=== PATIENT | female | born 1990 | race Caucasian/White ===

== ENCOUNTER 2016-06-10 07:22 | Emergency (ER) | payer OTHER ==
[~2016-06-10] VITALS: Ht 177.8 cm; Wt 107.0 kg
[2016-06-10] VITALS (8 sets, daily range): BP systolic 100–134; BP diastolic 53–82; PULSE 62–88; RESP 14–26; TEMP 98.1; O2SAT 90–100
[~2016-06-10 07:22] MED LIST: DOXY100T PO
--- NOTE | 2016-06-10 07:58 | PD ---
HPI . Pelvic pain Chief Complaint: Abdominal Pain Time Seen by Provider: 07:54 Travel History International Travel<30 days: No Contact w/Intl Traveler<30days: No Traveled to known affect area: No History of Present Illness HPI Patient presents with the acute onset of pelvic pain which started last night. It is worse this morning. She states that she had a vaginal discharge prior to the onset of the pelvic pain. She reports associated nausea and no vomiting. She also reports scant vaginal bleeding. She has had no fever. Urination increases the pelvic pain. Last normal menstrual period was in February. [id number]: Pelvic QUALITY: Cramping SEVERITY: Severe DURATION: 12 hours TIMING: Gradually worsening ASSOCIATED SYMPTOMS: Vaginal discharge prior to the onset of symptoms. Amenorrhea 3 months. PFSH Past Medical History Asthma: No Autoimmune Disease: Yes (Lupus) Heart Rhythm Problems: No Cancer: No High Cholesterol: No Chest Pain: No Congestive Heart Failure: No COPD: No Cerebrovascular Accident: No Endocrine: No Genitourinary: No Headaches: No Immune Disorder: Yes (LUPUS (July 2013)) Musculoskeletal: No Psychiatric: No Reproductive: No Respiratory: No Immunizations Current: No Migraines: No Seizures: Yes (once as a young child, another one 4-5yrs ago) Sleep Apnea: Yes (doesn't use CPAP) : 1 Para: 1 Past Surgical History Section: Yes Cholecystectomy: Yes Pacemaker: No Other Surgery: Yes (RT ARM STENT) Social History Alcohol Use: Yes (occ) Tobacco Use: No Substance Use: No Allergies-Medications (Allergen,Severity, Reaction): Coded Allergies: No Known Allergies (Unverified , 06/10/16) Reported Meds & Prescriptions Reported Meds & Active Scripts Active Ultram (Tramadol HCl) 50 Mg Tab 50 Mg PO Q4H PRN Ibuprofen 800 Mg Tab 800 Mg PO Q8H PRN Reported Prednisone 20 Mg Tab 20 Mg PO DAILY Mycophenolate (Mycophenolate Mofetil) 250 Mg Cap 750 Mg PO BID Review of Systems Except as stated in HPI: all other systems reviewed are Neg General / Constitutional: No: Fever, Chills Gastrointestinal: Positive: Nausea, Abdominal Pain, No: Vomiting Genitourinary: Positive: Pelvic Pain, Discharge, No: Urgency, Frequency, Dysuria Physical Exam Narrative GENERAL: Tearful young lady SKIN: Warm and dry. HEAD: Atraumatic. Normocephalic. EYES: Pupils equal and round. ENT: No nasal bleeding or discharge. Mucous membranes pink and moist. NECK: Trachea midline. CARDIOVASCULAR: Regular rate and rhythm. Heart sounds are normal. RESPIRATORY: No accessory muscle use. Lungs are clear. GASTROINTESTINAL: Abdomen soft. Suprapubic tenderness. Nondistended. : She has what appears to be tissue in the vaginal vault. It is brown and slimy. MUSCULOSKELETAL: No obvious deformities. No edema. NEUROLOGICAL: Awake and alert. No obvious cranial nerve deficits. Motor grossly within normal limits. Normal speech. PSYCHIATRIC: Appropriate mood and affect; insight and judgment normal. Data Data Last Documented VS Vital Signs Date Time Temp Pulse Resp B/P Pulse Ox O2 Delivery O2 Flow Rate FiO2 06/10/16 13:18 71 16 100/53 100 Nasal Cannula 2 06/10/16 07:29 98.1 Orders Gc And Chlamydia Pcr (06/10/16 07:54) Wet Prep Profile (06/10/16 07:54) Ua Includes Microscopic (06/10/16 07:54) Ed Urine Pregnancytest Poc (06/10/16 07:54) Beta Hcg (Quant/Titer) (06/10/16 08:24) Complete Rh (06/10/16 08:24) Iv Access Insert/Monitor (06/10/16 08:24) Ondansetron Inj (Zofran Inj) (06/10/16 08:30) Hydromorphone Pf Inj (Dilaudid Pf Inj) (06/10/16 08:30) Ondansetron Inj (Zofran Inj) (06/10/16 09:00) Hydromorphone Pf Inj (Dilaudid Pf Inj) (06/10/16 09:00) Acetaminophen (Tylenol) (06/10/16 10:15) Us Pelvis (Ques Preg/Ectopic) (06/10/16 ) Pathology Req For Addl Service (06/10/16 11:18) Ketorolac Inj (Toradol Inj) (06/10/16 12:00) Morphine Inj (Morphine Inj) (06/10/16 12:00) Lorazepam Inj (Ativan Inj) (06/10/16 12:00) Sodium Chlor 0.9% 1000 Ml Inj (Ns 1000 M (06/10/16 12:45) Labs Laboratory Tests Test 06/10/16 06/10/16 06/10/16 08:10 08:25 08:40 Urine Color YELLOW Urine Turbidity CLEAR Urine pH 8.5 Urine Specific [place] 1.019 Urine Protein 300 OR GREATER mg/dL Urine Glucose (UA) NEG mg/dL Urine Ketones NEG mg/dL Urine Occult Blood MOD Urine Nitrite NEG Urine Bilirubin NEG Urine Leukocyte Esterase NEG Urine RBC 4-9 /hpf Urine WBC 0-2 /hpf Urine Squamous Epithelial 0-5 /hpf Cells Urine Bacteria OCC /hpf Urine Mucus OCC /lpf Clue Cells (Wet Prep) NONE SEEN Vaginal Trichomonas (Wet Prep) NONE SEEN Vaginal Yeast (Wet Prep) NONE SEEN Chlamydia trachomatis DNA NOT DETECTED (PCR) Neisseria gonorrhoeae DNA NOT DETECTED (PCR) Human Chorionic Gonadotropin, 2397 MIU/ML Quant Blood Type O POSITIVE Rho(D) Type POSITIVE MDM Medical Decision Making Medical Screen Exam Complete: Yes Emergency Medical Condition: Yes Differential Diagnosis Differential diagnosis of pelvic pain includes but is not limited to UTI, PID, ectopic , spontaneous AB, constipation, viral illness Narrative Course Patient presents for the evaluation of acute pelvic pain. Her POC hCG was strongly positive. Blood type is O+ UA is not infected Quantitative hCG is 2400 Wet prep is negative 11:15 AM I was called to the room to see the patient as she felt like something was "passing." The patient was found to be delivering a nonviable fetus that appears 16-20 weeks in size. The patient was observed for a period of time following this. She is hemodynamically stable. Pain is controlled. Procedures Procedure Narrative DELIVERY OF NONVIABLE FETUS: The delivery of the nonviable fetus was assisted. The fetus, umbilical cord and placenta have all completely passed. Diagnosis Primary Impression: Spontaneous Referrals: Christopher Barcenas MD 2 days Patient Instructions: General Instructions, Miscarriage (DC), Narcotic given in the ED Med/Other Pt SpecificInfo: Prescription(s) given Scripts Tramadol (Ultram)50 Mg Tab50 Mg PO Q4H PRN (PAIN) #12 TAB Ref 0 Prov:Zuly Zamudio MD 06/10/16 Ibuprofen 800 Mg Ges861 Mg PO Q8H PRN (pain) #30 TAB Ref 0 Prov:Zuly Zamudio MD 06/10/16 Disposition: 01 DISCHARGE HOME Condition: Stable Zuly Zamudio MD Jun 10, 2016 07:58
[2016-06-10] MEDS ORDERED: PRED20 PO (08:01)
[2016-06-10] MEDS ORDERED: MYCO250C PO (08:01)
[2016-06-10] MEDS ORDERED: ONDANSETRON HCL 4 MG/2 ML VIAL IM ONE (08:30)
[2016-06-10] MEDS ORDERED: HYDROmorphone HCL PF 2 MG/ML VIAL IM ONE (08:30)
[2016-06-10 08:31] LABS: GLUCOSE,URINE NEG (NEG); KETONE, URINE NEG (NEG); NITRITE,URINE NEG (NEG); PH, URINE 8.5 (5.0-8.5)
[2016-06-10 08:32] LABS: BLOOD, URINE MOD (NEG)
[2016-06-10 08:41] LABS: URINE COLOR YELLOW (YELLW/STRAW)
[2016-06-10 08:42] LABS: BACTERIA, URINE OCC /hpf; MUCUS URINE OCC /lpf (OCC); SQUAMOUS EPITHELIAL CELL URINE 0-5 /hpf (0-5); WBC, URINE 0-2 /hpf (0-5)
[2016-06-10] MEDS ORDERED: ONDANSETRON HCL 4 MG/2 ML VIAL IV PUSH ONE (09:00)
[2016-06-10] MEDS ORDERED: HYDROmorphone HCL PF 2 MG/ML VIAL IV PUSH ONE (09:00)
[2016-06-10 09:55] LABS: BETA HCG QUANT 2397 MIU/ML (0-5)
[2016-06-10] MEDS ORDERED: ACETAMINOPHEN 325 MG TAB PO ONE (10:15)
--- NOTE | 2016-06-10 11:58 | RADHPO ---
EXAM DATE/TIME: 06/10/2016 10:18 [facility] COMPARISON: No previous studies available for comparison. INDICATIONS : Vaginal bleeding. LAB(S): Beta-hC,397 MEDICAL HISTORY : . Lupus. Seizures. Sleep apnea. PTSD. Clotting problems. SURGICAL HISTORY : section. Cholecystectomy. Right arm stent. ENCOUNTER: Initial ACUITY: 1 day PAIN SCORE: 4/10 LOCATION: Right pelvis MEASUREMENTS: UTERUS: 15.5 x 8.5 x 9.3 cm ENDOMETRIAL STRIPE: 13 mm RIGHT OVARY: 2.0 x 1.7 x 1.8 cm LEFT OVARY: 2.8 x 1.3 x 2.3 cm FINDINGS: UTERUS: The uterus is enlarged. The endometrium is mildly thickened. There is a 3.1 x 1.3 x 2.1 cm complex cy stic area in the lower uterine segment. No hypervascularity is seen within the endometrial cavity. Th e gestational sac is not seen. RIGHT OVARY: Ovary contains no mass or significant cystic lesion. LEFT OVARY: Ovary contains no mass or significant cystic lesion. MISCELLANEOUS: No free fluid. CONCLUSION: No intrauterine gestation is seen. There is some complex fluid seen in the lower endometrial canal. T his is nonspecific. Followup is recommended. Toi Cotton MD on June 10, 2016 at 11:48 Board Certified Radiologist. This report was verified electronically.
[2016-06-10] MEDS ORDERED: KETOROLAC TROMETHAMINE 30 MG/ML (IVP) VIAL IV PUSH ONE (12:00)
[2016-06-10] MEDS ORDERED: LORazepam 2 MG/ML VIAL IV PUSH ONE (12:00)
[2016-06-10] MEDS ORDERED: MORPHINE SULFATE 4 MG/ML INJ IV PUSH ONE (12:00)
[2016-06-10 12:21] LABS: CHLAMYDIA PCR NOT DETECTED (NOT DETECT); NEISSERIA PCR NOT DETECTED (NOT DETECT)
[2016-06-10] MEDS ORDERED: ULTR50TA5 PO (12:37)
[2016-06-10] MEDS ORDERED: IBUP800T23 PO (12:37)
[2016-06-10] MEDS ORDERED: SODIUM CHLOR 0.9% 1000 ML INJ 1,000 ML IV ONE (12:45)
== END 2016-06-10 14:19 | disposition home or self-care (01) ==
LOC: PHED 07:22
DX: O03.9 Complete or unspecified spontaneous abortion without complication (principal)
CPT/HCPCS: 76700; 81001; 84702; 84703; 86901; 87210; 87491; 87591; J1170; J1885; J2405; J7030

== ENCOUNTER 2016-10-28 03:41 | Emergency (ER) | payer MEDICAID, OTHER ==
[~2016-10-28] VITALS: Ht 177.8 cm; Wt 107.0 kg
[2016-10-28] VITALS (10 sets, daily range): BP systolic 112–135; BP diastolic 58–79; PULSE 97–130; RESP 16–28; TEMP 98–101.4; O2SAT 95–100
[~2016-10-28 03:41] MED LIST changes: -DOXY100T PO; +IBUP800T23 PO; +MYCO250C PO; +PRED20 PO; +ULTR50TA5 PO
[2016-10-28 04:05] LABS: MEAN CORPUSCULAR HGB CONC 37.6 % (32.0-36.0)
--- NOTE | 2016-10-28 04:07 | PD ---
HPI Chief Complaint: shortness of breath Time Seen by Provider: 04:03 Travel History International Travel<30 days: No Contact w/Intl Traveler<30days: No Traveled to known affect area: No History of Present Illness HPI 26-year-old female with history of asthma as a child, lupus, presents to the ER today for 5 days history of coughing, having shortness of breath today, sore throat, subjective fevers. She denies any vomiting or any other symptoms. Modifying Factors: None Associated Signs & Symptoms: Coughing, shortness of breath, fevers Risk Factors: Asthma PFSH Past Medical History Asthma: No Autoimmune Disease: Yes (Lupus) Heart Rhythm Problems: No Cancer: No High Cholesterol: No Chest Pain: No Congestive Heart Failure: No COPD: No Cerebrovascular Accident: No Endocrine: No Genitourinary: No Headaches: No Immune Disorder: Yes (LUPUS (July 2013)) Musculoskeletal: No Psychiatric: No Reproductive: No Respiratory: No Immunizations Current: Yes Migraines: No Seizures: Yes (once as a young child, once as adult) Sleep Apnea: Yes (doesn't use CPAP) : 1 Para: 1 Past Surgical History Section: Yes Cholecystectomy: Yes Pacemaker: No Other Surgery: Yes (RT ARM STENT) Social History Alcohol Use: Yes (occ) Tobacco Use: No (never) Substance Use: No Allergies-Medications (Allergen,Severity, Reaction): Coded Allergies: No Known Allergies (Unverified , 10/28/16) Reported Meds & Prescriptions Reported Meds & Active Scripts Active Ibuprofen 800 Mg Tab 800 Mg PO Q8H PRN Reported Cold & Cough Daytime Liq (Acetaminophen-Dextromethorphan Liq) 1,000-30 Mg/30 Ml Liqd 30 Ml PO Q8HR PRN Review of Systems Except as stated in HPI: all other systems reviewed are Neg Physical Exam Narrative GENERAL: Well-developed young female patient currently in mild respiratory distress. Awake and oriented 3. SKIN: Focused skin assessment warm/dry. HEAD: Atraumatic. Normocephalic. EYES: Pupils equal and round. No scleral icterus. No injection or drainage. ENT: No nasal bleeding or discharge. Mucous membranes pink and moist. NECK: Trachea midline. No JVD. CARDIOVASCULAR: Regular rate and rhythm. No murmur appreciated. RESPIRATORY: Mild accessory muscle use. Mild intermittent wheezing bilaterally on auscultation. Breath sounds equal bilaterally. GASTROINTESTINAL: Abdomen soft, non-tender, nondistended. Hepatic and splenic margins not palpable. MUSCULOSKELETAL: No obvious deformities. No clubbing. No cyanosis. No edema. NEUROLOGICAL: Awake and alert. No obvious cranial nerve deficits. Motor grossly within normal limits. Normal speech. PSYCHIATRIC: Appropriate mood and affect; insight and judgment normal. Data Data Last Documented VS Vital Signs Date Time Temp Pulse Resp B/P Pulse Ox O2 Delivery O2 Flow Rate FiO2 10/28/16 06:25 100.4 107 20 123/64 99 Nasal Cannula 2 Orders Complete Blood Count With Diff (10/28/16 04:03) Comprehensive Metabolic Panel (10/28/16 04:03) D-Dimer (10/28/16 04:03) Act Partial Throm Time (Ptt) (10/28/16 04:03) Prothrombin Time / Inr (Pt) (10/28/16 04:03) Iv Access Insert/Monitor (10/28/16 04:03) Ecg Monitoring (10/28/16 04:03) Oximetry (10/28/16 04:03) Oxygen Administration (10/28/16 04:03) Chest, Single Ap (10/28/16 04:03) Sodium Chloride 0.9% Flush (Ns Flush) (10/28/16 04:15) Methylprednisolone So Succ Inj (Solumedr (10/28/16 04:15) Albuterol-Ipratropium Neb (Duoneb Neb) (10/28/16 04:15) Ed Urine Pregnancytest Poc (10/28/16 04:03) Blood Culture (10/28/16 04:49) Group A Rapid Strep Screen (10/28/16 04:49) Resp Lab Draw Arterial Punctur (10/28/16 ) Ceftriaxone Inj (Rocephin Inj) (10/28/16 05:03) Azithromycin Inj (Zithromax Inj) (10/28/16 05:03) Acetaminophen (Tylenol) (10/28/16 05:15) Strep Culture (Group A) (10/28/16 05:00) Vascular Access Team Consult/P PRN (10/28/16 06:07) Vascular Poc Ultrasound (10/28/16 ) Sodium Chlor 0.9% 1000 Ml Inj (Ns 1000 M (10/28/16 06:30) Ventilation & Perfusion Scan (10/28/16 06:27) Urinalysis - C+S If Indicated (10/28/16 06:52) Labs Laboratory Tests Test 10/28/16 10/28/16 10/28/16 04:10 05:20 05:25 White Blood Count 9.0 TH/MM3 Red Blood Count 2.20 MIL/MM3 Hemoglobin 8.2 GM/DL Hematocrit 21.8 % Mean Corpuscular Volume 99.3 FL Mean Corpuscular Hemoglobin 37.3 PG Mean Corpuscular Hemoglobin 37.6 % Concent Red Cell Distribution Width 13.1 % Platelet Count 169 TH/MM3 Mean Platelet Volume 10.9 FL Neutrophils (%) (Auto) 71.8 % Lymphocytes (%) (Auto) 12.0 % Monocytes (%) (Auto) 9.7 % Eosinophils (%) (Auto) 2.3 % Basophils (%) (Auto) 4.2 % Neutrophils # (Auto) 6.4 TH/MM3 Lymphocytes # (Auto) 1.1 TH/MM3 Monocytes # (Auto) 0.9 TH/MM3 Eosinophils # (Auto) 0.2 TH/MM3 Basophils # (Auto) 0.4 TH/MM3 CBC Comment AUTO DIFF Differential Total Cells 100 Counted Neutrophils % (Manual) 66 % Band Neutrophils % 1 % Lymphocytes % 18 % Monocytes % 13 % Eosinophils % 2 % Neutrophils # (Manual) 6.0 TH/MM3 Nucleated Red Blood Cells 1 /100 WBC Differential Comment FINAL DIFF MANUAL Platelet Estimate NORMAL Platelet Morphology Comment NORMAL Polychromasia 2.5 % Spherocytes OCC Prothrombin Time 10.9 SEC Prothromb Time International 1.0 RATIO Ratio Activated Partial 42.7 SEC Thromboplast Time D-Dimer Quantitative (PE/DVT) 3.18 MG/L FEU Sodium Level 137 MEQ/L Potassium Level 3.3 MEQ/L Chloride Level 105 MEQ/L Carbon Dioxide Level 23.5 MEQ/L Anion Gap 9 MEQ/L Blood Urea Nitrogen 10 MG/DL Creatinine 0.46 MG/DL Estimat Glomerular Filtration 163 ML/MIN Rate Random Glucose 121 MG/DL Calcium Level 8.9 MG/DL Total Bilirubin 1.2 MG/DL Aspartate Amino Transf 36 U/L (AST/SGOT) Alanine Aminotransferase 45 U/L (ALT/SGPT) Alkaline Phosphatase 123 U/L Total Protein 7.0 GM/DL Albumin 2.7 GM/DL MDM Medical Decision Making Medical Screen Exam Complete: Yes Emergency Medical Condition: Yes Medical Record Reviewed: Yes Interpretation(s) Laboratory Tests Test 10/28/16 10/28/16 10/28/16 04:10 05:20 05:25 Red Blood Count 2.20 MIL/MM3 (4.00-5.30) Hemoglobin 8.2 GM/DL (11.6-15.3) Hematocrit 21.8 % (35.0-46.0) Mean Corpuscular Hemoglobin 37.3 PG (27.0-34.0) Mean Corpuscular Hemoglobin 37.6 % Concent (32.0-36.0) Neutrophils (%) (Auto) 71.8 % (16.0-70.0) Monocytes (%) (Auto) 9.7 % (0.0-8.0) Basophils (%) (Auto) 4.2 % (0.0-2.0) Basophils # (Auto) 0.4 TH/MM3 (0-0.2) Monocytes % 13 % (0-8) Nucleated Red Blood Cells 1 /100 WBC (0-0) Polychromasia 2.5 % (0.0-1.9) Spherocytes OCC (NORMAL) Activated Partial 42.7 SEC Thromboplast Time (24.3-30.1) D-Dimer Quantitative (PE/DVT) 3.18 MG/L FEU (0.00-0.50) Potassium Level 3.3 MEQ/L (3.5-5.1) Creatinine 0.46 MG/DL (0.50-1.00) Random Glucose 121 MG/DL (74-106) Total Bilirubin 1.2 MG/DL (0.2-1.0) Alkaline Phosphatase 123 U/L (45-117) Albumin 2.7 GM/DL (3.4-5.0) Last 24 hours Impressions Chest X-Ray 10/28/16 0403 Signed Impressions: Service Date/Time: Friday, October 28, 2016 04:07 - CONCLUSION: No acute disease. Rohit Cummins MD Differential Diagnosis Cough, shortness of breath, feverspneumonia versus bronchitis versus asthma exacerbation versus anxiety attack Narrative Course Chest x-ray did not show any signs of acute pulmonary processes. She was given Solu-Medrol and nebulizer in the ER with some improvement in breathing. Rapid strep is negative. Her lab work is showing significant dimer elevation. VQ scan was ordered for further evaluation. IV antibiotics ceftriaxone and Zithromax were given as precaution cultures have been drawn. Physician Communication Physician Communication Case is signed out to Dr. Oscar at 7 AM pending VQ scan. Disposition based on CAT scan. Diagnosis Primary Impression: Respiratory distress Condition: Stable Juana Ugarte MD Oct 28, 2016 04:07
[2016-10-28] MEDS: RESP: ALBUTEROL 2.5 MG/IPRATROPIUM 0.5 MG NEB (SCH) INH ×2 (04:12→04:25)
[2016-10-28] MEDS ORDERED: methylPREDNISolone SOD SUCC 125 MG/2 ML VIAL IVP ONE (04:15)
[2016-10-28] MEDS ORDERED: SODIUM CHLORIDE 0.9% FLUSH 10 ML FLUSH IVF PRN (04:15)
--- NOTE | 2016-10-28 04:27 | RADRPT ---
EXAM DATE/TIME: 10/28/2016 04:07 [facility] COMPARISON: No previous studies available for comparison. INDICATIONS : Short of breath. MEDICAL HISTORY : None. SURGICAL HISTORY : None. ENCOUNTER: Initial ACUITY: 1 day PAIN SCORE: 6/10 LOCATION: Bilateral chest FINDINGS: A single view of the chest demonstrates the lungs to be symmetrically aerated without evidence of mas s, infiltrate or effusion. The cardiomediastinal contours are unremarkable. Osseous structures are intact. CONCLUSION: No acute disease. Rohit Cummins MD on October 28, 2016 at 4:26 Board Certified Radiologist. This report was verified electronically.
[2016-10-28 04:38] LABS: AUTOMATED NEUTROPHIL # 6.4 TH/MM3 (1.8-7.7); BASOPHIL # 0.4 TH/MM3 (0-0.2); BASOPHIL % 4.2 % (0.0-2.0); EOSINOPHIL # 0.2 TH/MM3 (0-0.4); EOSINOPHIL % 2.3 % (0.0-4.0); HEMATOCRIT 21.8 % (35.0-46.0); LYMPHOCYTE # 1.1 TH/MM3 (1.0-4.8); MEAN CELL VOLUME 99.3 FL (80.0-100.0); MEAN CORPUSCULAR HEMOGLOBIN 37.3 PG (27.0-34.0); MONO % 9.7 % (0.0-8.0); NEUT % 71.8 % (16.0-70.0); PLATELET COUNT 169 TH/MM3 (150-450); RED CELL DISTRIBUTION WIDTH 13.1 % (11.6-17.2)
[2016-10-28 04:40] LABS: HEMO FLAGS AUTO DIFF
[2016-10-28] MEDS ORDERED: ACET1LIQ PO (05:01)
[2016-10-28] MEDS ORDERED: cefTRIAXone INJ 2,000 MG in SODIUM CHLORIDE 0.9% INJ 100 ML IV STA (05:03)
[2016-10-28] MEDS ORDERED: AZITHROMYCIN INJ 500 MG in SODIUM CHLOR 0.9% 250 ML INJ 250 ML IV STA (05:03)
[2016-10-28 05:11] LABS: BANDS 1 % (0-6); CORRECTED NUCLEATED RBC 1 /100 WBC (0-0); EOSINOPHILS 2 % (0-4); POLYS (SEG NEUTROPHILS) 66 % (16-70); WBC DIFF SAMPLE 100
[2016-10-28 05:13] LABS: POLYCHROMASIA 2.5 % (0.0-1.9)
[2016-10-28 05:14] LABS: PLATELET ESTIMATE SMEAR NORMAL (NORMAL); PLATELET MORPHOLOGY NORMAL (NORMAL); SCAN/DIFF FINAL DIFF MANUAL; SPHEROCYTES OCC (NORMAL)
[2016-10-28] MEDS ORDERED: ACETAMINOPHEN 500 MG CPLT PO ONE (05:15)
[2016-10-28 06:00] LABS: CHLORIDE 105 MEQ/L (98-107); POTASSIUM 3.3 MEQ/L (3.5-5.1); SODIUM (NA) 137 MEQ/L (136-145)
[2016-10-28 06:03] LABS: ANION GAP 9 MEQ/L (5-15); BICARBONATE 23.5 MEQ/L (21.0-32.0)
[2016-10-28 06:04] LABS: BLOOD UREA NITROGEN 10 MG/DL (7-18)
[2016-10-28 06:05] LABS: APTT (PATIENT) 42.7 SEC (24.3-30.1); PROTHROMBIN TIME - PATIENT 10.9 SEC (9.8-11.6)
[2016-10-28 06:06] LABS: ALT (GPT) 45 U/L (10-53); AST (GOT) 36 U/L (15-37)
[2016-10-28 06:07] LABS: GLOMERULAR FILTRATION RATE 163 ML/MIN (>89)
[2016-10-28 06:08] LABS: TOTAL BILIRUBIN ADULT 1.2 MG/DL (0.2-1.0)
[2016-10-28 06:09] LABS: ALKALINE PHOSPHATASE 123 U/L (45-117)
[2016-10-28] MEDS ORDERED: SODIUM CHLOR 0.9% 1000 ML INJ 1,000 ML IV ONE (06:30)
[2016-10-28] MEDS ORDERED: diphenhydrAMINE HCL 50 MG/ML VIAL IV PUSH ONE (07:15)
[2016-10-28] MEDS ORDERED: FAMOTIDINE 20 MG/2 ML VIAL IV PUSH ONE (07:15)
[2016-10-28 07:18] LABS: BLOOD, URINE LARGE (NEG); GLUCOSE,URINE NEG (NEG); KETONE, URINE NEG (NEG); NITRITE,URINE NEG (NEG); PH, URINE 6.5 (5.0-8.5)
[2016-10-28 07:19] LABS: METHOD OF COLLECTION CLEAN CATCH; URINE COLOR YELLOW (YELLW/STRAW)
[2016-10-28 07:36] LABS: BACTERIA, URINE RARE /hpf; COMMENT (UR) CULT NOT INDICATED; CULTURE IF INDICATED CULT NOT INDICATED; SQUAMOUS EPITHELIAL CELL URINE 0-5 /hpf (0-5)
--- NOTE | 2016-10-28 07:40 | PD ---
Data Data Last Documented VS Vital Signs Date Time Temp Pulse Resp B/P Pulse Ox O2 Delivery O2 Flow Rate FiO2 10/28/16 12:17 98.1 100 18 124/78 95 Room Air 10/28/16 11:22 2 Orders Complete Blood Count With Diff (10/28/16 04:03) Comprehensive Metabolic Panel (10/28/16 04:03) D-Dimer (10/28/16 04:03) Act Partial Throm Time (Ptt) (10/28/16 04:03) Prothrombin Time / Inr (Pt) (10/28/16 04:03) Iv Access Insert/Monitor (10/28/16 04:03) Ecg Monitoring (10/28/16 04:03) Oximetry (10/28/16 04:03) Oxygen Administration (10/28/16 04:03) Chest, Single Ap (10/28/16 04:03) Sodium Chloride 0.9% Flush (Ns Flush) (10/28/16 04:15) Methylprednisolone So Succ Inj (Solumedr (10/28/16 04:15) Albuterol-Ipratropium Neb (Duoneb Neb) (10/28/16 04:15) Ed Urine Pregnancytest Poc (10/28/16 04:03) Blood Culture (10/28/16 04:49) Group A Rapid Strep Screen (10/28/16 04:49) Resp Lab Draw Arterial Punctur (10/28/16 ) Ceftriaxone Inj (Rocephin Inj) (10/28/16 05:03) Azithromycin Inj (Zithromax Inj) (10/28/16 05:03) Acetaminophen (Tylenol) (10/28/16 05:15) Strep Culture (Group A) (10/28/16 05:00) Vascular Access Team Consult/P PRN (10/28/16 06:07) Vascular Poc Ultrasound (10/28/16 ) Sodium Chlor 0.9% 1000 Ml Inj (Ns 1000 M (10/28/16 06:30) Ventilation & Perfusion Scan (10/28/16 06:27) Urinalysis - C+S If Indicated (10/28/16 06:52) Diphenhydramine Inj (Benadryl Inj) (10/28/16 07:15) Famotidine Inj (Pepcid Inj) (10/28/16 07:15) Influenzae A/B Antigen (10/28/16 07:48) Potassium Chloride (Kcl) (10/28/16 09:15) Ct Pulmonary Angiogram (10/28/16 10:35) Iohexol 350 Inj (Omnipaque 350 Inj) (10/28/16 11:06) Labs Laboratory Tests Test 10/28/16 10/28/16 10/28/16 10/28/16 04:10 05:20 05:25 05:40 White Blood Count 9.0 TH/MM3 Red Blood Count 2.20 MIL/MM3 Hemoglobin 8.2 GM/DL Hematocrit 21.8 % Mean Corpuscular Volume 99.3 FL Mean Corpuscular Hemoglobin 37.3 PG Mean Corpuscular Hemoglobin 37.6 % Concent Red Cell Distribution Width 13.1 % Platelet Count 169 TH/MM3 Mean Platelet Volume 10.9 FL Neutrophils (%) (Auto) 71.8 % Lymphocytes (%) (Auto) 12.0 % Monocytes (%) (Auto) 9.7 % Eosinophils (%) (Auto) 2.3 % Basophils (%) (Auto) 4.2 % Neutrophils # (Auto) 6.4 TH/MM3 Lymphocytes # (Auto) 1.1 TH/MM3 Monocytes # (Auto) 0.9 TH/MM3 Eosinophils # (Auto) 0.2 TH/MM3 Basophils # (Auto) 0.4 TH/MM3 CBC Comment AUTO DIFF Differential Total Cells 100 Counted Neutrophils % (Manual) 66 % Band Neutrophils % 1 % Lymphocytes % 18 % Monocytes % 13 % Eosinophils % 2 % Neutrophils # (Manual) 6.0 TH/MM3 Nucleated Red Blood Cells 1 /100 WBC Differential Comment FINAL DIFF MANUAL Platelet Estimate NORMAL Platelet Morphology Comment NORMAL Polychromasia 2.5 % Spherocytes OCC Prothrombin Time 10.9 SEC Prothromb Time International 1.0 RATIO Ratio Activated Partial 42.7 SEC Thromboplast Time D-Dimer Quantitative (PE/DVT) 3.18 MG/L FEU Sodium Level 137 MEQ/L Potassium Level 3.3 MEQ/L Chloride Level 105 MEQ/L Carbon Dioxide Level 23.5 MEQ/L Anion Gap 9 MEQ/L Blood Urea Nitrogen 10 MG/DL Creatinine 0.46 MG/DL Estimat Glomerular Filtration 163 ML/MIN Rate Random Glucose 121 MG/DL Calcium Level 8.9 MG/DL Total Bilirubin 1.2 MG/DL Aspartate Amino Transf 36 U/L (AST/SGOT) Alanine Aminotransferase 45 U/L (ALT/SGPT) Alkaline Phosphatase 123 U/L Total Protein 7.0 GM/DL Albumin 2.7 GM/DL Urine Collection Type CLEAN CATCH Urine Color YELLOW Urine Turbidity CLEAR Urine pH 6.5 Urine Specific [place] 1.006 Urine Protein 100 mg/dL Urine Glucose (UA) NEG mg/dL Urine Ketones NEG mg/dL Urine Occult Blood LARGE Urine Nitrite NEG Urine Bilirubin NEG Urine Leukocyte Esterase NEG Urine RBC 4-9 /hpf Urine WBC 3-5 /hpf Urine Squamous Epithelial 0-5 /hpf Cells Urine Bacteria RARE /hpf Microscopic Urinalysis Comment CULT NOT INDICATED MDM Medical Record Reviewed: Yes Supervised Visit with LAITH: No Narrative Course PLEASE REFER TO OUTGOING PROVIDER NOTE. CBC & BMP Diagram 10/28/16 04:10 10/28/16 05:25 LFTs normal INR 1.0 PTT elevated at 42.7 UA: large hematuria DDIMER 3.18 POC negative Last [address] Angiography 10/28/16 1035 Signed Impressions: Service Date/Time: Friday, October 28, 2016 10:46 - CONCLUSION: 1. There is no evidence for PE for technique. 2. Right middle lobe and lower lobe infiltrates may be inflammatory. 3. Multinodular goiter. 4. Benign appearing lymph nodes as above and benign-appearing partially calcified anterior mediastinal nodule, repeat noncontrast chest CT is suggested in 12 months as a conservative follow up. Wero Coles MD Lung Scan-V Nuclear Medicine 10/28/16 2171 Signed Impressions: Service Date/Time: Friday, October 28, 2016 09:12 - CONCLUSION: Scan findings are intermediate probability and CT angiogram is suggested to further characterize. Wero Coles MD Chest X-Ray 10/28/16 9609 Signed Impressions: Service Date/Time: Friday, October 28, 2016 04:07 - CONCLUSION: No acute disease. Rohit Cummins MD 710AM: urticarial rash bilateral lower extremities after rocephin was nearly completed, benadryl/pepcid started, rocephin dc'd, solumedrol had been given already, tachycardia at approx 100-110; vq scan pending; 2L NS transfused; pt recalls blood transfusion in [place] approx 9 months prior attributed to hx lupus; last menstruation was heavy per patient; no black/bloody stool 745AM: pt ambulated to bathroom without difficulty 1005AM: pt resting comfortably, reports no chest pain, LE urticarial rash has resolved 1201PM: PT AMBULATORY WITHOUT DIFFICULTY; WE DISCUSSED THYROID NODULES AND MEDIASTINAL NODULE W 12 MONTH F/U RECOMMENDED; PRESENTATION MOST LIKELY 2/2 INFECTIOUS STATE; WE'LL DISCHARGE WITH AZITHROMYCIN AND ALBUTEROL INHALER; RETURN PRECAUTIONS DISCUSSED; WE ALSO DISCUSSED ANEMIA AND RETURN PRECAUTIONS FOR THAT'; PT AGREEABLE WITH PLAN; [facility] F/U INFORMATION PROVIDED ; PT VERBALIZED UNDERSTANDING. Diagnosis Primary Impression: Respiratory distress Additional Impressions: PNA (pneumonia) Qualified Code: J18.9 - Pneumonia of right lung due to infectious organism, unspecified part of lung Anemia Qualified Code: D64.9 - Anemia, unspecified type Allergic reaction caused by a drug Qualified Code: T78.40XA - Allergic reaction caused by a drug, initial encounter Pharyngitis Qualified Code: J02.9 - Pharyngitis, unspecified etiology Multinodular thyroid Lung nodule Referrals: [facility] call for appointment Additional Instruction: PLEASE RETURN TO THE ER IF YOU DEVELOP HEADACHE, SHORTNESS OF BREATH, PALPITATIONS, WEAKNESS, OR LIGHTHEADEDNESS. PLEASE BE SURE TO FOLLOW UP WITH [facility] FOR ULTRASOUND OF THE THYROID AND TO SCHEDULE A REPEAT CHEST CT IN 12 MONTHS. You have a choice when it comes to health care, and we are glad that you chose [facility]. Hopefully, we have met your expectations on today's visit. You are welcome to return to [facility] at any time, as we are committed to meeting the health care needs of our community. Med/Other Pt SpecificInfo: Prescription(s) given Scripts Albuterol 8.5 GM Inh (Proair Hfa 8.5 GM Inh)90 Mcg/Act Aer2 Puff INH Q6H PRN ( COUGH) #1 INHALER Ref 0 108 mcg/actuation Prov:Tye Oscar MD 10/28/16 Azithromycin 250 Mg [id number] Mg PO DAILY 4 Days Ref 0 Prov:Tye Oscar MD 10/28/16 Disposition: DISCHARGE HOME Condition: Stable Tye Oscar MD Oct 28, 2016 07:40
[2016-10-28] MEDS ORDERED: POTASSIUM CHLORIDE 20 MEQ CONTROLLED RELEASE TAB PO ONE (09:15)
--- NOTE | 2016-10-28 10:22 | RADRPT ---
EXAM DATE/TIME: 10/28/2016 09:12 [facility] COMPARISON: CHEST SINGLE AP, October 28, 2016, 4:07. INDICATIONS : Shortness of breath with a cough for one day. DOSE: 8.7 mCi Tc99m MAA IV 1.4 mCi Tc99m DTPA aerosol MEDICAL HISTORY : Lupus. SURGICAL HISTORY : Cholecystectomy. section. ENCOUNTER: Initial ACUITY: 1 day PAIN SCALE: 0/10 LOCATION: chest TECHNIQUE: Following five minutes of tidal breathing of DTPA aerosol, planar images of the lungs were performed in eight projections. The patient was then injected with MAA, and eight-view perfusion scan was perf ormed. FINDINGS: There are small areas of matched defect in the lower lobes bilaterally with probable artifactual defe ct in the region of the hilum on the right side. The chest x-ray is clear. CONCLUSION: Scan findings are intermediate probability and CT angiogram is suggested to further characterize. Wero Coles MD on October 28, 2016 at 10:19 Board Certified Radiologist. This report was verified electronically.
[2016-10-28] MEDS ORDERED: IOHEXOL 350 MG/ML 10 ML VIAL (for RAD DIAG) IV ONE (11:06)
--- NOTE | 2016-10-28 11:18 | RADRPT ---
EXAM DATE/TIME: 10/28/2016 10:46 [facility] COMPARISON: LUNG VENTILATION & PERFUSION SCAN, October 28, 2016, 9:12. INDICATIONS : Short of breath and cough. Evaluate for embolism. IV CONTRAST: 65 cc Omnipaque 350 (iohexol) IV RADIATION DOSE: 20.70 CTDIvol (mGy) MEDICAL HISTORY : Lupus. SURGICAL HISTORY : Cholecystectomy. section. ENCOUNTER: Initial ACUITY: 4 - 6 days PAIN SCALE: 0/10 LOCATION: chest TECHNIQUE: Volumetric scanning of the chest was performed using a pulmonary embolism protocol MIP images were re constructed. Using automated exposure control and adjustment of the mA and/or kV according to patien t size, radiation dose was kept as low as reasonably achievable to obtain optimal diagnostic quality images. DICOM format image data is available electronically for review and comparison. Follow-up recommendations for incidentally detected pulmonary nodules are based at a minimum on nodul e size and patient risk factors according to Fleischner Society Guidelines. FINDINGS: There is no evidence for PE for technique.There is slight infiltrate in right middle lobe with vague infiltrate in right lower lobe anteromedially. Multinodular goiter is present with enlarged thyroid g land bilaterally measuring 4.4 cm on the left in AP diameter almost 4.2 cm on the right. There is no pleural effusionThere are benign-appearing lymph nodes in bilateral axilla the largest one measures 1 .6 cm on the right. There are also benign appearing lymph nodes within the mediastinum the largest on e measures 1.7 cm in size in the subcarinal location. Residual thymic tissue is present in the anteri or mediastinum with a partially calcified anterior mediastinal nodule measures 1.5 cm in size. CONCLUSION: 1. There is no evidence for PE for technique. 2. Right middle lobe and lower lobe infiltrates may be inflammatory. 3. Multinodular goiter. 4. Benign appearing lymph nodes as above and benign-appearing partially calcified anterior mediastina l nodule, repeat noncontrast chest CT is suggested in 12 months as a conservative follow up. Wero Coles MD on October 28, 2016 at 11:10 Board Certified Radiologist. This report was verified electronically.
[2016-10-28] MEDS ORDERED: AZIT250T3 PO (12:19)
[2016-10-28] MEDS ORDERED: ALBUAER3 INH (12:19)
== END 2016-10-28 13:03 | disposition home or self-care (01) ==
LOC: PHED 03:41
DX: R06.00 Dyspnea, unspecified (principal); J18.9 Pneumonia, unspecified organism; D64.9 Anemia, unspecified; T78.40XA Allergy, unspecified, initial encounter; T50.905A Adverse effect of unspecified drugs, medicaments and biological substances, initial encounter; J02.9 Acute pharyngitis, unspecified; E04.2 Nontoxic multinodular goiter; R91.1 Solitary pulmonary nodule; Z86.2 Personal history of diseases of the blood and blood-forming organs and certain disorders involving the immune mechanism; Z86.69 Personal history of other diseases of the nervous system and sense organs
CPT/HCPCS: 36600; 71010; 71275; 78582; 80053; 81001; 84703; 85007; 85027; 85379; 85610; 85730; 87040; 87081; 87804; 87880; 94640; 94664; 96361; 96374; 96375; 99285; A9540; A9567; J0456; J0696; J1200; J2930; J7030; J7050; Q9967

== ENCOUNTER 2017-01-06 23:10 | Emergency (ER) | payer SELFPAY ==
[~2017-01-06] VITALS: Ht 175.3 cm; Wt 108.6 kg
[~2017-01-06 23:10] MED LIST changes: +ACET1LIQ PO; +ALBUAER3 INH; +AZIT250T3 PO; -MYCO250C PO; -PRED20 PO; -ULTR50TA5 PO
[2017-01-06 23:17] VITALS: BP 118/70; PULSE 83; RESP 16; TEMP 97.4; O2SAT 100
[2017-01-07 00:38] VITALS: BP 118/70; PULSE 83; RESP 16; TEMP 97.4; O2SAT 100
--- NOTE | 2017-01-07 01:11 | PD ---
HPI Chief Complaint: Eye Problems/Injury Time Seen by Provider: 01:06 Travel History International Travel<30 days: No Contact w/Intl Traveler<30days: No Traveled to known affect area: No History of Present Illness HPI The patient is a 26-year-old female that complained of double vision for one week. When she looks to the left that is when the double vision appears. She went to her solar photovoltaic systems engineer, Dr. Edward, who told her to get an MRI. She comes into the emergency department to get an MRI. She denies any head trauma. She states that she has a left-sided retro-orbital headache on and off for about a week. She has no insurance and no primary care doctor. The MRI brain without contrast shows occasional tiny foci of nonspecific white matter signal change but is otherwise unremarkable. 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) Musculoskeletal: No Psychiatric: No Reproductive: No Respiratory: No Immunizations Current: Yes Migraines: No Seizures: Yes (TWICE) Sleep Apnea: Yes Tetanus Vaccination: > 5 Years Influenza Vaccination: No ?: Not LMP: 12/30/2016 : 2 Para: 1 Miscarriage: 1 Dilation and Curettage (D&C): Yes (2016) Past Surgical History Section: Yes (2012) Cholecystectomy: Yes Pacemaker: No Other Surgery: Yes (RT ARM STENT) Social History Alcohol Use: Yes (RARELY) Tobacco Use: No Substance Use: No Allergies-Medications (Allergen,Severity, Reaction): Coded Allergies: ceftriaxone (Unverified Allergy, Severe, Hives, 01/07/17) Reported Meds & Prescriptions Reported Meds & Active Scripts Active No Active Prescriptions or Reported Medications Review of Systems Except as stated in HPI: all other systems reviewed are Neg Physical Exam Narrative GENERAL: [-] SKIN: Focused skin assessment warm/dry. HEAD: Atraumatic. Normocephalic. EYES: Pupils equal and round. No scleral icterus. No injection or drainage. The patient has double vision on the left. It appears that the left abducens is not operating fully, the left eye does not turn to the left as far as the right eye. There is no double vision on right lateral gaze. Fundi appear sharp and venous pulsations are seen in the upright position. ENT: No nasal bleeding or discharge. Mucous membranes pink and moist. NECK: Trachea midline. No JVD. CARDIOVASCULAR: Regular rate and rhythm. No murmur appreciated. RESPIRATORY: No accessory muscle use. Clear to auscultation. Breath sounds equal bilaterally. GASTROINTESTINAL: Abdomen soft, non-tender, nondistended. Hepatic and splenic margins not palpable. MUSCULOSKELETAL: No obvious deformities. No clubbing. No cyanosis. No edema. NEUROLOGICAL: Awake and alert. No obvious cranial nerve deficits. Motor grossly within normal limits. Normal speech. PSYCHIATRIC: Appropriate mood and affect; insight and judgment normal. Data Data Last Documented VS Vital Signs Date Time Temp Pulse Resp B/P (MAP) Pulse Ox O2 Delivery O2 Flow Rate FiO2 01/07/17 03:33 98.1 83 14 132/67 (88) 100 Room Air Orders Orders Complete Blood Count With Diff (01/07/17 01:14) Basic Metabolic Panel (Bmp) (01/07/17 01:14) Urinalysis - C+S If Indicated (01/07/17 01:14) Mri Brain W/O Contrast (01/07/17 01:11) Potassium Chloride (Kcl) (01/07/17 03:45) Labs Laboratory Tests Test 01/07/17 01:50 White Blood Count 4.7 TH/MM3 Red Blood Count 3.04 MIL/MM3 Hemoglobin 9.0 GM/DL Hematocrit 27.2 % Mean Corpuscular Volume 89.4 FL Mean Corpuscular Hemoglobin 29.5 PG Mean Corpuscular Hemoglobin Concent 33.0 % Red Cell Distribution Width 15.3 % Platelet Count 159 TH/MM3 Mean Platelet Volume 11.2 FL Neutrophils (%) (Auto) 61.8 % Lymphocytes (%) (Auto) 28.2 % Monocytes (%) (Auto) 7.3 % Eosinophils (%) (Auto) 2.7 % Basophils (%) (Auto) 0.0 % Neutrophils # (Auto) 3.0 TH/MM3 Lymphocytes # (Auto) 1.3 TH/MM3 Monocytes # (Auto) 0.3 TH/MM3 Eosinophils # (Auto) 0.1 TH/MM3 Basophils # (Auto) 0.0 TH/MM3 CBC Comment AUTO DIFF Differential Comment AUTO DIFF CONFIRMED Platelet Estimate NORMAL Platelet Morphology Comment CLUMPED Hematology Comments Blood Urea Nitrogen 20 MG/DL Creatinine 0.52 MG/DL Random Glucose 88 MG/DL Calcium Level 8.8 MG/DL Sodium Level 139 MEQ/L Potassium Level 3.2 MEQ/L Chloride Level 105 MEQ/L Carbon Dioxide Level 28.5 MEQ/L Anion Gap 6 MEQ/L Estimat Glomerular Filtration Rate 141 ML/MIN MDM Medical Decision Making Medical Screen Exam Complete: Yes Emergency Medical Condition: Yes Medical Record Reviewed: Yes Interpretation(s) The MRI is normal except for occasional tiny foci of nonspecific white matter signal change. The CBC shows a hemoglobin of 9.0 and hematocrit of 27.2 but is otherwise unremarkable. The basic metabolic profile shows potassium of 3.2 and BUN of 20 but is otherwise unremarkable. Differential Diagnosis Ischemic CVA, brain tumor, abducens palsy Narrative Course The patient appears to have an abducens palsy. There is no evidence for brain tumor or ischemia in the brain. She does have a headache in this area and the reason for the abducens palsy is unknown at this time. She will need to follow- up with her solar photovoltaic systems engineer and, perhaps her neurologist. Diagnosis Primary Impression: Abducent nerve palsy, left eye Additional Instructions: Follow-up with your solar photovoltaic systems engineer and perhaps a neurologist. At this time, we do not know the reason for the weakness and that muscle on the left eye. Scripts No Active Prescriptions or Reported Meds Disposition: 01 DISCHARGE HOME Condition: Stable Orlando Petty MD Jan 07, 2017 01:10
[2017-01-07 02:13] LABS: POTASSIUM 3.2 MEQ/L (3.5-5.1)
[2017-01-07 02:17] LABS: BICARBONATE 28.5 MEQ/L (21.0-32.0)
--- NOTE | 2017-01-07 02:58 | RADRPT ---
EXAM DATE/TIME: 01/07/2017 02:29 [facility] COMPARISON: No previous studies available for comparison. INDICATIONS : CVA. MEDICAL HISTORY : Lupus. SURGICAL HISTORY : section. ENCOUNTER: Initial ACUITY: 1 week PAIN SCORE: 3/10 LOCATION: Right eye TECHNIQUE: Multiplanar, multisequence MRI of the brain was performed without contrast. FINDINGS: CEREBRUM: The ventricles are normal for age. No evidence of midline shift, mass lesion, hemorrhage or acute in farction. No extraaxial fluid collections are seen. The pituitary gland and suprasellar cistern are normal in configuration. WHITE MATTER: There a few punctate areas of nonspecific white matter T2 prolongation. POSTERIOR FOSSA: The cerebellum and brainstem are intact. The 4th ventricle is midline. The cerebellopontine angle is unremarkable. The cerebellar tonsils are normal in position. DIFFUSION IMAGING: No focal areas of restricted diffusion are seen. No evidence of acute infarction. EXTRACRANIAL: The visualized portions of the orbits and paranasal sinuses are unremarkable. CONCLUSION: Occasional tiny foci of nonspecific white matter signal change.. Toi Pride MD on January 07, 2017 at 2:55 Board Certified Radiologist. This report was verified electronically.
[2017-01-07 03:07] LABS: EOSINOPHIL # 0.1 TH/MM3 (0-0.4); EOSINOPHIL % 2.7 % (0.0-4.0); HEMATOCRIT 27.2 % (35.0-46.0); LYMPH % 28.2 % (9.0-44.0); LYMPHOCYTE # 1.3 TH/MM3 (1.0-4.8); MEAN CELL VOLUME 89.4 FL (80.0-100.0); MEAN CORPUSCULAR HEMOGLOBIN 29.5 PG (27.0-34.0); MONO % 7.3 % (0.0-8.0); NEUT % 61.8 % (16.0-70.0); PLATELET COUNT 159 TH/MM3 (150-450); RED BLOOD COUNT 3.04 MIL/MM3 (4.00-5.30); RED CELL DISTRIBUTION WIDTH 15.3 % (11.6-17.2); WHITE BLOOD COUNT 4.7 TH/MM3 (4.0-11.0)
[2017-01-07 03:08] LABS: HEMO FLAGS AUTO DIFF
[2017-01-07 03:29] LABS: PLATELET ESTIMATE SMEAR NORMAL (NORMAL); PLATELET MORPHOLOGY CLUMPED (NORMAL); SCAN/DIFF AUTO DIFF CONFIRMED
[2017-01-07 03:33] VITALS: BP 132/67; PULSE 83; RESP 14; TEMP 98.1; O2SAT 100
[2017-01-07] MEDS ORDERED: POTASSIUM CHLORIDE 20 MEQ CONTROLLED RELEASE TAB PO ONE (03:45)
== END 2017-01-07 04:01 | disposition home or self-care (01) ==
LOC: PHED 23:10
DX: H49.22 Sixth [abducent] nerve palsy, left eye (principal); M32.9 Systemic lupus erythematosus, unspecified
CPT/HCPCS: 70551; 80048; 85025

== ENCOUNTER 2017-04-21 00:10 | Inpatient (IN) | payer MEDICAID ==
[2017-04-21] VITALS (19 sets, daily range): BP systolic 109–142; BP diastolic 61–99; PULSE 104–130; RESP 13–30; TEMP 97.8–100.2; O2SAT 96–100
[~2017-04-21] VITALS: Ht 177.8 cm; Wt 113.7 kg
--- NOTE | 2017-04-21 02:04 | PD ---
HPI Chief Complaint: Cold / Flu Symptoms Time Seen by Provider: 02:00 Travel History International Travel<30 days: No Contact w/Intl Traveler<30days: No Traveled to known affect area: No History of Present Illness HPI 26-year-old female presents to the emergency department for a few days of fever or cough congestion myalgias and arthralgias and generalized weakness. Patient states she has a history of lupus but is not taking any immunosuppressive medications at this time. Patient has not had any abdominal pain. Patient is noted some urinary frequency mild dysuria. Patient denies . Patient complains of marked congested cough but has not had any wheezing. Patient has taken acetaminophen without relief. Patient denies any hematemesis coffee- ground emesis bilious emesis melena hematochezia. [facility] Past Medical History Narrative Medical Asthma lupus remote seizure sleep apnea D&C Ab1 cholecystectomy ; rare alcohol use; nursing notes reviewed and I have the patient in a.m. document chest pain center protocol Asthma: Yes Autoimmune Disease: Yes (LUPUS) Heart Rhythm Problems: No Cancer: No High Cholesterol: No Chest Pain: No Congestive Heart Failure: No COPD: No Cerebrovascular Accident: No Diminished Hearing: No Endocrine: No Gastrointestinal Disorders: No Genitourinary: No Headaches: No Hypertension: No Immune Disorder: Yes (LUPUS (July 2013)) Implanted Vascular Access Dvce: No Musculoskeletal: No Psychiatric: No Reproductive: No Respiratory: No Immunizations Current: Yes Migraines: No Seizures: Yes (TWICE) Sleep Apnea: Yes Tetanus Vaccination: Never Vaccinated Influenza Vaccination: No ?: Unknown LMP: 03/24/17 : 2 Para: 1 Miscarriage: 1 Dilation and Curettage (D&C): Yes (2016) Past Surgical History Section: Yes (2012) Cholecystectomy: Yes Pacemaker: No Other Surgery: Yes (RT ARM STENT) Social History Alcohol Use: Yes (RARELY) Tobacco Use: No Substance Use: No Allergies-Medications (Allergen,Severity, Reaction): Coded Allergies: ceftriaxone (Verified Allergy, Severe, Hives, 04/21/17) Reported Meds & Prescriptions Reported Meds & Active Scripts Active No Active Prescriptions or Reported Medications Physical Exam Narrative GENERAL: Well-developed well-nourished ill-appearing female in no acute respiratory distress; GCS 15 SKIN: Warm and dry. HEAD: Normocephalic. EYES: No scleral icterus. No injection or drainage. ENT: Mucous membranes moist airway is patent no pharyngeal edema and exudative change or erythema. NECK: Supple, trachea midline. No JVD or lymphadenopathy. No meningismus no nuchal rigidity CARDIOVASCULAR: Increased Regular rate and rhythm without murmurs, gallops, or rubs. RESPIRATORY: Breath sounds equal bilaterally few basilar crackles. No accessory muscle use. GASTROINTESTINAL: Abdomen soft, non-tender, nondistended. MUSCULOSKELETAL: No cyanosis, or edema. BACK: Nontender without obvious deformity. No CVA tenderness. Data Data Last Documented VS Orders Orders Sepsis Workup Initiated (04/21/17 ) Complete Blood Count With Diff (04/21/17 02:04) Comprehensive Metabolic Panel (04/21/17 02:04) Lactic Acid Sepsis Protocol (04/21/17 02:04) Magnesium (Mg) (04/21/17 02:04) Urinalysis - C+S If Indicated (04/21/17 02:04) Influenzae A/B Antigen (04/21/17 02:04) Blood Culture (04/21/17 02:04) Chest, Single Ap (04/21/17 02:04) Blood Glucose (04/21/17 02:04) Ecg Monitoring (04/21/17 02:04) Iv Access Insert/Monitor (04/21/17 02:04) Oximetry (04/21/17 02:04) Oxygen Administration (04/21/17 02:04) Sodium Chlor 0.9% 1000 Ml Inj (Ns 1000 M (04/21/17 02:15) Sodium Chlor 0.9% 1000 Ml Inj (Ns 1000 M (04/21/17 02:15) Sodium Chlor 0.9% 1000 Ml Inj (Ns 1000 M (04/21/17 02:15) Ibuprofen (Motrin) (04/21/17 02:15) Acetaminophen (Tylenol) (04/21/17 02:15) Ed Urine Pregnancytest Poc (04/21/17 02:04) Piperacil-Tazo 4.5 Gm Premix (Zosyn 4.5 (04/21/17 02:15) Red Blood Cells (Rbc) (04/21/17 03:28) Blood Product Administration (04/21/17 03:28) Sodium Chlor 0.9% 250 Ml Inj (Ns 250 Ml (04/21/17 03:30) Type And Screen (04/21/17 03:28) Oseltamivir (Tamiflu) (04/21/17 04:30) Admit Order (Ed Use Only) (04/21/17 ) Beach Attendant / Telemetry [id number] (04/21/17 04:39) Activity Oob With Assistance (04/21/17 04:39) Notify Dr: Other (04/21/17 04:39) Urine Culture (04/21/17 03:49) Direct Adan (04/21/17 03:52) Bilirubin Components (04/21/17 01:21) Labs Laboratory Tests Test 04/21/17 01:21 04/21/17 02:24 04/21/17 03:49 White Blood Count 11.4 TH/MM3 Red Blood Count 1.49 MIL/MM3 Hemoglobin 6.5 GM/DL Hematocrit 16.4 % Mean Corpuscular Volume 109.9 FL Mean Corpuscular Hemoglobin 43.5 PG Mean Corpuscular Hemoglobin Concent 39.6 % Red Cell Distribution Width 13.9 % Platelet Count 141 TH/MM3 Mean Platelet Volume 11.6 FL Neutrophils (%) (Auto) 87.1 % Lymphocytes (%) (Auto) 7.8 % Monocytes (%) (Auto) 4.7 % Eosinophils (%) (Auto) 0.3 % Basophils (%) (Auto) 0.1 % Neutrophils # (Auto) 10.0 TH/MM3 Lymphocytes # (Auto) 0.9 TH/MM3 Monocytes # (Auto) 0.5 TH/MM3 Eosinophils # (Auto) 0.0 TH/MM3 Basophils # (Auto) 0.0 TH/MM3 CBC Comment AUTO DIFF Differential Comment AUTO DIFF CONFIRMED Platelet Estimate LOW Platelet Morphology Comment CLUMPED Polychromasia 2.0 % Haptoglobin LESS THAN 40 MG/DL Blood Urea Nitrogen 27 MG/DL Creatinine 0.93 MG/DL Random Glucose 99 MG/DL Total Protein 7.2 GM/DL Albumin 2.8 GM/DL Calcium Level 8.9 MG/DL Magnesium Level 2.0 MG/DL Alkaline Phosphatase 91 U/L Aspartate Amino Transf (AST/SGOT) 32 U/L Alanine Aminotransferase (ALT/SGPT) 21 U/L Total Bilirubin 2.1 MG/DL Direct Bilirubin 0.4 MG/DL Sodium Level 133 MEQ/L Potassium Level 3.4 MEQ/L Chloride Level 100 MEQ/L Carbon Dioxide Level 23.7 MEQ/L Anion Gap 9 MEQ/L Estimat Glomerular Filtration Rate 72 ML/MIN Iron Level 19 MCG/DL Ferritin 294 NG/ML Indirect Bilirubin 1.7 MG/DL Lactate Dehydrogenase 663 U/L Vitamin B12 Level 256 PG/ML Folate 6.1 NG/ML Lactic Acid Level 0.8 mmol/L Urine Color ELEANOR Urine Turbidity MOD Urine pH 6.5 Urine Specific [place] 1.026 Urine Protein 300 OR GREATER mg/dL Urine Glucose (UA) NEG mg/dL Urine Ketones TRACE mg/dL Urine Occult Blood LARGE Urine Nitrite POS Urine Bilirubin NEG Urine Leukocyte Esterase NEG Urine RBC 25-49 /hpf Urine WBC 9-14 /hpf Urine Squamous Epithelial Cells 0-5 /hpf Urine Amorphous Sediment MOD Urine Bacteria FEW /hpf Urine Fine Granular Casts 6-9 /lpf Urine Coarse Granular Casts 3-5 /lpf Urine Mucus MOD /lpf Urine Yeast (Budding) FEW Microscopic Urinalysis Comment CULTURE INDICATED MDM Medical Decision Making Medical Screen Exam Complete: Yes Emergency Medical Condition: Yes Medical Record Reviewed: Yes Interpretation(s) influenza: positive poc hcg: negative Last Impressions Chest X-Ray 04/21/17 0204 Signed Impressions: Service Date/Time: Friday, April 21, 2017 02:15 - CONCLUSION: The lungs are clear. Christopher Ochoa MD CBC & BMP Diagram 04/21/17 01:21 Total Protein 7.2, Albumin 2.8 L, Calcium Level 8.9, Magnesium Level 2.0, Alkaline Phosphatase 91, Aspartate Amino Transf (AST/SGOT) 32, Alanine Aminotransferase (ALT/SGPT) 21, Total Bilirubin 2.1 H Vital Signs Date Time Temp Pulse Resp B/P (MAP) Pulse Ox O2 Delivery O2 Flow Rate FiO2 04/21/17 04:06 98.7 120 20 109/61 (77) 97 Nasal Cannula 2.00 04/21/17 02:43 130 20 122/68 (86) 98 Nasal Cannula 2.00 04/21/17 02:40 97 Nasal Cannula 2.00 04/21/17 02:40 97 Nasal Cannula 2.00 04/21/17 00:30 106 18 97 Room Air 04/21/17 00:18 100.2 128/79 (95) 97 Differential Diagnosis Influenza, viral syndrome, pneumonia, bronchitis, dehydration, UTI, sepsis Narrative Course Patient placed on property assessment monitor and continuous pulse oximetry IV access obtained specimens collected and sent for resulting patient administered normal saline bolus Specimen collected for influenza; patient given acetaminophen and weight-based ibuprofen for fever and myalgias and arthralgias Chest x-ray reveals no lobar infiltrate Additional IV fluids administered Influenza A and B and is positive patient given dose of Tamiflu; CBC is automated differential identifies patient remarkably anemic with hemoglobin of 6.5; tender across 2 units ordered to be administered when available; patient' s had no increased bruising epistaxis gingival bleeding hemoptysis hematemesis or melena hematochezia hematuria does have heavy menses with clots no injury or fall. Additional IV fluids administered urinalysis abnormal positive bacteria white blood cells and nitrates Plan will be to the patient for influenza UTI sepsis with history of lupus and marked anemia. Patient given Zosyn 4.5 g IV piggyback Tamiflu times one dose by mouth and azithromycin. Patient's case discussed with on-call medicine for admission. Sepsis Criteria SIRS Criteria (2 or more): Heart rate over 90 Sepsis Criteria (SIRS+source): Infect source susp/known (influenza; urine) Physician Communication Physician Communication inpt admit per Dr Castellanos Diagnosis Primary Impression: Influenza Additional Impressions: Anemia H/O systemic lupus erythematosus (SLE) Admitting Information Admitting Physician Requests: Admit Scripts No Active Prescriptions or Reported Meds Shabnam Alegria MD Apr 21, 2017 02:04
[2017-04-21] MEDS ORDERED: ACETAMINOPHEN 500 MG CPLT PO ONE (02:15)
[2017-04-21] MEDS ORDERED: PIPERACIL-TAZO 4.5 GM PREMIX 100 ML IV ONE (02:15)
[2017-04-21] MEDS ORDERED: SODIUM CHLOR 0.9% 1000 ML INJ 1,000 ML IV ONE ×3 (02:15)
[2017-04-21] MEDS ORDERED: AZITHROMYCIN INJ 500 MG in SODIUM CHLOR 0.9% 250 ML INJ 250 ML IV ONE (02:15)
[2017-04-21] MEDS ORDERED: IBUPROFEN 800 MG TAB PO ONE (02:15)
--- NOTE | 2017-04-21 02:23 | RADRPT ---
EXAM DATE/TIME: 04/21/2017 02:15 [facility] COMPARISON: CHEST SINGLE AP, October 28, 2016, 4:07. INDICATIONS : Shortness of breath. MEDICAL HISTORY : Lupus. SURGICAL HISTORY : None. ENCOUNTER: Initial ACUITY: 1 day PAIN SCORE: 0/10 LOCATION: Bilateral chest FINDINGS: A single view of the chest demonstrates the lungs to be symmetrically aerated without evidence of mas s, infiltrate or effusion. The cardiomediastinal contours are unremarkable. Osseous structures are intact. CONCLUSION: The lungs are clear. Christopher Ochoa MD on April 21, 2017 at 2:21 Board Certified Radiologist. This report was verified electronically.
[2017-04-21 02:49] LABS: BASOPHIL % 0.1 % (0.0-2.0); EOSINOPHIL % 0.3 % (0.0-4.0); HEMATOCRIT 16.4 % (35.0-46.0); LYMPH % 7.8 % (9.0-44.0); LYMPHOCYTE # 0.9 TH/MM3 (1.0-4.8); MEAN CELL VOLUME 109.9 FL (80.0-100.0); MEAN CORPUSCULAR HEMOGLOBIN 43.5 PG (27.0-34.0); MEAN PLATELET VOLUME 11.6 FL (7.0-11.0); MONO % 4.7 % (0.0-8.0); MONOCYTE # 0.5 TH/MM3 (0-0.9); NEUT % 87.1 % (16.0-70.0); PLATELET COUNT 141 TH/MM3 (150-450); RED BLOOD COUNT 1.49 MIL/MM3 (4.00-5.30); RED CELL DISTRIBUTION WIDTH 13.9 % (11.6-17.2); WHITE BLOOD COUNT 11.4 TH/MM3 (4.0-11.0)
[2017-04-21 03:01] LABS: MEAN CORPUSCULAR HGB CONC 39.6 % (32.0-36.0)
[2017-04-21 03:03] LABS: HEMOGLOBIN 6.5 GM/DL (11.6-15.3)
[2017-04-21 03:09] LABS: CHLORIDE 100 MEQ/L (98-107); SODIUM (NA) 133 MEQ/L (136-145)
[2017-04-21 03:12] LABS: ALBUMIN 2.8 GM/DL (3.4-5.0); BICARBONATE 23.7 MEQ/L (21.0-32.0); BLOOD UREA NITROGEN 27 MG/DL (7-18); CALCIUM 8.9 MG/DL (8.5-10.1); GLUCOSE,RANDOM 99 MG/DL (74-106)
[2017-04-21 03:15] LABS: ALT (GPT) 21 U/L (10-53); AST (GOT) 32 U/L (15-37); CREATININE 0.93 MG/DL (0.50-1.00); GLOMERULAR FILTRATION RATE 72 ML/MIN (>89)
[2017-04-21 03:17] LABS: TOTAL BILIRUBIN ADULT 2.1 MG/DL (0.2-1.0); TOTAL PROTEIN 7.2 GM/DL (6.4-8.2)
[2017-04-21 03:18] LABS: ALKALINE PHOSPHATASE 91 U/L (45-117)
[2017-04-21] MEDS ORDERED: SODIUM CHLOR 0.9% 250 ML INJ 250 ML IV ONE (03:30)
[2017-04-21 04:25] LABS: BLOOD, URINE LARGE (NEG); GLUCOSE,URINE NEG (NEG); KETONE, URINE TRACE mg/dL (NEG); NITRITE,URINE POS (NEG); PH, URINE 6.5 (5.0-8.5); URINE LEUKOCYTE ESTERASE NEG (NEG)
[2017-04-21] MEDS ORDERED: OSELTAMIVIR PHOSPHATE 75 MG CAP PO ONE (04:30)
[2017-04-21 04:35] LABS: BILIRUBIN, URINE NEG (NEG)
[2017-04-21 04:36] LABS: URINE COLOR AMBER (YELLW/STRAW)
[2017-04-21 04:37] LABS: MUCUS URINE MOD /lpf (OCC)
[2017-04-21 04:38] LABS: BACTERIA, URINE FEW /hpf; SQUAMOUS EPITHELIAL CELL URINE 0-5 /hpf (0-5)
[2017-04-21 04:40] LABS: AMORPHOUS SEDIMENT, URINE MOD
[2017-04-21] MEDS ORDERED: NALOXONE HCL 0.4 MG/ML AMP IV PUSH PRN (04:45)
[2017-04-21] MEDS ORDERED: LACTULOSE SYRUP 20 GM/30 ML CUP PO PRN (04:45)
[2017-04-21] MEDS ORDERED: SODIUM CHLORIDE 0.9% FLUSH 10 ML FLUSH IV FLUSH PRN (04:45)
[2017-04-21] MEDS ORDERED: MAGNESIUM HYDROXIDE SUSP 30 ML CUP PO PRN (04:45)
[2017-04-21] MEDS ORDERED: SENNOSIDES 8.6 MG TAB PO PRN (04:45)
[2017-04-21] MEDS ORDERED: BISACODYL 10 MG SUPP RECTAL PRN (04:45)
[2017-04-21] MEDS ORDERED: ACETAMINOPHEN 325 MG TAB PO PRN (04:45)
[2017-04-21] MEDS ORDERED: POTASSIUM CHLORIDE 20 MEQ CONTROLLED RELEASE TAB PO ONE (05:00)
[2017-04-21] MEDS: SODIUM CHLORIDE 0.9% FLUSH 10 ML FLUSH IV FLUSH SCH ×2 (08:14→21:00)
[2017-04-21] MEDS: SODIUM CHLOR 0.9% 1000 ML INJ 1,000 ML IV SCH ×2 (11:15→21:55)
[2017-04-21 11:19] LABS: FOLATE 6.1 NG/ML (3.1-17.5)
--- NOTE | 2017-04-21 11:30 | HHI.HP ---
[facility] No Primary Care Physician Admission Diagnosis influenza; anemia Diagnoses: Chief Complaint: Shortness of breath Travel History International Travel<30 Days: No Contact w/Intl Traveler <30 Da: No Traveled to Known Affected Are: No History of Present Illness 26-year-old female being admitted for shortness of breath secondary to influenza A. Patient was in her usual state of health until about 2 days ago she began experiencing a gradual onset of a worsening cough and shortness of breath. Cough became severe enough to the point where she does had some posttussive emesis. Reports some fevers and chills. Denies any new swelling or any other new symptom. Reports that her lupus usually manifests in the form of rashes and joint pain. 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 However she moved down here and has not seen any physician for about a year in the outpatient setting. The emergency department patient was tested positive for flu a and she was also known to be anemic at hemoglobin of 6.5. Patient does report having rotated heavy periods requiring 2 overnight pads per day for about 5-7 days whenever she is on her period. Last period was a couple of weeks ago. Review of Systems Except as stated in HPI: all other systems reviewed are Neg Past Family Social History Past Medical History Lupus Chronic anemia Allergies: Coded Allergies: ceftriaxone (Verified Allergy, Severe, Hives, 04/21/17) Family History Diabetes Social History Denies tobacco, illicit drug use. Reports slight occasional alcohol use in the past Physical Exam Vital Signs Vital Signs Date Time Temp Pulse Resp B/P (MAP) Pulse Ox O2 Delivery O2 Flow Rate FiO2 04/21/17 06:13 99.5 115 17 133/79 (97) 97 04/21/17 05:46 112 04/21/17 05:30 114 20 129/73 (91) 98 Nasal Cannula 2.00 04/21/17 05:30 96 Nasal Cannula 2.00 04/21/17 04:06 98.7 120 20 109/61 (77) 97 Nasal Cannula 2.00 1/22/18 02:43 130 20 122/68 (86) 98 Nasal Cannula 2.00 04/21/17 02:40 97 Nasal Cannula 2.00 04/21/17 02:40 97 Nasal Cannula 2.00 04/21/17 00:30 106 18 97 Room Air 04/21/17 00:18 100.2 128/79 (95) 97 Physical Exam VS: afebrile GENERAL: Overweight female, lying in bed, appears exhausted and sick. Appears pale. SKIN: Warm and dry. EYES: No scleral icterus. No injection or drainage. ENT: No nasal bleeding or discharge. Mucous membranes pink and moist. NC in nose. CARDIOVASCULAR: Regular rate and rhythm. no murmurs RESPIRATORY: No accessory muscle use. Has crackles and rhonchi in bilateral bases GASTROINTESTINAL: Abdomen soft, non-tender, nondistended. Extremities: No clubbing, cyanosis, or edema. No obvious deformities. MUSCULOSKELETAL: adequate muscle bulk and tone for age and habitus NEUROLOGICAL: Awake and alert. No obvious cranial nerve deficits. No facial droop nor slurred speech noted. PSYCHIATRIC: Appropriate mood and affect; insight and judgment normal. Laboratory Laboratory Tests Test 04/21/17 01:21 04/21/17 02:24 04/21/17 03:49 White Blood Count 11.4 Red Blood Count 1.49 Hemoglobin 6.5 Hematocrit 16.4 Mean Corpuscular Volume 109.9 Mean Corpuscular Hemoglobin 43.5 Mean Corpuscular Hemoglobin Concent 39.6 Red Cell Distribution Width 13.9 Platelet Count 141 Mean Platelet Volume 11.6 Neutrophils (%) (Auto) 87.1 Lymphocytes (%) (Auto) 7.8 Monocytes (%) (Auto) 4.7 Eosinophils (%) (Auto) 0.3 Basophils (%) (Auto) 0.1 Neutrophils # (Auto) 10.0 Lymphocytes # (Auto) 0.9 Monocytes # (Auto) 0.5 Eosinophils # (Auto) 0.0 Basophils # (Auto) 0.0 CBC Comment AUTO DIFF Differential Comment AUTO DIFF CONFIRMED Platelet Estimate LOW Platelet Morphology Comment CLUMPED Polychromasia 2.0 Blood Urea Nitrogen 27 Creatinine 0.93 Random Glucose 99 Total Protein 7.2 Albumin 2.8 Calcium Level 8.9 Magnesium Level 2.0 Alkaline Phosphatase 91 Aspartate Amino Transf (AST/SGOT) 32 Alanine Aminotransferase (ALT/SGPT) 21 Total Bilirubin 2.1 Sodium Level 133 Potassium Level 3.4 Chloride Level 100 Carbon Dioxide Level 23.7 Anion Gap 9 Estimat Glomerular Filtration Rate 72 Lactic Acid Level 0.8 Urine Color ELEANOR Urine Turbidity MOD Urine pH 6.5 Urine Specific [place] 1.026 Urine Protein 300 OR GREATER Urine Glucose (UA) NEG Urine Ketones TRACE Urine Occult Blood LARGE Urine Nitrite POS Urine Bilirubin NEG Urine Leukocyte Esterase NEG Urine RBC 25-49 Urine WBC 9-14 Urine Squamous Epithelial Cells 0-5 Urine Amorphous Sediment MOD Urine Bacteria FEW Urine Fine Granular Casts 6-9 Urine Coarse Granular Casts 3-5 Urine Mucus MOD Urine Yeast (Budding) FEW Microscopic Urinalysis Comment CULTURE INDICATED Date/Time Source Procedure Growth Status 04/21/17 01:25 Blood Peripheral Aerobic Blood Culture Pending Received 04/21/17 01:25 Blood Peripheral Anaerobic Blood Culture Pending Received 04/21/17 00:52 Nasal Washing Influenza Types A,B Antigen (MEGAN) - Final Positive For Flu A Antigen Complete 04/21/17 03:49 Urine Clean Catch Urine Culture Pending Received Result Diagram: 04/21/17 0121 04/21/17 0121 Imaging Last Impressions Chest X-Ray 04/21/17 0204 Signed Impressions: Service Date/Time: Friday, April 21, 2017 02:15 - CONCLUSION: The lungs are clear. Christopher Ochoa MD Caprini VTE Risk Assessment Caprini VTE Risk Assessment: No/Low Risk (score <= 1) Caprini Risk Assessment Model Point Value = 1 Point Value = 2 Point Value = 3 Point Value = 5 Age 41-60 Minor surgery BMI > 25 kg/m2 Swollen legs Varicose veins or History of unexplained or recurrent spontaneous Oral contraceptives or hormone replacement Sepsis (< 1 month) Serious lung disease, including pneumonia (< 1 month) Abnormal pulmonary function Acute myocardial infarction Congestive heart failure (< 1 month) History of inflammatory bowel disease Medical patient at bed rest Age 61-74 Arthroscopic surgery Major open surgery (> 45 min) Laparoscopic surgery (> 45 min) Malignancy Confined to bed (> 72 hours) Immobilizing plaster cast Central venous access Age >= 75 History of VTE Family history of VTE Factor V Leiden Prothrombin [id number] Lupus anticoagulant Anticardiolipin antibodies Elevated serum homocysteine Heparin-induced thrombocytopenia Other congenital or acquired thrombophilia Stroke (< 1 month) Elective arthroplasty Hip, pelvis, or leg fracture Acute spinal cord injury (< 1 month) Prophylaxis Regimen Total Risk Factor Score Risk Level Prophylaxis Regimen 0-1 Low Early ambulation 2 Moderate Order ONE of the following: *Sequential Compression Device (SCD) *Heparin 5000 units SQ BID 3-4 Higher Order ONE of the following medications: *Heparin 5000 units SQ TID *Enoxaparin/Lovenox 40 mg SQ daily (WT < 150 kg, CrCl > 30 mL/min) *Enoxaparin/Lovenox 30 mg SQ daily (WT < 150 kg, CrCl > 10-29 mL/min) *Enoxaparin/Lovenox 30 mg SQ BID (WT < 150 kg, CrCl > 30 mL/min) AND/OR *Sequential Compression Device (SCD) 5 or more Highest Order ONE of the following medications: *Heparin 5000 units SQ TID (Preferred with Epidurals) *Enoxaparin/Lovenox 40 mg SQ daily (WT < 150 kg, CrCl > 30 mL/min) *Enoxaparin/Lovenox 30 mg SQ daily (WT < 150 kg, CrCl > 10-29 mL/min) *Enoxaparin/Lovenox 30 mg SQ BID (WT < 150 kg, CrCl > 30 mL/min) AND *Sequential Compression Device (SCD) Assessment and Plan Assessment and Plan 26-year-old female admitted with shortness of breath secondary to influenza A SOB - influenza A pneumonia - We'll continue coverage for Tamiflu and Zosyn; if no improvement clinically will start vancomycin consider transfer to ICU - We'll obtain sputum culture and Gram stain - Mucinex and Mucomyst - NS infusion - pneumococcal and legionella urinary antigens ordered. - CXR independently reviewed and overall seems negative, may have possible infiltrates in bilateral lower lobes at best, repeat chest x-ray in a.m. PA and lateral - f/u on BC's possible UTI - f/u culture, continue zosyn, Acute on chronic anemia - still awaiting type and screen - Could be possibly secondary to heavy periods; but will obtain stool Hemoccult and trend hemoglobin closely Lupus - requesting outside records diet as tolerated SCDs Addendum: I discussed the case with Dr. Worley to transition her to the their critical care service. I did convey that she is having issues with obtaining compatible blood and that she is acutely anemic with tachycardia and that she is positive for the flu simultaneously. He recommended continuous further medical management for now given that she is saturating on room air (97 % per nursing), her blood pressure is within normal limits, and has a clear CXR and has hematology following closely. Dr. Cardona from hematology called me and informed me that he would speak to the critical care service as well for transfer of care recommendation. I also spoke to the blood bank and they have found that the [place] [facility] bank has 1 unit of compatible blood that they plan to send over and transfuse to the patient. Physician Certification 2 Midnight Certification Type: Admission for Inpatient Services Order for Inpatient Services The services are ordered in accordance with Medicare regulations or non- Medicare payer requirements, as applicable. In the case of services not specified as inpatient-only, they are appropriately provided as inpatient services in accordance with the 2-midnight benchmark. Estimated LOS (days): 3 3 days is the estimated time the patient will need to remain in the hospital, assuming treatment plan goals are met and no additional complications. Post-Hospital Plan: Home Dash Ruiz MD Apr 21, 2017 11:30
[2017-04-21] MEDS: RESP: ALBUTEROL 1.25 MG/3 ML NEB (SCH) NEB ×2 (13:41→20:45)
[2017-04-21] MEDS: RESP: ACETYLCYSTEINE 10% 10 ML NEB NEB SCH ×2 (13:41→20:47)
[2017-04-21] MEDS: OSELTAMIVIR PHOSPHATE 75 MG CAP PO SCH ×2 (16:05→21:24)
[2017-04-21] MEDS: PIPERACILLIN/TAZ 3.375 GM VIAL 3.375 GM in SODIUM CHLORIDE 0.9% INJ 100 ML IV SCH ×2 (16:05→21:20)
[2017-04-21] MEDS ORDERED: predniSONE 20 MG TAB PO SCH (16:15)
[2017-04-21 17:07] LABS: DIRECT BILIRUBIN ADULT 0.4 MG/DL (0.0-0.2); INDIRECT BILIRUBIN 1.7 MG/DL (0.0-0.8)
[2017-04-21 18:24] LABS: IRON (FE) 19 MCG/DL (50-170)
[2017-04-21 18:27] LABS: FERRITIN 294 NG/ML (8-252)
[2017-04-21] MEDS ORDERED: Vancomycin Consult Pharmacy 1 EA OTHER SCH ×3 (18:45→19:45)
[2017-04-21] MEDS ORDERED: methylPREDNISolone SOD SUCC 125 MG/2 ML VIAL IV PUSH ONE (18:45)
--- NOTE | 2017-04-21 20:55 | MB ---
cc: SERGIO BARRON MD DATE OF CONSULTATION 04/21/2017. Time of consultation is 06:15 p.m. REQUESTING PHYSICIAN Consult requested by the critical care team. REASON FOR CONSULTATION Anemia associated with warm and cold agglutinins. CHIEF COMPLAINT Ms. Manzanares reports symptoms of difficulty breathing, cough, body aches. She also reports generalized fatigue. She has been having high spiking fevers for the past 48 hours. HISTORY OF PRESENT ILLNESS Ms. Manzanares is a 26-year-old female who has a history of systemic lupus erythematosus, she has carried this diagnosis for the past 4 years and had been on systemic therapy with Plaquenil up until about 8 months ago. She has not been under the care of her staff writer over the past 8 months because she has been uninsured. Miss Manzanares reports being in her usual fair state of health up until about 2 days ago, the patient suspects she contracted a viral illness from her daughter. The patient developed symptoms of fevers, chills, body aches, cough and difficulty breathing. She presented to the emergency department here at [facility] in [place] for further evaluation. In the emergency department she was noted to be tachycardiac, hypoxic, febrile and in respiratory distress. The patient underwent imaging studies of the chest including chest x-ray which revealed no evidence of pulmonary infiltrates. CBC revealed a hemoglobin of 6.5 gm/dl and hematocrit 16.4%. Type and screen was sent off. She was noted to have warm and cold antibodies on screening due to multiple alloantibodies. The antibody identification indicated panagglutinin. She has been initiated on corticosteroids and compatible unit of packed red blood cells has been requested. The meantime the patient's nasal swabs were positive for influenza A and she has been initiated on Tamiflu and also broad-spectrum antibiotics. Subjectively she reports having difficulty breathing, she provides a history but is unable to speak more than two or three words at a time. PAST MEDICAL HISTORY 1. Systemic lupus erythematosus. 2. Chronic anemia. 3. Obesity. FAMILY HISTORY Maternal grandmother had a history of ovarian cancer or breast cancer, the patient is not sure. PAST SURGICAL HISTORY 1. The patient underwent . 2. Cholecystectomy. 3. She reports undergoing AV fistula repair in her upper extremity at some point in the past. 4. She also had a benign breast lesion removed from her left breast when she was a teenager. SOCIAL HISTORY She is , she lives at home with her and daughter. She is a lifelong nonsmoker, she denies illicit drug use. 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 ALLERGIES CEFTRIAXONE. MEDICATIONS Current inpatient medications: 1. Prednisone 40 mcg p.o. x1. 2. Solu-Medrol 60 mcg IV x1 now. 3. Normal saline 100 cc/hour. 4. Vancomycin 1750 mg IV q.12 h. 5. Tylenol 650 mg p.o. q. 4 hours. 6. Mucomyst 2 ml nebulized q.6 h as needed. 7. Ibuprofen 800 mcg p.o. x1. 8. Zofran 4 mg IV q.6 h as needed. 9. Tamiflu 75 mg p.o. b.i.d. 10. Potassium chloride replacement per protocol. 11. Senokot 17.2 mg p.o. q.12 h. REVIEW OF SYSTEMS 13-point review of systems were obtained. The following are the pertinent positives: CONSTITUTIONAL: The patient reports weakness, fatigue, fevers, loss of appetite. HEENT: Reports headaches, reports soreness in the throat, she denies nosebleeds. RESPIRATORY: Difficulty breathing, cough, phlegm production. CARDIOVASCULAR: Reports palpitations, reports difficulty breathing at rest, denies lower extremity edema. GASTROINTESTINAL: Reports nausea, vomiting. Denies abdominal pain, denies hematochezia, melena, constipation or abdominal pain. GENITOURINARY: No complaints. DRESSMAKING TEACHER: No focal sensory motor deficits. SKIN: Reports skin lesions and welts. No other or report complaints. PHYSICAL EXAMINATION VITAL SIGNS: Temperature 98.9 degrees Fahrenheit, heart rate 84 beats per minute, respiratory rate 16, blood pressure is 102/61, O2 sats 99% on 2 liters nasal cannula. GENERAL APPEARANCE: Ms. Manzanares is a young female, she is in apparent respiratory distress. She is unable to speak more than two of three words at a time, her voice is hoarse. HEENT: Head atraumatic, normocephalic, conjunctive are pale, sclerae are mildly icteric. Oral exam there is pharyngeal erythema. NECK: No palpable cervical or supraclavicular adenopathy. RESPIRATORY: On posterior examination indicates diffuse rhonchi, crepitus. CARDIOVASCULAR: Tachycardic, regular, S1-S2. No obvious murmurs, rubs or gallops. ABDOMEN: Protuberant belly, soft, no palpable organ enlargement. EXTREMITIES: Lower extremities no pretibial edema or calf tenderness. DRESSMAKING TEACHER: No focal sensory or motor deficits. SKIN: She has hive-like welts over her arms, legs and feet. LABORATORY FINDINGS Blood work dated 04/21/2016: Sodium 133, potassium 3.4, chloride 100, bicarb 23.7, BUN 27, creatinine 0.93, EGFR 72, random glucose 99, calcium 8.9, magnesium 2, iron level was 19, ferritin level 294, total bilirubin 2.1, direct bilirubin 0.4, indirect bilirubin 1.7, AST 32, ALT 21, alkaline phosphatase 91. LDH is elevated 663. Albumin 2.8, total protein 7.2, folic acid level is 7.1, B12 level was 256. CBC: Dated 04/21/2017: WBC count 11.4, hemoglobin 6.5 gm/dl, hematocrit 16.4%, MCV 110, RDW is 14, platelet count is 141, absolute neutrophil count is 10. Platelet estimate is low. PT 10.9, INR 1.0, PTT 42.7. D-dimer is elevated at 3.18. Microbiology: Nasal swab dated 04/21/2017 was positive for influenza A. Blood cultures and urine cultures are pending at this time. Additional testing: Blood bank test antibody screen and prewarmed and gel antibody screen all positive. Antibody identification indicates panagglutinin. Strong nonspecific cold agglutinins, non specific warm agglutinins. ASSESSMENT Ms. Manzanares is a 26-year-old female with a history of systemic lupus erythematosus, she comes in acutely ill with influenza A. Her major symptoms at that of cough, fever, difficulty breathing and soreness in the throat. She also reports muscle aches and pains. Upon evaluation she was noted to be critically anemic with a hemoglobin 6.5 gm/dl, type and screen and additional blood bank testing indicated a strong presence of cold agglutinins as well as warm agglutinins (panagglutinins). She has been initiated on corticosteroids, Tamiflu and broad-spectrum antibiotics including Zosyn and vancomycin. Over the course of this hospitalization her respiratory status has deteriorated and she is increasingly hypoxic, increasingly tachypneic and tachycardiac. She has difficulty speaking more than 2 or 3 words at a time due to shortness of breath. RECOMMENDATIONS 1. Autoimmune hemolytic anemia: I have started her on corticosteroids at 1 mg/kg daily. 2. I am told there is a well-matched unit of red cells available, this is being transferred from [place] to [place]. I did speak to the critical care attending and we have agreed to transfer this patient from [facility] to [facility] given her precarious clinical condition, specifically her respiratory status. The oncology / hematology service will follow along closely with you. MD POLO Higuera/KK /6:46 PM /8:25 PM
--- NOTE | 2017-04-21 21:46 | PD.CONS ---
HPI Service Critical Care Medicine Consult Requested By Primary Care Physician No Primary Care Physician History of Present Illness 26-year-old female very pleasant female with past medical history of systemic lupus erythematosus for the past 4 years and had been on systemic therapy with Plaquenil up until about 8 months ago. She was in her usual state of health up until about 2 days ago, when she contracted a viral illness from her daughter. She then developed fevers, chills, body aches, cough and difficulty breathing. She presented to the emergency department here at [facility] in [place] and was admitted to hospitalist service. On the floor she remained tachycardic , tachypneic, hypoxic, febrile with worsening of respiratory distress. Her chest x-ray revealed no evidence of pulmonary infiltrates. She was also found to be severely anemic with the hemoglobin of 6.5 gm/dl and hematocrit 16.4%. She was found to have a multiple antibodies and has been initiated on corticosteroids and compatible unit of packed red blood cells has been requested. Her nasal swabs were positive for influenza A and she has been started on Tamiflu and also broad-spectrum antibiotics. Due to worsening respiratory distress and immunocompromised condition she has been transferred to [facility] to ICU for high level of care. Review of Systems ROS Unable to obtain due to respiratory distress Past Family Social History Allergies: Coded Allergies: ceftriaxone (Verified Allergy, Severe, Hives, 04/21/17) Past Medical History Systemic lupus erythematosus Chronic anemia Mild obesity Past Surgical History FAMILY HISTORY . Cholecystectomy AV fistula repair in her upper extremity at some point in the past Benign breast lesion removed from her left breast when she was a teenager Reported Medications Reported Meds & Active Scripts Active No Active Prescriptions or Reported Medications Active Ordered Medications Current Medications Medications (Trade) Dose Ordered Sig/Alma Route PRN Reason Start Time Stop Time Status Last Admin Dose Admin Sodium Chloride (NS Flush) 2 ml UNSCH PRN IV FLUSH FLUSH AFTER USING IV ACCESS 04/21/17 04:45 Sodium Chloride (NS Flush) 2 ml BID IV FLUSH 04/21/17 09:00 Acetaminophen (Tylenol) 650 mg Q4H PRN PO TEMP > 100.4 04/21/17 04:45 Ondansetron HCl (Zofran Inj) 4 mg Q6H PRN IVP NAUSEA OR VOMITING 04/21/17 04:45 Naloxone HCl (Narcan Inj) 0.4 mg UNSCH PRN IV PUSH SEE LABEL COMMENTS 04/21/17 04:45 Magnesium Hydroxide (Milk Of Magnesia Liq) 30 ml Q12H PRN PO Mild constipation 04/21/17 04:45 Sennosides (Senokot) 17.2 mg Q12H PRN PO Moderate constipation 04/21/17 04:45 Bisacodyl (Dulcolax Supp) 10 mg DAILY PRN RECTAL SEVERE CONSITIPATION/ IF NPO 04/21/17 04:45 Lactulose (Lactulose Liq) 30 ml DAILY PRN PO SEVERE CONSITIPATION / IF PO 04/21/17 04:45 Oseltamivir Phosphate (Tamiflu) 75 mg BID PO 04/21/17 16:00 04/21/17 21:24 Acetylcysteine (Mucomyst 10% Neb) 2 ml Q6HR WHILE AWAKE NEB NEB 04/21/17 14:00 04/21/17 20:47 Albuterol Sulfate (Albuterol Neb) 1.25 mg Q6HR WHILE AWAKE NEB NEB 04/21/17 14:00 04/21/17 20:45 Sodium Chloride 1,000 ml @ 100 mls/hr Q10H IV 04/21/17 11:15 04/21/17 21:55 Prednisone (Deltasone) 90 mg DAILY PO 04/22/17 09:00 Vancomycin HCl 1750 mg/Sodium Chloride 517.5 ml @ 250 mls/hr Q12H IV 04/21/17 21:00 04/21/17 22:48 Miscellaneous Information SPECIFIC LAB TO BE DRAWN:VANCO TROUGH DATE TO... ONCE ONCE .XX 04/23/17 08:45 04/23/17 08:46 Pharmacy Profile Note ml @ 0 mls/hr UNSCH OTHER 04/21/17 19:45 Piperacillin Sod/ Tazobactam Sod 3.375 gm/Sodium Chloride 50 ml @ 100 mls/hr Q6H IV 04/22/17 02:00 04/22/17 02:00 Miscellaneous Information Patient in critical care unit? Ass... Q361D .XX 04/21/17 22:45 04/21/17 22:45 Chlorhexidine Gluconate (Chlorhexidine 2% Cloth) 3 pack DAILY@04 TOPICAL 04/22/17 04:00 04/26/17 04:01 Chlorhexidine Gluconate (Chlorhexidine 2% Cloth) 3 pack UNSCH PRN TOPICAL HYGIENIC CARE 04/21/17 22:45 04/26/17 22:32 Family History Maternal grandmother had a history of ovarian cancer or breast cancer, the patient is not sure. Social History She is , she lives at home with her and daughter. She is a lifelong nonsmoker, she denies illicit drug use. 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 Physical Exam Vital Signs Vital Signs Date Time Temp Pulse Resp B/P (MAP) Pulse Ox O2 Delivery O2 Flow Rate FiO2 04/21/17 20:48 98 Nasal Cannula 1.00 04/21/17 18:00 122 04/21/17 17:00 98.9 122 24 140/74 (96) 100 04/21/17 13:44 100 Nasal Cannula 2.00 04/21/17 12:00 98.2 114 17 141/90 (107) 98 04/21/17 08:00 97.8 104 18 134/99 (111) 99 04/21/17 06:13 99.5 115 17 133/79 (97) 97 04/21/17 05:46 112 04/21/17 05:30 114 20 129/73 (91) 98 Nasal Cannula 2.00 04/21/17 05:30 96 Nasal Cannula 2.00 04/21/17 04:06 98.7 120 20 109/61 (77) 97 Nasal Cannula 2.00 04/21/17 02:43 130 20 122/68 (86) 98 Nasal Cannula 2.00 04/21/17 02:40 97 Nasal Cannula 2.00 04/21/17 02:40 97 Nasal Cannula 2.00 04/21/17 00:30 106 18 97 Room Air 04/21/17 00:18 100.2 128/79 (95) 97 Physical Exam GENERAL: Mildly obese, well-developed patient, in respiratory distress SKIN: Warm and dry. HEAD: Normocephalic. EYES: No scleral icterus. No injection or drainage. NECK: Supple, trachea midline. No JVD or lymphadenopathy. CARDIOVASCULAR: Regular rate and rhythm without murmurs, gallops, or rubs. RESPIRATORY: Breath sounds equal bilaterally. No accessory muscle use. GASTROINTESTINAL: Abdomen soft, non-tender, nondistended. MUSCULOSKELETAL: No cyanosis, or edema. BACK: Nontender without obvious deformity. NEURO EXAM: GCS: 15 Mental Status: The patient is alert and oriented to person, place, and time with normal speech limited due to respiratory distress. Laboratory Laboratory Tests Test 04/21/17 01:21 04/21/17 02:24 04/21/17 03:49 White Blood Count 11.4 Red Blood Count 1.49 Hemoglobin 6.5 Hematocrit 16.4 Mean Corpuscular Volume 109.9 Mean Corpuscular Hemoglobin 43.5 Mean Corpuscular Hemoglobin Concent 39.6 Red Cell Distribution Width 13.9 Platelet Count 141 Mean Platelet Volume 11.6 Neutrophils (%) (Auto) 87.1 Lymphocytes (%) (Auto) 7.8 Monocytes (%) (Auto) 4.7 Eosinophils (%) (Auto) 0.3 Basophils (%) (Auto) 0.1 Neutrophils # (Auto) 10.0 Lymphocytes # (Auto) 0.9 Monocytes # (Auto) 0.5 Eosinophils # (Auto) 0.0 Basophils # (Auto) 0.0 CBC Comment AUTO DIFF Differential Comment AUTO DIFF CONFIRMED Platelet Estimate LOW Platelet Morphology Comment CLUMPED Polychromasia 2.0 Haptoglobin LESS THAN 40 Blood Urea Nitrogen 27 Creatinine 0.93 Random Glucose 99 Total Protein 7.2 Albumin 2.8 Calcium Level 8.9 Magnesium Level 2.0 Alkaline Phosphatase 91 Aspartate Amino Transf (AST/SGOT) 32 Alanine Aminotransferase (ALT/SGPT) 21 Total Bilirubin 2.1 Direct Bilirubin 0.4 Sodium Level 133 Potassium Level 3.4 Chloride Level 100 Carbon Dioxide Level 23.7 Anion Gap 9 Estimat Glomerular Filtration Rate 72 Iron Level 19 Ferritin 294 Indirect Bilirubin 1.7 Lactate Dehydrogenase 663 Vitamin B12 Level 256 Folate 6.1 Lactic Acid Level 0.8 Urine Color ELEANOR Urine Turbidity MOD Urine pH 6.5 Urine Specific Kendall 1.026 Urine Protein 300 OR GREATER Urine Glucose (UA) NEG Urine Ketones TRACE Urine Occult Blood LARGE Urine Nitrite POS Urine Bilirubin NEG Urine Leukocyte Esterase NEG Urine RBC 25-49 Urine WBC 9-14 Urine Squamous Epithelial Cells 0-5 Urine Amorphous Sediment MOD Urine Bacteria FEW Urine Fine Granular Casts 6-9 Urine Coarse Granular Casts 3-5 Urine Mucus MOD Urine Yeast (Budding) FEW Microscopic Urinalysis Comment CULTURE INDICATED Date/Time Source Procedure Growth Status 04/21/17 01:25 Blood Peripheral Aerobic Blood Culture Pending Received 04/21/17 01:25 Blood Peripheral Anaerobic Blood Culture Pending Received 04/21/17 18:05 Sputum Expectorated Sputum Gram Stain Pending Received 04/21/17 18:05 Sputum Expectorated Sputum Sputum Culture Pending Received 04/21/17 03:49 Urine Clean Catch Urine Culture Pending Received Result Diagram: 04/21/17 0121 04/21/17 0121 Septic Shock Reassessment Septic shock perfusion: reassessment completed Assessment and Plan Assessment and Plan Respiratory failure - Positive influenza swab - Tamiflu - Broad-spectrum antibiotics until cultures negative - Sputum culture, blood cultures - DuoNeb - O2 supply to keep sats above 92 Autoimmune hemolytic anemia - corticosteroids at 1mg/kg daily - Transfuse 2 units of PRBC - Management per hematology Systemic lupus - Supportive care - Plaquenil as an outpatient DVT GI prophylaxis - Teds SCDs - Pharmacological DVT prophylaxis per hematology - IV Pepcid twice a day Polo Torres MD Apr 21, 2017 9:46 pm
[2017-04-21] MEDS ORDERED: CHLORHEXIDINE GLUCONATE 2 % 1 PACK (2 CLOTHS)(extra cloths) TOPICAL PRN (22:45)
[2017-04-21] MEDS: VANCOMYCIN INJ 1,750 MG in SODIUM CHLORID 0.9% 500 ML INJ 500 ML IV SCH (22:48)
[2017-04-22] VITALS (14 sets, daily range): BP systolic 121–141; BP diastolic 63–90; PULSE 91–112; RESP 17–30; TEMP 97.7–99; O2SAT 93–100
[2017-04-22] MEDS: PIPERACILLIN/TAZ 3.375 GM VIAL 3.375 GM in SODIUM CHLORIDE 0.9% INJ 50 ML IV SCH ×4 (02:00→20:08)
[2017-04-22] MEDS: CHLORHEXIDINE GLUCONATE 2 % 1 PACK (2 CLOTHS)(taper/protocol) TOPICAL SCH (04:00)
[2017-04-22] MEDS ORDERED: POTASSIUM CHLORIDE 25 MEQ EFFERVESCENT TAB PO PRN (04:30)
[2017-04-22] MEDS ORDERED: MAGNESIUM SULFATE INJ 2 GM in SODIUM CHLORIDE 0.9% INJ 96 ML IV PRN (04:30)
[2017-04-22] MEDS ORDERED: POTASSIUM PHOSPHATE MONOBASIC 500 MG TAB PO PRN (04:30)
[2017-04-22] MEDS ORDERED: MAGNESIUM SULFATE INJ 4 GM in SODIUM CHLORIDE 0.9% INJ 92 ML IV PRN (04:30)
[2017-04-22] MEDS ORDERED: POTASSIUM CHLOR 20 MEQ PREMIX 100 ML IV PRN ×2 (04:30)
[2017-04-22] MEDS ORDERED: SODIUM PHOSPHATE INJ 30 MMOL in SODIUM CHLOR 0.9% 250 ML INJ 240 ML IV PRN (04:30)
[2017-04-22] MEDS ORDERED: POTASSIUM PHOSPHATE MONOBASIC 500 MG TAB PO/TUBE PRN (04:30)
[2017-04-22] MEDS ORDERED: POTASSIUM PHOSPHATE INJ 30 MMOL in SODIUM CHLOR 0.9% 250 ML INJ 250 ML IV PRN (04:30)
[2017-04-22] MEDS ORDERED: POTASSIUM CHLOR 40 MEQ PREMIX 100 ML IV PRN ×2 (04:30)
[2017-04-22] MEDS ORDERED: MAGNESIUM OXIDE 400 MG TAB PO PRN (04:30)
[2017-04-22] MEDS: FAMOTIDINE 20 MG/2 ML VIAL IV PUSH SCH ×2 (05:15→15:54)
[2017-04-22 06:21] LABS: ALBUMIN 2.5 GM/DL (3.4-5.0); AST (GOT) 21 U/L (15-37); BICARBONATE 21.5 MEQ/L (21.0-32.0); BLOOD UREA NITROGEN 26 MG/DL (7-18); CHLORIDE 108 MEQ/L (98-107); CREATININE 1.02 MG/DL (0.50-1.00); GLOMERULAR FILTRATION RATE 65 ML/MIN (>89); GLUCOSE,RANDOM 136 MG/DL (74-106); SODIUM (NA) 137 MEQ/L (136-145)
[2017-04-22 06:24] LABS: ALKALINE PHOSPHATASE 83 U/L (45-117); ALT (GPT) 15 U/L (10-53); TOTAL BILIRUBIN ADULT 1.2 MG/DL (0.2-1.0); TOTAL PROTEIN 6.9 GM/DL (6.4-8.2)
[2017-04-22 06:37] LABS: AUTOMATED NEUTROPHIL # 4.3 TH/MM3 (1.8-7.7); BASOPHIL % 0.1 % (0.0-2.0); EOSINOPHIL % 0.1 % (0.0-4.0); HEMOGLOBIN 7.1 GM/DL (11.6-15.3); LYMPH % 11.1 % (9.0-44.0); LYMPHOCYTE # 0.6 TH/MM3 (1.0-4.8); MEAN CORPUSCULAR HEMOGLOBIN 34.8 PG (27.0-34.0); MEAN CORPUSCULAR HGB CONC 34.8 % (32.0-36.0); MEAN PLATELET VOLUME 11.7 FL (7.0-11.0); MONO % 4.4 % (0.0-8.0); MONOCYTE # 0.2 TH/MM3 (0-0.9); NEUT % 84.3 % (16.0-70.0); PLATELET COUNT 125 TH/MM3 (150-450); RED BLOOD COUNT 2.04 MIL/MM3 (4.00-5.30)
[2017-04-22 06:41] LABS: HEMATOCRIT 20.4 % (35.0-46.0)
[2017-04-22 07:06] LABS: TEARDROP RBCS 1+ (NORMAL)
[2017-04-22 07:07] LABS: OVALOCYTES 1+ (NORMAL)
[2017-04-22] MEDS: SODIUM CHLORIDE 0.9% FLUSH 10 ML FLUSH IV FLUSH SCH ×2 (07:51→21:20)
--- NOTE | 2017-04-22 07:51 | HHI.CCPN ---
Subjective Remarks/Hospital Course 26-year-old female very pleasant female with past medical history of systemic lupus erythematosus for the past 4 years and had been on systemic therapy with Plaquenil up until about 8 months ago. She was in her usual state of health up until about 2 days ago, when she contracted a viral illness from her daughter. She then developed fevers, chills, body aches, cough and difficulty breathing. She presented to the emergency department here at [facility] in [place] and was admitted to hospitalist service. On the floor she remained tachycardic , tachypneic, hypoxic, febrile with worsening of respiratory distress. Her chest x-ray revealed no evidence of pulmonary infiltrates. She was also found to be severely anemic with the hemoglobin of 6.5 gm/dl and hematocrit 16.4%. She was found to have a multiple antibodies and has been initiated on corticosteroids and compatible unit of packed red blood cells has been requested. Her nasal swabs were positive for influenza A and she has been started on Tamiflu and also broad-spectrum antibiotics. Due to worsening respiratory distress and immunocompromised condition she has been transferred to [facility] to ICU for high level of care. 04/22 Patient is lying in bed in [facility]. On 2L oxygen with good sats, BP 121/72. s/ p transfusion 1unit PRBC Hgb 7.1 this morning Objective Vital Signs Date Time Temp Pulse Resp B/P (MAP) Pulse Ox O2 Delivery O2 Flow Rate FiO2 04/22/17 06:00 93 04/22/17 04:00 99.0 25 141/90 (107) 93 04/21/17 20:48 Nasal Cannula 1.00 Intake and Output 04/22/17 04/22/17 04/23/17 08:00 16:00 00:00 Intake Total 2082.5 ml Balance 2082.5 ml Result Diagram: 04/22/17 0504/22/17 05 Other Results Laboratory Tests Test 04/21/17 22:30 04/22/17 05:26 Nasal Screen MRSA (PCR) MRSA NOT DETECTED White Blood Count 5.0 TH/MM3 Red Blood Count 2.04 MIL/MM3 Hemoglobin 7.1 GM/DL Hematocrit 20.4 % Mean Corpuscular Volume 100.0 FL Mean Corpuscular Hemoglobin 34.8 PG Mean Corpuscular Hemoglobin Concent 34.8 % Red Cell Distribution Width 15.0 % Platelet Count 125 TH/MM3 Mean Platelet Volume 11.7 FL Neutrophils (%) (Auto) 84.3 % Lymphocytes (%) (Auto) 11.1 % Monocytes (%) (Auto) 4.4 % Eosinophils (%) (Auto) 0.1 % Basophils (%) (Auto) 0.1 % Neutrophils # (Auto) 4.3 TH/MM3 Lymphocytes # (Auto) 0.6 TH/MM3 Monocytes # (Auto) 0.2 TH/MM3 Eosinophils # (Auto) 0.0 TH/MM3 Basophils # (Auto) 0.0 TH/MM3 CBC Comment AUTO DIFF Differential Comment AUTO DIFF CONFIRMED Platelet Estimate LOW Platelet Morphology Comment ENLARGED Polychromasia 2.0 % Tear Drop Cells 1+ Ovalocytes 1+ Hematology Comments Blood Urea Nitrogen 26 MG/DL Creatinine 1.02 MG/DL Random Glucose 136 MG/DL Total Protein 6.9 GM/DL Albumin 2.5 GM/DL Calcium Level 9.0 MG/DL Alkaline Phosphatase 83 U/L Aspartate Amino Transf (AST/SGOT) 21 U/L Alanine Aminotransferase (ALT/SGPT) 15 U/L Total Bilirubin 1.2 MG/DL Sodium Level 137 MEQ/L Potassium Level 3.7 MEQ/L Chloride Level 108 MEQ/L Carbon Dioxide Level 21.5 MEQ/L Anion Gap 8 MEQ/L Estimat Glomerular Filtration Rate 65 ML/MIN Imaging Last Impressions Chest X-Ray 04/21/17 0204 Signed Impressions: Service Date/Time: Friday, April 21, 2017 02:15 - CONCLUSION: The lungs are clear. Christopher Ochoa MD Objective Remarks GENERAL: Mildly obese, well-developed patient lying in bed in [place] SKIN: Warm and dry. HEAD: Normocephalic. EYES: No scleral icterus. No injection or drainage. NECK: Supple, trachea midline. No JVD or lymphadenopathy. CARDIOVASCULAR: Regular rate and rhythm without murmurs, gallops, or rubs. RESPIRATORY: Breath sounds equal bilaterally. No accessory muscle use. GASTROINTESTINAL: Abdomen soft, non-tender, nondistended. MUSCULOSKELETAL: No cyanosis, or edema. BACK: Nontender without obvious deformity. NEURO EXAM: GCS: 15 Mental Status: The patient is alert and oriented to person, place, and time with normal speech limited due to respiratory distress. A/P Assessment and Plan 1)Resp Insuff 3)Positive influenza swab 3)Autoimmune hemolytic anemia 4)Systemic lupus 5)UTI Plan Neuro: Awake and alert Pulm: Continue with oxygen keep sats >92% Bronchodilators, CXR yesterday showed clear lungs CV: Monitor HR and BP keep MAP>65mmHg : Monitor renal function, electrolytes replacement per protocol. GI: On PO diet, Pepcid for GI prophylaxis Heme: Monitor CBC, s/p transfusion 1unit PRBC Hgb 7.1 further transfusion per Hematology. On Prednisone 90mg daily for AIHA. Heme - Dr. Cardona ID: Continue abx ( On Tamiflu, Vanco, Zosyn) Monitor for signs of infections ( Fever, WBC) Follow up on Blood, sputum and urine cx. Nasal washing + Influenza A Endo: SSI if needed for glycemic control GI prophylaxis- on Pepcid DVT prophylaxis- SCD., not on chemical DVT prophylaxis due to AIHA Level 2 Luiz Alexis MD Apr 22, 2017 07:51
[2017-04-22] MEDS: OSELTAMIVIR PHOSPHATE 75 MG CAP PO SCH ×2 (07:54→22:27)
[2017-04-22] MEDS: predniSONE 20 MG TAB PO SCH (07:54)
[2017-04-22] MEDS: RESP: ACETYLCYSTEINE 10% 10 ML NEB NEB SCH ×3 (08:00→20:34)
[2017-04-22] MEDS: RESP: ALBUTEROL 1.25 MG/3 ML NEB (SCH) NEB ×3 (08:10→20:34)
[2017-04-22 08:34] LABS: PHOSPHORUS 3.4 MG/DL (2.5-4.9)
--- NOTE | 2017-04-22 08:46 | PD.ONC.PN ---
Subjective Subjective Remarks Patient seen and examined, vital signs, labs and medications reviewed, overnight events reviewed and blood bank transfusion records reviewed as well. I did speak to the blood bank and 1 unit packed red blood cells was delivered overnight. Additionally the patient was transferred from the [facility] to [facility] to the critical care unit. Last night she was evaluated by our critical care attending. Subjectively; she feels her breathing is improved though she continues to cough and continues to feel somewhat short of breath. Review vital signs reveals her heart rate has improved down to normal range. Her oxygen saturation has been over 95% on 1 L nasal cannula and a respiratory rate has also improved. Her hemoglobin has improved from 6.5 g/dL up to 7.1 g/dL. Objective Data Date Time Temp Pulse Resp B/P (MAP) Pulse Ox O2 Delivery O2 Flow Rate FiO2 04/22/17 08:11 100 21 04/22/17 06:00 93 04/22/17 04:00 104 04/22/17 04:00 99.0 104 25 141/90 (107) 93 04/22/17 02:00 106 04/22/17 00:00 99.0 112 30 134/82 (99) 99 04/22/17 00:00 107 04/21/17 23:30 99.0 113 13 130/81 100 04/21/17 23:23 99.0 112 30 134/82 (99) 99 04/21/17 22:36 99.1 117 27 129/75 (93) 100 04/21/17 22:00 113 04/21/17 21:00 118 04/21/17 20:48 98 Nasal Cannula 1.00 04/21/17 20:00 114 04/21/17 20:00 99.0 123 20 142/94 (110) 99 04/21/17 18:00 122 04/21/17 17:00 98.9 122 24 140/74 (96) 100 04/21/17 13:44 100 Nasal Cannula 2.00 04/21/17 12:00 98.2 114 17 141/90 (107) 98 04/22/17 04/22/17 04/22/17 07:00 15:00 23:00 Intake Total 2097.5 ml Balance 2097.5 ml Result Diagram: 04/22/17 0504/22/17525 Laboratory Results Laboratory Tests Test 1/22/18 22:30 04/22/17 05:26 Nasal Screen MRSA (PCR) MRSA NOT DETECTED White Blood Count 5.0 TH/MM3 Red Blood Count 2.04 MIL/MM3 Hemoglobin 7.1 GM/DL Hematocrit 20.4 % Mean Corpuscular Volume 100.0 FL Mean Corpuscular Hemoglobin 34.8 PG Mean Corpuscular Hemoglobin Concent 34.8 % Red Cell Distribution Width 15.0 % Platelet Count 125 TH/MM3 Mean Platelet Volume 11.7 FL Neutrophils (%) (Auto) 84.3 % Lymphocytes (%) (Auto) 11.1 % Monocytes (%) (Auto) 4.4 % Eosinophils (%) (Auto) 0.1 % Basophils (%) (Auto) 0.1 % Neutrophils # (Auto) 4.3 TH/MM3 Lymphocytes # (Auto) 0.6 TH/MM3 Monocytes # (Auto) 0.2 TH/MM3 Eosinophils # (Auto) 0.0 TH/MM3 Basophils # (Auto) 0.0 TH/MM3 CBC Comment AUTO DIFF Differential Comment AUTO DIFF CONFIRMED Platelet Estimate LOW Platelet Morphology Comment ENLARGED Polychromasia 2.0 % Tear Drop Cells 1+ Ovalocytes 1+ Hematology Comments Blood Urea Nitrogen 26 MG/DL Creatinine 1.02 MG/DL Random Glucose 136 MG/DL Total Protein 6.9 GM/DL Albumin 2.5 GM/DL Calcium Level 9.0 MG/DL Phosphorus Level 3.4 MG/DL Alkaline Phosphatase 83 U/L Aspartate Amino Transf (AST/SGOT) 21 U/L Alanine Aminotransferase (ALT/SGPT) 15 U/L Total Bilirubin 1.2 MG/DL Sodium Level 137 MEQ/L Potassium Level 3.7 MEQ/L Chloride Level 108 MEQ/L Carbon Dioxide Level 21.5 MEQ/L Anion Gap 8 MEQ/L Estimat Glomerular Filtration Rate 65 ML/MIN Culture Results Microbiology Date/Time Source Procedure Growth Status 04/21/17 01:25 Blood Peripheral Aerobic Blood Culture Pending Received 04/21/17 01:25 Blood Peripheral Anaerobic Blood Culture Pending Received 04/21/17 01:21 Blood Peripheral Aerobic Blood Culture Pending Received 04/21/17 01:21 Blood Peripheral Anaerobic Blood Culture Pending Received 04/21/17 18:05 Sputum Expectorated Sputum Gram Stain - Final Resulted 04/21/17 18:05 Sputum Expectorated Sputum Sputum Culture Pending Resulted 04/21/17 00:52 Nasal Washing Influenza Types A,B Antigen (MEGAN) - Final Positive For Flu A Antigen Complete 04/21/17 03:49 Urine Clean Catch Urine Culture Pending Received Administered Medications Medications (Trade) Dose Ordered Sig/Alma Route PRN Reason Start Time Stop Time Status Last Admin Dose Admin Oseltamivir Phosphate (Tamiflu) 75 mg BID PO 04/21/17 16:00 04/22/17 07:54 Acetylcysteine (Mucomyst 10% Neb) 2 ml Q6HR WHILE AWAKE NEB NEB 04/21/17 14:00 04/22/17 08:00 Albuterol Sulfate (Albuterol Neb) 1.25 mg Q6HR WHILE AWAKE NEB NEB 04/21/17 14:00 04/22/17 08:10 Prednisone (Deltasone) 90 mg DAILY PO 04/22/17 09:00 04/22/17 07:54 Vancomycin HCl 1750 mg/Sodium Chloride 517.5 ml @ 250 mls/hr Q12H IV 04/21/17 21:00 04/21/17 22:48 Piperacillin Sod/ Tazobactam Sod 3.375 gm/Sodium Chloride 50 ml @ 100 mls/hr Q6H IV 04/22/17 02:00 04/22/17 07:55 Miscellaneous Information Patient in critical care unit? Ass... Q361D .XX 04/21/17 22:45 04/21/17 22:45 Chlorhexidine Gluconate (Chlorhexidine 2% Cloth) 3 pack DAILY@04 TOPICAL 04/22/17 04:00 04/26/17 04:01 04/22/17 04:00 Famotidine (Pepcid Inj) 20 mg Q12H IV PUSH 04/22/17 05:00 04/22/17 05:15 Objective Remarks GENERAL APPEARANCE: Ms. Manzanares is a young female, she sitting up in bed, she appears to be breathing more comfortably. She is able to speak in full sentences. She continues to cough. HEENT: Head atraumatic, normocephalic, conjunctive are pale, sclerae are mildly icteric. Oral exam there is pharyngeal erythema. NECK: No palpable cervical or supraclavicular adenopathy. RESPIRATORY: Air movement has improved especially on the right side, left side with continued expiratory rhonchi and crepitus. CARDIOVASCULAR: Tachycardic has now resolved, rhythm is regular and her heart rate is also regular, no murmurs rubs or gallops. ABDOMEN: Protuberant belly, soft, no palpable organ enlargement. EXTREMITIES: Lower extremities no pretibial edema or calf tenderness. TRUCK BRACER: No focal sensory or motor deficits. SKIN: Lupus-related skin lesions have resolved. Assessment/Plan Assessment Ms. Manzanares is a 26-year-old female with a history of systemic lupus erythematosus, she comes in acutely ill with influenza A. Her major symptoms at that of cough, fever, difficulty breathing and soreness in the throat. She also reports muscle aches and pains. Upon evaluation she was noted to be critically anemic with a hemoglobin 6.5 gm/dl, type and screen and additional blood bank testing indicated a strong presence of cold agglutinins as well as warm agglutinins (panagglutinins). She has been initiated on corticosteroids, Tamiflu and broad-spectrum antibiotics including Zosyn and vancomycin. Over the course of this hospitalization her respiratory status has deteriorated and she is increasingly hypoxic, increasingly tachypneic and tachycardiac. She was transferred to [facility], her respiratory status overnight has improved and her tachycardia has also resolved. She did receive 1 unit of packed red blood cells with an improvement in her hemoglobin and hematocrit. Plan 1. 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 She has been initiated on corticosteroids. Her hemoglobin is 7.1 g/dL today, I would avoid additional transfusions at this time given her cardiopulmonary stability and improved clinical status when compared to yesterday. I will repeat hemolysis labs tomorrow morning to reassess her hemoglobin, hematocrit, LDH, haptoglobin and bilirubin levels. Continue supportive care for management of her influenza a. Continue Tamiflu. Oh Cardona MD Apr 22, 2017 08:45
[2017-04-22] MEDS: FOLIC ACID 1 MG TAB PO SCH (09:32)
[2017-04-22] MEDS: VANCOMYCIN INJ 1,750 MG in SODIUM CHLORID 0.9% 500 ML INJ 500 ML IV SCH ×2 (09:32→21:20)
--- NOTE | 2017-04-22 11:08 | RADRPT ---
EXAM DATE/TIME: 04/22/2017 10:21 [place] COMPARISON: CHEST SINGLE AP, April 21, 2017, 2:15. INDICATIONS : Cough, fever MEDICAL HISTORY : Lupus. SURGICAL HISTORY : None. ENCOUNTER: Initial ACUITY: 2 days PAIN SCORE: 0/10 LOCATION: chest FINDINGS: A single view of the chest demonstrates the lungs to be symmetrically aerated without evidence of mas s, infiltrate or effusion. The cardiomediastinal contours are unremarkable. Osseous structures are intact. CONCLUSION: 1. No acute cardiopulmonary disease. Hugo Jones MD on April 22, 2017 at 11:05 Board Certified Radiologist. This report was verified electronically.
[2017-04-22] MEDS: ONDANSETRON HCL 4 MG/2 ML VIAL IVP PRN (11:21)
[2017-04-23] VITALS (17 sets, daily range): BP systolic 111–145; BP diastolic 65–84; PULSE 74–100; RESP 17–25; TEMP 97.5–100.4; O2SAT 94–100
[2017-04-23] MEDS: PIPERACILLIN/TAZ 3.375 GM VIAL 3.375 GM in SODIUM CHLORIDE 0.9% INJ 50 ML IV SCH ×4 (02:06→20:07)
[2017-04-23] MEDS: CHLORHEXIDINE GLUCONATE 2 % 1 PACK (2 CLOTHS)(taper/protocol) TOPICAL SCH (04:00)
[2017-04-23] MEDS: FAMOTIDINE 20 MG/2 ML VIAL IV PUSH SCH ×2 (05:15→16:19)
[2017-04-23 06:17] LABS: MAGNESIUM 2.5 MG/DL (1.5-2.5); PHOSPHORUS 2.7 MG/DL (2.5-4.9)
[2017-04-23 06:32] LABS: AUTOMATED NEUTROPHIL # 7.1 TH/MM3 (1.8-7.7); BASOPHIL % 0.1 % (0.0-2.0); EOSINOPHIL % 0.1 % (0.0-4.0); LYMPH % 8.7 % (9.0-44.0); LYMPHOCYTE # 0.8 TH/MM3 (1.0-4.8); MEAN CELL VOLUME 91.5 FL (80.0-100.0); MEAN CORPUSCULAR HEMOGLOBIN 30.1 PG (27.0-34.0); MEAN CORPUSCULAR HGB CONC 32.9 % (32.0-36.0); MEAN PLATELET VOLUME 11.4 FL (7.0-11.0); MONO % 9.7 % (0.0-8.0); MONOCYTE # 0.8 TH/MM3 (0-0.9); NEUT % 81.4 % (16.0-70.0); PLATELET COUNT 108 TH/MM3 (150-450); RED BLOOD COUNT 1.93 MIL/MM3 (4.00-5.30); RED CELL DISTRIBUTION WIDTH 15.2 % (11.6-17.2); WHITE BLOOD COUNT 8.7 TH/MM3 (4.0-11.0)
[2017-04-23 06:39] LABS: HEMATOCRIT 17.7 % (35.0-46.0); HEMOGLOBIN 5.8 GM/DL (11.6-15.3)
[2017-04-23 07:30] LABS: ALBUMIN 2.4 GM/DL (3.4-5.0); ALT (GPT) 11 U/L (10-53); BICARBONATE 20.6 MEQ/L (21.0-32.0); BLOOD UREA NITROGEN 29 MG/DL (7-18); CALCIUM 8.5 MG/DL (8.5-10.1); CHLORIDE 112 MEQ/L (98-107); GLUCOSE,RANDOM 114 MG/DL (74-106); SODIUM (NA) 142 MEQ/L (136-145)
[2017-04-23] MEDS ORDERED: ACETAMINOPHEN 325 MG TAB PO PRN (07:30)
[2017-04-23] MEDS ORDERED: diphenhydrAMINE HCL 25 MG CAP PO PRN (07:30)
[2017-04-23] MEDS ORDERED: SODIUM CHLOR 0.9% 250 ML INJ 250 ML IV ONE (07:30)
[2017-04-23 07:33] LABS: ALKALINE PHOSPHATASE 70 U/L (45-117); AST (GOT) 14 U/L (15-37); GLOMERULAR FILTRATION RATE 54 ML/MIN (>89); LDH SERUM 291 U/L (84-246); TOTAL BILIRUBIN ADULT 0.7 MG/DL (0.2-1.0); TOTAL PROTEIN 6.5 GM/DL (6.4-8.2); VANCOMYCIN TROUGH 37.7 MCG/ML (5.0-10.0)
--- NOTE | 2017-04-23 07:36 | PD.ONC.PN ---
Subjective Subjective Remarks Patient seen and examined, vital signs, labs, medications reviewed. Subjectively; the patient reports continued cough, she reports difficulty breathing when she gets up out of bed and last night she reports having had a "panic attack" when she felt she couldn't catch her breath. Overall review of vital signs indicates normal sinus rhythm, O2 sats are closed 100% on room air. Her hemoglobin however is down to 5.8 g/dL today. I did speak to the blood bank and the report and ongoing search for compatible units. The patient has been on corticosteroids for close to 48 hours now. Objective Data Date Time Temp Pulse Resp B/P (MAP) Pulse Ox O2 Delivery O2 Flow Rate FiO2 04/23/17 06:00 83 04/23/17 04:00 98.0 84 22 125/72 (89) 99 04/23/17 04:00 84 04/23/17 02:00 84 04/23/17 00:00 90 04/23/17 00:00 97.9 90 25 111/68 (82) 99 04/22/17 22:00 97 04/22/17 20:34 100 21 04/22/17 20:00 91 04/22/17 20:00 97.7 91 22 121/71 (88) 95 04/22/17 18:00 99 04/22/17 16:00 97.8 92 17 126/75 (92) 100 04/22/17 16:00 92 04/22/17 14:00 96 04/22/17 12:00 93 04/22/17 12:00 98.7 93 25 132/63 (86) 95 04/22/17 10:00 95 04/22/17 08:11 100 21 04/22/17 08:00 95 04/22/17 08:00 98.0 95 23 131/87 (102) 98 04/23/17 04/23/17 04/23/17 07:00 15:00 23:00 Intake Total 1220 ml Balance 1220 ml Result Diagram: 04/23/1744004/23/17440 Laboratory Results Laboratory Tests Test 04/23/17 04:41 White Blood Count 8.7 TH/MM3 Red Blood Count 1.93 MIL/MM3 Hemoglobin 5.8 GM/DL Hematocrit 17.7 % Mean Corpuscular Volume 91.5 FL Mean Corpuscular Hemoglobin 30.1 PG Mean Corpuscular Hemoglobin Concent 32.9 % Red Cell Distribution Width 15.2 % Platelet Count 108 TH/MM3 Mean Platelet Volume 11.4 FL Neutrophils (%) (Auto) 81.4 % Lymphocytes (%) (Auto) 8.7 % Monocytes (%) (Auto) 9.7 % Eosinophils (%) (Auto) 0.1 % Basophils (%) (Auto) 0.1 % Neutrophils # (Auto) 7.1 TH/MM3 Lymphocytes # (Auto) 0.8 TH/MM3 Monocytes # (Auto) 0.8 TH/MM3 Eosinophils # (Auto) 0.0 TH/MM3 Basophils # (Auto) 0.0 TH/MM3 CBC Comment AUTO DIFF Haptoglobin 58 MG/DL Hematology Comments Blood Urea Nitrogen 29 MG/DL Creatinine 1.20 MG/DL Random Glucose 114 MG/DL Total Protein 6.5 GM/DL Albumin 2.4 GM/DL Calcium Level 8.5 MG/DL Alkaline Phosphatase 70 U/L Aspartate Amino Transf (AST/SGOT) 14 U/L Alanine Aminotransferase (ALT/SGPT) 11 U/L Lactate Dehydrogenase 291 U/L Total Bilirubin 0.7 MG/DL Sodium Level 142 MEQ/L Potassium Level 3.4 MEQ/L Chloride Level 112 MEQ/L Carbon Dioxide Level 20.6 MEQ/L Anion Gap 9 MEQ/L Estimat Glomerular Filtration Rate 54 ML/MIN Phosphorus Level 2.7 MG/DL Magnesium Level 2.5 MG/DL Vancomycin Level Trough 37.7 MCG/ML Culture Results Microbiology Date/Time Source Procedure Growth Status 04/21/17 01:25 Blood Peripheral Aerobic Blood Culture - Preliminary NO GROWTH IN 1 DAY Resulted 04/21/17 01:25 Blood Peripheral Anaerobic Blood Culture - Preliminary NO GROWTH IN 1 DAY Resulted 04/21/17 01:21 Blood Peripheral Aerobic Blood Culture - Preliminary NO GROWTH IN 1 DAY Resulted 04/21/17 01:21 Blood Peripheral Anaerobic Blood Culture - Preliminary NO GROWTH IN 1 DAY Resulted 04/21/17 18:05 Sputum Expectorated Sputum Gram Stain - Final Resulted 04/21/17 18:05 Sputum Expectorated Sputum Sputum Culture - Preliminary HEAVY GROWTH NORMAL RESPIRATORY BAY... Resulted 04/21/17 00:52 Nasal Washing Influenza Types A,B Antigen (MEGAN) - Final Positive For Flu A Antigen Complete 04/21/17 03:49 Urine Clean Catch Urine Culture - Final 50-100,000 CFU/ML MIXED GRAM POSITIVE... Complete Administered Medications Medications (Trade) Dose Ordered Sig/Alma Route PRN Reason Start Time Stop Time Status Last Admin Dose Admin Sodium Chloride (NS Flush) 2 ml BID IV FLUSH 04/21/17 09:00 04/22/17 21:20 Ondansetron HCl (Zofran Inj) 4 mg Q6H PRN IVP NAUSEA OR VOMITING 04/21/17 04:45 04/22/17 11:21 Oseltamivir Phosphate (Tamiflu) 75 mg BID PO 04/21/17 16:00 04/22/17 22:27 Acetylcysteine (Mucomyst 10% Neb) 2 ml Q6HR WHILE AWAKE NEB NEB 04/21/17 14:00 04/22/17 20:34 Albuterol Sulfate (Albuterol Neb) 1.25 mg Q6HR WHILE AWAKE NEB NEB 04/21/17 14:00 04/22/17 20:34 Prednisone (Deltasone) 90 mg DAILY PO 04/22/17 09:00 04/22/17 07:54 Vancomycin HCl 1750 mg/Sodium Chloride 517.5 ml @ 250 mls/hr Q12H IV 04/21/17 21:00 04/22/17 21:20 Piperacillin Sod/ Tazobactam Sod 3.375 gm/Sodium Chloride 50 ml @ 100 mls/hr Q6H IV 04/22/17 02:00 04/23/17 02:06 Miscellaneous Information Patient in critical care unit? Ass... Q361D .XX 04/21/17 22:45 04/21/17 22:45 Chlorhexidine Gluconate (Chlorhexidine 2% Cloth) 3 pack DAILY@04 TOPICAL 04/22/17 04:00 04/26/17 04:01 04/23/17 04:00 Famotidine (Pepcid Inj) 20 mg Q12H IV PUSH 04/22/17 05:00 04/23/17 05:15 Folic Acid (Folate) 1 mg DAILY PO 04/22/17 09:00 04/22/17 09:32 Objective Remarks GENERAL APPEARANCE: Ms. Manzanares is a young female, she sitting up in bed, she appears to be breathing more comfortably. She is able to speak in full sentences. She continues to cough. HEENT: Head atraumatic, normocephalic, conjunctive are pale, sclerae are mildly icteric. Oral exam there is pharyngeal erythema. NECK: No palpable cervical or supraclavicular adenopathy. RESPIRATORY: Air movement has improved especially on the right side, left side with continued expiratory rhonchi and crepitus. CARDIOVASCULAR: Tachycardic has now resolved, rhythm is regular and her heart rate is also regular, no murmurs rubs or gallops. ABDOMEN: Protuberant belly, soft, no palpable organ enlargement. EXTREMITIES: Lower extremities no pretibial edema or calf tenderness. 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 SKIN: Lupus-related skin lesions have resolved. Assessment/Plan Assessment Ms. Manzanares is a 26-year-old female with a history of systemic lupus erythematosus, she comes in acutely ill with influenza A. Her major symptoms at that of cough, fever, difficulty breathing and soreness in the throat. She also reports muscle aches and pains. Upon evaluation she was noted to be critically anemic with a hemoglobin 6.5 gm/dl, type and screen and additional blood bank testing indicated a strong presence of cold agglutinins as well as warm agglutinins (panagglutinins). She has been initiated on corticosteroids, Tamiflu and broad-spectrum antibiotics including Zosyn and vancomycin. Over the course of this hospitalization her respiratory status has deteriorated and she is increasingly hypoxic, increasingly tachypneic and tachycardiac. She was transferred to [facility], her respiratory status overnight has improved and her tachycardia has also resolved. She did receive 1 unit of packed red blood cells with an improvement in her hemoglobin and hematocrit. Plan 1. 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 She has both cold and warm autoantibodies. She has been initiated on corticosteroids prednisone 1 mg/kg daily. I will add on danazol as an adjunct to corticosteroids. Additional therapeutic intervention should her hemoglobin and hematocrit did not improve would be IVIG for her cold agglutinins and possibly Rituxan. Splenectomy would be a third line option. Continue supportive care for management of her influenza A. Continue Tamiflu. Oh Cardona MD Apr 23, 2017 07:36
[2017-04-23] MEDS: RESP: ALBUTEROL 1.25 MG/3 ML NEB (SCH) NEB ×3 (07:48→21:50)
[2017-04-23] MEDS: RESP: ACETYLCYSTEINE 10% 10 ML NEB NEB SCH ×3 (07:49→20:00)
[2017-04-23 08:02] LABS: BANDS 8 % (0-6); LYMPHOCYTES 11 % (9-44); METAMYELOCYTES 1 % (0-1); MONOCYTES 11 % (0-8); MYELOCYTES 1 % (0-0); NEUTROPHIL # MANUAL DIFF 6.8 TH/MM3 (1.8-7.7); POLYS (SEG NEUTROPHILS) 68 % (16-70)
[2017-04-23 08:03] LABS: OVALOCYTES 1+ (NORMAL); POLYCHROMASIA 2.2 % (0.0-1.9); TEARDROP RBCS 1+ (NORMAL)
[2017-04-23] MEDS: FOLIC ACID 1 MG TAB PO SCH (08:44)
[2017-04-23] MEDS: DANAZOL 100 MG CAP PO SCH ×2 (08:44→19:58)
[2017-04-23] MEDS: OSELTAMIVIR PHOSPHATE 75 MG CAP PO SCH ×2 (08:44→19:58)
[2017-04-23] MEDS: predniSONE 20 MG TAB PO SCH (08:44)
[2017-04-23] MEDS ORDERED: PHARMACY ORDERED LAB ONE (08:45)
[2017-04-23] MEDS: VANCOMYCIN INJ 1,750 MG in SODIUM CHLORID 0.9% 500 ML INJ 500 ML IV SCH (08:45)
[2017-04-23] MEDS: SODIUM CHLORIDE 0.9% FLUSH 10 ML FLUSH IV FLUSH SCH ×2 (08:45→19:57)
--- NOTE | 2017-04-23 15:56 | HHI.CCPN ---
Subjective Remarks/Hospital Course 26-year-old female very pleasant female with past medical history of systemic lupus erythematosus for the past 4 years and had been on systemic therapy with Plaquenil up until about 8 months ago. She was in her usual state of health up until about 2 days ago, when she contracted a viral illness from her daughter. She then developed fevers, chills, body aches, cough and difficulty breathing. She presented to the emergency department here at [facility] in [place] and was admitted to hospitalist service. On the floor she remained tachycardic , tachypneic, hypoxic, febrile with worsening of respiratory distress. Her chest x-ray revealed no evidence of pulmonary infiltrates. She was also found to be severely anemic with the hemoglobin of 6.5 gm/dl and hematocrit 16.4%. She was found to have a multiple antibodies and has been initiated on corticosteroids and compatible unit of packed red blood cells has been requested. Her nasal swabs were positive for influenza A and she has been started on Tamiflu and also broad-spectrum antibiotics. Due to worsening respiratory distress and immunocompromised condition she has been transferred to [facility] to ICU for high level of care. 04/22 Patient is lying in bed in NAD. On 2L oxygen with good sats, BP 121/72. s/ p transfusion 1unit PRBC Hgb 7.1 this morning 04/23: Hemoglobin dropped to 5.8. Hematology Dr. Cardona following. 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 Compatible blood ordered pending at this time On prednisone 1 mg/kg daily. Dr. Cardona starting Danazol as an adjunct to corticosteroids. Objective Vital Signs Date Time Temp Pulse Resp B/P (MAP) Pulse Ox O2 Delivery O2 Flow Rate FiO2 04/23/17 14:00 100 04/23/17 13:00 98.0 04/23/17 12:00 23 145/78 (100) 94 04/23/17 07:49 Nasal Cannula 2.00 04/22/17 20:34 21 Intake and Output 04/23/17 04/23/17 04/23/17 07:59 15:59 23:59 Intake Total 1220 ml Balance 1220 ml Result Diagram: 04/23/17 0441 04/23/17 0441 Other Results Microbiology Date/Time Source Procedure Growth Status 04/21/17 18:05 Sputum Expectorated Sputum Gram Stain - Final Complete 04/21/17 18:05 Sputum Expectorated Sputum Sputum Culture - Final HEAVY GROWTH NORMAL RESPIRATORY BAY Complete 04/21/17 00:52 Nasal Washing Influenza Types A,B Antigen (MEGAN) - Final Positive For Flu A Antigen Complete 04/21/17 08:17 Urine Random Urine Legionella Antigen - Final PRESUMPTIVE NEGATIVE FOR LEGIONELLA P... Complete 04/21/17 08:17 Urine Random Urine Streptococcus pneumoniae Antigen (M - Final PRESUMPTIVE NEGATIVE FOR STREPTOCOCCU... Complete 04/21/17 03:49 Urine Clean Catch Urine Culture - Final 50-100,000 CFU/ML MIXED GRAM POSITIVE... Complete Imaging Last Impressions Chest X-Ray 04/21/17 0204 Signed Impressions: Service Date/Time: Friday, April 21, 2017 02:15 - CONCLUSION: The lungs are clear. Christopher Ochoa MD Objective Remarks GENERAL: Mildly obese, well-developed patient lying in bed complaining of sore throat SKIN: Warm and dry. HEAD: Normocephalic. EYES: No scleral icterus. No injection or drainage. NECK: Supple, trachea midline. No JVD or lymphadenopathy. CARDIOVASCULAR: Regular rate and rhythm without murmurs, gallops, or rubs. RESPIRATORY: Breath sounds equal bilaterally. Few coarse rhonchi upper chest GASTROINTESTINAL: Abdomen soft, non-tender, nondistended. MUSCULOSKELETAL: No cyanosis, or edema. BACK: Nontender without obvious deformity. NEURO EXAM: The patient is alert and oriented to person, place, and time with normal speech limited due to respiratory distress. Urinary Catheter: Yes Assessment to: Continue A/P Assessment and Plan Autoimmune hemolytic anemia requiring transfusion Resp Insuff Positive influenza Systemic lupus UTI Plan Neuro: Awake and alert, no focal deficits Pulm: Continue with oxygen keep sats >92% Bronchodilators, CXR 04/22 showed clear lungs CV: Monitor HR and BP keep MAP>65mmHg : Monitor renal function, electrolytes replacement per protocol. GI: On PO diet, Pepcid for GI prophylaxis Heme: Monitor CBC, s/p transfusion 1unit PRBC Hgb 7.1 Hb 5.8 today and 2U compatible blood transfusion ordered by Dr. Cardona On Prednisone 90mg daily for AIHA. Added Danazol as adjunct ID: Continue abx ( On Tamiflu, Vanco, Zosyn) Monitor for signs of infections ( Fever, WBC) Follow up on Blood, sputum and urine cx. Nasal washing + Influenza A Endo: SSI if needed for glycemic control GI prophylaxis- on Pepcid DVT prophylaxis- SCD., not on chemical DVT prophylaxis due to AIHA Level 2 Zaheer Cm MD Apr 23, 2017 15:56
[2017-04-23] MEDS ORDERED: VANCOMYCIN INJ 1,250 MG in SODIUM CHLOR 0.9% 250 ML INJ 250 ML IV SCH (17:00)
[2017-04-23] MEDS: ONDANSETRON HCL 4 MG/2 ML VIAL IVP PRN (17:55)
[2017-04-24] VITALS (15 sets, daily range): BP systolic 77–149; BP diastolic 58–97; PULSE 65–101; RESP 21–25; TEMP 98.1–98.8; O2SAT 97–100
[2017-04-24] MEDS: PIPERACILLIN/TAZ 3.375 GM VIAL 3.375 GM in SODIUM CHLORIDE 0.9% INJ 50 ML IV SCH ×4 (01:27→20:00)
[2017-04-24] MEDS: CHLORHEXIDINE GLUCONATE 2 % 1 PACK (2 CLOTHS)(taper/protocol) TOPICAL SCH (01:27)
[2017-04-24 02:37] LABS: BICARBONATE 21.2 MEQ/L (21.0-32.0); CALCIUM 8.6 MG/DL (8.5-10.1); CREATININE 1.14 MG/DL (0.50-1.00); TOTAL BILIRUBIN ADULT 1.4 MG/DL (0.2-1.0)
[2017-04-24 03:12] LABS: AUTOMATED NEUTROPHIL # 5.7 TH/MM3 (1.8-7.7); BASOPHIL % 0.4 % (0.0-2.0); EOSINOPHIL % 0.1 % (0.0-4.0); LYMPH % 12.1 % (9.0-44.0); LYMPHOCYTE # 0.9 TH/MM3 (1.0-4.8); MEAN CELL VOLUME 89.1 FL (80.0-100.0); MEAN CORPUSCULAR HEMOGLOBIN 29.4 PG (27.0-34.0); MEAN PLATELET VOLUME 10.5 FL (7.0-11.0); MONO % 10.2 % (0.0-8.0); MONOCYTE # 0.8 TH/MM3 (0-0.9); NEUT % 77.2 % (16.0-70.0); PLATELET COUNT 96 TH/MM3 (150-450); RED BLOOD COUNT 2.32 MIL/MM3 (4.00-5.30); RED CELL DISTRIBUTION WIDTH 16.3 % (11.6-17.2); WHITE BLOOD COUNT 7.4 TH/MM3 (4.0-11.0)
[2017-04-24 03:18] LABS: HEMATOCRIT 20.7 % (35.0-46.0); HEMOGLOBIN 6.8 GM/DL (11.6-15.3)
[2017-04-24] MEDS ORDERED: SODIUM CHLOR 0.9% 250 ML INJ 250 ML IV ONE (04:00)
[2017-04-24] MEDS: FAMOTIDINE 20 MG/2 ML VIAL IV PUSH SCH ×2 (04:41→17:46)
[2017-04-24 04:52] LABS: BANDS 9 % (0-6); CORRECTED NUCLEATED RBC 2 /100 WBC (0-0); LYMPHOCYTES 17 % (9-44); METAMYELOCYTES 3 % (0-1); MONOCYTES 3 % (0-8); MYELOCYTES 2 % (0-0); NEUTROPHIL # MANUAL DIFF 5.9 TH/MM3 (1.8-7.7); NUCLEATED RED BLOOD CELL 2 (0-0); POLYS (SEG NEUTROPHILS) 66 % (16-70)
[2017-04-24 04:53] LABS: ACANTHOCYTES OCC (NORMAL)
[2017-04-24 04:55] LABS: HOWELL-JOLLY BODIES PRESENT (NONE SEEN)
[2017-04-24] MEDS ORDERED: PHARMACY ORDERED LAB ONE (05:45)
--- NOTE | 2017-04-24 07:35 | PD.ONC.PN ---
Subjective Subjective Remarks Patient seen and examined at 7 AM today. Vital signs, labs, medications and transfusion records reviewed. She received 2 units packed red blood cells yesterday. Her hemoglobin has improved to 6.8 g/dL. Subjectively; she reports continued coughing spells but overall her breathing is better. She sitting up out of bed on a chair today. She denies pain she denies overt bleeding. Objective Data Date Time Temp Pulse Resp B/P (MAP) Pulse Ox O2 Delivery O2 Flow Rate FiO2 04/24/17 06:00 70 04/24/17 04:00 65 04/24/17 04:00 98.3 65 21 77/60 (66) 100 04/24/17 02:00 70 04/24/17 00:00 98.3 79 23 121/69 (86) 99 04/24/17 00:00 79 04/23/17 22:00 74 04/23/17 21:50 100 04/23/17 20:00 79 04/23/17 20:00 98.6 79 23 124/67 (86) 100 04/23/17 18:00 83 04/23/17 17:40 97.7 78 17 134/78 99 04/23/17 17:20 97.8 86 18 130/69 98 04/23/17 16:00 90 04/23/17 16:00 97.8 90 20 134/84 (101) 99 04/23/17 14:00 100 04/23/17 13:00 98.0 04/23/17 12:00 95 04/23/17 12:00 100.4 95 23 145/78 (100) 94 04/23/17 10:00 91 04/23/17 08:00 97.5 87 22 144/65 (91) 96 04/23/17 08:00 87 04/23/17 07:49 100 Nasal Cannula 2.00 04/24/17 04/24/17 04/24/17 07:00 15:00 23:00 Intake Total 750 ml Balance 750 ml Result Diagram: 04/24/17 0155 04/24/17 0155 Laboratory Results Laboratory Tests Test 04/24/17 01:55 04/24/17 05:13 White Blood Count 7.4 TH/MM3 Red Blood Count 2.32 MIL/MM3 Hemoglobin 6.8 GM/DL Hematocrit 20.7 % Mean Corpuscular Volume 89.1 FL Mean Corpuscular Hemoglobin 29.4 PG Mean Corpuscular Hemoglobin Concent 33.0 % Red Cell Distribution Width 16.3 % Platelet Count 96 TH/MM3 Mean Platelet Volume 10.5 FL Neutrophils (%) (Auto) 77.2 % Lymphocytes (%) (Auto) 12.1 % Monocytes (%) (Auto) 10.2 % Eosinophils (%) (Auto) 0.1 % Basophils (%) (Auto) 0.4 % Neutrophils # (Auto) 5.7 TH/MM3 Lymphocytes # (Auto) 0.9 TH/MM3 Monocytes # (Auto) 0.8 TH/MM3 Eosinophils # (Auto) 0.0 TH/MM3 Basophils # (Auto) 0.0 TH/MM3 CBC Comment AUTO DIFF Differential Total Cells Counted 100 Neutrophils % (Manual) 66 % Band Neutrophils % 9 % Lymphocytes % 17 % Monocytes % 3 % Neutrophils # (Manual) 5.9 TH/MM3 Metamyelocytes 3 % Myelocytes 2 % Nucleated Red Blood Cells 2 /100 WBC Differential Comment FINAL DIFF MANUAL Platelet Estimate LOW Platelet Morphology Comment ENLARGED [place] Bodies PRESENT Acanthocytes OCC Hematology Comments Blood Urea Nitrogen 21 MG/DL Creatinine 1.14 MG/DL Random Glucose 101 MG/DL Calcium Level 8.6 MG/DL Lactate Dehydrogenase 318 U/L Total Bilirubin 1.4 MG/DL Sodium Level 142 MEQ/L Potassium Level 3.5 MEQ/L Chloride Level 113 MEQ/L Carbon Dioxide Level 21.2 MEQ/L Anion Gap 8 MEQ/L Estimat Glomerular Filtration Rate 57 ML/MIN Vancomycin Level Trough 20.9 MCG/ML Culture Results Microbiology Date/Time Source Procedure Growth Status 04/21/17 18:05 Sputum Expectorated Sputum Gram Stain - Final Complete 04/21/17 18:05 Sputum Expectorated Sputum Sputum Culture - Final HEAVY GROWTH NORMAL RESPIRATORY BAY Complete 04/21/17 08:17 Urine Random Urine Legionella Antigen - Final PRESUMPTIVE NEGATIVE FOR LEGIONELLA P... Complete 04/21/17 08:17 Urine Random Urine Streptococcus pneumoniae Antigen (M - Final PRESUMPTIVE NEGATIVE FOR STREPTOCOCCU... Complete Administered Medications Medications (Trade) Dose Ordered Sig/Alma Route PRN Reason Start Time Stop Time Status Last Admin Dose Admin Sodium Chloride (NS Flush) 2 ml BID IV FLUSH 04/21/17 09:00 04/23/17 19:57 Acetaminophen (Tylenol) 650 mg Q4H PRN PO TEMP > 100.4 04/21/17 04:45 04/23/17 12:40 Ondansetron HCl (Zofran Inj) 4 mg Q6H PRN IVP NAUSEA OR VOMITING 04/21/17 04:45 04/23/17 17:55 Oseltamivir Phosphate (Tamiflu) 75 mg BID PO 04/21/17 16:00 04/23/17 19:58 Acetylcysteine (Mucomyst 10% Neb) 2 ml Q6HR WHILE AWAKE NEB NEB 04/21/17 14:00 04/23/17 11:48 Albuterol Sulfate (Albuterol Neb) 1.25 mg Q6HR WHILE AWAKE NEB NEB 04/21/17 14:00 04/23/17 21:50 Prednisone (Deltasone) 90 mg DAILY PO 04/22/17 09:00 04/23/17 08:44 Piperacillin Sod/ Tazobactam Sod 3.375 gm/Sodium Chloride 50 ml @ 100 mls/hr Q6H IV 04/22/17 02:00 04/24/17 01:27 Miscellaneous Information Patient in critical care unit? Ass... Q361D .XX 04/21/17 22:45 04/21/17 22:45 Chlorhexidine Gluconate (Chlorhexidine 2% Cloth) 3 pack DAILY@04 TOPICAL 04/22/17 04:00 04/26/17 04:01 04/24/17 01:27 Potassium Bicarb/ Potassium Chloride (K-Lyte Cl Eff) 50 meq UNSCH PRN PO For Potassium 3.3 - 3.5 mEq/L 04/22/17 04:30 04/23/17 08:45 Famotidine (Pepcid Inj) 20 mg Q12H IV PUSH 04/22/17 05:00 04/24/17 04:41 Folic Acid (Folate) 1 mg DAILY PO 04/22/17 09:00 04/23/17 08:44 Acetaminophen (Tylenol) 650 mg Q4H PRN PO SEE LABEL COMMENTS 04/23/17 07:30 04/23/17 16:18 Diphenhydramine HCl (Benadryl) 25 mg Q4H PRN PO SEE LABEL COMMENTS 04/23/17 07:30 04/23/17 16:19 Danazol (Danocrine) 400 mg BID PO 04/23/17 09:30 04/23/17 19:58 Vancomycin HCl 1250 mg/Sodium Chloride 262.5 ml @ 250 mls/hr Q12H IV 04/23/17 17:00 Future Hold 04/23/17 17:42 Objective Remarks GENERAL APPEARANCE: Ms. Manzanares is a young female, she sitting up in bed, she appears to be breathing more comfortably. She is able to speak in full sentences. She continues to cough. HEENT: Head atraumatic, normocephalic, conjunctive are pale, sclerae are mildly icteric. Oral exam there is pharyngeal erythema. NECK: No palpable cervical or supraclavicular adenopathy. Her thyroid gland is grossly enlarged involving both lobes and isthmus. No definite masses are noted. RESPIRATORY: Improved air movement bilaterally lung elise with expiratory rhonchi noted on the right side. CARDIOVASCULAR: Tachycardic has now resolved, rhythm is regular and her heart rate is also regular, no murmurs rubs or gallops. ABDOMEN: Protuberant belly, soft, no palpable organ enlargement. EXTREMITIES: Lower extremities no pretibial edema or calf tenderness. 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 SKIN: Lupus-related skin lesions have resolved. Assessment/Plan Assessment Ms. Manzanares is a 26-year-old female with a history of systemic lupus erythematosus, she comes in acutely ill with influenza A. Her major symptoms at that of cough, fever, difficulty breathing and soreness in the throat. She also reports muscle aches and pains. Upon evaluation she was noted to be critically anemic with a hemoglobin 6.5 gm/dl, type and screen and additional blood bank testing indicated a strong presence of cold agglutinins as well as warm agglutinins (panagglutinins). She has been initiated on corticosteroids, Tamiflu and broad-spectrum antibiotics including Zosyn and vancomycin. Over the course of this hospitalization her respiratory status has deteriorated and she is increasingly hypoxic, increasingly tachypneic and tachycardiac. She was transferred to [facility], her respiratory status overnight has improved and her tachycardia has also resolved. She did receive 1 unit of packed red blood cells with an improvement in her hemoglobin and hematocrit. Plan 1. 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 She has both cold and warm autoantibodies multiple antigens (at least 6) this makes finding compatible red cell units very difficult to obtain.. She has been initiated on corticosteroids prednisone 1 mg/kg daily. Danazol was added as an adjunct to corticosteroids on 04/23/2017. Additional therapeutic intervention should her hemoglobin and hematocrit did not improve would be IVIG for her cold agglutinins and possibly Rituxan. Splenectomy would be a third line option. One additional unit packed red blood cells has been ordered for 04/24/2017. She will eventually need ultrasound of the thyroid gland. Continue supportive care for management of her influenza A. Continue Tamiflu. Oh Cardona MD Apr 24, 2017 07:35
[2017-04-24] MEDS: RESP: ACETYLCYSTEINE 10% 10 ML NEB NEB SCH ×3 (08:00→19:32)
[2017-04-24] MEDS: SODIUM CHLORIDE 0.9% FLUSH 10 ML FLUSH IV FLUSH SCH ×2 (09:00→20:16)
[2017-04-24] MEDS: predniSONE 20 MG TAB PO SCH (09:02)
[2017-04-24] MEDS: FOLIC ACID 1 MG TAB PO SCH (09:03)
[2017-04-24] MEDS: OSELTAMIVIR PHOSPHATE 75 MG CAP PO SCH ×2 (09:03→20:16)
[2017-04-24] MEDS: DANAZOL 100 MG CAP PO SCH ×2 (09:04→20:16)
[2017-04-24] MEDS: RESP: ALBUTEROL 1.25 MG/3 ML NEB (SCH) NEB ×3 (09:14→19:32)
--- NOTE | 2017-04-24 10:51 | HHI.CCPN ---
Subjective Remarks/Hospital Course 26-year-old female very pleasant female with past medical history of systemic lupus erythematosus for the past 4 years and had been on systemic therapy with Plaquenil up until about 8 months ago. She was in her usual state of health up until about 2 days ago, when she contracted a viral illness from her daughter. She then developed fevers, chills, body aches, cough and difficulty breathing. She presented to the emergency department here at [facility] in [place] and was admitted to hospitalist service. On the floor she remained tachycardic , tachypneic, hypoxic, febrile with worsening of respiratory distress. Her chest x-ray revealed no evidence of pulmonary infiltrates. She was also found to be severely anemic with the hemoglobin of 6.5 gm/dl and hematocrit 16.4%. She was found to have a multiple antibodies and has been initiated on corticosteroids and compatible unit of packed red blood cells has been requested. Her nasal swabs were positive for influenza A and she has been started on Tamiflu and also broad-spectrum antibiotics. Due to worsening respiratory distress and immunocompromised condition she has been transferred to [facility] to ICU for high level of care. 04/22 Patient is lying in bed in [facility]. On 2L oxygen with good sats, BP 121/72. s/ p transfusion 1unit PRBC Hgb 7.1 this morning 04/23: Hemoglobin dropped to 5.8. Hematology Dr. Cardona following. 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 Compatible blood ordered pending at this time. On prednisone 1 mg/kg daily. Dr. Cardona starting Danazol as an adjunct to corticosteroids. 04/24: Hemoglobin remains low, 6.[address] Cardona is aware. Clinically feels better but extensive maculopapular rashes on the back which patient states is usual for her Lupus flareup. D/W Dr. Cardona re: pulse dosing steroid. he will re evaluate the rash today Objective Vital Signs Date Time Temp Pulse Resp B/P (MAP) Pulse Ox O2 Delivery O2 Flow Rate FiO2 04/24/17 09:16 100 Nasal Cannula 2.00 04/24/17 08:00 79 04/24/17 08:00 98.6 21 149/97 (114) 04/22/17 20:34 21 Intake and Output 04/24/17 04/24/17 04/25/17 08:00 16:00 00:00 Intake Total 750 ml Balance 750 ml Result Diagram: 04/24/17 0155 04/24/17 0155 Other Results Microbiology Date/Time Source Procedure Growth Status 04/21/17 18:05 Sputum Expectorated Sputum Gram Stain - Final Complete 04/21/17 18:05 Sputum Expectorated Sputum Sputum Culture - Final HEAVY GROWTH NORMAL RESPIRATORY BAY Complete Imaging Last Impressions Chest X-Ray 04/21/17 0204 Signed Impressions: Service Date/Time: Friday, April 21, 2017 02:15 - CONCLUSION: The lungs are clear. Christopher Ochoa MD Objective Remarks GENERAL: Mildly obese, well-developed patient lying in bed no distress SKIN: Entire skin examined along with RN Patti. Extensive maculopapular rashes on the back, few on the anterior upper and lateral chest. (I have asked the same RN to do a follow up exam tomorrow) HEAD: Normocephalic. EYES: No scleral icterus. No injection or drainage. NECK: Supple, trachea midline. No JVD or lymphadenopathy. CARDIOVASCULAR: Regular rate and rhythm without murmurs, gallops, or rubs. RESPIRATORY: Breath sounds equal bilaterally. Few coarse rhonchi posterior chest GASTROINTESTINAL: Abdomen soft, non-tender, nondistended. MUSCULOSKELETAL: No cyanosis, or edema. NEURO EXAM: The patient is alert and oriented to person, place, and time with normal speech limited due to respiratory distress. A/P Assessment and Plan Assessment: Autoimmune hemolytic anemia requiring transfusion Resp Insufficiency Positive influenza Systemic lupus, with exacerbation UTI Plan Neuro: Awake and alert, no focal deficits Pulm: Continue with oxygen keep sats >92% Bronchodilators, CXR 04/22 showed clear lungs. Repeat CXR in am CV: Monitor HR and BP keep MAP>65mmHg : Monitor renal function, electrolytes replacement per protocol. GI: On PO diet, Pepcid for GI prophylaxis Heme/MSK: Monitor CBC, s/p transfusion 1unit PRBC Hgb 7.1 Hb 6.8 today s/p 2U compatible blood transfusion On Prednisone 90mg daily for AIHA. Added Danazol as adjunct Extensive maculopapular rashes on the back which patient states is usual for her Lupus flareup. D/W Dr. Cardona re: pulse dosing steroid. he will re evaluate the rash today ID: Continue abx ( On Tamiflu, Vanco, Zosyn) Monitor for signs of infections ( Fever, WBC) Follow up on Blood, sputum and urine cx. Nasal washing + Influenza A Endo: SSI if needed for glycemic control GI prophylaxis- on Pepcid DVT prophylaxis- SCD., not on chemical DVT prophylaxis due to AIHA Level 2 Continue ICU care due to severe AIHA Zaheer Cm MD Apr 24, 2017 10:51
[2017-04-24] MEDS ORDERED: VANCOMYCIN INJ 1,500 MG in SODIUM CHLORID 0.9% 500 ML INJ 500 ML IV SCH (16:00)
[2017-04-25] VITALS (15 sets, daily range): BP systolic 129–142; BP diastolic 72–78; PULSE 51–67; RESP 17–23; TEMP 98.5–99.1; O2SAT 96–100
[2017-04-25 02:21] LABS: AUTOMATED NEUTROPHIL # 6.3 TH/MM3 (1.8-7.7); BASOPHIL % 0.3 % (0.0-2.0); HEMATOCRIT 21.9 % (35.0-46.0); HEMOGLOBIN 7.7 GM/DL (11.6-15.3); LYMPH % 9.2 % (9.0-44.0); LYMPHOCYTE # 0.7 TH/MM3 (1.0-4.8); MEAN CELL VOLUME 97.7 FL (80.0-100.0); MEAN CORPUSCULAR HEMOGLOBIN 34.2 PG (27.0-34.0); MEAN PLATELET VOLUME 10.5 FL (7.0-11.0); MONO % 7.9 % (0.0-8.0); MONOCYTE # 0.6 TH/MM3 (0-0.9); NEUT % 82.6 % (16.0-70.0); PLATELET COUNT 87 TH/MM3 (150-450); RED BLOOD COUNT 2.24 MIL/MM3 (4.00-5.30); RED CELL DISTRIBUTION WIDTH 16.5 % (11.6-17.2); WHITE BLOOD COUNT 7.6 TH/MM3 (4.0-11.0)
[2017-04-25] MEDS: PIPERACIL-TAZO 3.375 GM PREMIX 50 ML IV SCH ×2 (02:31→09:04)
[2017-04-25] MEDS: CHLORHEXIDINE GLUCONATE 2 % 1 PACK (2 CLOTHS)(taper/protocol) TOPICAL SCH (02:31)
[2017-04-25 02:42] LABS: ALBUMIN 2.4 GM/DL (3.4-5.0); ALT (GPT) 121 U/L (10-53); AST (GOT) 97 U/L (15-37); BICARBONATE 21.4 MEQ/L (21.0-32.0); BLOOD UREA NITROGEN 20 MG/DL (7-18); CALCIUM 8.4 MG/DL (8.5-10.1); CHLORIDE 111 MEQ/L (98-107); GLOMERULAR FILTRATION RATE 54 ML/MIN (>89); GLUCOSE,RANDOM 121 MG/DL (74-106); SODIUM (NA) 140 MEQ/L (136-145)
[2017-04-25 02:43] LABS: ALKALINE PHOSPHATASE 99 U/L (45-117); TOTAL BILIRUBIN ADULT 1.2 MG/DL (0.2-1.0); TOTAL PROTEIN 6.3 GM/DL (6.4-8.2)
[2017-04-25] MEDS: FAMOTIDINE 20 MG/2 ML VIAL IV PUSH SCH ×2 (04:14→17:49)
--- NOTE | 2017-04-25 05:37 | RADRPT ---
EXAM DATE/TIME: 04/25/2017 03:50 [place] COMPARISON: CHEST SINGLE AP, April 22, 2017, 10:21. INDICATIONS : Evalaute for respiratory disease. MEDICAL HISTORY : Lupus. SURGICAL HISTORY : None. ENCOUNTER: Initial ACUITY: 1 week PAIN SCORE: Non-responsive. LOCATION: chest FINDINGS: The heart size is normal. There is minimal patchy density at the left base. The right lung is clear. CONCLUSION: Minimal atelectasis or consolidation at the left base. Toi Cotton MD on April 25, 2017 at 5:34 Board Certified Radiologist. This report was verified electronically.
[2017-04-25 07:46] LABS: BANDS 4 % (0-6); LYMPHOCYTES 8 % (9-44); METAMYELOCYTES 1 % (0-1); MONOCYTES 11 % (0-8); MYELOCYTES 2 % (0-0); NEUTROPHIL # MANUAL DIFF 6.2 TH/MM3 (1.8-7.7); POLYS (SEG NEUTROPHILS) 74 % (16-70)
[2017-04-25 07:49] LABS: TEARDROP RBCS 1+ (NORMAL)
[2017-04-25] MEDS: RESP: ALBUTEROL 1.25 MG/3 ML NEB (SCH) NEB ×3 (08:00→19:38)
[2017-04-25] MEDS: SODIUM CHLORIDE 0.9% FLUSH 10 ML FLUSH IV FLUSH SCH ×2 (09:00→20:21)
[2017-04-25] MEDS: OSELTAMIVIR PHOSPHATE 75 MG CAP PO SCH ×2 (09:00→19:32)
[2017-04-25] MEDS: predniSONE 20 MG TAB PO SCH (09:04)
[2017-04-25] MEDS: DANAZOL 100 MG CAP PO SCH ×2 (09:05→19:31)
[2017-04-25] MEDS: FOLIC ACID 1 MG TAB PO SCH (09:06)
[2017-04-25] MEDS: RESP: ACETYLCYSTEINE 10% 10 ML NEB NEB SCH ×2 (10:08→14:16)
--- NOTE | 2017-04-25 11:58 | PD.ONC.PN ---
Subjective Subjective Remarks Time of visit: 7:20 AM. Chief complaint: Patient reports continued coughing spells. She reports overall feeling better. Her heart rate remains within normal limits and her respiratory status has improved. Patient no longer requires oxygen supplementation. One additional unit packed red blood cells was transfused on 04/24/2017. Hemoglobin this morning is 7.7 g/dL. Objective Data Date Time Temp Pulse Resp B/P (MAP) Pulse Ox O2 Delivery O2 Flow Rate FiO2 04/25/17 10:12 100 21 04/25/17 08:00 98.7 52 20 130/73 (92) 99 04/25/17 08:00 51 04/25/17 07:53 51 04/25/17 06:00 51 04/25/17 04:00 52 04/25/17 04:00 98.7 52 17 129/75 (93) 99 04/25/17 02:00 58 04/25/17 00:00 62 04/25/17 00:00 99.1 65 23 142/76 (98) 96 04/24/17 22:00 101 04/24/17 20:00 98.1 90 25 134/87 (103) 100 04/24/17 20:00 90 04/24/17 19:32 97 21 04/24/17 18:00 79 04/24/17 16:00 98.8 76 24 118/58 (78) 99 04/24/17 16:00 79 04/24/17 14:00 79 04/24/17 13:00 79 04/24/17 12:00 98.8 81 24 125/84 (98) 99 04/25/17 04/25/17 04/25/17 07:00 15:00 23:00 Intake Total 770 ml Balance 770 ml Result Diagram: 04/25/17 0154 04/25/17 0154 Laboratory Results Laboratory Tests Test 04/25/17 01:54 White Blood Count 7.6 TH/MM3 Red Blood Count 2.24 MIL/MM3 Hemoglobin 7.7 GM/DL Hematocrit 21.9 % Mean Corpuscular Volume 97.7 FL Mean Corpuscular Hemoglobin 34.2 PG Mean Corpuscular Hemoglobin Concent 35.0 % Red Cell Distribution Width 16.5 % Platelet Count 87 TH/MM3 Mean Platelet Volume 10.5 FL Neutrophils (%) (Auto) 82.6 % Lymphocytes (%) (Auto) 9.2 % Monocytes (%) (Auto) 7.9 % Eosinophils (%) (Auto) 0.0 % Basophils (%) (Auto) 0.3 % Neutrophils # (Auto) 6.3 TH/MM3 Lymphocytes # (Auto) 0.7 TH/MM3 Monocytes # (Auto) 0.6 TH/MM3 Eosinophils # (Auto) 0.0 TH/MM3 Basophils # (Auto) 0.0 TH/MM3 CBC Comment AUTO DIFF Differential Total Cells Counted 100 Neutrophils % (Manual) 74 % Band Neutrophils % 4 % Lymphocytes % 8 % Monocytes % 11 % Neutrophils # (Manual) 6.2 TH/MM3 Metamyelocytes 1 % Myelocytes 2 % Differential Comment FINAL DIFF MANUAL Platelet Estimate LOW Platelet Morphology Comment NORMAL Polychromasia 2.0 % Tear Drop Cells 1+ Blood Urea Nitrogen 20 MG/DL Creatinine 1.20 MG/DL Random Glucose 121 MG/DL Total Protein 6.3 GM/DL Albumin 2.4 GM/DL Calcium Level 8.4 MG/DL Alkaline Phosphatase 99 U/L Aspartate Amino Transf (AST/SGOT) 97 U/L Alanine Aminotransferase (ALT/SGPT) 121 U/L Total Bilirubin 1.2 MG/DL Sodium Level 140 MEQ/L Potassium Level 3.5 MEQ/L Chloride Level 111 MEQ/L Carbon Dioxide Level 21.4 MEQ/L Anion Gap 8 MEQ/L Estimat Glomerular Filtration Rate 54 ML/MIN Imaging Studies Last 24 hours Impressions Chest X-Ray 04/25/17 0600 Signed Impressions: Service Date/Time: Tuesday, April 25, 2017 03:50 - CONCLUSION: Minimal atelectasis or consolidation at the left base. Toi Cotton MD Administered Medications Medications (Trade) Dose Ordered Sig/Alma Route PRN Reason Start Time Stop Time Status Last Admin Dose Admin Sodium Chloride (NS Flush) 2 ml BID IV FLUSH 04/21/17 09:00 04/24/17 20:16 Acetaminophen (Tylenol) 650 mg Q4H PRN PO TEMP > 100.4 04/21/17 04:45 04/23/17 12:40 Ondansetron HCl (Zofran Inj) 4 mg Q6H PRN IVP NAUSEA OR VOMITING 04/21/17 04:45 04/23/17 17:55 Oseltamivir Phosphate (Tamiflu) 75 mg BID PO 04/21/17 16:00 04/25/17 09:00 Acetylcysteine (Mucomyst 10% Neb) 2 ml Q6HR WHILE AWAKE NEB NEB 04/21/17 14:00 04/25/17 10:08 Albuterol Sulfate (Albuterol Neb) 1.25 mg Q6HR WHILE AWAKE NEB NEB 04/21/17 14:00 04/25/17 08:00 Prednisone (Deltasone) 90 mg DAILY PO 04/22/17 09:00 04/25/17 09:04 Miscellaneous Information Patient in critical care unit? Ass... [id number] .XX 04/21/17 22:45 04/21/17 22:45 Chlorhexidine Gluconate (Chlorhexidine 2% Cloth) 3 pack DAILY@04 TOPICAL 04/22/17 04:00 04/26/17 04:01 04/25/17 02:31 Potassium Bicarb/ Potassium Chloride (K-Lyte Cl Eff) 50 meq UNSCH PRN PO For Potassium 3.3 - 3.5 mEq/L 04/22/17 04:30 04/23/17 08:45 Famotidine (Pepcid Inj) 20 mg Q12H IV PUSH 04/22/17 05:00 04/25/17 04:14 Folic Acid (Folate) 1 mg DAILY PO 04/22/17 09:00 04/25/17 09:06 Acetaminophen (Tylenol) 650 mg Q4H PRN PO SEE LABEL COMMENTS 04/23/17 07:30 04/23/17 16:18 Diphenhydramine HCl (Benadryl) 25 mg Q4H PRN PO SEE LABEL COMMENTS 04/23/17 07:30 04/23/17 16:19 Danazol (Danocrine) 400 mg BID PO 04/23/17 09:30 04/25/17 09:05 Vancomycin HCl 1500 mg/Sodium Chloride 515 ml @ 250 mls/hr Q18H IV 04/24/17 16:00 04/24/17 15:57 Piperacillin Sod/ Tazobactam Sod 50 ml @ 100 mls/hr Q6H IV 04/25/17 02:00 04/25/17 09:04 Objective Remarks GENERAL APPEARANCE: Ms. Manzanares is a young female, she sitting up in bed, she appears to be breathing more comfortably. She is able to speak in full sentences. She continues to cough. HEENT: Head atraumatic, normocephalic, conjunctive are pale, sclerae are mildly icteric. Oral exam there is pharyngeal erythema. NECK: No palpable cervical or supraclavicular adenopathy. Her thyroid gland is grossly enlarged involving both lobes and isthmus. No definite masses are noted. RESPIRATORY: Improved air movement bilaterally lung elise with expiratory rhonchi noted on the right side. CARDIOVASCULAR: Tachycardic has now resolved, rhythm is regular and her heart rate is also regular, no murmurs rubs or gallops. ABDOMEN: Protuberant belly, soft, no palpable organ enlargement. EXTREMITIES: Lower extremities no pretibial edema or calf tenderness. HADOOP ADMINISTRATOR: No focal sensory or motor deficits. SKIN: Lupus-related skin lesions have resolved. Assessment/Plan Assessment Ms. Manzanares is a 26-year-old female with a history of systemic lupus erythematosus, she comes in acutely ill with influenza A. Her major symptoms at that of cough, fever, difficulty breathing and soreness in the throat. She also reports muscle aches and pains. Upon evaluation she was noted to be critically anemic with a hemoglobin 6.5 gm/dl, type and screen and additional blood bank testing indicated a strong presence of cold agglutinins as well as warm agglutinins (panagglutinins). She has been initiated on corticosteroids, Tamiflu and broad-spectrum antibiotics including Zosyn and vancomycin. Over the course of this hospitalization her respiratory status has deteriorated and she is increasingly hypoxic, increasingly tachypneic and tachycardiac. She was transferred to [facility], her respiratory status overnight has improved and her tachycardia has also resolved. She did receive 1 unit of packed red blood cells with an improvement in her hemoglobin and hematocrit. Plan 1. 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 She has both cold and warm autoantibodies multiple antigens ( at least 6) this makes finding compatible red cell units very difficult to obtain. She has been initiated on corticosteroids prednisone 1 mg/kg daily. Danazol was added as an adjunct to corticosteroids on 04/23/2017. Her hemoglobin and hematocrit today are improved and this indicates decrease hemolysis to me given the adequate response to one unit packed red blood cells. Additional therapeutic intervention should her hemoglobin and hematocrit did not improve would be IVIG for her cold agglutinins and possibly Rituxan. Splenectomy would be a third line option. She will eventually need an ultrasound of the thyroid gland for evaluation of her impressive goiter. Continue supportive care for management of her influenza A. Continue Tamiflu. Clinically she is improved and may be transferred out of the critical care unit. If her hemoglobin and hematocrit remain stable over the course of the next 24- 48 hours she may be discharged home on the current dose of oral prednisone with close outpatient follow-up. Oh Cardona MD Apr 25, 2017 11:58
--- NOTE | 2017-04-25 13:34 | HHI.CCPN ---
Subjective Remarks/Hospital Course 26-year-old female very pleasant female with past medical history of systemic lupus erythematosus for the past 4 years and had been on systemic therapy with Plaquenil up until about 8 months ago. She was in her usual state of health up until about 2 days ago, when she contracted a viral illness from her daughter. She then developed fevers, chills, body aches, cough and difficulty breathing. She presented to the emergency department here at [facility] in [place] and was admitted to hospitalist service. On the floor she remained tachycardic , tachypneic, hypoxic, febrile with worsening of respiratory distress. Her chest x-ray revealed no evidence of pulmonary infiltrates. She was also found to be severely anemic with the hemoglobin of 6.5 gm/dl and hematocrit 16.4%. She was found to have a multiple antibodies and has been initiated on corticosteroids and compatible unit of packed red blood cells has been requested. Her nasal swabs were positive for influenza A and she has been started on Tamiflu and also broad-spectrum antibiotics. Due to worsening respiratory distress and immunocompromised condition she has been transferred to [facility] to ICU for high level of care. 04/22 Patient is lying in bed in [place]. On 2L oxygen with good sats, BP 121/72. s/ p transfusion 1unit PRBC Hgb 7.1 this morning 04/23: Hemoglobin dropped to 5.8. Hematology Dr. Cardona following. 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 Compatible blood ordered pending at this time. On prednisone 1 mg/kg daily. Dr. Cardona starting Danazol as an adjunct to corticosteroids. 04/24: Hemoglobin remains low, 6.[address] Cardona is aware. Clinically feels better but extensive maculopapular rashes on the back which patient states is usual for her Lupus flareup. D/W Dr. Cardona re: pulse dosing steroid. he will re evaluate the rash today 04/25: doing well. denies complaints. per Dr. Cardona, can go to the floor and likely home tomorrow if stable. no evidence of bacterial superinfection and will d/c abx. Objective Vital Signs Date Time Temp Pulse Resp B/P (MAP) Pulse Ox O2 Delivery O2 Flow Rate FiO2 04/25/17 12:00 98.7 52 20 130/73 (92) 99 04/25/17 10:12 21 04/24/17 09:16 Nasal Cannula 2.00 Intake and Output 04/25/17 04/25/17 04/26/17 08:00 16:00 00:00 Intake Total 770 ml Balance 770 ml Result Diagram: 04/25/17 0154 04/25/17 0154 Imaging Last Impressions Chest X-Ray 04/21/17 0204 Signed Impressions: Service Date/Time: Friday, April 21, 2017 02:15 - CONCLUSION: The lungs are clear. Christopher Ochoa MD Objective Remarks GENERAL: Mildly obese, well-developed patient lying in bed no distress HEAD: Normocephalic. EYES: No scleral icterus. No injection or drainage. NECK: Supple, trachea midline. CARDIOVASCULAR: Regular rate and rhythm RESPIRATORY: equal chest rise. room air. GASTROINTESTINAL: Abdomen soft, non-tender, nondistended. MUSCULOSKELETAL: No cyanosis, or edema. NEURO EXAM: The patient is alert and oriented to person, place, and time with normal speech limited due to respiratory distress. A/P Assessment and Plan Assessment: 26yF with acute hemolytic anemia and influenza. will stop broad spectrum abx. check labs in AM. stable for transfer out of ICU. consult hospitalist group. Autoimmune hemolytic anemia requiring transfusion Resp Insufficiency Positive influenza Systemic lupus, with exacerbation UTI Plan Neuro: Awake and alert, no focal deficits Pulm: Continue with oxygen keep sats >92% Bronchodilators, CXR 04/22 showed clear lungs. CV: Monitor HR and BP keep MAP>65mmHg : Monitor renal function, electrolytes replacement per protocol. GI: On PO diet, Pepcid for GI prophylaxis Heme/MSK: Monitor CBC, s/p transfusion 1unit PRBC Hgb 7.1 Hb 6.8 today s/p 2U compatible blood transfusion On Prednisone 90mg daily for AIHA. Added Danazol as adjunct Extensive maculopapular rashes on the back which patient states is usual for her Lupus flareup. D/W Dr. Cardona re: pulse dosing steroid. ID: continue Tamiflu. d/c abx. all cultures NGTD. Nasal washing + Influenza A Endo: SSI if needed for glycemic control GI prophylaxis- on Pepcid DVT prophylaxis- SCD., not on chemical DVT prophylaxis due to AIHA transfer to floor. consult hospitalist. Hi Kellogg MD Apr 25, 2017 13:34
[2017-04-25] MEDS ORDERED: RESP: ACETYLCYSTEINE 10% 10 ML NEB NEB SCH (14:00)
[2017-04-25] MEDS: RESP: ACETYLCYSTEINE 10% 30 ML NEB NEB SCH (19:38)
[2017-04-26] VITALS: BP 142/93; PULSE 58; RESP 37; O2SAT 95
[2017-04-26] MEDS ORDERED: PHARMACY ORDERED LAB ONE (03:45)
[2017-04-26] MEDS: FAMOTIDINE 20 MG/2 ML VIAL IV PUSH SCH ×2 (05:14→17:36)
[2017-04-26 06:20] VITALS: BP 142/81; PULSE 63; TEMP 97.8; O2SAT 99
[2017-04-26] MEDS: CHLORHEXIDINE GLUCONATE 2 % 1 PACK (2 CLOTHS)(taper/protocol) TOPICAL SCH (06:22)
[2017-04-26 08:00] VITALS: BP 139/89; PULSE 60; RESP 18; TEMP 98.7; O2SAT 98
[2017-04-26] MEDS: RESP: ACETYLCYSTEINE 10% 30 ML NEB NEB SCH ×2 (08:00→13:00)
[2017-04-26] MEDS: RESP: ALBUTEROL 1.25 MG/3 ML NEB (SCH) NEB ×2 (08:40→12:59)
[2017-04-26] MEDS: DANAZOL 100 MG CAP PO SCH (08:40)
[2017-04-26] MEDS: SODIUM CHLORIDE 0.9% FLUSH 10 ML FLUSH IV FLUSH SCH (08:43)
[2017-04-26] MEDS: predniSONE 20 MG TAB PO SCH (08:44)
[2017-04-26] MEDS: FOLIC ACID 1 MG TAB PO SCH (08:45)
[2017-04-26] MEDS: OSELTAMIVIR PHOSPHATE 75 MG CAP PO SCH ×2 (08:45→19:45)
[2017-04-26 09:53] LABS: AUTOMATED NEUTROPHIL # 10.6 TH/MM3 (1.8-7.7); BASOPHIL # 0.1 TH/MM3 (0-0.2); BASOPHIL % 0.9 % (0.0-2.0); EOSINOPHIL # 0.3 TH/MM3 (0-0.4); EOSINOPHIL % 2.3 % (0.0-4.0); HEMOGLOBIN 8.6 GM/DL (11.6-15.3); LYMPH % 8.3 % (9.0-44.0); LYMPHOCYTE # 1.1 TH/MM3 (1.0-4.8); MEAN CELL VOLUME 86.3 FL (80.0-100.0); MEAN CORPUSCULAR HEMOGLOBIN 29.6 PG (27.0-34.0); MEAN CORPUSCULAR HGB CONC 34.3 % (32.0-36.0); MEAN PLATELET VOLUME 10.4 FL (7.0-11.0); NEUT % 80.5 % (16.0-70.0); PLATELET COUNT 123 TH/MM3 (150-450); RED CELL DISTRIBUTION WIDTH 16.9 % (11.6-17.2); WHITE BLOOD COUNT 13.2 TH/MM3 (4.0-11.0)
[2017-04-26 10:25] LABS: CORRECTED NUCLEATED RBC 3 /100 WBC (0-0); LYMPHOCYTES 8 % (9-44); METAMYELOCYTES 3 % (0-1); MONOCYTES 4 % (0-8); MYELOCYTES 2 % (0-0); NEUTROPHIL # MANUAL DIFF 11.6 TH/MM3 (1.8-7.7); NUCLEATED RED BLOOD CELL 3 (0-0); POLYS (SEG NEUTROPHILS) 83 % (16-70); TOXIC VACUOLATION PRESENT (NONE SEEN)
[2017-04-26 10:26] LABS: POLYCHROMASIA 3.1 % (0.0-1.9)
[2017-04-26 10:27] LABS: TEARDROP RBCS 1+ (NORMAL)
--- NOTE | 2017-04-26 11:38 | HHI.PR ---
Subjective Remarks feels better 95 % up and ambulating lungs clear good sats at room air she and her are wanting to go home Objective Vitals Vital Signs Date Time Temp Pulse Resp B/P (MAP) Pulse Ox O2 Delivery O2 Flow Rate FiO2 04/26/17 08:00 98.7 60 18 139/89 (106) 98 04/26/17 06:20 97.8 63 142/81 (101) 99 04/26/17 00:00 58 04/26/17 00:00 58 37 142/93 (109) 95 04/25/17 22:00 56 04/25/17 20:00 98.5 63 20 141/78 (99) 100 04/25/17 20:00 63 04/25/17 19:40 98 21 04/25/17 18:00 51 04/25/17 16:00 98.8 67 20 129/72 (91) 99 04/25/17 16:00 51 04/25/17 14:00 51 04/25/17 12:00 98.7 52 20 130/73 (92) 99 04/25/17 12:00 51 I/O 04/25/17 04/25/17 04/25/17 04/26/17 04/26/17 04/26/17 07:00 15:00 23:00 07:00 15:00 23:00 Intake Total 770 ml 50 ml 575 ml Output Total 1000 ml Balance 770 ml 50 ml -425 ml Intake Oral 720 ml 575 ml IV Total 50 ml 50 ml Output Urine Total 1000 ml # Voids 4 5 # Bowel Movements 1 1 Result Diagram: 04/26/17 0911 04/25/17 0154 Imaging Last Impressions Chest X-Ray 04/25/17 0600 Signed Impressions: Service Date/Time: Tuesday, April 25, 2017 03:50 - CONCLUSION: Minimal atelectasis or consolidation at the left base. Toi Cotton MD Objective Remarks awake and alert, orietned x 3 sores lips lungs- no rales regular rhythm abdomen soft, nontendere xtremities no edema neuro exam- non focal A/P Assessment and Plan Assessment: 26yF with acute hemolytic anemia and influenza. will stop broad spectrum abx. check labs in AM. stable for transfer out of ICU. consult hospitalist group. Autoimmune hemolytic anemia requiring transfusion H and H up S/P 2 units RBC continue on Prednisone 90 mg daily advise ff up with Hematology- Dr. Cardona Resp Insufficiency improved. good sats at room air lungs - clear Positive influenza had 5 days of Tamilfly - we will complete give 2 more days due to severity of symptoms to cvomplete a week course Systemic lupus, with exacerbation On Prednisone 90mg daily for AIHA. Added Danazol as adjunct Extensive maculopapular rashes on the back which patient states is usual for her Lupus flareup. D/W Dr. Cardona re: pulse dosing steroid. DENNISE- improved -non oliguric- per patient no diarhhea- 100% po encourage po fluids DC home today will set up with a PCP- OP ff up with hematology CBC and BMP on Friday- through [facility] miko will set up with a PCP- CM assisted ff up with Oncology- call Friday for Hipolito Colunga MD Apr 26, 2017 11:38
[2017-04-26 12:00] VITALS: BP 131/80; PULSE 67; RESP 18; TEMP 98; O2SAT 97
[2017-04-26 16:00] VITALS: BP 126/75; PULSE 58; RESP 18; TEMP 97.8; O2SAT 98
[2017-04-26] MEDS ORDERED: PRED20 PO (18:35)
[2017-04-26] MEDS ORDERED: OSEL75 PO (18:35)
[2017-04-26] MEDS ORDERED: [UNRECOGNIZED DRUG - CODE] PO (18:36)
[2017-04-26] MEDS ORDERED: PROT40TA PO (18:41)
[2017-04-26] MEDS ORDERED: MAGICADU2 SWISH-SWAL (18:42)
[2017-04-26] MEDS ORDERED: NYSTAT/DIPHENHY/LIDO MOUTHWASH (Adult) 120ML SWISH-SWAL SCH (18:45)
[2017-04-26] MEDS ORDERED: FOLI1TAB6 PO (18:46)
--- NOTE | 2017-04-26 18:55 | HHI.DS ---
Discharge Summary Admission Date Apr 21, 2017 at 04:41 Discharge Date: Apr 26, 2017 Admitting Diagnosis influenza; anemia Brief History - From Admission 26-year-old female being admitted for shortness of breath secondary to influenza A. Patient was in her usual state of health until about 2 days ago she began experiencing a gradual onset of a worsening cough and shortness of breath. Cough became severe enough to the point where she does had some posttussive emesis. Reports some fevers and chills. Denies any new swelling or any other new symptom. Reports that her lupus usually manifests in the form of rashes and joint pain. 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 However she moved down here and has not seen any physician for about a year in the outpatient setting. The emergency department patient was tested positive for flu a and she was also known to be anemic at hemoglobin of 6.5. Patient does report having rotated heavy periods requiring 2 overnight pads per day for about 5-7 days whenever she is on her period. Last period was a couple of weeks ago. CBC/BMP: 04/26/17 0911 04/25/17 0154 Significant Findings Laboratory Tests Test 04/24/17 01:55 04/24/17 05:13 04/25/17 01:54 04/26/17 09:11 Red Blood Count 2.32 MIL/MM3 (4.00-5.30) 2.24 MIL/MM3 (4.00-5.30) 2.90 MIL/MM3 (4.00-5.30) Hemoglobin 6.8 GM/DL (11.6-15.3) 7.7 GM/DL (11.6-15.3) 8.6 GM/DL (11.6-15.3) Hematocrit 20.7 % (35.0-46.0) 21.9 % (35.0-46.0) 25.0 % (35.0-46.0) Platelet Count 96 TH/MM3 (150-450) 87 TH/MM3 (150-450) 123 TH/MM3 (150-450) Neutrophils (%) (Auto) 77.2 % (16.0-70.0) 82.6 % (16.0-70.0) 80.5 % (16.0-70.0) Monocytes (%) (Auto) 10.2 % (0.0-8.0) Lymphocytes # (Auto) 0.9 TH/MM3 (1.0-4.8) 0.7 TH/MM3 (1.0-4.8) Band Neutrophils % 9 % (0-6) Metamyelocytes 3 % (0-1) 3 % (0-1) Myelocytes 2 % (0-0) 2 % (0-0) 2 % (0-0) Nucleated Red Blood Cells 2 /100 WBC (0-0) 3 /100 WBC (0-0) Platelet Estimate LOW (NORMAL) LOW (NORMAL) LOW (NORMAL) Platelet Morphology Comment ENLARGED (NORMAL) ENLARGED (NORMAL) Acanthocytes OCC (NORMAL) Blood Urea Nitrogen 21 MG/DL (7-18) 20 MG/DL (7-18) Creatinine 1.14 MG/DL (0.50-1.00) 1.20 MG/DL (0.50-1.00) Lactate Dehydrogenase 318 U/L (84-246) Total Bilirubin 1.4 MG/DL (0.2-1.0) 1.2 MG/DL (0.2-1.0) Chloride Level 113 MEQ/L (98-107) 111 MEQ/L (98-107) Estimat Glomerular Filtration Rate 57 ML/MIN (>89) 54 ML/MIN (>89) Vancomycin Level Trough 20.9 MCG/ML (5.0-10.0) Mean Corpuscular Hemoglobin 34.2 PG (27.0-34.0) Neutrophils % (Manual) 74 % (16-70) 83 % (16-70) Lymphocytes % 8 % (9-44) 8 % (9-44) Monocytes % 11 % (0-8) Polychromasia 2.0 % (0.0-1.9) 3.1 % (0.0-1.9) Tear Drop Cells 1+ (NORMAL) 1+ (NORMAL) Random Glucose 121 MG/DL (74-106) Total Protein 6.3 GM/DL (6.4-8.2) Albumin 2.4 GM/DL (3.4-5.0) Calcium Level 8.4 MG/DL (8.5-10.1) Aspartate Amino Transf (AST/SGOT) 97 U/L (15-37) Alanine Aminotransferase (ALT/SGPT) 121 U/L (10-53) White Blood Count 13.2 TH/MM3 (4.0-11.0) Lymphocytes (%) (Auto) 8.3 % (9.0-44.0) Neutrophils # (Auto) 10.6 TH/MM3 (1.8-7.7) Monocytes # (Auto) 1.0 TH/MM3 (0-0.9) Neutrophils # (Manual) 11.6 TH/MM3 (1.8-7.7) Toxic Vacuolation PRESENT (NONE SEEN) Basophilic Stippling FAINT (NORMAL) Imaging Last Impressions Chest X-Ray 04/25/17 0600 Signed Impressions: Service Date/Time: Tuesday, April 25, 2017 03:50 - CONCLUSION: Minimal atelectasis or consolidation at the left base. Toi Cotton MD PE at Discharge awake and alert, orietned x 3 sores lower lips, tongue and lower gums lungs- no rales regular rhythm abdomen soft, nontender extremities no edema neuro exam- non focal Pt update on day of discharge good sats at room air no rales or wheezes vital stable no pain complains Hospital Course 26yF with acute hemolytic anemia and influenza. will stop broad spectrum abx. check labs in AM. stable for transfer out of ICU. consult hospitalist group. Autoimmune hemolytic anemia requiring transfusion H and H up S/P 2 units RBC continue on Prednisone 90 mg daily advise ff up with Hematology- Dr. Cardona Resp Insufficiency improved. good sats at room air lungs - clear Positive influenza had 5 days of Tamilfly - we will complete give 2 more days due to severity of symptoms to cvomplete a week course Systemic lupus, with exacerbation On Prednisone 90mg daily for AIHA. Added Danazol as adjunct Extensive maculopapular rashes on the back which patient states is usual for her Lupus flareup. D/W Dr. Cardona re: pulse dosing steroid. Oral sores- Magic mouthwash qid DENNISE- improved -non oliguric- per patient no diarhhea- 100% po encourage po fluids DC home today will set up with a PCP- OP ff up with hematology CBC and BMP on Friday- through [facility] miko will set up with a PCP- CM assisted ff up with Oncology- call Friday for appt Pt Condition on Discharge: Stable Discharge Disposition: Discharge Home Discharge Time: > 30 minutes Discharge Instructions DIET: Follow Instructions for: As Tolerated, No Restrictions Activities you can perform: Weight Bearing as Winsome Activities to Avoid: Concussion Sports, Contact Sports, Strenuous Activity Follow up Referrals: Oncology/Hematology - 04/28/17 with Oh Cardona MD New Orders: BASIC METABOLIC PROF - 04/28/17 CBC WITH DIFF - 04/28/17 New Medications: Pantoprazole (Protonix) 40 Mg Tab 40 MG PO DAILY for Reflux, #30 TAB 0 Refills Danazol (Danazol) 100 Mg Cap 400 MG PO BID for AHA for 5 Days, #40 CAP Folic Acid (Folic Acid) 1 Mg Tablet 1 MG PO DAILY for ANEMIA for 30 Days, #30 TAB once daily Tabyycrq-Gqknyzlysletasr-Zlwirymcs Liq (Magic Mouthwash Adult Liq) 120 Ml Susp 10 ML SWISH-SWAL QID for soresoral for 7 Days, ML Oseltamivir (Tamiflu) 75 Mg Cap 75 MG PO BID for FLU for 2 Days, #4 CAP Prednisone (Prednisone) 20 Mg Tab 90 MG PO DAILY for AHA for 5 Days, #23 TAB Hipolito Timmons MD Apr 26, 2017 18:55
--- NOTE | 2017-04-26 19:11 | PD.ONC.PN ---
Subjective Subjective Remarks Pt seen and examined earlier today at approx 3:30pm Afebrile Requesting to go home No other complaints except she would like to take a shower Objective Data Date Time Temp Pulse Resp B/P (MAP) Pulse Ox O2 Delivery O2 Flow Rate FiO2 04/26/17 16:00 97.8 58 18 126/75 (92) 98 04/26/17 12:00 98.0 67 18 131/80 (97) 97 04/26/17 08:00 98.7 60 18 139/89 (106) 98 04/26/17 06:20 97.8 63 142/81 (101) 99 04/26/17 00:00 58 04/26/17 00:00 58 37 142/93 (109) 95 04/25/17 22:00 56 04/25/17 20:00 98.5 63 20 141/78 (99) 100 04/25/17 20:00 63 04/25/17 19:40 98 21 Result Diagram: 04/26/17 0911 04/25/17 0154 Laboratory Results Laboratory Tests Test 04/26/17 09:11 White Blood Count 13.2 TH/MM3 Red Blood Count 2.90 MIL/MM3 Hemoglobin 8.6 GM/DL Hematocrit 25.0 % Mean Corpuscular Volume 86.3 FL Mean Corpuscular Hemoglobin 29.6 PG Mean Corpuscular Hemoglobin Concent 34.3 % Red Cell Distribution Width 16.9 % Platelet Count 123 TH/MM3 Mean Platelet Volume 10.4 FL Neutrophils (%) (Auto) 80.5 % Lymphocytes (%) (Auto) 8.3 % Monocytes (%) (Auto) 8.0 % Eosinophils (%) (Auto) 2.3 % Basophils (%) (Auto) 0.9 % Neutrophils # (Auto) 10.6 TH/MM3 Lymphocytes # (Auto) 1.1 TH/MM3 Monocytes # (Auto) 1.0 TH/MM3 Eosinophils # (Auto) 0.3 TH/MM3 Basophils # (Auto) 0.1 TH/MM3 CBC Comment AUTO DIFF Differential Total Cells Counted 100 Neutrophils % (Manual) 83 % Lymphocytes % 8 % Monocytes % 4 % Neutrophils # (Manual) 11.6 TH/MM3 Metamyelocytes 3 % Myelocytes 2 % Nucleated Red Blood Cells 3 /100 WBC Differential Comment FINAL DIFF MANUAL Toxic Vacuolation PRESENT Platelet Estimate LOW Platelet Morphology Comment ENLARGED Polychromasia 3.1 % Basophilic Stippling FAINT Tear Drop Cells 1+ Hematology Comments Administered Medications Medications (Trade) Dose Ordered Sig/Alma Route PRN Reason Start Time Stop Time Status Last Admin Dose Admin Sodium Chloride (NS Flush) 2 ml BID IV FLUSH 04/21/17 09:00 04/26/17 08:43 Acetaminophen (Tylenol) 650 mg Q4H PRN PO TEMP > 100.4 04/21/17 04:45 04/23/17 12:40 Ondansetron HCl (Zofran Inj) 4 mg Q6H PRN IVP NAUSEA OR VOMITING 04/21/17 04:45 04/23/17 17:55 Oseltamivir Phosphate (Tamiflu) 75 mg BID PO 04/21/17 16:00 04/26/17 08:45 Prednisone (Deltasone) 90 mg DAILY PO 04/22/17 09:00 04/26/17 08:44 Miscellaneous Information Patient in critical care unit? Ass... Q361D .XX 04/21/17 22:45 04/21/17 22:45 Famotidine (Pepcid Inj) 20 mg Q12H IV PUSH 04/22/17 05:00 04/26/17 17:36 Folic Acid (Folate) 1 mg DAILY PO 04/22/17 09:00 04/26/17 08:45 Acetaminophen (Tylenol) 650 mg Q4H PRN PO SEE LABEL COMMENTS 04/23/17 07:30 04/23/17 16:18 Diphenhydramine HCl (Benadryl) 25 mg Q4H PRN PO SEE LABEL COMMENTS 04/23/17 07:30 04/23/17 16:19 Danazol (Danocrine) 400 mg BID PO 04/23/17 09:30 04/26/17 08:40 Albuterol Sulfate (Albuterol Neb) 1.25 mg Q6HR WHILE AWAKE NEB NEB 04/25/17 14:00 04/26/17 12:59 Acetylcysteine (Mucomyst 10% Neb) 2 ml Q6HR WHILE AWAKE NEB NEB 04/25/17 20:00 04/26/17 08:00 Objective Remarks GENERAL: Young female, sitting up in bed in no acute distress. SKIN: Warm and dry. +Livedo Reticularis to BLE HEAD: Normocephalic. EYES: No injection or drainage. NECK: Supple, trachea midline. CARDIOVASCULAR: Regular rate and rhythm without murmurs. RESPIRATORY: Breath sounds equal bilaterally. No accessory muscle use. GASTROINTESTINAL: Abdomen soft, non-tender, nondistended. EXTREMITIES: No cyanosis, or edema. MUSCULOSKELETAL: Adequate muscle tone. NEUROLOGICAL: No obvious focal deficit. Awake, alert, and oriented x3. Assessment/Plan Assessment Ms. Manzanares is a 26-year-old female with a history of systemic lupus erythematosus Plan 1. Autoimmune hemolytic anemia improved as bilirubin decreasing, Hgb improved on current dosing of danazol, prednisone. 2. Pt clear for discharge from oncology standpoint. She will need close followup outpatient to evaluate labs, steroid taper, etc. Attending Statement patient discharge and seen by nurse practitioner earlier today. follow up in place with Dr. Cardona in outpatient clinic. Gretel Ramirez Apr 26, 2017 19:11 Aries Haile MD Apr 26, 2017 20:40
== END 2017-04-26 20:20 | disposition home or self-care (01) | DRG 194 ==
LOC: PHED 00:10 → PHEDA 04:41 → PH3A 05:49 → PHICU 17:15 → HIME 22:25 → N05B 04-26 04:30
PROVIDERS: ADMIT Internal Medicine; ATTEND Internal Medicine
PROC: 30233N1 Transfusion of Nonautologous Red Blood Cells into Peripheral Vein, Percutaneous Approach (ICD-10-PCS; principal; 2017-04-21)
DX: J10.1 Influenza due to other identified influenza virus with other respiratory manifestations (principal); D59.1 Other autoimmune hemolytic anemias; N17.9 Acute kidney failure, unspecified; M32.9 Systemic lupus erythematosus, unspecified; N39.0 Urinary tract infection, site not specified; N92.0 Excessive and frequent menstruation with regular cycle; R00.0 Tachycardia, unspecified; R06.03 Acute respiratory distress; E66.9 Obesity, unspecified; E04.9 Nontoxic goiter, unspecified; G47.30 Sleep apnea, unspecified; K13.70 Unspecified lesions of oral mucosa
CPT/HCPCS: 36430; 71045; 76937; 80048; 80053; 80202; 81001; 82247; 82248; 82607; 82728; 82746; 83010; 83540; 83605; 83615; 83735; 84100; 84703; 85007; 85025; 85027; 86077; 86850; 86860; 86870; 86880; 86900; 86901; 86902; 86920; 86922; 86971; 87040; 87070; 87086; 87205; 87449; 87641; 87804; 94640; 94664; 96361; 96365; J2405; J2543; J2930; J3370; J7030; J7040; J7050; J7512; J7608; J7613; P9016; P9054

== ENCOUNTER 2017-10-28 11:30 | Inpatient (IN) ==
[2017-10-28 11:59] LABS: Bilirubin,Urine Negative (Negative); Clarity,Urine Clear (Clear); Color,Urine Yellow (Yellw/Straw); Glucose,Urine (UA) Negative (Negative); Leukocyte Esterase,Urine Trace (Negative); Nitrite,Urine Negative (Negative); Urobilinogen,Urine 0.2 mg/dL (Less than 2)
[2017-10-28 12:03] LABS: Squamous Epithelial Cell,Urine 0-5 /hpf (0-5)
--- NOTE | 2017-10-28 12:03 | ED ---
HPI General Chief complaint: OB/Uterine Contractions Stated complaint: /spotting today Time Seen by Provider: 10/28/17 11:37 Source: patient and RN notes reviewed Mode of arrival: ambulatory History of Present Illness HPI narrative: 27yF presenting with vaginal spotting and urinary frequency. The patient states that her LMP was either in July or August; she took several home tests this week, which were all positive. This morning, she began to have small amount of vaginal spotting when she cleaned herself after using the restroom. She admits to nausea and urinary frequency but denies fever, chills, vomiting, diarrhea, or dysuria. She has not had care for this yet. 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 Recently seen in our ED on 10/20 for dental infection/ pharyngitis and treated with penicillin. Related Data Home Medications Medication Instructions Recorded Confirmed No Known Home Medications 10/28/17 10/28/17 Allergies Allergy/AdvReac Type Severity Reaction Status Date / Time ceftriaxone Allergy Severe Hives Verified 10/28/17 11:35 Review of Systems Except as stated in HPI: all other systems reviewed are negative Constitutional Denies fever(s) Eyes Denies blurry vision ENT Denies nasal congestion Cardiovascular Denies chest pain Respiratory Denies cough Gastrointestinal Reports nausea Genitourinary Reports urinary frequency Musculoskeletal Denies back pain Neurologic Denies confusion Psychiatric Denies confusion PMFSH History History Provided By: Patient Medical History Medical History 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 (Acute) Lupus (Acute) Surgical History Surgical History H/O: (Acute) History of lumpectomy (Acute) Hx of cholecystectomy (Acute) Social History Social History Substance History: No History of Abuse Second Hand Smoke Exposure: No Smoking Status: Never smoker How Often Do You Have a Drink Containing Alcohol: Never Immunization History Tetanus Immunization: >5 Years Hx Influenza Vaccine This Season: No Exam Const General: healthy appearing and no acute distress HENMT Head: normocephalic and atraumatic Face and sinus: normal facial exam Eyes General: appearance normal, both eyes and all related structures Pupils: PERRL Chest Chest: normal inspection of the chest Resp Effort & Inspection: normal respiratory effort Auscultation: no rhonchi and no wheezes Cardio Rate: regular rate Rhythm: regular rhythm GI Other: Soft, non-distended, non-tender in all quadrants, no guarding or rebound Other: Normal external genitalia, no sores or lesions Speculum exam reveals closed cervix, scant amount of dark red blood and small amount of clear fluid noted in posterior vaginal vault Bimanual exam reveals no cervical motion or adnexal tenderness Pelvic exam chaperoned by ED RN Skin General: no rashes or lesions noted Neuro General: alert, awake, oriented x3 and no focal motor deficits Psych Affect: normal affect Course Reevaluation(s) Reevaluation #1: Ultrasound delayed for at least 60-90 mins as [employer] reports that they are currently in a procedure Time: 12:17 Consultations Consultation #1: Case discussed with Dr. Gilbert of [facility]. Beta quant 10K, no FHR seen on ultrasound. She agrees that the patient's case is medically complicated and she recommends transfer to the [facility] for medical admission and [facility] consult. Patient will likely need either medical vs surgical D&C after her medical issues are stabilized. Will d/w HEPAS. Time: 15:06 Consultation #2: Case discussed with Dr. Vasquez of [facility], who agrees with transferring the patient to the [facility]. Time: 15:14 Consultation #3: Case discussed with Dr. Dyson of hematology; she recommends starting 40 mg solumedrol q8h now, would hold off on transfusion at this point as patient had warm agglutinins previously and will need repeat testing this admission. She will discuss with the blood bank. Time: 15:25 Initial Documented Vital Signs Temperature 97.8 F 10/28/17 11:32 Pulse Rate 102 H 10/28/17 11:32 Respiratory Rate 10/28/17 11:32 Blood Pressure 124/63 10/28/17 11:32 Pulse Oximetry 100 10/28/17 11:32 Last Documented Vital Signs Temperature 97.8 F 10/28/17 11:32 Pulse Rate 102 H 10/28/17 15:08 Respiratory Rate 18 10/28/17 15:08 Blood Pressure 110/72 10/28/17 15:08 Pulse Oximetry 99 10/28/17 15:08 Critical Care Time Critical Care Time: Yes Total Critical Care Time: 40 Attestation: Total critical care time 40 minutes. This includes examining and stabilizing the patient, gathering a history from a source other than the patient (i.e., chart review), formulating a differential diagnosis, ordering and interpreting laboratory tests, ordering and interpreting radiology tests, discussing the patient's care with other providers ([facility], [facility], hematology)/ coordination of care and transfer to tertiary center, and re-evaluation at frequent intervals. Amount of time is separate from teaching, counseling the patient and/or family, and exclusive of procedures. Medical Decision Making MDM Narrative Medical decision making narrative: Assessment: 27yF presenting with vaginal bleeding and urinary frequency Plan: UA UCG Labs, including beta quant and Rh US pelvis Addendum: Patient found to have Hg of 6.2 and elevated bilirubin, concerning for repeat episode of autoimmune hemolytic anemia. Her beta quant is 10K and a pole of 6-7 weeks was seen on US without any heart tones. I discussed these results at length with the patient and her , and explained that she will need to be transferred to the main campus for admission , hematology and [facility] consults, and further care. She understands and agrees with plan. Please see "course" section for discussions with consultants. Differential Diagnosis Differential Diagnosis: Differential diagnosis includes, but is not limited to: ectopic , threatened Ab, complete Ab, missed Ab, inevitable Ab, UTI/ cystitis, ovarian cyst, fibroids Medical Records Medical records reviewed: Yes I reviewed the patient's medical records. POC Test Results POC Urine Results: Positive Lab Data Lab results reviewed: Yes I reviewed the patient's lab results. Result diagrams: 10/28/17 12:12 10/28/17 12:12 Lab Results 10/28/17 10/28/17 10/28/17 Range/Units 11:50 11:53 12:12 CBC w Diff Slide review pending WBC 10.2 (4.0-11.0) th/mm3 RBC 1.56 L (4.00-5.30) mil/mm3 Hgb 6.2 L* (11.6-15.3) gm/dL Hct 16.8 L* (35.0-46.0) % MCV 107.9 H (80.0-100.0) fL MCH 39.7 H (27.0-34.0) pg MCHC 36.8 H (32.0-36.0) % RDW 14.8 (11.6-17.2) % Plt Count 155 (150-450) th/mm3 MPV 10.5 (7.0-11.0) fL Neut % (Auto) 78.7 H (16.0-70.0) % Lymph % (Auto) 14.4 (9.0-44.0) % [place] % (Auto) 3.7 (0.0-8.0) % Eos % (Auto) 0.9 (0.0-4.0) % Baso % (Auto) 2.3 H (0.0-2.0) % Neut # (Auto) 8.0 H (1.8-7.7) th/mm3 Lymph # (Auto) 1.5 (1.0-4.8) th/mm3 [place] # (Auto) 0.4 (0.0-0.9) th/mm3 Eos # (Auto) 0.1 (0.0-0.4) th/mm3 Baso # (Auto) 0.2 (0.0-0.2) th/mm3 WBC Differential . Diff Scan Auto diff confirmed Differential Comment . Spherocytes 2+ H (None) Sodium (136-145) meq/L Potassium (3.5-5.1) meq/L Chloride (98-107) meq/L Carbon Dioxide (21.0-32.0) meq/L Anion Gap (5-15) meq/L BUN (7-18) mg/dL Creatinine (0.50-1.00) mg/dL Estimated GFR (>89) mL/min Random Glucose (74-106) mg/dL Calcium (8.5-10.1) mg/dL Total Bilirubin (0.2-1.0) mg/dL Direct Bilirubin (0.0-0.2) mg/dL Indirect Bilirubin (0.0-0.8) mg/dL AST (15-37) U/L ALT (10-53) U/L Alkaline Phosphatase (45-117) U/L Total Protein (6.4-8.2) g/dL Albumin (3.4-5.0) g/dL Beta HCG, Quant (0-5) mIU/mL Ur Collection Type Clean catch Urine Color Yellow (Yellw/Straw) Urine Clarity Clear (Clear) Urine pH 7.0 (5.0-8.5) Ur Specific [place] 1.010 (1.002-1.035) Urine Protein 100 H (Neg-Trace) mg/dL Urine Glucose (UA) Negative (Negative) mg/dL Urine Ketones Negative (Negative) mg/dL Urine Occult Blood Large H (Negative) Urine Nitrate Negative (Negative) Urine Bilirubin Negative (Negative) Urine Urobilinogen 0.2 (Less than 2) mg/dL Ur Leukocyte Esterase Trace H (Negative) Urine RBC 4-15 H (0-3) /hpf Urine WBC 9-20 H (0-5) /hpf Ur Squamous Epith Cells 0-5 (0-5) /hpf Micro UA Comment Culture indicated Urine Culture Comments Culture indicated Rho(D) Type Positive MTS Gel Crossmatch 10/28/17 10/28/17 Range/Units 12:12 13:17 CBC w Diff WBC (4.0-11.0) th/mm3 RBC (4.00-5.30) mil/mm3 Hgb (11.6-15.3) gm/dL Hct (35.0-46.0) % MCV (80.0-100.0) fL MCH (27.0-34.0) pg MCHC (32.0-36.0) % RDW (11.6-17.2) % Plt Count (150-450) th/mm3 MPV (7.0-11.0) fL Neut % (Auto) (16.0-70.0) % Lymph % (Auto) (9.0-44.0) % [place] % (Auto) (0.0-8.0) % Eos % (Auto) (0.0-4.0) % Baso % (Auto) (0.0-2.0) % Neut # (Auto) (1.8-7.7) th/mm3 Lymph # (Auto) (1.0-4.8) th/mm3 [place] # (Auto) (0.0-0.9) th/mm3 Eos # (Auto) (0.0-0.4) th/mm3 Baso # (Auto) (0.0-0.2) th/mm3 WBC Differential Diff Scan Differential Comment Spherocytes (None) Sodium 139 (136-145) meq/L Potassium 3.3 L (3.5-5.1) meq/L Chloride 108 H (98-107) meq/L Carbon Dioxide 22.2 (21.0-32.0) meq/L Anion Gap 9 (5-15) meq/L BUN 9 (7-18) mg/dL Creatinine 0.42 L (0.50-1.00) mg/dL Estimated GFR Greater than 89 (>89) mL/min Random Glucose 100 (74-106) mg/dL Calcium 9.0 (8.5-10.1) mg/dL Total Bilirubin 1.4 H (0.2-1.0) mg/dL Direct Bilirubin 0.4 H (0.0-0.2) mg/dL Indirect Bilirubin 1.0 H (0.0-0.8) mg/dL AST 21 (15-37) U/L ALT 22 (10-53) U/L Alkaline Phosphatase 79 (45-117) U/L Total Protein 7.3 (6.4-8.2) g/dL Albumin 3.4 (3.4-5.0) g/dL Beta HCG, Quant 81188 H (0-5) mIU/mL Ur Collection Type Urine Color (Yellw/Straw) Urine Clarity (Clear) Urine pH (5.0-8.5) Ur Specific [place] (1.002-1.035) Urine Protein (Neg-Trace) mg/dL Urine Glucose (UA) (Negative) mg/dL Urine Ketones (Negative) mg/dL Urine Occult Blood (Negative) Urine Nitrate (Negative) Urine Bilirubin (Negative) Urine Urobilinogen (Less than 2) mg/dL Ur Leukocyte Esterase (Negative) Urine RBC (0-3) /hpf Urine WBC (0-5) /hpf Ur Squamous Epith Cells (0-5) /hpf Micro UA Comment Urine Culture Comments Rho(D) Type MTS Gel Crossmatch See Detail Discharge Plan Discharge Disposition Patient Disposition: 30 Still Patient Discharge Condition Condition: Stable Discharge Details Diagnosis: Hemolytic anemia, Spontaneous Physicians Team ED Provider: Jessica Cain Primary Care Provider: Primary Care Physici,No Rxs /Orders / Referrals /Forms Prescriptions: No Action No Known Home Medications RF: 0 Discharge Interventions Interventions: Vital Signs Last Done: 10/28/17 15:08 Status ED Status: Admitted Patient
[2017-10-28 12:31] LABS: Baso # (Auto) 0.2 th/mm3 (0.0-0.2); Baso % (Auto) 2.3 % (0.0-2.0); Chloride 108 meq/L (98-107); Eos # (Auto) 0.1 th/mm3 (0.0-0.4); Eos % (Auto) 0.9 % (0.0-4.0); Lymph # (Auto) 1.5 th/mm3 (1.0-4.8); Lymph % (Auto) 14.4 % (9.0-44.0); Mean Corpuscular Hemoglobin 39.7 pg (27.0-34.0); Mean Corpuscular Volume 107.9 fL (80.0-100.0); Mean Platelet Volume 10.5 fL (7.0-11.0); Mono # (Auto) 0.4 th/mm3 (0.0-0.9); Mono % (Auto) 3.7 % (0.0-8.0); Neut % (Auto) 78.7 % (16.0-70.0); Platelet Count 155 th/mm3 (150-450); Potassium 3.3 meq/L (3.5-5.1); Red Blood Count 1.56 mil/mm3 (4.00-5.30); Red Cell Distribution Width 14.8 % (11.6-17.2); Sodium 139 meq/L (136-145); White Blood Count 10.2 th/mm3 (4.0-11.0)
[2017-10-28 12:35] LABS: Anion Gap 9 meq/L (5-15); Blood Urea Nitrogen 9 mg/dL (7-18); Carbon Dioxide 22.2 meq/L (21.0-32.0); Glucose,Random 100 mg/dL (74-106)
[2017-10-28 12:38] LABS: Glomerular Filtration Rate Greater Than 89 mL/min (>89)
[2017-10-28 12:45] LABS: Hematocrit 16.8 % (35.0-46.0); Hemoglobin 6.2 gm/dL (11.6-15.3); Mean Corpuscular HGB Conc 36.8 % (32.0-36.0)
[2017-10-28 12:55] LABS: Beta HCG,Quantitative 10357 mIU/mL (0-5)
[2017-10-28 13:00] LABS: Alanine Aminotransferase 22 U/L (10-53)
[2017-10-28] MEDS ORDERED: Sodium Chlor 0.9% Inj 250 ML IV.SIG SCH (13:00)
[2017-10-28 13:01] LABS: Total Protein 7.3 g/dL (6.4-8.2)
[2017-10-28 13:02] LABS: Spherocytes 2+
[2017-10-28 13:03] LABS: Alkaline Phosphatase 79 U/L (45-117)
[2017-10-28 13:04] LABS: Albumin 3.4 g/dL (3.4-5.0)
[2017-10-28 13:07] LABS: Aspartate Aminotransferase 21 U/L (15-37)
[2017-10-28] MEDS ORDERED: Bisacodyl 10 MG Supp RECTAL PRN (15:46)
--- NOTE | 2017-10-28 15:53 | US ---
EXAM DATE: 10/28/2017 2:23 PM EDT AGE/SEX: 27 years / Female INDICATIONS: Vaginal bleeding. CLINICAL DATA: This is the patient's initial encounter. Patient reports that signs and symptoms have been present for 1 day and indicates a pain score of 4/10. MEDICAL/SURGICAL HISTORY: . . Lupus. AVM upper extremity. . section. Lump ectomy. Cholecystectomy. COMPARISON: [facility], US PELVIS ([facility] PRE G/ECTOPIC), 06/10/2016. . TECHNIQUE: Real-time ultrasound of the pelvis was performed using an endovaginal transducer. [facility] [place] MEASUREMENTS: Uterus:__11.5 x 6.8 x 7.1 cm Endometrial Stripe:__>20 mm Right Ovary:__ 3.3 x 2.5 x 1.9 cm Left Ovary:__ 3.2 x 3.1 x 2.0 cm FINDINGS: Uterus: There is a gestational sac noted within the endometrial region with an estimated gestational age based on mean sac diameter of 5 weeks 6 days. A pole is present with an estimated gestatio nal age of 7 weeks 0 days based on crown-rump length measurement. There are no heart tones docu mented. There is no free fluid. Right Ovary: Ovary contains no mass or significant cystic lesion. Left Ovary: Ovary contains no mass or significant cystic lesion. Other: None. CONCLUSION: 1. There is an intrauterine gestation identified without cardiac activity on this examination. 2. There is no free fluid. Electronically signed by: Andreas Rodrigez MD 10/28/2017 3:52 PM EDT
--- NOTE | 2017-10-28 16:25 | P.HPIM ---
History of Present Illness Primary Care Physician: No Primary Care Physician Chief Complaint: Vaginal bleed History of Present Illness: Patient is a 27-year-old female with a history of lupus who comes to the emergency room complaining of vaginal spotting with urinary frequency. She has a history also of multiple anemia episodes requiring transfusion. She is A1 and has been having abdominal cramping with nausea. She did have a positive test as an outpatient and is having apparently an incomplete here in the emergency room. Medically she has been found to have a hemoglobin of 6.9 and is recommended for transfusion. Apparently there is a history of hemolytic anemia. Blood pressure and otherwise medical exam is unremarkable. 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 Lupus - Surgical History Surgical History: Surgical History (Last Reviewed 10/28/17 @ 16:20 by Ginger Vasquez MD) H/O: History of lumpectomy Hx of cholecystectomy - Family History Family History: Family History (Last Updated 10/28/17 @ 16:23 by Ginger Vasquez MD) Other Lupus - Tobacco History Second Hand Smoke Exposure: No Smoking Status: Never smoker - Alcohol History How Often Do You Have a Drink Containing Alcohol: Never - Substance Use History Substance History: No History of Abuse - Immunization History Tetanus Immunization: >5 Years Hx Influenza Vaccine This Season: No Medications and Allergies Active Medications: Active Medications Bisacodyl (Dulcolax Supp) 10 mg RECTAL DAILY PRN PRN Reason: SEVERE CONSITIPATION Sodium Chloride (Ns Inj) 250 mls @ 15 mls/hr IV.SIG ONCE MAGNO Stop: 10/29/17 05:39 Lactated Ringer's (Lr 1000 Ml Inj) 1,000 mls @ 100 mls/hr IV.CONT .Q10H MAGNO Lactulose (Lactulose Liq) 30 ml PO DAILY PRN PRN Reason: SEVERE CONSITIPATION Methylprednisolone Sodium Succinate (Solumedrol Inj) 40 mg IV.PUSH Q8HR MAGNO Allergies Allergy/AdvReac Type Severity Reaction Status Date / Time ceftriaxone Allergy Severe Hives Verified 10/28/17 11:35 Home Medications Medication Instructions Recorded Confirmed Type No Known Home Medications 10/28/17 10/28/17 History Exam Vital signs: Vital Signs 10/28/17 11:32 10/28/17 15:08 Temperature 97.8 F Pulse Rate 102 H 102 H Respiratory Rate 18 18 Blood Pressure 124/63 110/72 Pulse Oximetry 100 99 Intake & Output 10/27/17 10/28/17 10/28/17 18:59 06:59 18:59 Weight 111 kg Narrative: GENERAL: Well-nourished, well-developed patient. SKIN: Warm and dry. HEAD: Normocephalic. EYES: No scleral icterus. No injection or drainage. NECK: Supple, trachea midline. No JVD or lymphadenopathy. CARDIOVASCULAR: Regular rate and rhythm without murmurs, gallops, or rubs. RESPIRATORY: Breath sounds equal bilaterally. No accessory muscle use. GASTROINTESTINAL: Abdomen soft, non-tender, nondistended. MUSCULOSKELETAL: No cyanosis, or edema. BACK: Nontender without obvious deformity. No CVA tenderness. NEUROLOGICAL: Awake and alert. Cranial nerves II through XII intact. Motor and sensory grossly within normal limits. Five out of 5 muscle strength in all muscle groups. Normal speech. Results - Labs CBC & Chem 7: 10/28/17 12:12 10/28/17 12:12 Labs: Short CBC 10/28/17 Range/Units 12:12 WBC 10.2 (4.0-11.0) th/mm3 Hgb 6.2 L* (11.6-15.3) gm/dL Hct 16.8 L* (35.0-46.0) % Plt Count 155 (150-450) th/mm3 [facility] 10/28/17 12:12 Sodium 139 Potassium 3.3 L Chloride 108 H Carbon Dioxide 22.2 BUN 9 Creatinine 0.42 L Calcium 9.0 Liver Function 10/28/17 Range/Units 12:12 Total Bilirubin 1.4 H (0.2-1.0) mg/dL Direct Bilirubin 0.4 H (0.0-0.2) mg/dL AST 21 (15-37) U/L ALT 22 (10-53) U/L Alkaline Phosphatase 79 (45-117) U/L Albumin 3.4 (3.4-5.0) g/dL Urine 10/28/17 Range/Units 11:50 Urine Color Yellow (Yellw/Straw) Urine Clarity Clear (Clear) Urine pH 7.0 (5.0-8.5) Ur Specific Galt 1.010 (1.002-1.035) Urine Protein 100 H (Neg-Trace) mg/dL Urine Glucose (UA) Negative (Negative) mg/dL - Imaging Impressions Pelvis Ultrasound 10/28/17 11:53 CONCLUSION: 1. There is an intrauterine gestation identified without cardiac activity on this examination. 2. There is no free fluid. Caprini VTE Risk Assessment Caprini VTE Risk Assessment: Moderate/High Risk (score >= 2) VTE Pharmacological Exception Reason: High risk for bleeding Caprini Risk Assessment Model: Point Value = 1 Point Value = 2 Point Value = 3 Point Value = 5 Age 41-60 Minor surgery BMI > 25 kg/m2 Swollen legs Varicose veins or History of unexplained or recurrent spontaneous Oral contraceptives or hormone replacement Sepsis (< 1 month) Serious lung disease, including pneumonia (< 1 month) Abnormal pulmonary function Acute myocardial infarction Congestive heart failure (< 1 month) History of inflammatory bowel disease Medical patient at bed rest Age 61-74 Arthroscopic surgery Major open surgery (> 45 min) Laparoscopic surgery (> 45 min) Malignancy Confined to bed (> 72 hours) Immobilizing plaster cast Central venous access Age >= 75 History of VTE Family history of VTE Factor V Leiden Prothrombin [id number] Lupus anticoagulant Anticardiolipin antibodies Elevated serum homocysteine Heparin-induced thrombocytopenia Other congenital or acquired thrombophilia Stroke (< 1 month) Elective arthroplasty Hip, pelvis, or leg fracture Acute spinal cord injury (< 1 month) Prophylaxis Regimen: Total Risk Factor Score Risk Level Prophylaxis Regimen 0-1 Low Early ambulation 2 Moderate Order ONE of the following: *Sequential Compression Device (SCD) *Heparin 5000 units SQ BID 3-4 Higher Order ONE of the following medications: *Heparin 5000 units SQ TID *Enoxaparin/Lovenox 40 mg SQ daily (WT < 150 kg, CrCl > 30 mL/min) *Enoxaparin/Lovenox 30 mg SQ daily (WT < 150 kg, CrCl > 10-29 mL/min) *Enoxaparin/Lovenox 30 mg SQ BID (WT < 150 kg, CrCl > 30 mL/min) AND/OR *Sequential Compression Device (SCD) 5 or more Highest Order ONE of the following medications: *Heparin 5000 units SQ TID (Preferred with Epidurals) *Enoxaparin/Lovenox 40 mg SQ daily (WT < 150 kg, CrCl > 30 mL/min) *Enoxaparin/Lovenox 30 mg SQ daily (WT < 150 kg, CrCl > 10-29 mL/min) *Enoxaparin/Lovenox 30 mg SQ BID (WT < 150 kg, CrCl > 30 mL/min) AND *Sequential Compression Device (SCD) Assessment and Plan - Assessment (1) Spontaneous Code(s): O03.9 - Complete or unspecified spontaneous without complication Status: Acute Plan: Follow up with [facility] for possible D and C (2) Anemia Code(s): D64.9 - Anemia, unspecified Status: Acute Plan: history of lupus, transfuse when blood available IV steroids
--- NOTE | 2017-10-28 19:03 | MB ---
cc: Lisa Dyson MD, Holly DO Latif, Zafar MD DATE: 10/28/2017 REFERRING PHYSICIAN: Dr. Jessica Cain. CHIEF COMPLAINT: Dr. Cain requested a consultation for Ms. Manzanares regarding history of systemic lupus and autoimmune hemolytic anemia complicating 6 weeks. HISTORY OF PRESENT ILLNESS: Ms. Manzanares is a 27-year-old woman with history of systemic lupus. She was diagnosed after her last about 5 years ago. She delivered via her daughter. Her course was complicated by demise of her daughter's twin. She developed a lot of nonspecific symptoms and was ultimately diagnosed with systemic lupus. She describes having myalgias and arthralgias, malar rash, kidney dysfunction. She was under the care of a candle molder hand in [place]. She moved to the [facility] to be with her who is in the . She has not established with a candle molder hand here. She is well known from hospitalization in March for autoimmune hemolytic anemia. She developed influenza and had hemolysis with hemoglobin nadiring to 5.8. Blood bank evaluation shows antibody positivity for warm agglutinin. There is nonspecific cold agglutinins. Direct antibody test was positive. She was treated with steroids. Her hemoglobin on discharge was 8.6. She did not receive any care for her systemic lupus or autoimmune hemolytic anemia since March. She apparently was doing well. She had renal insufficiency during that hospitalization with a BUN at 20, creatinine 1.20. Her estimated glomerular filtration rate was around 54%. She discovered that she was . She was visiting her mother who is near the [facility] and thus presented to the [facility] when she noted some vaginal bleeding early this morning. In the emergency room, she is confirmed to have an intrauterine . Her beta hCG is elevated. Additional labs including a hemoglobin of 6.2, hematocrit 16.8, MCV 107.9. She is noted to have spherocytes. Her renal function is much improved with a BUN of 9, creatinine 0.42. LDH and haptoglobin are pending. Blood bank labs including antibody test is still pending. She is noted to have rare blood and will not have blood available until they request it from [place]. REVIEW OF SYSTEMS: She is hemodynamically stable. She denies any chest pain or shortness of breath. She is fatigued as she would be at the beginning of her . She reports compliance with folic acid. She denies any other bleeding and no melena or bright red blood per rectum. She denies any hematuria. She has a manifestation of malar rash which is present at the time of the consultation. She denies any fevers or infections. PAST MEDICAL HISTORY: Systemic lupus, autoimmune hemolytic anemia with panagglutinin, first trimester, lupus nephritis improved and obesity. FAMILY HISTORY: No family history of venous thromboembolic event. Maternal grandmother had ovarian cancer. PAST SURGICAL HISTORY: 1. 4 years ago. 2. Cholecystectomy. 3. AV fistula repair. 4. Left breast biopsy. SOCIAL HISTORY: She is and lives with her and daughter, who is 4. She denies any tobacco, alcohol or illicit drug use. ALLERGIES: CEFTRIAXONE. CURRENT MEDICATIONS: 1. Dulcolax, 2. Lactated Ringer's. 3. Solu-Medrol. PHYSICAL EXAMINATION: VITAL SIGNS: Temperature 97.8, heart rate 102, respiratory rate 18, blood pressure 110/72, saturation 99%. GENERAL: Ms. Manzanares is a well-developed, well-nourished,young woman, who looks pale. HEENT: Pupils are round, reactive to light and accommodation. She has very large pierced earlobes. Oropharynx is clear. No thrush. Conjunctivae are pale. Complexion is pale. NECK: Supple with no adenopathy. LUNGS: Clear. CARDIOVASCULAR: Reveals a tachycardia. ABDOMEN: Benign. MUSCULOSKELETAL: Lower extremities with no edema. NEUROLOGIC: Exam is nonfocal. SKIN: Significant for malar rash. LABORATORY STUDIES: As described above. ASSESSMENT AND PLAN: Ms. Manzanares is a 27-year-old woman with history of systemic lupus. She was diagnosed after a loss. She has presenting symptoms of lupus nephritis, autoimmune hemolytic anemia, malar rash and arthritis. She has a discoid rash presentation as well. She has had no specific therapy for her systemic lupus in the last 6 months. I had a lengthy discussion with Ms. Manzanares with plans to treat her autoimmune hemolytic anemia with steroids. She seems to have responded to steroids in the past. This would likewise treat her lupus. Ultimately, she will need followup with rheumatology to continue with treatment of her systemic lupus. A lupus anticoagulant, anticardiolipin antibody panel will be checked. She has history of demise. We will consider antithrombotic prophylaxis and antiplatelet prophylaxis in light of the high risk for venous thromboembolic event in patients with systemic lupus during . She is being transferred to [facility]. Her presenting complaint to the emergency room was not necessarily related to her anemia. I would defer from transfusion unless more symptomatic. I will optimize her hematopoiesis by giving her B12 and folic acid. We will repeat her CBC tomorrow. Her questions were answered to her satisfaction. OB is pending to see her at the main hospital. Dr. Cardona will resume her care. MD VIANNEY Higuera/CLARK , 06:05 PM , 06:23 PM
[2017-10-28 19:11] LABS: Reticulocyte Percent 12.1 % (0.4-3.0)
[2017-10-28] MEDS: Folic Acid 1 MG Tablet PO SCH (20:19)
[2017-10-28] MEDS: Ferrous Sulfate 325 MG Tablet PO SCH (20:19)
[2017-10-28] MEDS: MethylPREDNISolone Sod Succinate Inj 40 MG/ML Vial IV.PUSH SCH (21:00)
--- NOTE | 2017-10-28 21:35 | P.HPOB ---
History of Present Illness Primary Care Physician: No Primary Care Physician Dr. Ginger Vasquez Chief Complaint: Vaginal bleed History of Present Illness: Patient is a 27-year-old female with a history of lupus who comes to the emergency room complaining of vaginal spotting with urinary frequency. She has a history also of multiple anemia episodes requiring transfusion. She is A1 and has been having abdominal cramping with nausea. 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 Patient does not know her gestational age as she cannot remember her last menstrual cycle but ultrasound indicates that she is approximately 6 weeks. Pelvic ultrasound was performed in [place] emergency room by radiology which shows an intrauterine consistent with 6 weeks gestation with no cardiac motion. 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 She does desire in the future and is aware that she has a missed at this time and was transferred here to [place]. It was requested that patient be evaluated for D& C while she is an inpatient due to her complicated medical issues. Weeks Gestation:: 6 Para: 1 : 4 Total # of Miscarriage(s): 2 (Patient has had 2 prior spontaneous miscarriages. Her last was complicated by section at term. 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 Lupus - Surgical History Surgical History: Surgical History (Last Reviewed 10/28/17 @ 16:20 by Ginger Vasquez MD) H/O: History of lumpectomy Hx of cholecystectomy - Family History Family History: Family History (Last Updated 10/28/17 @ 16:23 by Ginger Vasquez MD) Other Lupus - Tobacco History Second Hand Smoke Exposure: No Smoking Status: Never smoker - Alcohol History How Often Do You Have a Drink Containing Alcohol: Never - Substance Use History Substance History: No History of Abuse - Immunization History Tetanus Immunization: >5 Years Hx Influenza Vaccine This Season: No Medications and Allergies Active Medications: Active Medications Bisacodyl (Dulcolax Supp) 10 mg RECTAL DAILY PRN PRN Reason: SEVERE CONSITIPATION Ferrous Sulfate (Ferosul) 325 mg PO BID [facility] Last Admin: 10/28/17 20:19 Dose: 325 mg Folic Acid (Folic Acid) 1 mg PO DAILY [facility] Last Admin: 10/28/17 20:19 Dose: 1 mg Sodium Chloride (Ns Inj) 250 mls @ 15 mls/hr IV.SIG ONCE [facility] Stop: 10/29/17 05:39 Last Admin: 10/28/17 18:22 Dose: Not Given Lactated Ringer's (Lr 1000 Ml Inj) 1,000 mls @ 100 mls/hr IV.CONT .Q10H [facility] Last Admin: 10/28/17 16:33 Dose: 100 mls/hr Lactulose (Lactulose Liq) 30 ml PO DAILY PRN PRN Reason: SEVERE CONSITIPATION Methylprednisolone Sodium Succinate (Solumedrol Inj) 40 mg IV.PUSH Q8HR [facility] Allergies Allergy/AdvReac Type Severity Reaction Status Date / Time ceftriaxone Allergy Severe Hives Verified 10/28/17 11:35 Home Medications Medication Instructions Recorded Confirmed Type penicillin V potassium 500 mg PO TID 10/28/17 10/28/17 History Exam Vital signs: Vital Signs 10/28/17 11:32 10/28/17 15:08 10/28/17 18:32 Temperature 97.8 F Pulse Rate 102 H 102 H 102 H Respiratory Rate 18 18 18 Blood Pressure 124/63 110/72 Pulse Oximetry 100 99 100 10/28/17 19:20 Temperature Pulse Rate 104 H Respiratory Rate 18 Blood Pressure 116/64 Pulse Oximetry 100 Intake & Output 10/28/17 10/28/17 10/29/17 06:59 18:59 06:59 Weight 111 kg Narrative: GENERAL: Well-nourished, well-developed patient. SKIN: Warm and dry. HEAD: Normocephalic and atraumatic. EYES: No scleral icterus. No injection or drainage. ENT: No nasal drainage noted. Mucous membranes pink. Airway patent. NECK: Supple, trachea midline. No JVD. CARDIOVASCULAR: Regular rate and rhythm without murmurs, gallops, or rubs. RESPIRATORY: Breath sounds equal bilaterally. No accessory muscle use. ABDOMEN/GI: Abdomen soft, non-tender, bowel sounds present, no rebound, no guarding GENITOURINARY: Uterus not notably enlarged based on bimanual examination. Cervix is closed with no active bleeding at this time EXTREMITIES: No cyanosis or edema. BACK: Nontender without obvious deformity. No CVA tenderness. NEUROLOGICAL: Awake and alert. Motor and sensory grossly within normal limits. Five out of 5 muscle strength in all muscle groups. Normal speech. - Constitutional no acute distress - Routine HEENT Exam Head: Present: normocephalic, atraumatic - Routine Neck Exam Present: supple Results - Labs CBC & Chem 7: 10/28/17 12:12 10/28/17 12:12 Labs: Laboratory Results - last 24 hr 10/28/17 10/28/17 10/28/17 11:50 11:53 12:12 CBC w Diff Slide review pending WBC 10.2 RBC 1.56 L Hgb 6.2 L* Hct 16.8 L* MCV 107.9 H MCH 39.7 H MCHC 36.8 H RDW 14.8 Plt Count 155 MPV 10.5 Neut % (Auto) 78.7 H Lymph % (Auto) 14.4 [place] % (Auto) 3.7 Eos % (Auto) 0.9 Baso % (Auto) 2.3 H Neut # (Auto) 8.0 H Lymph # (Auto) 1.5 [place] # (Auto) 0.4 Eos # (Auto) 0.1 Baso # (Auto) 0.2 WBC Differential . Diff Scan Auto diff confirmed Differential Comment . Spherocytes 2+ H Retic Count Absolute Retic Haptoglobin Sodium Potassium Chloride Carbon Dioxide Anion Gap BUN Creatinine Estimated GFR Random Glucose Calcium Total Bilirubin Direct Bilirubin Indirect Bilirubin AST ALT Alkaline Phosphatase Lactate Dehydrogenase Total Protein Albumin Beta HCG, Quant Ur Collection Type Clean catch Urine Color Yellow Urine Clarity Clear Urine pH 7.0 Ur Specific [place] 1.010 Urine Protein 100 H Urine Glucose (UA) Negative Urine Ketones Negative Urine Occult Blood Large H Urine Nitrate Negative Urine Bilirubin Negative Urine Urobilinogen 0.2 Ur Leukocyte Esterase Trace H Urine RBC 4-15 H Urine WBC 9-20 H Ur Squamous Epith Cells 0-5 Micro UA Comment Culture indicated Urine Culture Comments Culture indicated Blood Type Rho(D) Type Positive Antibody Screen Prewarmed Antibody Srcn Antibody Identification Direct Antiglob Test Crossmatch Prewarmed Bld Prod Order Comment 10/28/17 10/28/17 10/28/17 12:12 12:12 12:12 CBC w Diff WBC RBC Hgb Hct MCV MCH MCHC RDW Plt Count MPV Neut % (Auto) Lymph % (Auto) [place] % (Auto) Eos % (Auto) Baso % (Auto) Neut # (Auto) Lymph # (Auto) [place] # (Auto) Eos # (Auto) Baso # (Auto) WBC Differential Diff Scan Differential Comment Spherocytes Retic Count 12.1 H Absolute Retic 190.7 H Haptoglobin Sodium 139 Potassium 3.3 L Chloride 108 H Carbon Dioxide 22.2 Anion Gap 9 BUN 9 Creatinine 0.42 L Estimated GFR Greater than 89 Random Glucose 100 Calcium 9.0 Total Bilirubin 1.4 H Direct Bilirubin 0.4 H Indirect Bilirubin 1.0 H AST 21 ALT 22 Alkaline Phosphatase 79 Lactate Dehydrogenase 403 H Total Protein 7.3 Albumin 3.4 Beta HCG, Quant 56852 H Ur Collection Type Urine Color Urine Clarity Urine pH Ur Specific [place] Urine Protein Urine Glucose (UA) Urine Ketones Urine Occult Blood Urine Nitrate Urine Bilirubin Urine Urobilinogen Ur Leukocyte Esterase Urine RBC Urine WBC Ur Squamous Epith Cells Micro UA Comment Urine Culture Comments Blood Type Rho(D) Type Antibody Screen Prewarmed Antibody Srcn Antibody Identification Direct Antiglob Test Crossmatch Prewarmed Bld Prod Order Comment 10/28/17 10/28/17 10/28/17 12:12 13:17 13:17 CBC w Diff WBC RBC Hgb Hct MCV MCH MCHC RDW Plt Count MPV Neut % (Auto) Lymph % (Auto) [place] % (Auto) Eos % (Auto) Baso % (Auto) Neut # (Auto) Lymph # (Auto) [place] # (Auto) Eos # (Auto) Baso # (Auto) WBC Differential Diff Scan Differential Comment Spherocytes Retic Count Absolute Retic Haptoglobin Less than 40 Sodium Potassium Chloride Carbon Dioxide Anion Gap BUN Creatinine Estimated GFR Random Glucose Calcium Total Bilirubin Direct Bilirubin Indirect Bilirubin AST ALT Alkaline Phosphatase Lactate Dehydrogenase Total Protein Albumin Beta HCG, Quant Ur Collection Type Urine Color Urine Clarity Urine pH Ur Specific [place] Urine Protein Urine Glucose (UA) Urine Ketones Urine Occult Blood Urine Nitrate Urine Bilirubin Urine Urobilinogen Ur Leukocyte Esterase Urine RBC Urine WBC Ur Squamous Epith Cells Micro UA Comment Urine Culture Comments Blood Type O Positive Rho(D) Type Antibody Screen Positive H Prewarmed Antibody Srcn Negative H Antibody Identification Direct Antiglob Test Crossmatch Prewarmed See Detail Bld Prod Order Comment 10/28/17 10/28/17 18:21 19:13 CBC w Diff WBC RBC Hgb Hct MCV MCH MCHC RDW Plt Count MPV Neut % (Auto) Lymph % (Auto) [place] % (Auto) Eos % (Auto) Baso % (Auto) Neut # (Auto) Lymph # (Auto) [place] # (Auto) Eos # (Auto) Baso # (Auto) WBC Differential Diff Scan Differential Comment Spherocytes Retic Count Absolute Retic Haptoglobin Sodium Potassium Chloride Carbon Dioxide Anion Gap BUN Creatinine Estimated GFR Random Glucose Calcium Total Bilirubin Direct Bilirubin Indirect Bilirubin AST ALT Alkaline Phosphatase Lactate Dehydrogenase Total Protein Albumin Beta HCG, Quant Ur Collection Type Urine Color Urine Clarity Urine pH Ur Specific [place] Urine Protein Urine Glucose (UA) Urine Ketones Urine Occult Blood Urine Nitrate Urine Bilirubin Urine Urobilinogen Ur Leukocyte Esterase Urine RBC Urine WBC Ur Squamous Epith Cells Micro UA Comment Urine Culture Comments Blood Type Rho(D) Type Antibody Screen Prewarmed Antibody Srcn Antibody Identification Non-Specific Warm Agglutinin Direct Antiglob Test Strongly positive H Crossmatch Prewarmed Bld Prod Order Comment - Imaging Impressions Pelvis Ultrasound 10/28/17 11:53 CONCLUSION: 1. There is an intrauterine gestation identified without cardiac activity on this examination. 2. There is no free fluid. Caprini VTE Risk Assessment Caprini VTE Risk Assessment: Moderate/High Risk (score >= 2) VTE Pharmacological Exception Reason: High risk for bleeding Caprini Risk Assessment Model: Point Value = 1 Point Value = 2 Point Value = 3 Point Value = 5 Age 41-60 Minor surgery BMI > 25 kg/m2 Swollen legs Varicose veins or History of unexplained or recurrent spontaneous Oral contraceptives or hormone replacement Sepsis (< 1 month) Serious lung disease, including pneumonia (< 1 month) Abnormal pulmonary function Acute myocardial infarction Congestive heart failure (< 1 month) History of inflammatory bowel disease Medical patient at bed rest Age 61-74 Arthroscopic surgery Major open surgery (> 45 min) Laparoscopic surgery (> 45 min) Malignancy Confined to bed (> 72 hours) Immobilizing plaster cast Central venous access Age >= 75 History of VTE Family history of VTE Factor V Leiden Prothrombin [id number] Lupus anticoagulant Anticardiolipin antibodies Elevated serum homocysteine Heparin-induced thrombocytopenia Other congenital or acquired thrombophilia Stroke (< 1 month) Elective arthroplasty Hip, pelvis, or leg fracture Acute spinal cord injury (< 1 month) Prophylaxis Regimen: Total Risk Factor Score Risk Level Prophylaxis Regimen 0-1 Low Early ambulation 2 Moderate Order ONE of the following: *Sequential Compression Device (SCD) *Heparin 5000 units SQ BID 3-4 Higher Order ONE of the following medications: *Heparin 5000 units SQ TID *Enoxaparin/Lovenox 40 mg SQ daily (WT < 150 kg, CrCl > 30 mL/min) *Enoxaparin/Lovenox 30 mg SQ daily (WT < 150 kg, CrCl > 10-29 mL/min) *Enoxaparin/Lovenox 30 mg SQ BID (WT < 150 kg, CrCl > 30 mL/min) AND/OR *Sequential Compression Device (SCD) 5 or more Highest Order ONE of the following medications: *Heparin 5000 units SQ TID (Preferred with Epidurals) *Enoxaparin/Lovenox 40 mg SQ daily (WT < 150 kg, CrCl > 30 mL/min) *Enoxaparin/Lovenox 30 mg SQ daily (WT < 150 kg, CrCl > 10-29 mL/min) *Enoxaparin/Lovenox 30 mg SQ BID (WT < 150 kg, CrCl > 30 mL/min) AND *Sequential Compression Device (SCD) Assessment and Plan - Diagnosis (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 Presently she is being admitted due to medical complications of autoimmune hemolytic any although she is minimally symptomatic at this time. I discussed the pros and cons of a D&C with suction including infection bleeding injury to the bowel bladder ureters uterine perforation and transfusion risk. Dr. Karo Gilbert is on-call for surgical procedures related to [employer] and she was informed of the patient's admission and given a summary of her condition. Dr Gilbert was initially called from [place] for recommendations regarding patient's need for transfer to [facility] given her medical complications and possible of transfusion.
--- NOTE | 2017-10-28 22:22 | P.CONOB ---
History of Present Illness - Data of Consult Patient: new to practice Consult date: 10/28/17 Requesting Physician: Ginger Vasquez MD Primary Care Provider: No Primary Care Physician Family Provider: No Primary Care Physician - Consult Narrative Reason for consult: other (spotting from miscarriage) Narrative: Amada Manzanares is a 27 year old female with a 6 week missed . She presented to [facility] ED with spotting, nausea and pain. Her Hgb is 6.2. The patient is spotting from the miscarriage. 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 Lupus - Surgical History Surgical History: Surgical History (Last Reviewed 10/28/17 @ 16:20 by Ginger Vasquez MD) H/O: History of lumpectomy Hx of cholecystectomy - Family History Family History: Family History (Last Updated 10/28/17 @ 16:23 by Ginger Vasquez MD) Other Lupus - Tobacco History Second Hand Smoke Exposure: No Smoking Status: Never smoker - Alcohol History How Often Do You Have a Drink Containing Alcohol: Never - Substance Use History Substance History: No History of Abuse - Immunization History Tetanus Immunization: >5 Years Hx Influenza Vaccine This Season: No Medications and Allergies Active Medications: Active Medications Bisacodyl (Dulcolax Supp) 10 mg RECTAL DAILY PRN PRN Reason: SEVERE CONSITIPATION Ferrous Sulfate (Ferosul) 325 mg PO BID [facility] Last Admin: 10/28/17 20:19 Dose: 325 mg Folic Acid (Folic Acid) 1 mg PO DAILY [facility] Last Admin: 10/28/17 20:19 Dose: 1 mg Sodium Chloride (Ns Inj) 250 mls @ 15 mls/hr IV.SIG ONCE [facility] Stop: 10/29/17 05:39 Last Admin: 10/28/17 18:22 Dose: Not Given Lactated Ringer's (Lr 1000 Ml Inj) 1,000 mls @ 100 mls/hr IV.CONT .Q10H [facility] Last Admin: 10/28/17 16:33 Dose: 100 mls/hr Lactulose (Lactulose Liq) 30 ml PO DAILY PRN PRN Reason: SEVERE CONSITIPATION Methylprednisolone Sodium Succinate (Solumedrol Inj) 40 mg IV.PUSH Q8HR [facility] Morphine Sulfate (Morphine Inj) 2 mg IV.PUSH Q3H PRN PRN Reason: ABDOMINAL PAIN Ondansetron HCl (Zofran Inj) 4 mg IV.PUSH Q6H PRN PRN Reason: NAUSEA Allergies Allergy/AdvReac Type Severity Reaction Status Date / Time ceftriaxone Allergy Severe Hives Verified 10/28/17 11:35 Home Medications Medication Instructions Recorded Confirmed Type penicillin V potassium 500 mg PO TID 10/28/17 10/28/17 History Physical Exam Vital signs: Temp Pulse Resp BP Pulse Ox 98.3 F 101 H 17 119/70 99 10/28/17 20:00 10/28/17 20:00 10/28/17 20:00 10/28/17 20:00 10/28/17 20:00 Results - Labs CBC & Chem 7: 10/28/17 12:12 10/28/17 12:12 Labs: Short CBC 10/28/17 Range/Units 12:12 WBC 10.2 (4.0-11.0) th/mm3 Hgb 6.2 L* (11.6-15.3) gm/dL Hct 16.8 L* (35.0-46.0) % Plt Count 155 (150-450) th/mm3 BMP 10/28/17 12:12 Sodium 139 Potassium 3.3 L Chloride 108 H Carbon Dioxide 22.2 BUN 9 Creatinine 0.42 L Calcium 9.0 Liver Function 10/28/17 Range/Units 12:12 Total Bilirubin 1.4 H (0.2-1.0) mg/dL Direct Bilirubin 0.4 H (0.0-0.2) mg/dL AST 21 (15-37) U/L ALT 22 (10-53) U/L Alkaline Phosphatase 79 (45-117) U/L Albumin 3.4 (3.4-5.0) g/dL Urine 10/28/17 Range/Units 11:50 Urine Color Yellow (Yellw/Straw) Urine Clarity Clear (Clear) Urine pH 7.0 (5.0-8.5) Ur Specific [place] 1.010 (1.002-1.035) Urine Protein 100 H (Neg-Trace) mg/dL Urine Glucose (UA) Negative (Negative) mg/dL - Imaging Impressions Pelvis Ultrasound 10/28/17 11:53 CONCLUSION: 1. There is an intrauterine gestation identified without cardiac activity on this examination. 2. There is no free fluid. 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 Izaguirre called me to discuss the patient and to request that I proceed with a D&C tonight. "Dr. Mann requested a D&C". I personally called Dr. Munoz traffic operations manager for [facility] and Dr. Jennings traffic operations manager for hematology to discuss the case. 1. plan to do a D&C once the patient's medical status has improved. 2. [facility] & Hematology agree with the plan 3. the patient is gynecologically stable 4. I will elder counselor her to start control as she has history of miscarriages and needs to get healthier before attempting again. Discussed Condition With: Dr. Munoz and Dr. Jennings
[2017-10-29] MEDS: Morphine Sulfate Inj 2 MG/ML Vial IV.PUSH PRN ×5 (00:04→20:45)
--- NOTE | 2017-10-29 05:37 | P.PNOB ---
Progress Note: A/P (1) Missed Status: Acute Code(s): O02.1 - Missed Current Visit: Yes (2) Autoimmune hemolytic anemia Status: Acute Code(s): D59.1 - Other autoimmune hemolytic anemias Current Visit: Yes (3) Lupus nephritis Status: Acute Code(s): M32.14 - Glomerular disease in systemic lupus erythematosus Current Visit: Yes - Plan Missed at 6 weeks 1. I discussed with the patient the R/B/A of D&C vs. medical treatment 2. she wishes to proceed with medical treatment and avoid surgery 3. I discussed the case and plan with Dr Cardona who prefers medical treatment rather than surgery 4. I will start treatment with Cytotec -- discussed with Dr Cardona and RN the possibility that a D&C may still be needed 5. I will monitor the patient's progress; she is expected to be in house for a few days due to her medical issues 6. discussed with the patient the need to be on control and to follow up as outpatient 7. patient's questions were answered; she verbalized understanding - Time Spent With Patient Total time spent is greater than 50% in coordination of care (as documented) at patient's floor/unit and/or counseling patient: 25 - 35 minutes Subjective Interval history: Patient is resting in bed. She reports some spotting and "I passed a small blood clot this morning". RN also states that the patient has only been spotting and not bleeding. The patient has h/o spontaneous miscarriages. "They just happened"; Denies having had D&Cs as treatment for miscarriages. Dr. Cardona from Hematology was also seeing the patient. Dr. Cardona states that transfusing the patient is almost impossible due to her hematological issues. They are treating her medically to help her Autoimmune Hemolytic Anemia and her Lupus Physical Exam Vital signs: Temp Pulse Resp BP Pulse Ox 97.2 F L 94 H 16 122/73 99 10/29/17 04:00 10/29/17 04:00 10/29/17 04:00 10/29/17 04:00 10/29/17 04:00 - Constitutional no acute distress, morbidly obese, cooperative Results - Labs CBC & Chem 7: 10/28/17 12:12 10/28/17 12:12 Labs: Laboratory Results - last 24 hr 07/10/28/17 10/28/17 11:50 11:53 12:12 CBC w Diff Slide review pending WBC 10.2 RBC 1.56 L Hgb 6.2 L* Hct 16.8 L* MCV 107.9 H MCH 39.7 H MCHC 36.8 H RDW 14.8 Plt Count 155 MPV 10.5 Neut % (Auto) 78.7 H Lymph % (Auto) 14.4 [place] % (Auto) 3.7 Eos % (Auto) 0.9 Baso % (Auto) 2.3 H Neut # (Auto) 8.0 H Lymph # (Auto) 1.5 [place] # (Auto) 0.4 Eos # (Auto) 0.1 Baso # (Auto) 0.2 WBC Differential . Diff Scan Auto diff confirmed Differential Comment . Spherocytes 2+ H Retic Count Absolute Retic Haptoglobin Sodium Potassium Chloride Carbon Dioxide Anion Gap BUN Creatinine Estimated GFR Random Glucose Calcium Total Bilirubin Direct Bilirubin Indirect Bilirubin AST ALT Alkaline Phosphatase Lactate Dehydrogenase Total Protein Albumin Beta HCG, Quant Ur Collection Type Clean catch Urine Color Yellow Urine Clarity Clear Urine pH 7.0 Ur Specific [place] 1.010 Urine Protein 100 H Urine Glucose (UA) Negative Urine Ketones Negative Urine Occult Blood Large H Urine Nitrate Negative Urine Bilirubin Negative Urine Urobilinogen 0.2 Ur Leukocyte Esterase Trace H Urine RBC 4-15 H Urine WBC 9-20 H Ur Squamous Epith Cells 0-5 Micro UA Comment Culture indicated Urine Culture Comments Culture indicated Blood Type Rho(D) Type Positive Antibody Screen Prewarmed Antibody Srcn Antibody Identification Direct Antiglob Test Crossmatch Prewarmed Bld Prod Order Comment 10/28/17 10/28/17 10/28/17 12:12 12:12 12:12 CBC w Diff WBC RBC Hgb Hct MCV MCH MCHC RDW Plt Count MPV Neut % (Auto) Lymph % (Auto) [place] % (Auto) Eos % (Auto) Baso % (Auto) Neut # (Auto) Lymph # (Auto) [place] # (Auto) Eos # (Auto) Baso # (Auto) WBC Differential Diff Scan Differential Comment Spherocytes Retic Count 12.1 H Absolute Retic 190.7 H Haptoglobin Sodium 139 Potassium 3.3 L Chloride 108 H Carbon Dioxide 22.2 Anion Gap 9 BUN 9 Creatinine 0.42 L Estimated GFR Greater than 89 Random Glucose 100 Calcium 9.0 Total Bilirubin 1.4 H Direct Bilirubin 0.4 H Indirect Bilirubin 1.0 H AST 21 ALT 22 Alkaline Phosphatase 79 Lactate Dehydrogenase 403 H Total Protein 7.3 Albumin 3.4 Beta HCG, Quant 88109 H Ur Collection Type Urine Color Urine Clarity Urine pH Ur Specific [place] Urine Protein Urine Glucose (UA) Urine Ketones Urine Occult Blood Urine Nitrate Urine Bilirubin Urine Urobilinogen Ur Leukocyte Esterase Urine RBC Urine WBC Ur Squamous Epith Cells Micro UA Comment Urine Culture Comments Blood Type Rho(D) Type Antibody Screen Prewarmed Antibody Srcn Antibody Identification Direct Antiglob Test Crossmatch Prewarmed Bld Prod Order Comment 10/28/17 10/28/17 10/28/17 12:12 13:17 13:17 CBC w Diff WBC RBC Hgb Hct MCV MCH MCHC RDW Plt Count MPV Neut % (Auto) Lymph % (Auto) [place] % (Auto) Eos % (Auto) Baso % (Auto) Neut # (Auto) Lymph # (Auto) [place] # (Auto) Eos # (Auto) Baso # (Auto) WBC Differential Diff Scan Differential Comment Spherocytes Retic Count Absolute Retic Haptoglobin Less than 40 Sodium Potassium Chloride Carbon Dioxide Anion Gap BUN Creatinine Estimated GFR Random Glucose Calcium Total Bilirubin Direct Bilirubin Indirect Bilirubin AST ALT Alkaline Phosphatase Lactate Dehydrogenase Total Protein Albumin Beta HCG, Quant Ur Collection Type Urine Color Urine Clarity Urine pH Ur Specific [place] Urine Protein Urine Glucose (UA) Urine Ketones Urine Occult Blood Urine Nitrate Urine Bilirubin Urine Urobilinogen Ur Leukocyte Esterase Urine RBC Urine WBC Ur Squamous Epith Cells Micro UA Comment Urine Culture Comments Blood Type O Positive Rho(D) Type Antibody Screen Positive H Prewarmed Antibody Srcn Negative H Antibody Identification Direct Antiglob Test Crossmatch Prewarmed See Detail Bld Prod Order Comment 10/28/17 10/28/17 18:21 19:13 CBC w Diff WBC RBC Hgb Hct MCV MCH MCHC RDW Plt Count MPV Neut % (Auto) Lymph % (Auto) [place] % (Auto) Eos % (Auto) Baso % (Auto) Neut # (Auto) Lymph # (Auto) [place] # (Auto) Eos # (Auto) Baso # (Auto) WBC Differential Diff Scan Differential Comment Spherocytes Retic Count Absolute Retic Haptoglobin Sodium Potassium Chloride Carbon Dioxide Anion Gap BUN Creatinine Estimated GFR Random Glucose Calcium Total Bilirubin Direct Bilirubin Indirect Bilirubin AST ALT Alkaline Phosphatase Lactate Dehydrogenase Total Protein Albumin Beta HCG, Quant Ur Collection Type Urine Color Urine Clarity Urine pH Ur Specific [place] Urine Protein Urine Glucose (UA) Urine Ketones Urine Occult Blood Urine Nitrate Urine Bilirubin Urine Urobilinogen Ur Leukocyte Esterase Urine RBC Urine WBC Ur Squamous Epith Cells Micro UA Comment Urine Culture Comments Blood Type Rho(D) Type Antibody Screen Prewarmed Antibody Srcn Antibody Identification Non-Specific Warm Agglutinin Direct Antiglob Test Strongly positive H Crossmatch Prewarmed Bld Prod Order Comment - Imaging Impressions Pelvis Ultrasound 10/28/17 11:53 CONCLUSION: 1. There is an intrauterine gestation identified without cardiac activity on this examination. 2. There is no free fluid.
--- NOTE | 2017-10-29 07:35 | P.PNONC ---
Subjective Interval history: Patient was seen and examined this morning, vital signs, labs, medications, events over the past 24 hours, tax credit leasing consultant notes and previous history was reviewed including history and notes from her March 2017 visit. Case was extensively discussed with the nursing staff and [facility]. Subjectively; the patient reports feeling fatigued, she tells me over the past 1 week her fatigue level has increased, she is short of breath chronically with exertion. She reports having had blood spotting vaginally, 48 hours ago she took a test which came back positive. 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 She has not been on any treatments for management of her SLE or autoimmune hemolytic anemia associated with a lugo-agglutinin in close to a year. She tells me she has no follow-up with a credit clerk or primary care physician. Objective Vital Signs/Intake & Output: Vital Signs 10/28/17 11:32 10/28/17 15:08 10/28/17 18:32 Temperature 97.8 F Pulse Rate 102 H 102 H 102 H Respiratory Rate 18 18 18 Blood Pressure 124/63 110/72 Pulse Oximetry 100 99 100 10/28/17 19:20 10/28/17 20:00 10/29/17 00:00 Temperature 98.3 F 97.7 F Pulse Rate 104 H 102 H 106 H Respiratory Rate 18 17 17 Blood Pressure 116/64 119/70 123/68 Pulse Oximetry 100 99 99 10/29/17 04:00 Temperature 97.2 F L Pulse Rate 94 H Respiratory Rate 16 Blood Pressure 122/73 Pulse Oximetry 99 Intake & Output 10/28/17 10/29/17 10/29/17 18:59 06:59 18:59 Intake Total 840 / 840 Balance 840 / 840 Weight 111 kg 110.2 kg Intake: Oral 840 / 840 Other: # Voids 2 Date of Last Bowel Movement 10/28/17 # [place] 1 Weight On Admission 110.5 kg Result Diagrams: 10/28/17 12:12 10/28/17 12:12 Laboratory Results: Laboratory Results - last 24 hr 10/28/17 10/28/17 10/28/17 11:50 11:53 12:12 CBC w Diff Slide review pending WBC 10.2 RBC 1.56 L Hgb 6.2 L* Hct 16.8 L* MCV 107.9 H MCH 39.7 H MCHC 36.8 H RDW 14.8 Plt Count 155 MPV 10.5 Neut % (Auto) 78.7 H Lymph % (Auto) 14.4 [place] % (Auto) 3.7 Eos % (Auto) 0.9 Baso % (Auto) 2.3 H Neut # (Auto) 8.0 H Lymph # (Auto) 1.5 [place] # (Auto) 0.4 Eos # (Auto) 0.1 Baso # (Auto) 0.2 WBC Differential . Diff Scan Auto diff confirmed Differential Comment . Spherocytes 2+ H Retic Count Absolute Retic Haptoglobin Sodium Potassium Chloride Carbon Dioxide Anion Gap BUN Creatinine Estimated GFR Random Glucose Calcium Total Bilirubin Direct Bilirubin Indirect Bilirubin AST ALT Alkaline Phosphatase Lactate Dehydrogenase Total Protein Albumin Beta HCG, Quant Ur Collection Type Clean catch Urine Color Yellow Urine Clarity Clear Urine pH 7.0 Ur Specific [place] 1.010 Urine Protein 100 H Urine Glucose (UA) Negative Urine Ketones Negative Urine Occult Blood Large H Urine Nitrate Negative Urine Bilirubin Negative Urine Urobilinogen 0.2 Ur Leukocyte Esterase Trace H Urine RBC 4-15 H Urine WBC 9-20 H Ur Squamous Epith Cells 0-5 Micro UA Comment Culture indicated Urine Culture Comments Culture indicated Blood Type Rho(D) Type Positive Antibody Screen Prewarmed Antibody Srcn Antibody Identification Direct Antiglob Test Crossmatch Prewarmed Bld Prod Order Comment 10/28/17 10/28/17 10/28/17 12:12 12:12 12:12 CBC w Diff WBC RBC Hgb Hct MCV MCH MCHC RDW Plt Count MPV Neut % (Auto) Lymph % (Auto) [place] % (Auto) Eos % (Auto) Baso % (Auto) Neut # (Auto) Lymph # (Auto) [place] # (Auto) Eos # (Auto) Baso # (Auto) WBC Differential Diff Scan Differential Comment Spherocytes Retic Count 12.1 H Absolute Retic 190.7 H Haptoglobin Sodium 139 Potassium 3.3 L Chloride 108 H Carbon Dioxide 22.2 Anion Gap 9 BUN 9 Creatinine 0.42 L Estimated GFR Greater than 89 Random Glucose 100 Calcium 9.0 Total Bilirubin 1.4 H Direct Bilirubin 0.4 H Indirect Bilirubin 1.0 H AST 21 ALT 22 Alkaline Phosphatase 79 Lactate Dehydrogenase 403 H Total Protein 7.3 Albumin 3.4 Beta HCG, Quant 13845 H Ur Collection Type Urine Color Urine Clarity Urine pH Ur Specific [place] Urine Protein Urine Glucose (UA) Urine Ketones Urine Occult Blood Urine Nitrate Urine Bilirubin Urine Urobilinogen Ur Leukocyte Esterase Urine RBC Urine WBC Ur Squamous Epith Cells Micro UA Comment Urine Culture Comments Blood Type Rho(D) Type Antibody Screen Prewarmed Antibody Srcn Antibody Identification Direct Antiglob Test Crossmatch Prewarmed Bld Prod Order Comment 10/28/17 10/28/17 10/28/17 12:12 13:17 13:17 CBC w Diff WBC RBC Hgb Hct MCV MCH MCHC RDW Plt Count MPV Neut % (Auto) Lymph % (Auto) [place] % (Auto) Eos % (Auto) Baso % (Auto) Neut # (Auto) Lymph # (Auto) [place] # (Auto) Eos # (Auto) Baso # (Auto) WBC Differential Diff Scan Differential Comment Spherocytes Retic Count Absolute Retic Haptoglobin Less than 40 Sodium Potassium Chloride Carbon Dioxide Anion Gap BUN Creatinine Estimated GFR Random Glucose Calcium Total Bilirubin Direct Bilirubin Indirect Bilirubin AST ALT Alkaline Phosphatase Lactate Dehydrogenase Total Protein Albumin Beta HCG, Quant Ur Collection Type Urine Color Urine Clarity Urine pH Ur Specific [place] Urine Protein Urine Glucose (UA) Urine Ketones Urine Occult Blood Urine Nitrate Urine Bilirubin Urine Urobilinogen Ur Leukocyte Esterase Urine RBC Urine WBC Ur Squamous Epith Cells Micro UA Comment Urine Culture Comments Blood Type O Positive Rho(D) Type Antibody Screen Positive H Prewarmed Antibody Srcn Negative H Antibody Identification Direct Antiglob Test Crossmatch Prewarmed See Detail Bld Prod Order Comment 10/28/17 10/28/17 18:21 19:13 CBC w Diff WBC RBC Hgb Hct MCV MCH MCHC RDW Plt Count MPV Neut % (Auto) Lymph % (Auto) [place] % (Auto) Eos % (Auto) Baso % (Auto) Neut # (Auto) Lymph # (Auto) [place] # (Auto) Eos # (Auto) Baso # (Auto) WBC Differential Diff Scan Differential Comment Spherocytes Retic Count Absolute Retic Haptoglobin Sodium Potassium Chloride Carbon Dioxide Anion Gap BUN Creatinine Estimated GFR Random Glucose Calcium Total Bilirubin Direct Bilirubin Indirect Bilirubin AST ALT Alkaline Phosphatase Lactate Dehydrogenase Total Protein Albumin Beta HCG, Quant Ur Collection Type Urine Color Urine Clarity Urine pH Ur Specific [place] Urine Protein Urine Glucose (UA) Urine Ketones Urine Occult Blood Urine Nitrate Urine Bilirubin Urine Urobilinogen Ur Leukocyte Esterase Urine RBC Urine WBC Ur Squamous Epith Cells Micro UA Comment Urine Culture Comments Blood Type Rho(D) Type Antibody Screen Prewarmed Antibody Srcn Antibody Identification Non-Specific Warm Agglutinin Direct Antiglob Test Strongly positive H Crossmatch Prewarmed Bld Prod Order Comment Imaging Studies: Impressions Pelvis Ultrasound 10/28/17 11:53 CONCLUSION: 1. There is an intrauterine gestation identified without cardiac activity on this examination. 2. There is no free fluid. Medications: Active Medications Generic Name Dose Route Start Last Admin Trade Name Freq PRN Reason Stop Dose Admin Ferrous Sulfate 325 mg 10/28/17 21:00 10/28/17 20:19 Ferosul PO 325 mg BID MAGNO Administration Folic Acid 1 mg 10/28/17 19:00 10/28/17 20:19 Folic Acid PO 1 mg DAILY MAGNO Administration Lactated Ringer's 1,000 mls @ 100 mls/hr 10/28/17 16:00 10/29/17 06:41 Lr 1000 Ml Inj IV.CONT Not Given .Q10H MAGNO Methylprednisolone Sodium Succinate 40 mg 10/28/17 22:00 10/28/17 21:00 Solumedrol Inj IV.PUSH 40 mg Q8HR MAGNO Administration Morphine Sulfate 2 mg 10/28/17 22:01 10/29/17 03:30 Morphine Inj IV.PUSH 2 mg Q3H PRN Administration ABDOMINAL PAIN Ondansetron HCl 4 mg 10/28/17 23:57 10/29/17 06:30 Zofran Odt PO 4 mg Q6H PRN Administration NAUSEA Objective Remarks: GENERAL: Young female laying in bed, appears to be comfortable, she appears pale she speaks to me in full sentences. SKIN: Warm and dry. HEAD: Normocephalic. EYES: Conjunctivae are pale, EOMI, PERRLA. NECK: Supple, trachea midline. No JVD or lymphadenopathy. LYMPHATIC: No adenopathy. CARDIOVASCULAR: Regular rate and rhythm without murmurs. RESPIRATORY: Breath sounds equal bilaterally. No accessory muscle use. GASTROINTESTINAL: Abdomen soft, non-tender, nondistended. EXTREMITIES: No cyanosis, or edema. Patient reports some tenderness involving her right arm/elbow area laterally. MUSCULOSKELETAL: Adequate muscle tone. NEUROLOGICAL: No obvious focal deficit. Awake, alert, and oriented x3. PSYCHIATRIC: Appropriate mood and affect; insight and judgment normal. Assessment/Plan - Plan Ms. 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 This patient was seen by me previously in March when she was hospitalized at [facility] with influenza A and acute worsening of hemolytic anemia for which she required corticosteroid therapy and emergency transfusions. She presented to [facility] yesterday with complaints of vaginal spotting and dysuria. She tells me she did not feel uterine cramping such as menstrual cramps. Beta hCG levels were elevated, ultrasound of the uterus indicated a nonviable approximately 6 weeks gestation. She was assessed to have had a missed (loss of before viability could be established). She was noted to have anemia with hemoglobin of 6.2 g/dL as well and has been initiated on corticosteroid therapy, folic acid and vitamin B12 supplementation. Hematology was asked to see her for optimization of hemoglobin and hematocrit and management of hemolytic anemia. Recommendations: 1. Autoimmune hemolytic anemia: Continue corticosteroids to help decrease hemolysis. Continue folic acid and vitamin B12 as well as iron supplementation to assist hematopoiesis. Ultimately management of her autoimmune disorders such as lupus will be required to mitigate her autoimmune hemolytic anemia. I did talk to Dr. Gilbert about avoiding surgical intervention and perhaps pursuing medical management of her missed to avoid unnecessary blood loss. Repeat CBC and CMP daily. Clinically she is stable despite her hemoglobin being around 6, I would avoid red cell transfusions unless she develops symptomatic anemia complicated by tachycardia and hypoxia. At last visit I recall there was significant difficulty locating suitably matched red cell units given her cold and warm agglutinins (lugo agglutinins).
[2017-10-29] MEDS: Ferrous Sulfate 325 MG Tablet PO SCH ×2 (08:16→20:48)
[2017-10-29] MEDS: Folic Acid 1 MG Tablet PO SCH (08:16)
[2017-10-29] MEDS: MethylPREDNISolone Sod Succinate Inj 40 MG/ML Vial IV.PUSH SCH ×3 (08:41→21:31)
[2017-10-29 09:51] LABS: Baso % (Auto) 0.4 % (0.0-2.0); Eos % (Auto) 0.1 % (0.0-4.0); Lymph # (Auto) 1.2 th/mm3 (1.0-4.8); Lymph % (Auto) 10.4 % (9.0-44.0); Mean Corpuscular Hemoglobin 40.1 pg (27.0-34.0); Mean Corpuscular Volume 111.1 fL (80.0-100.0); Mean Platelet Volume 10.5 fL (7.0-11.0); Mono # (Auto) 0.5 th/mm3 (0.0-0.9); Neut # (Auto) 9.8 th/mm3 (1.8-7.7); Neut % (Auto) 85.1 % (16.0-70.0); Platelet Count 152 th/mm3 (150-450); Red Blood Count 1.42 mil/mm3 (4.00-5.30); Red Cell Distribution Width 15.7 % (11.6-17.2); White Blood Count 11.5 th/mm3 (4.0-11.0)
[2017-10-29 09:53] LABS: Reticulocyte Percent 11.9 % (0.4-3.0)
[2017-10-29 09:59] LABS: Mean Corpuscular HGB Conc 36.1 % (32.0-36.0)
[2017-10-29 10:01] LABS: Hematocrit 15.8 % (35.0-46.0); Hemoglobin 5.7 gm/dL (11.6-15.3)
[2017-10-29] MEDS: miSOPROStol 200 MCG Tablet PO SCH ×4 (10:07→20:46)
[2017-10-29 10:14] LABS: Anion Gap 10 meq/L (5-15); Blood Urea Nitrogen 11 mg/dL (7-18); Calcium 9.3 mg/dL (8.5-10.1); Carbon Dioxide 22.5 meq/L (21.0-32.0); Chloride 107 meq/L (98-107); Glomerular Filtration Rate Greater Than 89 mL/min (>89); Glucose,Random 121 mg/dL (74-106); Potassium 3.5 meq/L (3.5-5.1); Sodium 139 meq/L (136-145)
[2017-10-29 10:15] LABS: % Iron Saturation 34.2 % (20-50); Iron 81 mcg/dL (50-170); Total Iron Binding Capacity 237 mcg/dL (250-450)
[2017-10-29 10:18] LABS: Ferritin 272 ng/mL (8-252)
[2017-10-29] MEDS ORDERED: Acetaminophen 325 MG Tablet PO PRN (10:49)
[2017-10-29] MEDS ORDERED: Sodium Chlor 0.9% Inj 250 ML IV.SIG SCH (11:00)
[2017-10-29 11:15] LABS: Lymphocytes 9 % (9-44); Metamyelocytes 1 % (0-1); Monocytes 4 % (0-8); Myelocytes 1 % (0-0)
[2017-10-29 11:17] LABS: Platelet Estimate Normal (Normal); Platelet Morphology Normal (Normal); Spherocytes Occ
--- NOTE | 2017-10-29 12:00 | P.PNIM ---
Subjective Interval history: Patient is a 27-year-old female with a history of lupus who comes to the emergency room complaining of vaginal spotting with urinary frequency. She has a history also of multiple anemia episodes requiring transfusion. She is A1 and has been having abdominal cramping with nausea. She did have a positive test as an outpatient and is having apparently an incomplete here in the emergency room. Medically she has been found to have a hemoglobin of 6.9 and is recommended for transfusion. Apparently there is a history of hemolytic anemia. Blood pressure and otherwise medical exam is unremarkable. She is recommended for further evaluation treatment due to anemia 8-1 TRANSFERRED FOR EVALUATION BY NAIL FEEDER AND HEMATOLOGY WANTS SOMETHING FOR A HEADACHE HAS A LOW HEMOGLOBIN WILL BE TRANSFUSED LATER TODAY WHEN BLOOD IS AVAILABLE DW RN AND PT AND FAMILY AND ONCOLOGY AM LABS Physical Exam Vital signs: Vital Signs 10/28/17 15:08 10/28/17 18:32 10/28/17 19:20 Temperature Pulse Rate 102 H 102 H 104 H Respiratory Rate 18 18 18 Blood Pressure 110/72 116/64 Pulse Oximetry 99 100 100 10/28/17 20:00 10/29/17 00:00 10/29/17 04:00 Temperature 98.3 F 97.7 F 97.2 F L Pulse Rate 102 H 106 H 94 H Respiratory Rate 17 17 16 Blood Pressure 119/70 123/68 122/73 Pulse Oximetry 99 99 99 10/29/17 08:00 Temperature 97.8 F Pulse Rate 89 Respiratory Rate 18 Blood Pressure 110/64 Pulse Oximetry 99 Intake & Output 10/28/17 10/29/17 10/29/17 18:59 06:59 18:59 Intake Total 840 / 840 1000 / 1000 Balance 840 / 840 1000 / 1000 Weight 111 kg 110.2 kg Intake: IV 1000 / 1000 LR 1000 mL Inj 1,000 ML @ 100 1000 / 1000 mls/hr IV.CONT .Q10H [facility] Rx#: [id number] Oral 840 / 840 Other: # Voids 2 Date of Last Bowel Movement 10/28/17 # Emeses 1 Weight On Admission 110.5 kg Narrative: GENERAL: Well-nourished, well-developed patient. SKIN: Warm and dry. HEAD: Normocephalic. EYES: No scleral icterus. No injection or drainage. NECK: Supple, trachea midline. No JVD or lymphadenopathy. CARDIOVASCULAR: Regular rate and rhythm without murmurs, gallops, or rubs. RESPIRATORY: Breath sounds equal bilaterally. No accessory muscle use. GASTROINTESTINAL: Abdomen soft, non-tender, nondistended. MUSCULOSKELETAL: No cyanosis, or edema. BACK: Nontender without obvious deformity. No CVA tenderness. NEUROLOGICAL: Awake and alert. Cranial nerves II through XII intact. Motor and sensory grossly within normal limits. Five out of 5 muscle strength in all muscle groups. Normal speech. Results - Labs CBC & Chem 7: 10/29/17 09:36 10/29/17 09:36 Laboratory Results - last 24 hr 10/28/17 10/28/17 10/28/17 11:50 11:53 12:12 CBC w Diff Slide review pending WBC 10.2 RBC 1.56 L Hgb 6.2 L* Hct 16.8 L* MCV 107.9 H MCH 39.7 H MCHC 36.8 H RDW 14.8 Plt Count 155 MPV 10.5 Prelim Diff (Auto) Neut % (Auto) 78.7 H Lymph % (Auto) 14.4 [place] % (Auto) 3.7 Eos % (Auto) 0.9 Baso % (Auto) 2.3 H Neut # (Auto) 8.0 H Lymph # (Auto) 1.5 [place] # (Auto) 0.4 Eos # (Auto) 0.1 Baso # (Auto) 0.2 WBC Differential . Diff Scan Auto diff confirmed Seg Neuts % (Manual) Lymphocytes % (Manual) Monocytes % (Manual) Metamyelocytes % (Man) Myelocytes % (Man) Abs Neuts (Manual) Differential Comment . Platelet Estimate Platelet Morphology Spherocytes 2+ H Retic Count Absolute Retic Haptoglobin Sodium Potassium Chloride Carbon Dioxide Anion Gap BUN Creatinine Estimated GFR Random Glucose Calcium Iron TIBC % Saturation Ferritin Total Bilirubin Direct Bilirubin Indirect Bilirubin AST ALT Alkaline Phosphatase Lactate Dehydrogenase Total Protein Albumin Beta HCG, Quant Ur Collection Type Clean catch Urine Color Yellow Urine Clarity Clear Urine pH 7.0 Ur Specific [place] 1.010 Urine Protein 100 H Urine Glucose (UA) Negative Urine Ketones Negative Urine Occult Blood Large H Urine Nitrate Negative Urine Bilirubin Negative Urine Urobilinogen 0.2 Ur Leukocyte Esterase Trace H Urine RBC 4-15 H Urine WBC 9-20 H Ur Squamous Epith Cells 0-5 Micro UA Comment Culture indicated Urine Culture Comments Culture indicated Blood Type Rho(D) Type Positive Antibody Screen Prewarmed Antibody Srcn Antibody Identification Direct Antiglob Test Crossmatch Prewarmed Bld Prod Order Comment 10/28/17 10/28/17 10/28/17 12:12 12:12 12:12 CBC w Diff WBC RBC Hgb Hct MCV MCH MCHC RDW Plt Count MPV Prelim Diff (Auto) Neut % (Auto) Lymph % (Auto) [place] % (Auto) Eos % (Auto) Baso % (Auto) Neut # (Auto) Lymph # (Auto) [place] # (Auto) Eos # (Auto) Baso # (Auto) WBC Differential Diff Scan Seg Neuts % (Manual) Lymphocytes % (Manual) Monocytes % (Manual) Metamyelocytes % (Man) Myelocytes % (Man) Abs Neuts (Manual) Differential Comment Platelet Estimate Platelet Morphology Spherocytes Retic Count 12.1 H Absolute Retic 190.7 H Haptoglobin Sodium 139 Potassium 3.3 L Chloride 108 H Carbon Dioxide 22.2 Anion Gap 9 BUN 9 Creatinine 0.42 L Estimated GFR Greater than 89 Random Glucose 100 Calcium 9.0 Iron TIBC % Saturation Ferritin Total Bilirubin 1.4 H Direct Bilirubin 0.4 H Indirect Bilirubin 1.0 H AST 21 ALT 22 Alkaline Phosphatase 79 Lactate Dehydrogenase 403 H Total Protein 7.3 Albumin 3.4 Beta HCG, Quant 72487 H Ur Collection Type Urine Color Urine Clarity Urine pH Ur Specific [place] Urine Protein Urine Glucose (UA) Urine Ketones Urine Occult Blood Urine Nitrate Urine Bilirubin Urine Urobilinogen Ur Leukocyte Esterase Urine RBC Urine WBC Ur Squamous Epith Cells Micro UA Comment Urine Culture Comments Blood Type Rho(D) Type Antibody Screen Prewarmed Antibody Srcn Antibody Identification Direct Antiglob Test Crossmatch Prewarmed Bld Prod Order Comment 10/28/17 10/28/17 10/28/17 12:12 13:17 13:17 CBC w Diff WBC RBC Hgb Hct MCV MCH MCHC RDW Plt Count MPV Prelim Diff (Auto) Neut % (Auto) Lymph % (Auto) [place] % (Auto) Eos % (Auto) Baso % (Auto) Neut # (Auto) Lymph # (Auto) [place] # (Auto) Eos # (Auto) Baso # (Auto) WBC Differential Diff Scan Seg Neuts % (Manual) Lymphocytes % (Manual) Monocytes % (Manual) Metamyelocytes % (Man) Myelocytes % (Man) Abs Neuts (Manual) Differential Comment Platelet Estimate Platelet Morphology Spherocytes Retic Count Absolute Retic Haptoglobin Less than 40 Sodium Potassium Chloride Carbon Dioxide Anion Gap BUN Creatinine Estimated GFR Random Glucose Calcium Iron TIBC % Saturation Ferritin Total Bilirubin Direct Bilirubin Indirect Bilirubin AST ALT Alkaline Phosphatase Lactate Dehydrogenase Total Protein Albumin Beta HCG, Quant Ur Collection Type Urine Color Urine Clarity Urine pH Ur Specific [place] Urine Protein Urine Glucose (UA) Urine Ketones Urine Occult Blood Urine Nitrate Urine Bilirubin Urine Urobilinogen Ur Leukocyte Esterase Urine RBC Urine WBC Ur Squamous Epith Cells Micro UA Comment Urine Culture Comments Blood Type O Positive Rho(D) Type Antibody Screen Positive H Prewarmed Antibody Srcn Negative H Antibody Identification Direct Antiglob Test Crossmatch Prewarmed See Detail Bld Prod Order Comment 10/28/17 10/28/17 10/29/17 18:21 19:13 09:36 CBC w Diff WBC 11.5 H RBC 1.42 L Hgb 5.7 L* Hct 15.8 L* MCV 111.1 H MCH 40.1 H MCHC 36.1 H RDW 15.7 Plt Count 152 MPV 10.5 Prelim Diff (Auto) Slide review pending Neut % (Auto) 85.1 H Lymph % (Auto) 10.4 [place] % (Auto) 4.0 Eos % (Auto) 0.1 Baso % (Auto) 0.4 Neut # (Auto) 9.8 H Lymph # (Auto) 1.2 [place] # (Auto) 0.5 Eos # (Auto) 0.0 Baso # (Auto) 0.0 WBC Differential Manual diff final Diff Scan Seg Neuts % (Manual) 85 H Lymphocytes % (Manual) 9 Monocytes % (Manual) 4 Metamyelocytes % (Man) 1 Myelocytes % (Man) 1 H Abs Neuts (Manual) 10.0 H Differential Comment . Platelet Estimate Normal Platelet Morphology Normal Spherocytes Occ H Retic Count Absolute Retic Haptoglobin Sodium Potassium Chloride Carbon Dioxide Anion Gap BUN Creatinine Estimated GFR Random Glucose Calcium Iron TIBC % Saturation Ferritin Total Bilirubin Direct Bilirubin Indirect Bilirubin AST ALT Alkaline Phosphatase Lactate Dehydrogenase Total Protein Albumin Beta HCG, Quant Ur Collection Type Urine Color Urine Clarity Urine pH Ur Specific [place] Urine Protein Urine Glucose (UA) Urine Ketones Urine Occult Blood Urine Nitrate Urine Bilirubin Urine Urobilinogen Ur Leukocyte Esterase Urine RBC Urine WBC Ur Squamous Epith Cells Micro UA Comment Urine Culture Comments Blood Type Rho(D) Type Antibody Screen Prewarmed Antibody Srcn Antibody Identification Non-Specific Warm Agglutinin Direct Antiglob Test Strongly positive H Crossmatch Prewarmed Bld Prod Order Comment 10/29/17 10/29/17 09:36 09:36 CBC w Diff WBC RBC Hgb Hct MCV MCH MCHC RDW Plt Count MPV Prelim Diff (Auto) Neut % (Auto) Lymph % (Auto) [place] % (Auto) Eos % (Auto) Baso % (Auto) Neut # (Auto) Lymph # (Auto) [place] # (Auto) Eos # (Auto) Baso # (Auto) WBC Differential Diff Scan Seg Neuts % (Manual) Lymphocytes % (Manual) Monocytes % (Manual) Metamyelocytes % (Man) Myelocytes % (Man) Abs Neuts (Manual) Differential Comment Platelet Estimate Platelet Morphology Spherocytes Retic Count 11.9 H Absolute Retic 169.1 H Haptoglobin Sodium 139 Potassium 3.5 Chloride 107 Carbon Dioxide 22.5 Anion Gap 10 BUN 11 Creatinine 0.48 L Estimated GFR Greater than 89 Random Glucose 121 H Calcium 9.3 Iron 81 TIBC 237 L % Saturation 34.2 Ferritin 272 H Total Bilirubin Direct Bilirubin Indirect Bilirubin AST ALT Alkaline Phosphatase Lactate Dehydrogenase Total Protein Albumin Beta HCG, Quant Ur Collection Type Urine Color Urine Clarity Urine pH Ur Specific [place] Urine Protein Urine Glucose (UA) Urine Ketones Urine Occult Blood Urine Nitrate Urine Bilirubin Urine Urobilinogen Ur Leukocyte Esterase Urine RBC Urine WBC Ur Squamous Epith Cells Micro UA Comment Urine Culture Comments Blood Type Rho(D) Type Antibody Screen Prewarmed Antibody Srcn Antibody Identification Direct Antiglob Test Crossmatch Prewarmed Bld Prod Order Comment - Imaging Impressions Pelvis Ultrasound 10/28/17 11:53 CONCLUSION: 1. There is an intrauterine gestation identified without cardiac activity on this examination. 2. There is no free fluid. Assessment and Plan - Assessment (1) Spontaneous Code(s): O03.9 - Complete or unspecified spontaneous without complication Status: Acute Plan: Follow up with [facility] for possible D and C (2) Anemia Code(s): D64.9 - Anemia, unspecified Status: Acute Plan: history of lupus, transfuse when blood available IV steroids - Plan MISSED - WILL DEFER TO [facility] AM LABS HX LUPUS HX HEMOLYTIC ANEMIA- TRANSFUSE PER ONCOLOGY AM LABS AMBULATE Code Status: FULL CODE Discussed Condition With: RN AND PT AND ONCOLOGY AND FAMILY Discharge Planning: PENDING IMPROVED ANEMIA AND NAIL FEEDER CLEARANCE
[2017-10-30] MEDS: Morphine Sulfate Inj 2 MG/ML Vial IV.PUSH PRN (00:17)
[2017-10-30] MEDS: miSOPROStol 200 MCG Tablet PO SCH ×4 (00:17→11:57)
[2017-10-30] MEDS: MethylPREDNISolone Sod Succinate Inj 40 MG/ML Vial IV.PUSH SCH (05:10)
[2017-10-30 06:18] LABS: Baso # (Auto) 0.1 th/mm3 (0.0-0.2); Baso % (Auto) 0.5 % (0.0-2.0); Hematocrit 21.2 % (35.0-46.0); Hemoglobin 7.1 gm/dL (11.6-15.3); Lymph # (Auto) 1.5 th/mm3 (1.0-4.8); Lymph % (Auto) 7.6 % (9.0-44.0); Mean Corpuscular HGB Conc 33.5 % (32.0-36.0); Mean Corpuscular Hemoglobin 33.1 pg (27.0-34.0); Mean Corpuscular Volume 98.9 fL (80.0-100.0); Mean Platelet Volume 11.1 fL (7.0-11.0); Mono # (Auto) 1.6 th/mm3 (0.0-0.9); Mono % (Auto) 7.7 % (0.0-8.0); Neut # (Auto) 17.1 th/mm3 (1.8-7.7); Neut % (Auto) 84.2 % (16.0-70.0); Platelet Count 182 th/mm3 (150-450); Red Blood Count 2.15 mil/mm3 (4.00-5.30); Red Cell Distribution Width 16.4 % (11.6-17.2); White Blood Count 20.3 th/mm3 (4.0-11.0)
[2017-10-30 06:23] LABS: Albumin 3.2 g/dL (3.4-5.0); Anion Gap 10 meq/L (5-15); Aspartate Aminotransferase 17 U/L (15-37); Blood Urea Nitrogen 13 mg/dL (7-18); Calcium 9.5 mg/dL (8.5-10.1); Carbon Dioxide 23.5 meq/L (21.0-32.0); Chloride 105 meq/L (98-107); Glomerular Filtration Rate Greater Than 89 mL/min (>89); Glucose,Random 112 mg/dL (74-106); Magnesium 2.1 mg/dL (1.5-2.5); Potassium 4.1 meq/L (3.5-5.1)
--- NOTE | 2017-10-30 06:28 | P.PNOB ---
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 patient is gynecologically stable 2. she declined pelvic exam today 3. I discussed need for control -- patient verbalized understanding 4. ordered Bhcg and TV US to look at uterus 5. plan to continue with uterotonics in order to minimize vaginal bleeding 6. plan outpatient follow up - Time Spent With Patient Total time spent is greater than 50% in coordination of care (as documented) at patient's floor/unit and/or counseling patient: 25 - 35 minutes Subjective Interval history: Patient is sitting up in bed. She reports passing blood clots "right after they started the pills". The patient describes the bleeding as "more than before the pills". She declined pelvic exam "I just changed... I am not bleeding right now..." Night RN reported "very light bleeding" noted in pads and "very small blood clots" noted in toilet. Physical Exam Vital signs: Temp Pulse Resp BP Pulse Ox 98.1 F 88 17 118/74 100 10/30/17 04:00 10/30/17 04:00 10/30/17 04:00 10/30/17 04:00 10/30/17 04:00 - Constitutional no acute distress, cooperative - Routine Exam Patient deferred: perineal exam (patient declined pelvic exam) Results - Labs CBC & Chem 7: 10/30/17 05:25 10/30/17 05:25 Labs: Laboratory Results - last 24 hr 10/28/17 10/29/17 10/29/17 13:17 09:36 09:36 CBC w Diff WBC 11.5 H RBC 1.42 L Hgb 5.7 L* Hct 15.8 L* MCV 111.1 H MCH 40.1 H MCHC 36.1 H RDW 15.7 Plt Count 152 MPV 10.5 Prelim Diff (Auto) Slide review pending Neut % (Auto) 85.1 H Lymph % (Auto) 10.4 [place] % (Auto) 4.0 Eos % (Auto) 0.1 Baso % (Auto) 0.4 Neut # (Auto) 9.8 H Lymph # (Auto) 1.2 [place] # (Auto) 0.5 Eos # (Auto) 0.0 Baso # (Auto) 0.0 WBC Differential Manual diff final Seg Neuts % (Manual) 85 H Lymphocytes % (Manual) 9 Monocytes % (Manual) 4 Metamyelocytes % (Man) 1 Myelocytes % (Man) 1 H Abs Neuts (Manual) 10.0 H Differential Comment . Platelet Estimate Normal Platelet Morphology Normal Spherocytes Occ H Retic Count Absolute Retic Sodium 139 Potassium 3.5 Chloride 107 Carbon Dioxide 22.5 Anion Gap 10 BUN 11 Creatinine 0.48 L Estimated GFR Greater than 89 Random Glucose 121 H Calcium 9.3 Iron 81 TIBC 237 L % Saturation 34.2 Ferritin 272 H Prewarmed Antibody Srcn Negative H Crossmatch Prewarmed See Detail Bld Prod Order Comment 10/29/17 10/29/17 10/30/17 09:36 12:43 05:25 CBC w Diff WBC 20.3 H D RBC 2.15 L Hgb 7.1 L Hct 21.2 L MCV 98.9 D MCH 33.1 MCHC 33.5 RDW 16.4 Plt Count 182 MPV 11.1 H Prelim Diff (Auto) Slide review pending Neut % (Auto) 84.2 H Lymph % (Auto) 7.6 L [place] % (Auto) 7.7 Eos % (Auto) 0.0 Baso % (Auto) 0.5 Neut # (Auto) 17.1 H Lymph # (Auto) 1.5 [place] # (Auto) 1.6 H Eos # (Auto) 0.0 Baso # (Auto) 0.1 WBC Differential Seg Neuts % (Manual) Lymphocytes % (Manual) Monocytes % (Manual) Metamyelocytes % (Man) Myelocytes % (Man) Abs Neuts (Manual) Differential Comment . Platelet Estimate Platelet Morphology Spherocytes Retic Count 11.9 H Absolute Retic 169.1 H Sodium Potassium Chloride Carbon Dioxide Anion Gap BUN Creatinine Estimated GFR Random Glucose Calcium Iron TIBC % Saturation Ferritin Prewarmed Antibody Srcn Crossmatch Prewarmed See Detail Bld Prod Order Comment
[2017-10-30 06:33] LABS: Alanine Aminotransferase 22 U/L (10-53); Alkaline Phosphatase 91 U/L (45-117); Phosphorus 3.1 mg/dL (2.5-4.9); Total Protein 7.5 g/dL (6.4-8.2)
[2017-10-30 06:46] LABS: Sodium 138 meq/L (136-145)
[2017-10-30 06:57] LABS: Lymphocytes 13 % (9-44); Metamyelocytes 3 % (0-1); Monocytes 2 % (0-8); Myelocytes 2 % (0-0)
[2017-10-30 06:58] LABS: Platelet Estimate Normal (Normal); Platelet Morphology Normal (Normal)
[2017-10-30 07:00] LABS: Polychromasia 4.3 % (0.0-1.9)
[2017-10-30 07:01] LABS: Spherocytes Occ
--- NOTE | 2017-10-30 07:52 | P.PNONC ---
Subjective Interval history: Patient seen and examined, vital signs, labs, medications, blood bank notes all reviewed. Subjectively; patient reports tolerating red cell transfusion without difficulty yesterday. She tells me she is having uterine cramps and vaginal bleeding (she assesses the bleeding to be similar to an early). Her major complaint is that of pain and swelling of her right elbow area on the outside. 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 Objective Vital Signs/Intake & Output: Vital Signs 10/29/17 08:00 10/29/17 14:26 10/29/17 14:45 Temperature 97.8 F 98.4 F Pulse Rate 89 101 H 102 H Respiratory Rate 18 18 20 Blood Pressure 110/64 126/64 136/78 Pulse Oximetry 99 94 L 97 10/29/17 17:52 10/29/17 20:00 10/29/17 21:31 Temperature 98.8 F 98.7 F Pulse Rate 100 H 89 87 Respiratory Rate 20 17 Blood Pressure 127/70 118/73 Pulse Oximetry 100 10/30/17 00:00 10/30/17 04:00 Temperature 97.7 F 98.1 F Pulse Rate 83 88 Respiratory Rate 16 17 Blood Pressure 122/71 118/74 Pulse Oximetry 100 100 Intake & Output 10/29/17 10/30/17 10/30/17 18:59 06:59 18:59 Intake Total 4220 / 4220 1720 / 1720 Output Total 6 6 800 / 800 Balance 4214 / 4214 920 / 920 Weight 110.2 kg Intake: IV 1999 / 1999 1000 / 1000 LR 1000 mL Inj 1,000 ML @ 100 1999 / 1999 1000 / 1000 mls/hr IV.CONT .Q10H [facility] Rx#: [id number] Oral 1820 / 1820 720 / 720 Intake (Blood Product) Amt 400 / 400 Rbc As-3 Leukoreduced Unit 400 / 400 [id number] Output: Urine 800 / 800 Other: Date of Last Bowel Movement 10/29/17 10/29/17 Result Diagrams: 10/30/17 05:25 10/30/17 05:25 Laboratory Results: Laboratory Results - last 24 hr 10/28/17 10/29/17 10/29/17 13:17 09:36 09:36 CBC w Diff WBC 11.5 H RBC 1.42 L Hgb 5.7 L* Hct 15.8 L* MCV 111.1 H MCH 40.1 H MCHC 36.1 H RDW 15.7 Plt Count 152 MPV 10.5 Prelim Diff (Auto) Slide review pending Neut % (Auto) 85.1 H Lymph % (Auto) 10.4 [place] % (Auto) 4.0 Eos % (Auto) 0.1 Baso % (Auto) 0.4 Neut # (Auto) 9.8 H Lymph # (Auto) 1.2 [place] # (Auto) 0.5 Eos # (Auto) 0.0 Baso # (Auto) 0.0 WBC Differential Manual diff final Seg Neuts % (Manual) 85 H Band Neuts % (Manual) Lymphocytes % (Manual) 9 Monocytes % (Manual) 4 Metamyelocytes % (Man) 1 Myelocytes % (Man) 1 H Abs Neuts (Manual) 10.0 H Differential Comment . Platelet Estimate Normal Platelet Morphology Normal Polychromasia Spherocytes Occ H Retic Count Absolute Retic Sodium 139 Potassium 3.5 Chloride 107 Carbon Dioxide 22.5 Anion Gap 10 BUN 11 Creatinine 0.48 L Estimated GFR Greater than 89 Random Glucose 121 H Calcium 9.3 Phosphorus Magnesium Iron 81 TIBC 237 L % Saturation 34.2 Ferritin 272 H Total Bilirubin AST ALT Alkaline Phosphatase Total Protein Albumin TSH Free T4 Prewarmed Antibody Srcn Negative H Crossmatch Prewarmed See Detail Bld Prod Order Comment 10/29/17 10/29/17 10/30/17 09:36 12:43 05:25 CBC w Diff WBC 20.3 H D RBC 2.15 L Hgb 7.1 L Hct 21.2 L MCV 98.9 D MCH 33.1 MCHC 33.5 RDW 16.4 Plt Count 182 MPV 11.1 H Prelim Diff (Auto) Slide review pending Neut % (Auto) 84.2 H Lymph % (Auto) 7.6 L [place] % (Auto) 7.7 Eos % (Auto) 0.0 Baso % (Auto) 0.5 Neut # (Auto) 17.1 H Lymph # (Auto) 1.5 [place] # (Auto) 1.6 H Eos # (Auto) 0.0 Baso # (Auto) 0.1 WBC Differential Manual diff final Seg Neuts % (Manual) 70 Band Neuts % (Manual) 10 H Lymphocytes % (Manual) 13 Monocytes % (Manual) 2 Metamyelocytes % (Man) 3 H Myelocytes % (Man) 2 H Abs Neuts (Manual) 17.3 H Differential Comment . Platelet Estimate Normal Platelet Morphology Normal Polychromasia 4.3 H Spherocytes Occ H Retic Count 11.9 H Absolute Retic 169.1 H Sodium Potassium Chloride Carbon Dioxide Anion Gap BUN Creatinine Estimated GFR Random Glucose Calcium Phosphorus Magnesium Iron TIBC % Saturation Ferritin Total Bilirubin AST ALT Alkaline Phosphatase Total Protein Albumin TSH Free T4 Prewarmed Antibody Srcn Crossmatch Prewarmed See Detail Bld Prod Order Comment 10/30/17 10/30/17 05:25 05:25 CBC w Diff WBC RBC Hgb Hct MCV MCH MCHC RDW Plt Count MPV Prelim Diff (Auto) Neut % (Auto) Lymph % (Auto) [place] % (Auto) Eos % (Auto) Baso % (Auto) Neut # (Auto) Lymph # (Auto) [place] # (Auto) Eos # (Auto) Baso # (Auto) WBC Differential Seg Neuts % (Manual) Band Neuts % (Manual) Lymphocytes % (Manual) Monocytes % (Manual) Metamyelocytes % (Man) Myelocytes % (Man) Abs Neuts (Manual) Differential Comment Platelet Estimate Platelet Morphology Polychromasia Spherocytes Retic Count Absolute Retic Sodium 138 Potassium 4.1 Chloride 105 Carbon Dioxide 23.5 Anion Gap 10 BUN 13 Creatinine 0.62 Estimated GFR Greater than 89 Random Glucose 112 H Calcium 9.5 Phosphorus 3.1 Magnesium 2.1 Iron TIBC % Saturation Ferritin Total Bilirubin 1.2 H AST 17 ALT 22 Alkaline Phosphatase 91 Total Protein 7.5 Albumin 3.2 L TSH 1.740 Free T4 0.94 Prewarmed Antibody Srcn Crossmatch Prewarmed Bld Prod Order Comment Culture Results: Microbiology 10/28/17 11:50 Urine Culture - Preliminary Clean Catch Urine 10-50,000 cfu/mL mixed alie (probable contaminants) Medications: Active Medications Generic Name Dose Route Start Last Admin Trade Name Freq PRN Reason Stop Dose Admin Acetaminophen 650 mg 10/29/17 10:49 10/29/17 13:41 Tylenol PO 650 mg Q4H PRN Administration SEE LABEL COMMENTS Diphenhydramine HCl 25 mg 10/29/17 10:49 10/29/17 13:41 Benadryl PO 25 mg Q4H PRN Administration SEE LABEL COMMENTS Ferrous Sulfate 325 mg 10/28/17 21:00 10/29/17 20:48 Ferosul PO 325 mg BID MAGNO Administration Folic Acid 1 mg 10/28/17 19:00 10/29/17 08:16 Folic Acid PO 1 mg DAILY MAGNO Administration Lactated Ringer's 1,000 mls @ 100 mls/hr 10/28/17 16:00 10/30/17 04:24 Lr 1000 Ml Inj IV.CONT 100 mls/hr .Q10H [facility] Administration Misoprostol 200 mcg 10/29/17 08:00 10/30/17 04:24 Cytotec PO 200 mcg Q4HR MAGNO Administration Morphine Sulfate 2 mg 10/28/17 22:01 10/30/17 00:17 Morphine Inj IV.PUSH 2 mg Q3H PRN Administration ABDOMINAL PAIN Ondansetron HCl 4 mg 10/28/17 23:57 10/29/17 20:46 Zofran Odt PO 4 mg Q6H PRN Administration NAUSEA Oxycodone/Acetaminophen 2 tab 10/29/17 07:43 10/30/17 04:24 Percocet 5/325 Mg PO 2 tab Q4H PRN Administration PAIN SCALE 6-10 OR SEVERE SOB Objective Remarks: GENERAL: Young female laying in bed, she was asleep when I walked in, easily awoken. She is awake alert and oriented. Not acutely distressed, appears pale.. SKIN: Warm and dry. HEAD: Normocephalic. EYES: No scleral icterus. No injection or drainage. NECK: Supple, trachea midline. No JVD or lymphadenopathy. LYMPHATIC: No adenopathy. CARDIOVASCULAR: Regular rate and rhythm without murmurs. RESPIRATORY: Breath sounds equal bilaterally. No accessory muscle use. GASTROINTESTINAL: Abdomen soft, some tenderness to palpation over the lower portion of the abdomen, nondistended. EXTREMITIES: No pretibial edema no calf tenderness, some pain on palpation of the right lateral aspect of the elbow. MUSCULOSKELETAL: Adequate muscle tone. NEUROLOGICAL: No obvious focal deficit. Awake, alert, and oriented x3. PSYCHIATRIC: Appropriate mood and affect; insight and judgment normal. Assessment/Plan - Plan Ms. 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 This patient was seen by me previously in March when she was hospitalized at [facility] with influenza A and acute worsening of hemolytic anemia for which she required corticosteroid therapy and emergency transfusions. She presented to [facility] yesterday with complaints of vaginal spotting and dysuria. She tells me she did not feel uterine cramping such as menstrual cramps. Beta hCG levels were elevated, ultrasound of the uterus indicated a nonviable approximately 6 weeks gestation. She was assessed to have had a missed (loss of before viability could be established). She was noted to have anemia with hemoglobin of 6.2 g/dL as well and has been initiated on corticosteroid therapy, folic acid and vitamin B12 supplementation. Hematology was asked to see her for optimization of hemoglobin and hematocrit and management of hemolytic anemia. Recommendations: 1. Autoimmune hemolytic anemia: clinically very stable this morning. Hemoglobin has responded appropriately to red cell transfusion delivered on 2017. I greatly appreciate the work the blood bank has put him to procure a difficult to match unit. This morning I have discontinued intravenous methylprednisolone. I have started her on oral prednisone 60 mg p.o. twice daily. Continue folic acid, oral iron replacement. 2. Lupus: I have asked the patient to call the [facility]'s rheumatology clinic to try to set up an outpatient appointment. 3. Right upper extremity swelling and tenderness at the level of the elbow: Request ultrasound Doppler to rule out deep venous thrombosis. Continue ongoing care.
[2017-10-30] MEDS: predniSONE 20 MG Tablet PO SCH ×2 (08:42→21:16)
[2017-10-30] MEDS: Ferrous Sulfate 325 MG Tablet PO SCH ×2 (08:42→21:16)
[2017-10-30] MEDS: Folic Acid 1 MG Tablet PO SCH (08:42)
--- NOTE | 2017-10-30 11:46 | P.PNIM ---
Subjective Interval history: Patient is a 27-year-old female with a history of lupus who comes to the emergency room complaining of vaginal spotting with urinary frequency. She has a history also of multiple anemia episodes requiring transfusion. She is A1 and has been having abdominal cramping with nausea. She did have a positive test as an outpatient and is having apparently an incomplete here in the emergency room. Medically she has been found to have a hemoglobin of 6.9 and is recommended for transfusion. Apparently there is a history of hemolytic anemia. Blood pressure and otherwise medical exam is unremarkable. She is recommended for further evaluation treatment due to anemia 8-1 TRANSFERRED FOR EVALUATION BY [facility] AND HEMATOLOGY WANTS SOMETHING FOR A HEADACHE HAS A LOW HEMOGLOBIN WILL BE TRANSFUSED LATER TODAY WHEN BLOOD IS AVAILABLE DW RN AND PT AND FAMILY AND ONCOLOGY AM LABS 8-2 FOLLOW UP ANEMIA US OF RIGHT UE ORDERED AND BEING DONE- NOT AVAILABLE YET WAS TRANSFUSED 1 UNIT PRBC YESTERDAY DW RN AND PT AND ONCOLOGY AM LABS DENIES ANY OTHER PAINS Physical Exam Vital signs: Vital Signs 10/29/17 14:26 10/29/17 14:45 10/29/17 17:52 Temperature 98.4 F 98.8 F Pulse Rate 101 H 102 H 100 H Respiratory Rate 18 20 20 Blood Pressure 126/64 136/78 127/70 Pulse Oximetry 94 L 97 10/29/17 20:00 10/29/17 21:31 10/30/17 00:00 Temperature 98.7 F 97.7 F Pulse Rate 89 87 83 Respiratory Rate 17 16 Blood Pressure 118/73 122/71 Pulse Oximetry 100 100 10/30/17 04:00 10/30/17 08:00 Temperature 98.1 F 98.6 F Pulse Rate 88 85 Respiratory Rate 17 20 Blood Pressure 118/74 114/70 Pulse Oximetry 100 99 Intake & Output 10/29/17 10/30/17 10/30/17 18:59 06:59 18:59 Intake Total 4420 / 4420 1720 / 1720 200 / 200 Output Total 800 / 800 Balance 4414 / 4414 920 / 920 200 / 200 Weight 110.2 kg Intake: IV 2200 / 2200 1000 / 1000 200 / 200 LR 1000 mL Inj 1,000 ML @ 100 2000 / 2000 1000 / 1000 mls/hr IV.CONT .Q10H MAGNO Rx#: [id number] NS Inj 250 ML @ 15 mls/hr IV. 200 / 200 200 / 200 SIG ONCE MAGNO Rx#:[id number] Oral 1820 / 1820 720 / 720 Intake (Blood Product) Amt 400 / 400 Rbc As-3 Leukoreduced Unit 400 / 400 [id number] Output: Urine 800 / 800 Other: Date of Last Bowel Movement 10/29/17 10/29/17 Narrative: GENERAL: Well-nourished, well-developed patient. SKIN: Warm and dry. HEAD: Normocephalic. EYES: No scleral icterus. No injection or drainage. NECK: Supple, trachea midline. No JVD or lymphadenopathy. CARDIOVASCULAR: Regular rate and rhythm without murmurs, gallops, or rubs. RESPIRATORY: Breath sounds equal bilaterally. No accessory muscle use. GASTROINTESTINAL: Abdomen soft, non-tender, nondistended. MUSCULOSKELETAL: No cyanosis, or edema. BACK: Nontender without obvious deformity. No CVA tenderness. NEUROLOGICAL: Awake and alert. Cranial nerves II through XII intact. Motor and sensory grossly within normal limits. Five out of 5 muscle strength in all muscle groups. Normal speech. Results - Labs CBC & Chem 7: 10/30/17 05:25 10/30/17 05:25 Laboratory Results - last 24 hr 10/28/17 10/29/17 10/30/17 13:17 12:43 05:25 CBC w Diff WBC 20.3 H D RBC 2.15 L Hgb 7.1 L Hct 21.2 L MCV 98.9 D MCH 33.1 MCHC 33.5 RDW 16.4 Plt Count 182 MPV 11.1 H Prelim Diff (Auto) Slide review pending Neut % (Auto) 84.2 H Lymph % (Auto) 7.6 L Barnwell % (Auto) 7.7 Eos % (Auto) 0.0 Baso % (Auto) 0.5 Neut # (Auto) 17.1 H Lymph # (Auto) 1.5 Barnwell # (Auto) 1.6 H Eos # (Auto) 0.0 Baso # (Auto) 0.1 WBC Differential Manual diff final Seg Neuts % (Manual) 70 Band Neuts % (Manual) 10 H Lymphocytes % (Manual) 13 Monocytes % (Manual) 2 Metamyelocytes % (Man) 3 H Myelocytes % (Man) 2 H Abs Neuts (Manual) 17.3 H Differential Comment . Platelet Estimate Normal Platelet Morphology Normal Polychromasia 4.3 H Spherocytes Occ H Sodium Potassium Chloride Carbon Dioxide Anion Gap BUN Creatinine Estimated GFR Random Glucose Calcium Phosphorus Magnesium Total Bilirubin AST ALT Alkaline Phosphatase Total Protein Albumin TSH Free T4 Beta HCG, Quant Prewarmed Antibody Srcn Negative H Crossmatch Prewarmed See Detail See Detail Bld Prod Order Comment 10/30/17 10/30/17 10/30/17 05:25 05:25 05:25 CBC w Diff WBC RBC Hgb Hct MCV MCH MCHC RDW Plt Count MPV Prelim Diff (Auto) Neut % (Auto) Lymph % (Auto) Barnwell % (Auto) Eos % (Auto) Baso % (Auto) Neut # (Auto) Lymph # (Auto) Barnwell # (Auto) Eos # (Auto) Baso # (Auto) WBC Differential Seg Neuts % (Manual) Band Neuts % (Manual) Lymphocytes % (Manual) Monocytes % (Manual) Metamyelocytes % (Man) Myelocytes % (Man) Abs Neuts (Manual) Differential Comment Platelet Estimate Platelet Morphology Polychromasia Spherocytes Sodium 138 Potassium 4.1 Chloride 105 Carbon Dioxide 23.5 Anion Gap 10 BUN 13 Creatinine 0.62 Estimated GFR Greater than 89 Random Glucose 112 H Calcium 9.5 Phosphorus 3.1 Magnesium 2.1 Total Bilirubin 1.2 H AST 17 ALT 22 Alkaline Phosphatase 91 Total Protein 7.5 Albumin 3.2 L TSH 1.740 Free T4 0.94 Beta HCG, Quant 7297 H Prewarmed Antibody Srcn Crossmatch Prewarmed Bld Prod Order Comment Microbiology 10/28/17 11:50 Clean Catch Urine Urine Culture - Final 10-50,000 cfu/mL mixed alie (probable contaminants) - Imaging Pelvis Ultrasound 10/28/17 11:53 CONCLUSION: 1. There is an intrauterine gestation identified without cardiac activity on this examination. 2. There is no free fluid. Assessment and Plan - Assessment (1) Spontaneous Code(s): O03.9 - Complete or unspecified spontaneous without complication Status: Acute Plan: Follow up with [facility] for possible D and C (2) Anemia Code(s): D64.9 - Anemia, unspecified Status: Acute Plan: history of lupus, transfuse when blood available IV steroids - Plan MISSED - WILL DEFER TO [facility] AM LABS HX LUPUS HX AUTOIMMUNE HEMOLYTIC ANEMIA- TRANSFUSE PER ONCOLOGY AM LABS AMBULATE US OF RIGHT UE PENDING NOT CLEARED BY [facility] OR HEMONC FOR DC Code Status: FULL CODE Discussed Condition With: RN AND PT AND CM Discharge Planning: PENDING IMPROVED ANEMIA AND [facility] CLEARANCE
--- NOTE | 2017-10-30 12:35 | US ---
EXAM DATE: 10/30/2017 12:28 PM EDT AGE/SEX: 27 years / Female INDICATIONS: Right arm pain and swelling. CLINICAL DATA: This is the patient's initial encounter. Patient reports that signs and symptoms have been present for 1 day and indicates a pain score of 3/10. MEDICAL/SURGICAL HISTORY: . Hemolytic anemia. Lupus. MRSA. Arteriovenous malformation, upper ex tremity. section. Cholecystectomy. Lumpectomy. COMPARISON: No prior exams available for comparison. FINDINGS: The vessels are compressible and augmentation response is documented. No filling defects a re seen. The flow is phasic with respiration. Other: None. CONCLUSION: No venous thrombosis at the right upper extremity. Electronically signed by: Toi Cotton MD 10/30/2017 12:33 PM EDT
--- NOTE | 2017-10-30 13:08 | US ---
EXAM DATE: 10/30/2017 12:52 PM EDT AGE/SEX: 27 years / Female INDICATIONS: Bleeding. CLINICAL DATA: This is the patient's subsequent encounter. Patient reports that signs and symptoms h ave been present for 3 days and indicates a pain score of 4/10. MEDICAL/SURGICAL HISTORY: . Hemolytic anemia. Lupus. MRSA. Arteriovenous malformation, upper ex tremity. Cholecystectomy. section. Lumpectomy. COMPARISON: [facility], US PELVIC (QUEST PREG/ECT) W TV, 10/28/2017. . MEASUREMENTS: Uterus:__12.0 x 7.6 x 6.7 cm Endometrial Stripe:__>20 mm Right Ovary:__ 2.8 x 1.7 x 1.4 cm Left Ovary:__ 2.9 x 2.2 x 1.6 cm FINDINGS: The previously seen intrauterine is not identified. No retained products of conception are seen. No free fluid is identified. No adnexal masses are identified. The right ovary appears normal. There is a left ovarian cyst which measures 2 cm. CONCLUSION: 1. Findings of complete without retained products Electronically signed by: Kamar Guo MD 10/30/2017 1:07 PM EDT
--- NOTE | 2017-10-30 13:17 | P.PNOB ---
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 medical has been successful as documented by US 2. films were reviewed 3. discussed US findings with RN and with patient over the phone 4. reminded patient to see me as outpatient for control 5. her questions were answered, she verbalized understanding 6. I am signing off and thank the Hematology service for the consult - Time Spent With Patient Total time spent is greater than 50% in coordination of care (as documented) at patient's floor/unit and/or counseling patient: less than 15 minutes Subjective Interval history: Pelvic TV US was done -- uterus is empty. Per RN, patient feels overall better, with less cramping, her bleeding is "minimal". Physical Exam Vital signs: Temp Pulse Resp BP Pulse Ox 98.6 F 85 20 114/70 99 10/30/17 08:00 10/30/17 08:00 10/30/17 08:00 10/30/17 08:00 10/30/17 08:00 Results - Labs CBC & Chem 7: 10/31/17 05:41 10/31/17 05:41 Labs: Laboratory Results - last 24 hr 10/28/17 10/29/17 10/30/17 13:17 12:43 05:25 CBC w Diff WBC 20.3 H D RBC 2.15 L Hgb 7.1 L Hct 21.2 L MCV 98.9 D MCH 33.1 MCHC 33.5 RDW 16.4 Plt Count 182 MPV 11.1 H Prelim Diff (Auto) Slide review pending Neut % (Auto) 84.2 H Lymph % (Auto) 7.6 L Walker % (Auto) 7.7 Eos % (Auto) 0.0 Baso % (Auto) 0.5 Neut # (Auto) 17.1 H Lymph # (Auto) 1.5 Walker # (Auto) 1.6 H Eos # (Auto) 0.0 Baso # (Auto) 0.1 WBC Differential Manual diff final Seg Neuts % (Manual) 70 Band Neuts % (Manual) 10 H Lymphocytes % (Manual) 13 Monocytes % (Manual) 2 Metamyelocytes % (Man) 3 H Myelocytes % (Man) 2 H Abs Neuts (Manual) 17.3 H Differential Comment . Platelet Estimate Normal Platelet Morphology Normal Polychromasia 4.3 H Spherocytes Occ H Sodium Potassium Chloride Carbon Dioxide Anion Gap BUN Creatinine Estimated GFR Random Glucose Calcium Phosphorus Magnesium Total Bilirubin AST ALT Alkaline Phosphatase Total Protein Albumin TSH Free T4 Beta HCG, Quant Prewarmed Antibody Srcn Negative H Crossmatch Prewarmed See Detail See Detail Bld Prod Order Comment 10/30/17 10/30/17 10/30/17 05:25 05:25 05:25 CBC w Diff WBC RBC Hgb Hct MCV MCH MCHC RDW Plt Count MPV Prelim Diff (Auto) Neut % (Auto) Lymph % (Auto) Walker % (Auto) Eos % (Auto) Baso % (Auto) Neut # (Auto) Lymph # (Auto) Walker # (Auto) Eos # (Auto) Baso # (Auto) WBC Differential Seg Neuts % (Manual) Band Neuts % (Manual) Lymphocytes % (Manual) Monocytes % (Manual) Metamyelocytes % (Man) Myelocytes % (Man) Abs Neuts (Manual) Differential Comment Platelet Estimate Platelet Morphology Polychromasia Spherocytes Sodium 138 Potassium 4.1 Chloride 105 Carbon Dioxide 23.5 Anion Gap 10 BUN 13 Creatinine 0.62 Estimated GFR Greater than 89 Random Glucose 112 H Calcium 9.5 Phosphorus 3.1 Magnesium 2.1 Total Bilirubin 1.2 H AST 17 ALT 22 Alkaline Phosphatase 91 Total Protein 7.5 Albumin 3.2 L TSH 1.740 Free T4 0.94 Beta HCG, Quant 7297 H Prewarmed Antibody Srcn Crossmatch Prewarmed Bld Prod Order Comment - Imaging Impressions Venous Doppler Study 10/30/17 00:00 CONCLUSION: No venous thrombosis at the right upper extremity. Pelvis Ultrasound 10/30/17 17:00 CONCLUSION: 1. Findings of complete without retained products
[2017-10-31 07:25] LABS: Baso % (Auto) 0.2 % (0.0-2.0); Hemoglobin 7.5 gm/dL (11.6-15.3); Lymph # (Auto) 2.1 th/mm3 (1.0-4.8); Lymph % (Auto) 11.3 % (9.0-44.0); Mean Corpuscular HGB Conc 34.4 % (32.0-36.0); Mean Corpuscular Hemoglobin 34.9 pg (27.0-34.0); Mean Corpuscular Volume 101.5 fL (80.0-100.0); Mean Platelet Volume 10.7 fL (7.0-11.0); Mono # (Auto) 1.3 th/mm3 (0.0-0.9); Mono % (Auto) 6.9 % (0.0-8.0); Neut # (Auto) 15.2 th/mm3 (1.8-7.7); Neut % (Auto) 81.6 % (16.0-70.0); Platelet Count 146 th/mm3 (150-450); Red Blood Count 2.16 mil/mm3 (4.00-5.30); White Blood Count 18.6 th/mm3 (4.0-11.0)
--- NOTE | 2017-10-31 07:35 | P.PNONC ---
Subjective Interval history: Patient seen and examined this morning, vital signs, labs, medications, ultrasound pelvis and ultrasound Doppler of the right upper extremity reviewed. Subjectively; patient reports feeling well, she continues to have vaginal bleeding but tells me her abdominal and pelvic cramping is much improved. She tells me though she is just waking up she feels well enough to go home if she is cleared for discharge. Objective Vital Signs/Intake & Output: Vital Signs 10/30/17 08:00 10/30/17 12:00 10/30/17 16:00 Temperature 98.6 F 97.8 F Pulse Rate 85 77 79 Respiratory Rate 20 18 18 Blood Pressure 114/70 114/68 125/67 Pulse Oximetry 99 97 95 10/30/17 19:00 10/30/17 20:00 10/30/17 21:00 Temperature 97.9 F Pulse Rate 79 79 79 Respiratory Rate 20 Blood Pressure 118/72 Pulse Oximetry 99 10/30/17 22:00 10/30/17 23:00 10/30/17 23:45 Temperature 98 F Pulse Rate 86 80 86 Respiratory Rate 20 Blood Pressure 117/69 Pulse Oximetry 100 10/31/17 00:00 10/31/17 01:00 10/31/17 02:00 Temperature Pulse Rate 86 63 70 Respiratory Rate Blood Pressure Pulse Oximetry 10/31/17 03:00 10/31/17 04:00 10/31/17 05:00 Temperature 98.2 F Pulse Rate 70 68 70 Respiratory Rate 20 Blood Pressure 122/75 Pulse Oximetry 98 Intake & Output 10/30/17 10/31/17 10/31/17 18:59 06:59 18:59 Intake Total 1680 / 1680 1480 / 1480 Output Total 1200 / 1200 500 / 500 Balance 480 / 480 980 / 980 Weight 113.3 kg Intake: IV 1200 / 1200 1000 / 1000 LR 1000 mL Inj 1,000 ML @ 100 1000 / 1000 1000 / 1000 mls/hr IV.CONT .Q10H MAGNO Rx#: [id number] NS Inj 250 ML @ 15 mls/hr IV. 200 / 200 SIG ONCE MAGNO Rx#:[id number] Oral 480 / 480 480 / 480 Output: Urine 1200 / 1200 500 / 500 Other: Date of Last Bowel Movement 10/29/17 10/29/17 # Emeses 0 Result Diagrams: 10/30/17 05:25 10/30/17 05:25 Laboratory Results: Laboratory Results - last 24 hr 10/30/17 05:25 Beta HCG, Quant 7297 H Culture Results: Microbiology 10/28/17 11:50 Urine Culture - Final Clean Catch Urine 10-50,000 cfu/mL mixed alie (probable contaminants) Imaging Studies: Impressions Venous Doppler Study 10/30/17 00:00 CONCLUSION: No venous thrombosis at the right upper extremity. Pelvis Ultrasound 10/30/17 17:00 CONCLUSION: 1. Findings of complete without retained products Medications: Active Medications Generic Name Dose Route Start Last Admin Trade Name Freq PRN Reason Stop Dose Admin Acetaminophen 650 mg 10/29/17 10:49 10/29/17 13:41 Tylenol PO 650 mg Q4H PRN Administration SEE LABEL COMMENTS Diphenhydramine HCl 25 mg 10/29/17 10:49 10/29/17 13:41 Benadryl PO 25 mg Q4H PRN Administration SEE LABEL COMMENTS Ferrous Sulfate 325 mg 10/28/17 21:00 10/30/17 21:16 Ferosul PO 325 mg BID MAGNO Administration Folic Acid 1 mg 10/28/17 19:00 10/30/17 08:42 Folic Acid PO 1 mg DAILY MAGNO Administration Lactated Ringer's 1,000 mls @ 100 mls/hr 10/28/17 16:00 10/31/17 05:59 Lr 1000 Ml Inj IV.CONT Not Given .Q10H MAGNO Methylergonovine Maleate 0.2 mg 10/30/17 16:00 10/31/17 04:04 Methergine PO 0.2 mg Q4HR MAGNO Administration Morphine Sulfate 2 mg 10/28/17 22:01 10/30/17 00:17 Morphine Inj IV.PUSH 2 mg Q3H PRN Administration ABDOMINAL PAIN Ondansetron HCl 4 mg 10/28/17 23:57 10/29/17 20:46 Zofran Odt PO 4 mg Q6H PRN Administration NAUSEA Oxycodone/Acetaminophen 1 tab 10/29/17 07:41 10/31/17 04:06 Percocet 5/325 Mg PO 1 tab Q4H PRN Administration PAIN SCALE 1-5 OR MILD SOB Oxycodone/Acetaminophen 2 tab 10/29/17 07:43 10/30/17 21:20 Percocet 5/325 Mg PO 2 tab Q4H PRN Administration PAIN SCALE 6-10 OR SEVERE SOB Prednisone 60 mg 10/30/17 09:00 10/30/17 21:16 Deltasone PO 60 mg BID MAGNO Administration Objective Remarks: GENERAL: Young female, laying in bed, at bedside. She appears to be pale, no acute distress. She speaks to me in full sentences.. SKIN: Warm and dry. HEAD: Normocephalic. EYES: No scleral icterus. No injection or drainage. NECK: Supple, trachea midline. No JVD or lymphadenopathy. LYMPHATIC: No adenopathy. CARDIOVASCULAR: Regular rate and rhythm without murmurs. RESPIRATORY: Breath sounds equal bilaterally. No accessory muscle use. GASTROINTESTINAL: Abdomen soft, non-tender, nondistended. EXTREMITIES: No cyanosis, or edema. MUSCULOSKELETAL: Adequate muscle tone. NEUROLOGICAL: No obvious focal deficit. Awake, alert, and oriented x3. PSYCHIATRIC: Appropriate mood and affect; insight and judgment normal. Assessment/Plan - Plan Ms. 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 This patient was seen by me previously in March when she was hospitalized at [facility] with influenza A and acute worsening of hemolytic anemia for which she required corticosteroid therapy and emergency transfusions. She presented to [facility] yesterday with complaints of vaginal spotting and dysuria. She tells me she did not feel uterine cramping such as menstrual cramps. Beta hCG levels were elevated, ultrasound of the uterus indicated a nonviable approximately 6 weeks gestation. She was assessed to have had a missed (loss of before viability could be established). She was noted to have anemia with hemoglobin of 6.2 g/dL as well and has been initiated on corticosteroid therapy, folic acid and vitamin B12 supplementation. Hematology was asked to see her for optimization of hemoglobin and hematocrit and management of hemolytic anemia. Recommendations: 1. Autoimmune hemolytic anemia: Continue corticosteroid therapy with prednisone. Should her hemoglobin be stable or improved today she is clear for discharge from hematology standpoint. I would recommend transitioning her to prednisone 60 mg once daily. I have been in contact with my new patient referral's office and have passed on her contact information and insurance information. I expect to see her in my clinic in the next 1-2 weeks. Please send her home with at least 2 or 3 week supply of prednisone 60 mg once a day. 2. Lupus: I have asked the patient to call the [facility]'s rheumatology clinic to try to set up an outpatient appointment. I have advised the patient to be in contact with the rheumatology clinic at the [facility], she tells me she left a message with your referral's office and is waiting for a call back. 3. Right upper extremity swelling and tenderness at the level of the elbow: Ultrasound Doppler reviewed, no evidence of deep venous thrombosis. 4. Missed : Pelvic ultrasound reviewed, patient has expelled all products of conception. Continue ongoing care.
[2017-10-31 07:36] LABS: Albumin 3.3 g/dL (3.4-5.0); Anion Gap 9 meq/L (5-15); Aspartate Aminotransferase 30 U/L (15-37); Blood Urea Nitrogen 16 mg/dL (7-18); Calcium 9.2 mg/dL (8.5-10.1); Carbon Dioxide 25.4 meq/L (21.0-32.0); Chloride 108 meq/L (98-107); Glomerular Filtration Rate Greater Than 89 mL/min (>89); Glucose,Random 105 mg/dL (74-106); Sodium 142 meq/L (136-145)
[2017-10-31 07:39] LABS: Alanine Aminotransferase 40 U/L (10-53); Alkaline Phosphatase 97 U/L (45-117); Phosphorus 2.8 mg/dL (2.5-4.9); Total Protein 7.4 g/dL (6.4-8.2)
[2017-10-31] MEDS: predniSONE 20 MG Tablet PO SCH (08:08)
[2017-10-31] MEDS: Folic Acid 1 MG Tablet PO SCH (08:08)
[2017-10-31] MEDS: Ferrous Sulfate 325 MG Tablet PO SCH (08:08)
[2017-10-31 08:15] LABS: Lymphocytes 6 % (9-44); Metamyelocytes 2 % (0-1); Monocytes 5 % (0-8); Platelet Estimate Normal (Normal); Platelet Morphology Normal (Normal)
[2017-10-31 08:17] LABS: Polychromasia 4.4 % (0.0-1.9); Toxic Granulation 1+
[2017-10-31 08:18] LABS: Spherocytes Occ
--- NOTE | 2017-10-31 12:00 | P.PNIM ---
Subjective Interval history: Patient is a 27-year-old female with a history of lupus who comes to the emergency room complaining of vaginal spotting with urinary frequency. She has a history also of multiple anemia episodes requiring transfusion. She is A1 and has been having abdominal cramping with nausea. She did have a positive test as an outpatient and is having apparently an incomplete here in the emergency room. Medically she has been found to have a hemoglobin of 6.9 and is recommended for transfusion. Apparently there is a history of hemolytic anemia. Blood pressure and otherwise medical exam is unremarkable. She is recommended for further evaluation treatment due to anemia 8-1 TRANSFERRED FOR EVALUATION BY WELL DRILL OPERATOR ROTARY DRILL AND HEMATOLOGY WANTS SOMETHING FOR A HEADACHE HAS A LOW HEMOGLOBIN WILL BE TRANSFUSED LATER TODAY WHEN BLOOD IS AVAILABLE DW RN AND PT AND FAMILY AND ONCOLOGY AM LABS 8-2 FOLLOW UP ANEMIA US OF RIGHT UE ORDERED AND BEING DONE- NOT AVAILABLE YET WAS TRANSFUSED 1 UNIT PRBC YESTERDAY DW RN AND PT AND ONCOLOGY AM LABS DENIES ANY OTHER PAINS 8-3 CLEARED BY ONCOLOGY AND GY PREDNISONE 60MG PO DAILY FO 3 WEEKS APOLINAR RN AND PT AND CM DC TO HOME US OF RIGHT IS NORMAL Physical Exam Vital signs: Vital Signs 10/30/17 12:00 10/30/17 16:00 10/30/17 19:00 Temperature 97.8 F Pulse Rate 77 79 79 Respiratory Rate 18 18 Blood Pressure 114/68 125/67 Pulse Oximetry 97 95 10/30/17 20:00 10/30/17 21:00 10/30/17 22:00 Temperature 97.9 F Pulse Rate 79 79 86 Respiratory Rate 20 Blood Pressure 118/72 Pulse Oximetry 99 10/30/17 23:00 10/30/17 23:45 10/31/17 00:00 Temperature 98 F Pulse Rate 80 86 86 Respiratory Rate 20 Blood Pressure 117/69 Pulse Oximetry 100 10/31/17 01:00 10/31/17 02:00 10/31/17 03:00 Temperature Pulse Rate 63 70 70 Respiratory Rate Blood Pressure Pulse Oximetry 10/31/17 04:00 10/31/17 05:00 10/31/17 08:00 Temperature 98.2 F 98 F Pulse Rate 68 70 80 Respiratory Rate 20 18 Blood Pressure 122/75 128/79 Pulse Oximetry 98 100 10/31/17 11:20 Temperature 98.1 F Pulse Rate 87 Respiratory Rate 18 Blood Pressure 129/76 Pulse Oximetry 100 Intake & Output 10/30/17 10/31/17 10/31/17 18:59 06:59 18:59 Intake Total 1680 / 1680 2480 / 2480 Output Total 1200 / 1200 500 / 500 Balance 480 / 480 1979 / 1979 Weight 113.3 kg Intake: IV 1200 / 1200 2000 / 2000 LR 1000 mL Inj 1,000 ML @ 100 1000 / 1000 2000 / 2000 mls/hr IV.CONT .Q10H MAGNO Rx#: [id number] NS Inj 250 ML @ 15 mls/hr IV. 200 / 200 SIG ONCE MAGNO Rx#:[id number] Oral 480 / 480 480 / 480 Output: Urine 1200 / 1200 500 / 500 Other: Date of Last Bowel Movement 10/29/17 10/29/17 10/29/17 # Emeses 0 Narrative: GENERAL: Well-nourished, well-developed patient. SKIN: Warm and dry. HEAD: Normocephalic. EYES: No scleral icterus. No injection or drainage. NECK: Supple, trachea midline. No JVD or lymphadenopathy. CARDIOVASCULAR: Regular rate and rhythm without murmurs, gallops, or rubs. RESPIRATORY: Breath sounds equal bilaterally. No accessory muscle use. GASTROINTESTINAL: Abdomen soft, non-tender, nondistended. MUSCULOSKELETAL: No cyanosis, or edema. BACK: Nontender without obvious deformity. No CVA tenderness. NEUROLOGICAL: Awake and alert. Cranial nerves II through XII intact. Motor and sensory grossly within normal limits. Five out of 5 muscle strength in all muscle groups. Normal speech. Results - Labs CBC & Chem 7: 10/31/17 05:41 10/31/17 05:41 Laboratory Results - last 24 hr 10/29/17 10/29/17 10/31/17 09:36 12:43 05:41 WBC 18.6 H RBC 2.16 L Hgb 7.5 L Hct 22.0 L MCV 101.5 H MCH 34.9 H MCHC 34.4 RDW 16.0 Plt Count 146 L MPV 10.7 Prelim Diff (Auto) Slide review pending Neut % (Auto) 81.6 H Lymph % (Auto) 11.3 Franklin % (Auto) 6.9 Eos % (Auto) 0.0 Baso % (Auto) 0.2 Neut # (Auto) 15.2 H Lymph # (Auto) 2.1 Franklin # (Auto) 1.3 H Eos # (Auto) 0.0 Baso # (Auto) 0.0 WBC Differential Manual diff final Seg Neuts % (Manual) 72 H Band Neuts % (Manual) 15 H Lymphocytes % (Manual) 6 L Monocytes % (Manual) 5 Metamyelocytes % (Man) 2 H Abs Neuts (Manual) 16.6 H Differential Comment . Toxic Granulation 1+ H Platelet Estimate Normal Platelet Morphology Normal Polychromasia 4.4 H Spherocytes Occ H Sodium Potassium Chloride Carbon Dioxide Anion Gap BUN Creatinine Estimated GFR Random Glucose Calcium Phosphorus Magnesium Total Bilirubin AST ALT Alkaline Phosphatase Total Protein Albumin Beta-2-GPI IgA Ab 139.0 H Crossmatch Prewarmed See Detail 10/31/17 05:41 WBC RBC Hgb Hct MCV MCH MCHC RDW Plt Count MPV Prelim Diff (Auto) Neut % (Auto) Lymph % (Auto) Franklin % (Auto) Eos % (Auto) Baso % (Auto) Neut # (Auto) Lymph # (Auto) Franklin # (Auto) Eos # (Auto) Baso # (Auto) WBC Differential Seg Neuts % (Manual) Band Neuts % (Manual) Lymphocytes % (Manual) Monocytes % (Manual) Metamyelocytes % (Man) Abs Neuts (Manual) Differential Comment Toxic Granulation Platelet Estimate Platelet Morphology Polychromasia Spherocytes Sodium 142 Potassium 4.0 Chloride 108 H Carbon Dioxide 25.4 Anion Gap 9 BUN 16 Creatinine 0.48 L Estimated GFR Greater than 89 Random Glucose 105 Calcium 9.2 Phosphorus 2.8 Magnesium 2.0 Total Bilirubin 0.9 AST 30 ALT 40 Alkaline Phosphatase 97 Total Protein 7.4 Albumin 3.3 L Beta-2-GPI IgA Ab Crossmatch Prewarmed Microbiology 10/28/17 11:50 Clean Catch Urine Urine Culture - Final 10-50,000 cfu/mL mixed alie (probable contaminants) - Imaging Impressions Venous Doppler Study 10/30/17 00:00 CONCLUSION: No venous thrombosis at the right upper extremity. Pelvis Ultrasound 10/30/17 17:00 CONCLUSION: 1. Findings of complete without retained products - Procedures NONE Assessment and Plan - Assessment (1) Spontaneous Code(s): O03.9 - Complete or unspecified spontaneous without complication Status: Acute Plan: Follow up with WELL DRILL OPERATOR ROTARY DRILL (2) Anemia Code(s): D64.9 - Anemia, unspecified Status: Acute Plan: history of lupus, transfuse when blood available WAS TRANSFUSED CONTINUE ON PREDNISONE 60MG PO DAILY - Plan MISSED - WILL DEFER TO WELL DRILL OPERATOR ROTARY DRILL--CLEARED FOR DC HX LUPUS HX AUTOIMMUNE HEMOLYTIC ANEMIA- TRANSFUSED PER ONCOLOGY AMBULATE US OF RIGHT UE PENDING CLEARED BY ALL FOR DC PREDNISONE 60MG PO DAILY Code Status: FULL CODE Discussed Condition With: RN AND PT Discharge Planning: CLEARED BY ALL FOR DC
--- NOTE | 2017-10-31 12:15 | P.DS ---
Date of admission: 10/28/17 15:46 Primary care physician: No Primary Care Physician Attending physician on discharge: Josiah Simpson Anticipated date of discharge: 10/31/17 Brief History from admission: Patient is a 27-year-old female with a history of lupus who comes to the emergency room complaining of vaginal spotting with urinary frequency. She has a history also of multiple anemia episodes requiring transfusion. She is A1 and has been having abdominal cramping with nausea. 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 Patient does not know her gestational age as she cannot remember her last menstrual cycle but ultrasound indicates that she is approximately 6 weeks. Pelvic ultrasound was performed in [place] emergency room by radiology which shows an intrauterine consistent with 6 weeks gestation with no cardiac motion. Patient has had 2 prior miscarriages spontaneously and was previously on Plaquenil for her lupus but after she moved here has been unable to continue her medical care with a pouncer machine and is on no medication. She does desire in the future and is aware that she has a missed at this time and was transferred here to [place]. It was requested that patient be evaluated for D& C while she is an inpatient due to her complicated medical issues. DS: Diagnosis - Discharge Diagnosis (1) Spontaneous Status: Acute (2) Anemia Status: Acute (3) Autoimmune hemolytic anemia Status: Chronic (4) Lupus nephritis Status: Chronic (5) Missed Status: Acute DS: Medications - Discharge Medications Prescriptions: methylergonovine [Methergine] 0.2 mg PO Q4HR #60 tab ferrous sulfate [FeroSul] 325 mg PO BID #60 tab folic acid 1 mg PO DAILY #30 tab ondansetron 4 mg PO Q6H PRN #30 tab PRN Reason: Nausea oxycodone-acetaminophen 1 tab PO Q4H PRN #18 tab PRN Reason: Pain Scale 1-5 Or Mild Sob pantoprazole [Protonix] 40 mg PO DAILY #30 tab prednisone 60 mg PO BID #60 tab sennosides-docusate sodium [Senna-S] 2 tab PO BID #120 tab DS: Summary Hospital Course: Patient is a 27-year-old female with a history of lupus who comes to the emergency room complaining of vaginal spotting with urinary frequency. She has a history also of multiple anemia episodes requiring transfusion. She is A1 and has been having abdominal cramping with nausea. She did have a positive test as an outpatient and is having apparently an incomplete here in the emergency room. Medically she has been found to have a hemoglobin of 6.9 and is recommended for transfusion. Apparently there is a history of hemolytic anemia. Blood pressure and otherwise medical exam is unremarkable. She is recommended for further evaluation treatment due to anemia 8-1 TRANSFERRED FOR EVALUATION BY PATIENT RELATIONS COORDINATOR AND HEMATOLOGY WANTS SOMETHING FOR A HEADACHE HAS A LOW HEMOGLOBIN WILL BE TRANSFUSED LATER TODAY WHEN BLOOD IS AVAILABLE DW RN AND PT AND FAMILY AND ONCOLOGY AM LABS 8-2 FOLLOW UP ANEMIA US OF RIGHT UE ORDERED AND BEING DONE- NOT AVAILABLE YET WAS TRANSFUSED 1 UNIT PRBC YESTERDAY DW RN AND PT AND ONCOLOGY AM LABS DENIES ANY OTHER PAINS 8-3 CLEARED BY ONCOLOGY AND GY PREDNISONE 60MG PO DAILY FO 3 WEEKS APOLINAR RN AND PT AND CM DC TO HOME US OF RIGHT IS NORMAL E-FORCSE CHECKED HAS NOT HAD ANY NARCOTICS EVER WILL GIVE PAIN MEDS ONLY FOR 3 DAYS #18 - Time Spent with Patient Total time spent providing and/or coordinating discharge services: Greater than 30 minutes - Quality: VTE Deep Vein Thrombosis/Pulmonary Embolism Present on Admission: No Exam Vital signs: Vital Signs 10/30/17 16:00 10/30/17 19:00 10/30/17 20:00 Temperature 97.8 F 97.9 F Pulse Rate 79 79 79 Respiratory Rate 18 20 Blood Pressure 125/67 118/72 Pulse Oximetry 95 99 10/30/17 21:00 10/30/17 22:00 10/30/17 23:00 Temperature Pulse Rate 79 86 80 Respiratory Rate Blood Pressure Pulse Oximetry 10/30/17 23:45 10/31/17 00:00 10/31/17 01:00 Temperature 98 F Pulse Rate 86 86 63 Respiratory Rate 20 Blood Pressure 117/69 Pulse Oximetry 100 10/31/17 02:00 10/31/17 03:00 10/31/17 04:00 Temperature 98.2 F Pulse Rate 70 70 68 Respiratory Rate 20 Blood Pressure 122/75 Pulse Oximetry 98 10/31/17 05:00 10/31/17 08:00 10/31/17 11:20 Temperature 98 F 98.1 F Pulse Rate 70 80 87 Respiratory Rate 18 18 Blood Pressure 128/79 129/76 Pulse Oximetry 100 100 Intake & Output 10/30/17 10/31/17 10/31/17 18:59 06:59 18:59 Intake Total 1680 / 1680 2480 / 2480 Output Total 1200 / 1200 500 / 500 Balance 480 / 480 1979 Weight 113.3 kg Intake: IV 1200 / 1200 2000 / 2000 LR 1000 mL Inj 1,000 ML @ 100 1000 / 1000 2000 / 2000 mls/hr IV.CONT .Q10H MAGNO Rx#: [id number] NS Inj 250 ML @ 15 mls/hr IV. 200 / 200 SIG ONCE MAGNO Rx#:[id number] Oral 480 / 480 480 / 480 Output: Urine 1200 / 1200 500 / 500 Other: Date of Last Bowel Movement 10/29/17 10/29/17 10/29/17 # Emeses 0 Narrative: GENERAL: Well-nourished, well-developed patient. SKIN: Warm and dry. HEAD: Normocephalic. EYES: No scleral icterus. No injection or drainage. NECK: Supple, trachea midline. No JVD or lymphadenopathy. CARDIOVASCULAR: Regular rate and rhythm without murmurs, gallops, or rubs. RESPIRATORY: Breath sounds equal bilaterally. No accessory muscle use. GASTROINTESTINAL: Abdomen soft, non-tender, nondistended. MUSCULOSKELETAL: No cyanosis, or edema. BACK: Nontender without obvious deformity. No CVA tenderness. NEUROLOGICAL: Awake and alert. Cranial nerves II through XII intact. Motor and sensory grossly within normal limits. Five out of 5 muscle strength in all muscle groups. Normal speech. Results Procedures completed during hospitalization: NONE Completed studies during hospitalization: Laboratory Results CBC w Diff 10/30/17 05:25 WBC 18.6 th/mm3 (4.0-11.0) H 10/31/17 05:41 RBC 2.16 mil/mm3 (4.00-5.30) L 10/31/17 05:41 Hgb 7.5 gm/dL (11.6-15.3) L 10/31/17 05:41 Hct 22.0 % (35.0-46.0) L 10/31/17 05:41 MCV 101.5 fL (80.0-100.0) H 10/31/17 05:41 MCH 34.9 pg (27.0-34.0) H 10/31/17 05:41 MCHC 34.4 % (32.0-36.0) 10/31/17 05:41 RDW 16.0 % (11.6-17.2) 10/31/17 05:41 Plt Count 146 th/mm3 (150-450) L 10/31/17 05:41 MPV 10.7 fL (7.0-11.0) 10/31/17 05:41 Prelim Diff (Auto) Slide review pending 10/31/17 05:41 Neut % (Auto) 81.6 % (16.0-70.0) H 10/31/17 05:41 Lymph % (Auto) 11.3 % (9.0-44.0) 10/31/17 05:41 Person % (Auto) 6.9 % (0.0-8.0) 10/31/17 05:41 Eos % (Auto) 0.0 % (0.0-4.0) 10/31/17 05:41 Baso % (Auto) 0.2 % (0.0-2.0) 10/31/17 05:41 Neut # (Auto) 15.2 th/mm3 (1.8-7.7) H 10/31/17 05:41 Lymph # (Auto) 2.1 th/mm3 (1.0-4.8) 10/31/17 05:41 Person # (Auto) 1.3 th/mm3 (0.0-0.9) H 10/31/17 05:41 Eos # (Auto) 0.0 th/mm3 (0.0-0.4) 10/31/17 05:41 Baso # (Auto) 0.0 th/mm3 (0.0-0.2) 10/31/17 05:41 WBC Differential Manual diff final 10/31/17 05:41 Diff Scan Auto diff confirmed 10/28/17 12:12 Seg Neuts % (Manual) 72 % (16-70) H 10/31/17 05:41 Band Neuts % (Manual) 15 % (0-6) H 10/31/17 05:41 Lymphocytes % (Manual) 6 % (9-44) L 10/31/17 05:41 Monocytes % (Manual) 5 % (0-8) 10/31/17 05:41 Metamyelocytes % (Man) 2 % (0-1) H 10/31/17 05:41 Myelocytes % (Man) 2 % (0-0) H 10/30/17 05:25 Abs Neuts (Manual) 16.6 th/mm3 (1.8-7.7) H 10/31/17 05:41 Differential Comment . 10/31/17 05:41 Toxic Granulation 1+ (None) H 10/31/17 05:41 Platelet Estimate Normal (Normal) 10/31/17 05:41 Platelet Morphology Normal (Normal) 10/31/17 05:41 Polychromasia 4.4 % (0.0-1.9) H 10/31/17 05:41 Spherocytes Occ (None) H 10/31/17 05:41 Retic Count 11.9 % (0.4-3.0) H 10/29/17 09:36 Absolute Retic 169.1 mil/L (20.0-150.0) H 10/29/17 09:36 Haptoglobin Less than 40 mg/dL (30-200) 10/28/17 12:12 Sodium 142 meq/L (136-145) 10/31/17 05:41 Potassium 4.0 meq/L (3.5-5.1) 10/31/17 05:41 Chloride 108 meq/L (98-107) H 10/31/17 05:41 Carbon Dioxide 25.4 meq/L (21.0-32.0) 10/31/17 05:41 Anion Gap 9 meq/L (5-15) 10/31/17 05:41 BUN 16 mg/dL (7-18) 10/31/17 05:41 Creatinine 0.48 mg/dL (0.50-1.00) L 10/31/17 05:41 Estimated GFR Greater than 89 mL/min (>89) 10/31/17 05:41 Random Glucose 105 mg/dL (74-106) 10/31/17 05:41 Calcium 9.2 mg/dL (8.5-10.1) 10/31/17 05:41 Phosphorus 2.8 mg/dL (2.5-4.9) 10/31/17 05:41 Magnesium 2.0 mg/dL (1.5-2.5) 10/31/17 05:41 Iron 81 mcg/dL (50-170) 10/29/17 09:36 TIBC 237 mcg/dL (250-450) L 10/29/17 09:36 % Saturation 34.2 % (20-50) 10/29/17 09:36 Ferritin 272 ng/mL (8-252) H 10/29/17 09:36 Total Bilirubin 0.9 mg/dL (0.2-1.0) 10/31/17 05:41 Direct Bilirubin 0.4 mg/dL (0.0-0.2) H 10/28/17 12:12 Indirect Bilirubin 1.0 mg/dL (0.0-0.8) H 10/28/17 12:12 AST 30 U/L (15-37) 10/31/17 05:41 ALT 40 U/L (10-53) 10/31/17 05:41 Alkaline Phosphatase 97 U/L (45-117) 10/31/17 05:41 Lactate Dehydrogenase 403 U/L (84-246) H 10/28/17 12:12 Total Protein 7.4 g/dL (6.4-8.2) 10/31/17 05:41 Albumin 3.3 g/dL (3.4-5.0) L 10/31/17 05:41 TSH 1.740 uIU/mL (0.358-3.740) 10/30/17 05:25 Free T4 0.94 ng/dL (0.76-1.46) 10/30/17 05:25 Beta HCG, Quant 7297 mIU/mL (0-5) H 10/30/17 05:25 Ur Collection Type Clean catch 10/28/17 11:50 Urine Color Yellow (Yellw/Straw) 10/28/17 11:50 Urine Clarity Clear (Clear) 10/28/17 11:50 Urine pH 7.0 (5.0-8.5) 10/28/17 11:50 Ur Specific [place] 1.010 (1.002-1.035) 10/28/17 11:50 Urine Protein 100 mg/dL (Neg-Trace) H 10/28/17 11:50 Urine Glucose (UA) Negative mg/dL (Negative) 10/28/17 11:50 Urine Ketones Negative mg/dL (Negative) 10/28/17 11:50 Urine Occult Blood Large (Negative) H 10/28/17 11:50 Urine Nitrate Negative (Negative) 10/28/17 11:50 Urine Bilirubin Negative (Negative) 10/28/17 11:50 Urine Urobilinogen 0.2 mg/dL (Less than 2) 10/28/17 11:50 Ur Leukocyte Esterase Trace (Negative) H 10/28/17 11:50 Urine RBC 4-15 /hpf (0-3) H 10/28/17 11:50 Urine WBC 9-20 /hpf (0-5) H 10/28/17 11:50 Ur Squamous Epith Cells 0-5 /hpf (0-5) 10/28/17 11:50 Micro UA Comment Culture indicated 10/28/17 11:50 Urine Culture Comments Culture indicated 10/28/17 11:50 Beta-2-GPI IgA Ab 139.0 ROSINA (< OR = 20) H 10/29/17 09:36 Blood Type O Positive 10/28/17 13:17 Rho(D) Type Positive 10/28/17 11:53 Antibody Screen Positive H 10/28/17 13:17 Prewarmed Antibody Srcn Negative H 10/28/17 13:17 Antibody Identification Non-Specific Cold Agglutinin Non-Specific Warm Agglutinin 10/28/17 19:13 Antibody Identification Non-Specific Cold Agglutinin Non-Specific Warm Agglutinin 10/28/17 19:13 Direct Antiglob Test Strongly positive (Negative) H 10/28/17 18:21 MTS Gel Crossmatch See Detail 10/29/17 12:43 Crossmatch Prewarmed See Detail 10/29/17 12:43 Bld Prod Order Comment 10/28/17 13:17 Impressions Venous Doppler Study 10/30/17 00:00 CONCLUSION: No venous thrombosis at the right upper extremity. Pelvis Ultrasound 10/30/17 17:00 CONCLUSION: 1. Findings of complete without retained products Labs on day of discharge: Labs from last 24 hours 10/31/17 10/31/17 10/29/17 05:41 05:41 12:43 WBC 18.6 H RBC 2.16 L Hgb 7.5 L Hct 22.0 L MCV 101.5 H MCH 34.9 H MCHC 34.4 RDW 16.0 Plt Count 146 L MPV 10.7 Prelim Diff (Auto) Slide review pending Neut % (Auto) 81.6 H Lymph % (Auto) 11.3 Person % (Auto) 6.9 Eos % (Auto) 0.0 Baso % (Auto) 0.2 Neut # (Auto) 15.2 H Lymph # (Auto) 2.1 Person # (Auto) 1.3 H Eos # (Auto) 0.0 Baso # (Auto) 0.0 WBC Differential Manual diff final Seg Neuts % (Manual) 72 H Band Neuts % (Manual) 15 H Lymphocytes % (Manual) 6 L Monocytes % (Manual) 5 Metamyelocytes % (Man) 2 H Abs Neuts (Manual) 16.6 H Differential Comment . Toxic Granulation 1+ H Platelet Estimate Normal Platelet Morphology Normal Polychromasia 4.4 H Spherocytes Occ H Sodium 142 Potassium 4.0 Chloride 108 H Carbon Dioxide 25.4 Anion Gap 9 BUN 16 Creatinine 0.48 L Estimated GFR Greater than 89 Random Glucose 105 Calcium 9.2 Phosphorus 2.8 Magnesium 2.0 Total Bilirubin 0.9 AST 30 ALT 40 Alkaline Phosphatase 97 Total Protein 7.4 Albumin 3.3 L Beta-2-GPI IgA Ab Crossmatch Prewarmed See Detail 10/29/17 09:36 WBC RBC Hgb Hct MCV MCH MCHC RDW Plt Count MPV Prelim Diff (Auto) Neut % (Auto) Lymph % (Auto) Person % (Auto) Eos % (Auto) Baso % (Auto) Neut # (Auto) Lymph # (Auto) Person # (Auto) Eos # (Auto) Baso # (Auto) WBC Differential Seg Neuts % (Manual) Band Neuts % (Manual) Lymphocytes % (Manual) Monocytes % (Manual) Metamyelocytes % (Man) Abs Neuts (Manual) Differential Comment Toxic Granulation Platelet Estimate Platelet Morphology Polychromasia Spherocytes Sodium Potassium Chloride Carbon Dioxide Anion Gap BUN Creatinine Estimated GFR Random Glucose Calcium Phosphorus Magnesium Total Bilirubin AST ALT Alkaline Phosphatase Total Protein Albumin Beta-2-GPI IgA Ab 139.0 H Crossmatch Prewarmed - Impressions ITS Impressions Venous Doppler Study 10/30/17 00:00 CONCLUSION: No venous thrombosis at the right upper extremity. Pelvis Ultrasound 10/30/17 17:00 CONCLUSION: 1. Findings of complete without retained products Discharge Plan - Discharge Disposition Patient Disposition: 01 Discharge Home - Discharge Condition Condition: Stable - Discharge Order Discharge Orders: Discharge Order (Routine); Ordered 10/31/17 Ordered By: Josiah Simpson - Discharge Details Anticipated Discharge Date: 10/31/17 Discharge Comment: DC TO HOME TODAY - Physicians Team Primary Care Provider: Primary Care Lucinda Dover Attending Provider: Josiah Simpson Other Providers: Arlene Izaguirre MD ; Oh Cardona MD
[2017-11-06 13:44] LABS: Hemoglobin A1c Less Than 4.0 % (4.3-6.0)
== END 2017-10-31 13:40 | disposition home or self-care (01) ==
LOC: PHED 11:30 → PHEDA 15:41 → INTOOBSV 15:41 → OBSVTOIN 15:46 → PHEDA 19:23 → HCIN 19:54
PROVIDERS: ADMIT Hospitalist; ATTEND Hospitalist

== ENCOUNTER 2018-05-19 20:30 | Inpatient (IN) ==
--- NOTE | 2018-05-20 00:16 | ED ---
HPI General Chief complaint: Extremity Problem,Nontraumatic Stated complaint: Possible lupus flare Time Seen by Provider: 05/19/18 23:47 History of Present Illness HPI narrative: Patient is a 27-year-old female with a history of lupus, she was admitted in October 2017 for hemolytic anemia requiring blood transfusions. 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 She presents today for chief complaint of swelling of her legs and hands. In further questioning the patient also has been noticed by her to be a little bit more yellow and more pale recently. She has no history of kidney or liver problems that she knows of. She is not currently on any medications. She states only some mild joint pains but nothing too severe. She first noticed symptoms 2 weeks ago but they have been rapidly worsening over the past 24-48 hours. No fevers no cough no congestion no shortness of breath no abdominal pain no nausea vomiting. Related Data Previous Rx's Medication Instructions Recorded ferrous sulfate [FeroSul] 325 mg PO BID #60 tab 10/31/17 folic acid 1 mg PO DAILY #30 tab 10/31/17 methylergonovine [Methergine] 0.2 mg PO Q4HR #60 tab 10/31/17 pantoprazole [Protonix] 40 mg PO DAILY #30 tab 10/31/17 prednisone 60 mg PO BID #60 tab 10/31/17 sennosides-docusate sodium 2 tab PO BID #120 tab 10/31/17 [Senna-S] Allergies Allergy/AdvReac Type Severity Reaction Status Date / Time ceftriaxone Allergy Severe Hives Verified 11/20/17 16:41 Review of Systems ROS: all other systems reviewed are negative [facility] Medical History Medical History 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 (Acute) Hemolytic anemia (Acute) History of MRSA infection (Acute) Lupus (Acute) Surgical History Surgical History H/O: (Acute) History of lumpectomy (Acute) Hx of cholecystectomy (Acute) Family History Family History Other Lupus Social History Social History Substance History: No History of Abuse Second Hand Smoke Exposure: No Smoking Status: Never smoker How Often Do You Have a Drink Containing Alcohol: Never Recent Travel in [facility] within the Last 8 Weeks: No Recent Out of Country Travel within the Last 8 Weeks: No Exam Narrative Exam Narrative: GENERAL: Well-developed well-nourished, no obvious distress. SKIN: Focused skin assessment warm/dry. Malar rash noted. Small flat macular rash on the dorsum of both hands. There is no involvement of the palms. Perhaps mildly jaundiced/pale. HEAD: Atraumatic. Normocephalic. EYES: Pupils equal and round. Perhaps minimally icteric. No injection or drainage. ENT: No nasal bleeding or discharge. Mucous membranes pink and moist. NECK: Trachea midline. No JVD. CARDIOVASCULAR: Regular rate and rhythm. No murmur appreciated. RESPIRATORY: No accessory muscle use. Clear to auscultation. Breath sounds equal bilaterally. GASTROINTESTINAL: Abdomen soft, non-tender, nondistended. Hepatic and splenic margins not palpable. MUSCULOSKELETAL: No obvious deformities. No clubbing. No cyanosis. No edema. NEUROLOGICAL: Awake and alert. No obvious cranial nerve deficits. Motor grossly within normal limits. Normal speech. PSYCHIATRIC: Appropriate mood and affect; insight and judgment normal. Course Initial Documented Vital Signs Temperature 98.4 F 05/19/18 21:13 Pulse Rate 103 H 05/19/18 21:13 Respiratory Rate 16 05/19/18 21:13 Blood Pressure 143/73 H 05/19/18 21:13 Pulse Oximetry 100 05/19/18 21:13 Last Documented Vital Signs Temperature 98.4 F 05/19/18 21:13 Pulse Rate 103 H 05/19/18 21:13 Respiratory Rate 16 05/19/18 21:13 Blood Pressure 143/73 H 05/19/18 21:13 Pulse Oximetry 100 05/19/18 21:13 Medical Decision Making MDM Narrative Medical decision making narrative: Patient room to the emergency department, concern for would be for return of her hemolytic anemia, an EKG was performed showing no concerns for hyperkalemia. She is mildly jaundice and mildly pale. Basic labs have been ordered as well. This could just be dependent edema as well. I have a low suspicion for DVT however DVT ultrasound has been ordered. Think pending a negative workup the patient could be put on a short course of prednisone for lupus flare and then referred to rheumatology. Patient seen as part of rapid medical assessment in triage. They were handed off to the [facility] to follow the MDM as outlined above. If results are outside the patient's expected ED course then either myself or the other physicians will be available for consultation. Medical Screen Exam Complete: Yes Emergency Medical Condition: Yes Discharge Plan Physicians Team ED Provider: Lito Morris ED Midlevel Provider: Trenton Eugene Primary Care Provider: Primary Care Lucinda Dover Rxs /Orders / Referrals /Forms Prescriptions: No Action prednisone 20 mg Tablet 60 mg PO BID Qty: 60 RF: 0 methylergonovine [Methergine] 0.2 mg Tablet 0.2 mg PO Q4HR Qty: 60 RF: 0 ferrous sulfate [FeroSul] 325 mg (65 mg iron) Tablet 325 mg PO BID Qty: 60 RF: 0 folic acid 1 mg Tablet 1 mg PO DAILY Qty: 30 RF: 0 pantoprazole [Protonix] 40 mg Tablet,Delayed Release (Dr/Ec) 40 mg PO DAILY Qty: 30 RF: 0 sennosides-docusate sodium [Senna-S] 8.6-50 mg Tablet 2 tab PO BID Qty: 120 RF: 0 Status ED Status: With Doctor
--- NOTE | 2018-05-20 01:39 | XR ---
EXAM DATE: 05/20/2018 1:31 AM EST AGE/SEX: 27 years / Female INDICATIONS: . Lupus flare up. Infiltrate. CLINICAL DATA: This is the patient's initial encounter. Patient reports that signs and symptoms have been present for 2 days and indicates a pain score of 3/10. MEDICAL/SURGICAL HISTORY: . Hemolytic anemia. Lupus. MRSA. Arteriovenous malformation, upper ex tremity . section. Cholecystectomy. Lumpectomy COMPARISON: [facility] [place], CHEST SINGLE AP, 04/25/2017. . FINDINGS: AP and lateral views of the chest demonstrate the lungs to be symmetrically aerated without evidence of mass, infiltrate or effusion. The cardiomediastinal contours are unremarkable. Osseous structure s are intact. CONCLUSION: No acute cardiopulmonary disease. Electronically signed by: Enmanuel Benson MD Board Certified Radiologist 05/20/2018 1:37 AM EST
--- NOTE | 2018-05-20 02:53 | US ---
EXAM DATE: 05/20/2018 2:26 AM EST AGE/SEX: 27 years / Female INDICATIONS: Bilateral lower extremity pain and swelling. CLINICAL DATA: This is the patient's initial encounter. Patient reports that signs and symptoms have been present for 4 - 6 days and indicates a pain score of 7/10. MEDICAL/SURGICAL HISTORY: . 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 Hemolytic anemia. MRSA infection of right leg. Lupus. . section. Lumpectomy. Cholecystectomy. COMPARISON: No prior exams available for comparison. TECHNIQUE: Venous ultrasound of both lower extremities was performed from the inguinal ligament to t he proximal calf. Real-time, color Doppler and spectral tracing, compression and augmentation techni ques were used. FINDINGS: Right Leg: Normal compression of the deep venous system from the inguinal region to the proximal anusha f. No echogenic clot is seen. Normal response of the venous system to augmentation and respiration. Left Leg: Normal compression of the deep venous system from the inguinal region to the proximal calf . No echogenic clot is seen. Normal response of the venous system to augmentation and respiration. Other: None. CONCLUSION: The study is negative for bilateral lower extremity deep venous thrombosis. Electronically signed by: Enmanuel Benson MD Board Certified Radiologist 05/20/2018 2:52 AM EST
[2018-05-20 03:19] LABS: Baso % (Auto) 1.1 % (0.0-2.0); Eos % (Auto) 1.1 % (0.0-4.0); Lymph # (Auto) 1.1 th/mm3 (1.0-4.8); Lymph % (Auto) 25.5 % (9.0-44.0); Mean Corpuscular Hemoglobin 46.6 pg (27.0-34.0); Mean Corpuscular Volume 123.2 fL (80.0-100.0); Mean Platelet Volume 10.6 fL (7.0-11.0); Mono # (Auto) 0.4 th/mm3 (0.0-0.9); Mono % (Auto) 8.4 % (0.0-8.0); Neut # (Auto) 2.7 th/mm3 (1.8-7.7); Neut % (Auto) 63.9 % (16.0-70.0); Platelet Count 125 th/mm3 (150-450); Red Blood Count 1.12 mil/mm3 (4.00-5.30); Red Cell Distribution Width 15.7 % (11.6-17.2); White Blood Count 4.3 th/mm3 (4.0-11.0)
[2018-05-20 03:25] LABS: Mean Corpuscular HGB Conc 37.9 % (32.0-36.0)
[2018-05-20 03:29] LABS: Hematocrit 13.8 % (35.0-46.0); Hemoglobin 5.2 gm/dL (11.6-15.3)
[2018-05-20 03:38] LABS: Alanine Aminotransferase 11 U/L (10-53); Albumin 3.1 g/dL (3.4-5.0); Anion Gap 8 meq/L (5-15); Aspartate Aminotransferase 15 U/L (15-37); Blood Urea Nitrogen 13 mg/dL (7-18); Calcium 8.8 mg/dL (8.5-10.1); Chloride 112 meq/L (98-107); Glomerular Filtration Rate Greater Than 89 mL/min (>89); Glucose,Random 83 mg/dL (74-106); Lipase 79 U/L (73-393); Magnesium 2.2 mg/dL (1.5-2.5); Potassium 3.3 meq/L (3.5-5.1); Sodium 145 meq/L (136-145)
[2018-05-20 03:39] LABS: Activated Partial Thrombo Time 39.4 sec (23.4-31.7); INR 1.1 Ratio; Prothrombin Time 11.4 sec (9.8-11.6)
[2018-05-20 03:41] LABS: Alkaline Phosphatase 73 U/L (45-117); Total Protein 7.3 g/dL (6.4-8.2)
[2018-05-20] MEDS ORDERED: Morphine Inj 4 MG/ML Vial IV.PUSH ONE (03:44)
[2018-05-20] MEDS ORDERED: MethylPREDNISolone Sod Succinate Inj 125 MG/2 ML Vial IV.PUSH ONE (03:48)
--- NOTE | 2018-05-20 03:55 | ED ---
HPI General Chief complaint: Extremity Problem,Nontraumatic Stated complaint: Possible lupus flare Time Seen by Provider: 05/19/18 23:47 Source: patient and family (Sister) Mode of arrival: ambulatory Limitations: no limitations History of Present Illness HPI narrative: This is a very pleasant 27-year-old female with history of autoimmune hemolytic anemia, SLE, was initially evaluated by the physician in triage as part of the RMA process, brought back to an exam room at around 1:00 AM to have results and disposition performed by the PA, transferred to my medical pod at 3:00 AM because providers were having a difficult time obtaining IV access. The patient presents with diffuse joint pains, bilateral lower extremity edema, jaundice, malar rash, symptoms consistent with previous episodes of lupus flare. Patient takes folate and B12. 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 I reviewed her chart extensively, and shows that the patient was admitted in October of last year and required a blood transfusion for a hemoglobin of 5.7 with history of autoimmune hemolytic anemia. This was also treated with steroids. Patient denies bleeding. Her LMP was 2 weeks ago. She denies melena or hematochezia. No fevers or chills. She does feel weak and short of breath. Her diffuse joint pain is severe, constant, worse with movements and palpation. 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 (Acute) Hemolytic anemia (Acute) History of MRSA infection (Acute) Lupus (Acute) Surgical History Surgical History H/O: (Acute) History of lumpectomy (Acute) Hx of cholecystectomy (Acute) Family History Family History Other Lupus Social History Social History Substance History: No History of Abuse Second Hand Smoke Exposure: No Smoking Status: Never smoker How Often Do You Have a Drink Containing Alcohol: 2 to 4 times a month Recent Travel in [facility] within the Last 8 Weeks: No Recent Out of Country Travel within the Last 8 Weeks: No Immunization History Tetanus Immunization: Unsure Exam Narrative Exam Narrative: GENERAL: Well-developed, well-nourished, awake, alert, pleasant , comfortable, no apparent distress. SKIN: Focused skin assessment warm/dry. Mild diffuse jaundice. Maculopapular/ blanching rash to bilateral posterior hands. Malar facial rash. HEAD: Atraumatic. Normocephalic. EYES: Pupils equal and round. No scleral icterus. No injection or drainage. ENT: Mucous membranes pink and dry. NECK: Trachea midline. No JVD. No nuchal rigidity. CARDIOVASCULAR: Tachycardic, rate 105, regular. RESPIRATORY: No accessory muscle use. Clear to auscultation. Breath sounds equal bilaterally. GASTROINTESTINAL: Abdomen soft, non-tender, nondistended. MUSCULOSKELETAL: No obvious deformities. No clubbing. No cyanosis. Moderate bilateral lower extremity edema from foot to thigh. No calf tenderness. All compartments in bilateral lower extremities are supple. NEUROLOGICAL: Awake and alert. No obvious cranial nerve deficits. Motor grossly within normal limits. Normal speech. PSYCHIATRIC: Appropriate mood and affect; insight and judgment normal. Course Initial Documented Vital Signs Temperature 98.4 F 05/19/18 21:13 Pulse Rate 103 H 05/19/18 21:13 Respiratory Rate 16 05/19/18 21:13 Blood Pressure 143/73 H 05/19/18 21:13 Pulse Oximetry 100 05/19/18 21:13 Last Documented Vital Signs Temperature 98.4 F 05/19/18 21:13 Pulse Rate 103 H 05/19/18 21:13 Respiratory Rate 16 05/19/18 21:13 Blood Pressure 143/73 H 05/19/18 21:13 Pulse Oximetry 100 05/19/18 21:13 Critical Care Time Critical Care Time: Yes Total Critical Care Time: 35 Attestation: Aggregate critical care time was 35 minutes. Time to perform other separately billable procedures was not included in the critical care time. My time did not include minutes spent treating any other patients simultaneously or on activities that did not directly contribute to the patient's treatment. The services I provided to this patient were to treat and/or prevent clinically significant deterioration that could result in: , permanent disability, worsening clinical condition, multiorgan dysfunction I provided critical care services requiring my management, as noted below: Chart data review, documentation time, medication orders and management, vital sign assessments/reviewing monitor data, ordering and reviewing lab tests, ordering and interpreting/reviewing x-rays and diagnostic studies, care of the patient and discussion of the patient with the admitting physicians. Medical Decision Making MDM Narrative Medical decision making narrative: Vital signs reviewed. CBC is remarkable for hemoglobin 5.2, hematocrit 13.8. CMP is essentially unremarkable aside from a T bili of 1.5. Chest x-ray shows no acute disease. Bilateral lower extremity venous duplex is negative for DVT. The patient was made aware of all findings. Again I reviewed her chart and previous hematology/oncology consult notes from her admission in October 2017 during which time she required blood transfusion and steroids to treat her autoimmune hemolytic anemia. Given severity of her anemia today, I will proceed with the same treatment plan. I have notified the blood bank that the patient may have significant antibodies given history of several blood transfusions. Patient will be given pain medication. She was made aware of all findings. I discussed the case with hospitalist Dr. Castellanos who will admit the patient to her service. Medical Screen Exam Complete: Yes Emergency Medical Condition: Yes Lab Data Result diagrams: 05/20/18 03:08 05/20/18 03:08 POC Results POC Urine Results Negative Lab Results 05/20/18 05/20/18 05/20/18 Range/Units 03:08 03:08 03:08 WBC 4.3 (4.0-11.0) th/mm3 RBC 1.12 L (4.00-5.30) mil/mm3 Hgb 5.2 L* (11.6-15.3) gm/dL Hct 13.8 L* (35.0-46.0) % MCV 123.2 H (80.0-100.0) fL MCH 46.6 H (27.0-34.0) pg MCHC 37.9 H (32.0-36.0) % RDW 15.7 (11.6-17.2) % Plt Count 125 L (150-450) th/mm3 MPV 10.6 (7.0-11.0) fL Prelim Diff (Auto) Slide review pending Neut % (Auto) 63.9 (16.0-70.0) % Lymph % (Auto) 25.5 (9.0-44.0) % Waller % (Auto) 8.4 H (0.0-8.0) % Eos % (Auto) 1.1 (0.0-4.0) % Baso % (Auto) 1.1 (0.0-2.0) % Neut # (Auto) 2.7 (1.8-7.7) th/mm3 Lymph # (Auto) 1.1 (1.0-4.8) th/mm3 Waller # (Auto) 0.4 (0.0-0.9) th/mm3 Eos # (Auto) 0.0 (0.0-0.4) th/mm3 Baso # (Auto) 0.0 (0.0-0.2) th/mm3 Differential Comment . PT 11.4 (9.8-11.6) sec INR 1.1 Ratio APTT 39.4 H (23.4-31.7) sec Sodium 145 (136-145) meq/L Potassium 3.3 L (3.5-5.1) meq/L Chloride 112 H (98-107) meq/L Carbon Dioxide 25.0 (21.0-32.0) meq/L Anion Gap 8 (5-15) meq/L BUN 13 (7-18) mg/dL Creatinine 0.56 (0.50-1.00) mg/dL Estimated GFR Greater than 89 (>89) mL/min Random Glucose 83 (74-106) mg/dL Calcium 8.8 (8.5-10.1) mg/dL Magnesium 2.2 (1.5-2.5) mg/dL Total Bilirubin 1.5 H (0.2-1.0) mg/dL AST 15 (15-37) U/L ALT 11 (10-53) U/L Alkaline Phosphatase 73 (45-117) U/L B-Natriuretic Peptide (0-100) pg/mL Total Protein 7.3 (6.4-8.2) g/dL Albumin 3.1 L (3.4-5.0) g/dL Lipase 79 (73-393) U/L 05/20/18 Range/Units 03:08 WBC (4.0-11.0) th/mm3 RBC (4.00-5.30) mil/mm3 Hgb (11.6-15.3) gm/dL Hct (35.0-46.0) % MCV (80.0-100.0) fL MCH (27.0-34.0) pg MCHC (32.0-36.0) % RDW (11.6-17.2) % Plt Count (150-450) th/mm3 MPV (7.0-11.0) fL Prelim Diff (Auto) Neut % (Auto) (16.0-70.0) % Lymph % (Auto) (9.0-44.0) % Waller % (Auto) (0.0-8.0) % Eos % (Auto) (0.0-4.0) % Baso % (Auto) (0.0-2.0) % Neut # (Auto) (1.8-7.7) th/mm3 Lymph # (Auto) (1.0-4.8) th/mm3 Waller # (Auto) (0.0-0.9) th/mm3 Eos # (Auto) (0.0-0.4) th/mm3 Baso # (Auto) (0.0-0.2) th/mm3 Differential Comment PT (9.8-11.6) sec INR Ratio APTT (23.4-31.7) sec Sodium (136-145) meq/L Potassium (3.5-5.1) meq/L Chloride (98-107) meq/L Carbon Dioxide (21.0-32.0) meq/L Anion Gap (5-15) meq/L BUN (7-18) mg/dL Creatinine (0.50-1.00) mg/dL Estimated GFR (>89) mL/min Random Glucose (74-106) mg/dL Calcium (8.5-10.1) mg/dL Magnesium (1.5-2.5) mg/dL Total Bilirubin (0.2-1.0) mg/dL AST (15-37) U/L ALT (10-53) U/L Alkaline Phosphatase (45-117) U/L B-Natriuretic Peptide 178 H (0-100) pg/mL Total Protein (6.4-8.2) g/dL Albumin (3.4-5.0) g/dL Lipase (73-393) U/L Imaging Data Radiologist's impression: Chest X-Ray 05/20/18 00:12 CONCLUSION: No acute cardiopulmonary disease. Venous Doppler Study 05/20/18 00:19 CONCLUSION: The study is negative for bilateral lower extremity deep venous thrombosis. Discharge Plan Discharge Disposition Patient Disposition: ED Admit(ED Internal Use Only) Discharge Condition Condition: Stable Discharge Order Discharge Orders: ED Use Only Admit Order (Routine); Ordered 05/20/18 Ordered By: Jose León Discharge Details Diagnosis: Severe anemia, Exacerbation of systemic lupus Physicians Team ED Provider: Jose León Primary Care Provider: Primary Care Lucinda Dover Attending Provider: Emy Castellanos Discharge Interventions Interventions: Vital Signs Last Done: 05/20/18 01:37 Status ED Status: Admitted Patient
[2018-05-20] MEDS ORDERED: Sodium Chlor 0.9% Inj 250 ML IV.SIG SCH (04:00)
[2018-05-20] MEDS ORDERED: Bisacodyl 10 MG Supp RECTAL PRN (04:23)
[2018-05-20 04:40] LABS: Platelet Estimate Normal (Normal); Platelet Morphology Normal (Normal)
[2018-05-20 04:44] LABS: Polychromasia 4.3 % (0.0-1.9); Rouleaux Present; Spherocytes 1+
--- NOTE | 2018-05-20 07:59 | P.CON ---
History of Present Illness Service: Hematology/oncology. Consult date: 05/20/18 Requesting Physician: Jose León Reason for Consult: Hemolytic anemia related to SLE. Primary Care Provider: No Primary Care Physician Chief Complaint: Joint pain and leg swelling. "I ran out of Plaquenil in February ". History of Present Illness: Ms. Atkinson is a 27-year-old female with a diagnosis of systemic lupus erythematosus, autoimmune hemolytic anemia and additional medical comorbid's outlined below. She moved from [facility] to [facility] at some point over the past 2 years. While in [place] she was followed at [facility] in [place] where she had a policewoman whom she met with every 2 weeks. She had been on treatment with Plaquenil and prednisone as needed. 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 Since moving down to [place] and being without insurance she is not been able to establish outpatient follow-up with a policewoman and has not been able to establish outpatient follow-up with a isotope technologist either. Her care has been delivered in the emergency department and at various area urgent cares. She tells me she usually gets her Plaquenil filled through urgent care or emergency department, her most recent refill/prescription ran out in February and she had been without management of her lupus ever since. She reports noticing flareup of joint pain over the past several weeks with worsening ankle pain, knee pain, shoulder pain and worsening pain in her hands. In addition to the pain she has had stiffness and swelling of the joints. She also has noticed increased fatigue but denies shortness of breath. She has noticed darkening of her urine. She denies fevers or chills. Hemoglobin was 5.2 g/dL on blood work performed overnight. She was last seen by me in October 2017 at [facility] when she came in with vaginal bleeding following a missed . Review of Systems Constitutional: Reports fatigue, Reports lack of energy, Reports malaise, Reports weakness, Denies fever(s) Eyes: Denies change in vision, Denies double vision Ears, Nose, Mouth, and Throat: Denies abnormal hearing, Denies change in voice, Denies sinus pain, Denies sinus pressure, Denies throat swelling Cardiovascular: Reports fast heart rate, Reports shortness of breath with activity, Denies chest pain, Denies chest pain with activity, Denies excessive sweating, Denies fainting, Denies shortness of breath when lying down, Denies shortness of breath causing sudden awakening Respiratory: Reports shortness of breath with activity, Denies cough, Denies coughing up blood Gastrointestinal: Denies abdominal pain, Denies black, tarry stools, Denies bright, red blood in stools, Denies change in bowel habits, Denies pain with swallowing, Denies vomiting, Denies vomiting blood Genitourinary: Denies abnormal periods Musculoskeletal: Reports abnormal walking, Reports back pain, Reports body aches , Reports joint pain, Reports joint swelling, Reports stiffness Skin/Breast: Reports rash, Denies bleeding lesions, Denies breast pain Neurologic: Denies abnormal speech, Denies tremor(s) Psychiatric: Reports anxiety Endocrine: Denies cold intolerance Hematologic/Lymphatic: Denies easy bleeding Allergic/Immunologic: Denies GI upset with certain foods PMFSH - History History Provided By: Patient - Medical History Medical History: Medical History (Last Reviewed 05/20/18 @ 07:52 by Oh Cardona MD) 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 Hemolytic anemia History of MRSA infection Lupus - Surgical History Surgical History: Surgical History (Last Reviewed 05/20/18 @ 07:52 by Oh Cardona MD) H/O: History of lumpectomy Hx of cholecystectomy - Family History Family History: Family History (Last Reviewed 05/20/18 @ 07:52 by Oh Cardona MD) Other Lupus - Social History I have reviewed the patient's Social History: Yes - Tobacco History Second Hand Smoke Exposure: No Smoking Status: Never smoker - Alcohol History How Often Do You Have a Drink Containing Alcohol: 2 to 4 times a month - Substance Use History Substance History: No History of Abuse - Travel History Recent Travel in the USA Within the Last 8 Weeks: No Recent Travel Out of the Country Within the Last 8 Weeks: No - Immunization History Tetanus Immunization: Unsure Medications and Allergies Active Medications: Active Medications Acetaminophen (Tylenol) 650 mg PO Q4H PRN PRN Reason: Temp > 100.4 Al Hydroxide/Mg Hydroxide (Milk Of Magnesia Liq) 30 ml PO Q12H PRN PRN Reason: Mild Constipation Bisacodyl (Dulcolax Supp) 10 mg RECTAL DAILY PRN PRN Reason: SEVERE CONSITIPATION Sodium Chloride (Ns Inj) 250 mls @ 15 mls/hr IV.SIG ONCE MAGNO Stop: 05/20/18 20:39 Lactulose (Lactulose Liq) 30 ml PO DAILY PRN PRN Reason: SEVERE CONSITIPATION Methylprednisolone Sodium Succinate (Solumedrol Inj) 40 mg IV.PUSH Q6H MAGNO Ondansetron HCl (Zofran Inj) 4 mg IV.PUSH Q6H PRN PRN Reason: NAUSEA OR VOMITING Senna/Docusate Sodium (Yolanda-Colace) 1 tab PO BID MAGNO Sennosides (Senokot) 17.2 mg PO Q12H PRN PRN Reason: Moderate Constipation Sodium Chloride (Ns Flush) 2 ml IV.FLUSH PRN PRN PRN Reason: FLUSH AFTER USING IV ACCESS Sodium Chloride (Ns Flush) 2 ml IV.FLUSH BID MAGNO Sodium Chloride (Ns Flush) 2 ml IV.FLUSH PRN PRN PRN Reason: FLUSH AFTER USING IV ACCESS Allergies Allergy/AdvReac Type Severity Reaction Status Date / Time ceftriaxone Allergy Severe Hives Verified 11/20/17 16:41 Home Medications Medication Instructions Recorded Confirmed Type No Known Home Medications 05/20/18 05/20/18 History Physical Exam Vital signs: Vital Signs 05/19/18 21:13 05/20/18 06:00 Temperature 98.4 F Pulse Rate 103 H 99 H Respiratory Rate 16 17 Blood Pressure 143/73 H 127/71 Pulse Oximetry 100 98 Intake & Output 05/19/18 05/20/18 05/20/18 18:59 06:59 18:59 Weight 95.254 kg Narrative: General physical appearance: Patient is a young female, she appears to be pale, she is not acutely distressed, she is awake, alert and oriented x3. HEENT: Head atraumatic normal cephalic, conjunctivae are pale sclerae anicteric. Oral exam: No pharyngeal erythema. Neck exam no palpable cervical lymphadenopathy. Respiratory exam: Good air movement bilaterally not breath sounds. Cardiovascular: Regular rate and rhythm, S1-S2 no obvious murmurs rubs gallops. Abdominal exam: Obese belly, soft nontender nondistended palpable organ enlargement. Lower extremities: Bilateral pretibial edema no calf tenderness. Muscular skeletal: Swelling of the hands, tenderness of the knuckles on palpation. She also reports tenderness of the ankles on palpation. Skin: Pale, rash on the extensor surface of the right forearm. 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 Psychiatric: Awake, alert, oriented, understands our conversations of today. Mood and disposition are appropriate. Results - Labs CBC & Chem 7: 05/20/18 03:08 05/20/18 03:08 Labs: Laboratory Results - last 24 hr 05/20/18 05/20/18 05/20/18 03:08 03:08 03:08 WBC 4.3 RBC 1.12 L Hgb 5.2 L* Hct 13.8 L* MCV 123.2 H MCH 46.6 H MCHC 37.9 H RDW 15.7 Plt Count 125 L MPV 10.6 Prelim Diff (Auto) Slide review pending Neut % (Auto) 63.9 Lymph % (Auto) 25.5 Page % (Auto) 8.4 H Eos % (Auto) 1.1 Baso % (Auto) 1.1 Neut # (Auto) 2.7 Lymph # (Auto) 1.1 Page # (Auto) 0.4 Eos # (Auto) 0.0 Baso # (Auto) 0.0 WBC Differential . Diff Scan Auto diff confirmed Differential Comment . Platelet Estimate Normal Platelet Morphology Normal Polychromasia 4.3 H Spherocytes 1+ H Rouleaux Present H PT 11.4 INR 1.1 APTT 39.4 H Sodium 145 Potassium 3.3 L Chloride 112 H Carbon Dioxide 25.0 Anion Gap 8 BUN 13 Creatinine 0.56 Estimated GFR Greater than 89 Random Glucose 83 Calcium 8.8 Magnesium 2.2 Total Bilirubin 1.5 H AST 15 ALT 11 Alkaline Phosphatase 73 B-Natriuretic Peptide Total Protein 7.3 Albumin 3.1 L Lipase 79 Blood Type Blood Type Recheck Antibody Screen 05/20/18 05/20/18 03:08 03:55 WBC RBC Hgb Hct MCV MCH MCHC RDW Plt Count MPV Prelim Diff (Auto) Neut % (Auto) Lymph % (Auto) Page % (Auto) Eos % (Auto) Baso % (Auto) Neut # (Auto) Lymph # (Auto) Page # (Auto) Eos # (Auto) Baso # (Auto) WBC Differential Diff Scan Differential Comment Platelet Estimate Platelet Morphology Polychromasia Spherocytes Rouleaux PT INR APTT Sodium Potassium Chloride Carbon Dioxide Anion Gap BUN Creatinine Estimated GFR Random Glucose Calcium Magnesium Total Bilirubin AST ALT Alkaline Phosphatase B-Natriuretic Peptide 178 H Total Protein Albumin Lipase Blood Type O Positive Blood Type Recheck Not needed Antibody Screen Positive H - Imaging Impressions Chest X-Ray 05/20/18 00:12 CONCLUSION: No acute cardiopulmonary disease. Venous Doppler Study 05/20/18 00:19 CONCLUSION: The study is negative for bilateral lower extremity deep venous thrombosis. Assessment and Plan - Plan Ms. Manzanares is a 27-year-old female with a diagnosis of systemic lupus erythematosus and autoimmune hemolytic anemia. She has unfortunately not had the appropriate outpatient care with rheumatology and/or hematology due to lack of insurance. She has received most of her care in emergency departments and urgent care clinics since she moved down from [facility] in 2017. She is supposed to be on Plaquenil 400 mg once a day for management of lupus and low-dose prednisone in the outpatient setting. She reports having run out of her Plaquenil in February 2018. She comes in with joint pain, joint swelling and leg swelling. She was noted to also have hemolytic anemia with a hemoglobin of 5.2 g/dL. I am not certain how far off her current hemoglobin is from her baseline. I would like to add whenever I have seen her in the hospital she has had significant anemia. At today's visit she denies significant difficulty breathing, she denies palpitations she denies dizziness. She does report fatigue. Recommendations: 1. Autoimmune hemolytic anemia: Agree with stress dose corticosteroids. I would advise transitioning her to prednisone at a dose of 60 mg once daily for at least 2 weeks followed by a 10 mg taper every 7 days down to when she reaches 5 mg a day which will be her baseline dosing. I am not convinced she requires a red cell transfusion at this time. Because of the numerous auto antibodies she has to red blood cells it is extremely difficult to find her a reasonable match unit of red blood cells. As has been my previous experience with this patient every time she is transfused a red cell unit is usually matched to the best of our blood bank stability however she has never been able to receive a perfectly matched unit. I therefore would avoid a red cell transfusion unless it is emergently necessary or absolutely needed for cardiopulmonary compromise. I anticipate her red blood cell count to improve with corticosteroids alone. I think her hospitalization was triggered more by a lack of her having access to her outpatient medications i.e. Plaquenil which resulted in a flareup of her lupus. I talked to the patient about her inability to access health care in [place] due to our lack of safety net medical specialties and medical coverage for underinsured people. I talked to her about her moving back to [place] where she had relatively easier access to well class rheumatology care i.e. at [facility]. I would advise she be discharged home on Plaquenil with plenty of refills.
--- NOTE | 2018-05-20 08:46 | P.HPIM ---
History of Present Illness Primary Care Physician: No Primary Care Physician Inpatient Certification Inpatient Certification: I certify that the inpatient services were ordered in accordance with Medicare regulations governing the order. 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 (Acute) Hemolytic anemia (Acute) History of MRSA infection (Acute) Lupus (Acute) Surgical History Surgical History H/O: (Acute) History of lumpectomy (Acute) Hx of cholecystectomy (Acute) Social History Social History Substance History: No History of Abuse Second Hand Smoke Exposure: No Smoking Status: Never smoker How Often Do You Have a Drink Containing Alcohol: 2 to 4 times a month Recent Travel in [place] within the Last 8 Weeks: No Recent Out of Country Travel within the Last 8 Weeks: No Immunization History Tetanus Immunization: Unsure Medications and Allergies Allergies Allergy/AdvReac Type Severity Reaction Status Date / Time ceftriaxone Allergy Severe Hives Verified 11/20/17 16:41 Home Medications Medication Instructions Recorded Confirmed Type No Known Home Medications 05/20/18 05/20/18 History Active Medications: Active Medications Acetaminophen (Tylenol) 650 mg PO Q4H PRN PRN Reason: Temp > 100.4 Al Hydroxide/Mg Hydroxide (Milk Of Magnesia Liq) 30 ml PO Q12H PRN PRN Reason: Mild Constipation Bisacodyl (Dulcolax Supp) 10 mg RECTAL DAILY PRN PRN Reason: SEVERE CONSITIPATION Sodium Chloride (Ns Inj) 250 mls @ 15 mls/hr IV.SIG ONCE MAGNO Stop: 05/20/18 20:39 Lactulose (Lactulose Liq) 30 ml PO DAILY PRN PRN Reason: SEVERE CONSITIPATION Methylprednisolone Sodium Succinate (Solumedrol Inj) 40 mg IV.PUSH Q6H MAGNO Ondansetron HCl (Zofran Inj) 4 mg IV.PUSH Q6H PRN PRN Reason: NAUSEA OR VOMITING Senna/Docusate Sodium (Yolanda-Colace) 1 tab PO BID MAGNO Sennosides (Senokot) 17.2 mg PO Q12H PRN PRN Reason: Moderate Constipation Sodium Chloride (Ns Flush) 2 ml IV.FLUSH PRN PRN PRN Reason: FLUSH AFTER USING IV ACCESS Sodium Chloride (Ns Flush) 2 ml IV.FLUSH BID MAGNO Sodium Chloride (Ns Flush) 2 ml IV.FLUSH PRN PRN PRN Reason: FLUSH AFTER USING IV ACCESS Physical Exam Vital signs: Vital Signs 05/19/18 21:13 05/20/18 06:00 05/20/18 08:00 Temperature 98.4 F 99.1 F Pulse Rate 103 H 99 H 98 H Respiratory Rate 16 17 16 Blood Pressure 143/73 H 127/71 126/65 Pulse Oximetry 100 98 100 Intake & Output 05/19/18 05/20/18 05/20/18 18:59 06:59 18:59 Weight 95.254 kg Results Labs CBC & Chem 7: 05/20/18 03:08 05/20/18 03:08 Imaging Impressions Chest X-Ray 05/20/18 00:12 CONCLUSION: No acute cardiopulmonary disease. Venous Doppler Study 05/20/18 00:19 CONCLUSION: The study is negative for bilateral lower extremity deep venous thrombosis. Caprini VTE Risk Assessment Caprini Risk Assessment Model: Point Value = 1 Point Value = 2 Point Value = 3 Point Value = 5 Age 41-60 Minor surgery BMI > 25 kg/m2 Swollen legs Varicose veins or History of unexplained or recurrent spontaneous Oral contraceptives or hormone replacement Sepsis (< 1 month) Serious lung disease, including pneumonia (< 1 month) Abnormal pulmonary function Acute myocardial infarction Congestive heart failure (< 1 month) History of inflammatory bowel disease Medical patient at bed rest Age 61-74 Arthroscopic surgery Major open surgery (> 45 min) Laparoscopic surgery (> 45 min) Malignancy Confined to bed (> 72 hours) Immobilizing plaster cast Central venous access Age >= 75 History of VTE Family history of VTE Factor V Leiden Prothrombin [id number] Lupus anticoagulant Anticardiolipin antibodies Elevated serum homocysteine Heparin-induced thrombocytopenia Other congenital or acquired thrombophilia Stroke (< 1 month) Elective arthroplasty Hip, pelvis, or leg fracture Acute spinal cord injury (< 1 month) Prophylaxis Regimen: Total Risk Factor Score Risk Level Prophylaxis Regimen 0-1 Low Early ambulation 2 Moderate Order ONE of the following: *Sequential Compression Device (SCD) *Heparin 5000 units SQ BID 3-4 Higher Order ONE of the following medications: *Heparin 5000 units SQ TID *Enoxaparin/Lovenox 40 mg SQ daily (WT < 150 kg, CrCl > 30 mL/min) *Enoxaparin/Lovenox 30 mg SQ daily (WT < 150 kg, CrCl > 10-29 mL/min) *Enoxaparin/Lovenox 30 mg SQ BID (WT < 150 kg, CrCl > 30 mL/min) AND/OR *Sequential Compression Device (SCD) 5 or more Highest Order ONE of the following medications: *Heparin 5000 units SQ TID (Preferred with Epidurals) *Enoxaparin/Lovenox 40 mg SQ daily (WT < 150 kg, CrCl > 30 mL/min) *Enoxaparin/Lovenox 30 mg SQ daily (WT < 150 kg, CrCl > 10-29 mL/min) *Enoxaparin/Lovenox 30 mg SQ BID (WT < 150 kg, CrCl > 30 mL/min) AND *Sequential Compression Device (SCD)
[2018-05-20] MEDS: Senna/Docusate Sodium 8.6/50 MG Tablet PO SCH ×2 (09:27→21:37)
--- NOTE | 2018-05-20 09:53 | P.HPIM ---
History of Present Illness Primary Care Physician: No Primary Care Physician Chief Complaint: Joint pain and leg swelling. "I ran out of [facility] in February ". History of Present Illness: 27 yo female with history of SLE with AIHA presents with several days of diffuse joint pain, swelling, and low-grade fever. These symptoms progressively worsened to severe intensity, prompting her to seek emergency care. This feels similar to her previous lupus flares. Mild SOB. Mild nausea yesterday which resolved, had one episode of loose stool as well. No sick contacts, no recent travel. [facility] of [facility] in February. 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 - Diagnosis (1) Autoimmune hemolytic anemia (2) Exacerbation of systemic lupus Inpatient Certification: I certify that the inpatient services were ordered in accordance with Medicare regulations governing the order. This includes certification that hospital inpatient services are reasonable and necessary and in the case of services not specified as inpatient-only under 42 CFR 419.22(n), that they are appropriately provided as inpatient services in accordance to with the 2-midnight benchmark under 43 CFR 412.3(e) Estimated Total Length of Stay (Days): 3 Plans for Post Hospital Care: Home Review of Systems Constitutional: Reports body ache(s), Reports fever(s), Reports lack of energy, Reports malaise, Denies chills Eyes: Denies change in vision Ears, Nose, Mouth, and Throat: Denies abnormal hearing Cardiovascular: Denies chest pain Respiratory: Reports shortness of breath (mild, essentially asymptomatic at rest ), Reports shortness of breath with activity, Denies cough Gastrointestinal: Reports loose stools, Reports nausea, Denies abdominal pain, Denies black, tarry stools, Denies bright, red blood in stools, Denies heartburn , Denies vomiting Musculoskeletal: Reports body aches, Reports joint pain, Reports joint swelling , Denies muscle weakness Skin/Breast: Denies rash Neurologic: Denies abnormal speech Psychiatric: Denies anxiety, Denies depression [facility] - History History Provided By: Patient - Medical History Medical History: Medical History (Last Reviewed 05/20/18 @ 09:35 by Umang Ge MD, R3) 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 Hemolytic anemia History of MRSA infection Lupus - Surgical History Surgical History: Surgical History (Last Reviewed 05/20/18 @ 07:52 by Oh Cardona MD) H/O: History of lumpectomy Hx of cholecystectomy - Family History Family History: Family History (Last Reviewed 05/20/18 @ 07:52 by Oh Cardona MD) Other Lupus - Social History I have reviewed the patient's Social History: Yes - Tobacco History Second Hand Smoke Exposure: No Tobacco Use In Past 30 Days: No Smoking Status: Never smoker - Alcohol History How Often Do You Have a Drink Containing Alcohol: 2 to 4 times a month - Substance Use History Substance History: No History of Abuse - Travel History History of Recent Travel: No Recent Travel in the [place] Within the Last 8 Weeks: No Recent Travel Out of the Country Within the Last 8 Weeks: No - Immunization History Tetanus Immunization: Unsure Medications and Allergies Allergies Allergy/AdvReac Type Severity Reaction Status Date / Time ceftriaxone Allergy Severe Hives Verified 11/20/17 16:41 Home Medications Medication Instructions Recorded Confirmed Type No Known Home Medications 05/20/18 05/20/18 History Active Medications: Active Medications Acetaminophen (Tylenol) 650 mg PO Q4H PRN PRN Reason: Temp > 100.4 Al Hydroxide/Mg Hydroxide (Milk Of Magnesia Liq) 30 ml PO Q12H PRN PRN Reason: Mild Constipation Bisacodyl (Dulcolax Supp) 10 mg RECTAL DAILY PRN PRN Reason: SEVERE CONSITIPATION Sodium Chloride (Ns Inj) 250 mls @ 15 mls/hr IV.SIG ONCE [facility] Stop: 05/20/18 20:39 Lactulose (Lactulose Liq) 30 ml PO DAILY PRN PRN Reason: SEVERE CONSITIPATION Methylprednisolone Sodium Succinate (Solumedrol Inj) 40 mg IV.PUSH Q6H [facility] Ondansetron HCl (Zofran Inj) 4 mg IV.PUSH Q6H PRN PRN Reason: NAUSEA OR VOMITING Senna/Docusate Sodium (Yolanda-Colace) 1 tab PO BID [facility] Last Admin: 05/20/18 09:27 Dose: 1 tab Sennosides (Senokot) 17.2 mg PO Q12H PRN PRN Reason: Moderate Constipation Sodium Chloride (Ns Flush) 2 ml IV.FLUSH PRN PRN PRN Reason: FLUSH AFTER USING IV ACCESS Sodium Chloride (Ns Flush) 2 ml IV.FLUSH BID [facility] Last Admin: 05/20/18 09:26 Dose: 2 ml Sodium Chloride (Ns Flush) 2 ml IV.FLUSH PRN PRN PRN Reason: FLUSH AFTER USING IV ACCESS Physical Exam Vital signs: Vital Signs 05/19/18 21:13 05/20/18 06:00 05/20/18 08:00 Temperature 98.4 F 99.1 F Pulse Rate 103 H 99 H 98 H Respiratory Rate 16 17 16 Blood Pressure 143/73 H 127/71 126/65 Pulse Oximetry 100 98 100 Intake & Output 05/19/18 05/20/18 05/20/18 18:59 06:59 18:59 Weight 95.254 kg Narrative: Gen: Young adult female sitting up in bed appearing fatigued, NAD Head: NC/AT Eyes: Conjunctiva/sclera clear, no discharge, no pallor. PERRL. ENT: MMM, OP without erythema or exudate, dentition normal. Nares patent with normal mucosa. Neck: Supple, no masses. Resp: Normal rate and effort. Lungs CTAB, no crackles or wheezes. CV: NRRR, normal S1/S2, no MRG Abd: Soft, non-distended, minimally tender to palpation diffusely. MSK: Normal movement of all extremities. Non-pitting edema of BLE up to mid bates. Tenderness at several joints including bilateral knees and elbows. Skin: Clear with no rash. No erythema of joints. Neuro: Awake and alert. Cranial nerves grossly intact. Normal speech. Psych: Normal mood and affect. Results - Labs CBC & Chem 7: 05/20/18 03:08 05/20/18 03:08 Labs: Short CBC 05/20/18 Range/Units 03:08 WBC 4.3 (4.0-11.0) th/mm3 Hgb 5.2 L* (11.6-15.3) gm/dL Hct 13.8 L* (35.0-46.0) % Plt Count 125 L (150-450) th/mm3 BMP 05/20/18 03:08 Sodium 145 Potassium 3.3 L Chloride 112 H Carbon Dioxide 25.0 BUN 13 Creatinine 0.56 Calcium 8.8 Liver Function 05/20/18 Range/Units 03:08 Total Bilirubin 1.5 H (0.2-1.0) mg/dL AST 15 (15-37) U/L ALT 11 (10-53) U/L Alkaline Phosphatase 73 (45-117) U/L Albumin 3.1 L (3.4-5.0) g/dL - Imaging Impressions Chest X-Ray 05/20/18 00:12 CONCLUSION: No acute cardiopulmonary disease. Venous Doppler Study 05/20/18 00:19 CONCLUSION: The study is negative for bilateral lower extremity deep venous thrombosis. Caprini VTE Risk Assessment Caprini VTE Risk Assessment: No/Low Risk (score <= 1) Assessment and Plan - Assessment (1) Autoimmune hemolytic anemia Code(s): D59.1 - Other autoimmune hemolytic anemias Status: Chronic (2) Exacerbation of systemic lupus Code(s): M32.9 - Systemic lupus erythematosus, unspecified Status: Acute - Plan 27 yo female with SLE, AIHA presents with: 1. Exacerbation of SLE * Stress dose corticosteroid: Solu-medrol 60 mg IV Q6H * Manage AIHA as below * Steroid taper per hematology as noted below 2. AIHA Hemoglobin 5.2, baseline uncertain Antibody screen positive LDH, haptoglobin pending * Consulted hematology, appreciate recs * Advise transitioning her to prednisone at a dose of 60 mg once daily for at least 2 weeks followed by a 10 mg taper every 7 days down to when she reaches 5 mg a day which will be her baseline dosing. * No transfusion at this time due to numerous autoantibodies making crossmatching difficult * Anticipate her red blood cell count to improve with corticosteroids alone * Monitor CBC daily Diet: Regular Fluids: not indicated at this time DVT: Low-risk patient due to age, no known lupus anticoagulant GI: Pepcid or PPI (due to steroid at stress doses) Code status: FULL CODE Dispo: Anticipate discharge home in 2-3 days - Attending Attestation The exam, history, and the medical decision-making described in the above note were completed with the assistance of the resident physician. I reviewed and agree with the findings presented. I attest that I had a [id number] encounter with the patient on the same day, and personally performed and documented my assessment and findings in the medical record. Patient seen and examined. She has lupus and autoimmune hemolytic anemia. The patient has been out of her regular medications. She really uses the emergency room in urgent care as her PCP. On exam: This is a well-nourished, well-developed patient, in no apparent distress. CARDIOVASCULAR: Normal rate and regular rhythm without murmurs, gallops, or rubs. RESPIRATORY: Good respiratory efforts. Breath sounds equal and clear to auscultation bilaterally. GASTROINTESTINAL: Abdomen soft, non-tender, non-distended. Normal active bowel sounds MUSCULOSKELETAL: Patient complains of tenderness to palpation over bilateral upper and lower extremity joints. Passive range of motion is okay. NEURO: Alert & Oriented x4 to person, place, time, situation. Moves all ext x4 PSYCH: Appropriate mood and affect. Patient with exacerbation of SLE and autoimmune hemolytic anemia. Appreciate input from hematology. She is fairly young with no significant symptoms of anemia. Agree to hold off on blood transfusion per hematology recommendations. Stress dose steroids. Follow-up labs and symptoms. Plan detailed above.
[2018-05-20] MEDS: Acetaminophen 325 MG Tablet PO PRN ×2 (10:44→21:37)
[2018-05-20 11:18] LABS: Lactate Dehydrogenase 258 U/L (84-246)
[2018-05-20] MEDS: MethylPREDNISolone Sod Succinate Inj 40 MG/ML Vial IV.PUSH SCH ×2 (11:45→19:14)
--- NOTE | 2018-05-20 22:46 | ECG ---
Date Performed: 05/20/2018 Time Performed: 00:21:25 PTAGE: 27 years EKG: Sinus rhythm NORMAL ECG PREVIOUS TRACING : 02/01/2015 09.05 DOCTOR: Gal Narayan Interpretating Date/Time 05/20/2018 22:44:07
[2018-05-21] MEDS: MethylPREDNISolone Sod Succinate Inj 40 MG/ML Vial IV.PUSH SCH ×3 (00:17→12:50)
[2018-05-21 05:12] LABS: Bacteria,Urine Occasional /hpf; Bilirubin,Urine Negative (Negative); Clarity,Urine Hazy (Clear); Color,Urine Yellow (Yellw/Straw); Glucose,Urine (UA) Negative (Negative); Hyaline Casts,Urine 1 /lpf (0-3); Leukocyte Esterase,Urine Negative (Negative); Nitrite,Urine Negative (Negative); Specific Gravity,Urine 1.013 (1.002-1.035); Squamous Epithelial Cell,Urine 6 /hpf (0-5)
--- NOTE | 2018-05-21 11:21 | P.PNIM ---
Subjective Interval history: 27 yo female with SLE and AIHA admitted for lupus flare. This morning feels much better, joint pain way less. No CP/SOB. Still a bit swollen. Physical Exam Vital signs: Vital Signs 05/20/18 16:25 05/20/18 19:45 05/21/18 00:15 Temperature 98.2 F 98.4 F 98.7 F Pulse Rate 89 91 H 89 Respiratory Rate 18 18 20 Blood Pressure 140/93 H 151/84 H 139/82 05/21/18 04:45 Temperature 97.7 F Pulse Rate 84 Respiratory Rate 18 Blood Pressure 142/89 H Intake & Output 05/20/18 05/21/18 05/21/18 18:59 06:59 18:59 Intake Total 700 / 700 400 / 400 Balance 700 / 700 400 / 400 Intake: Oral 700 / 700 400 / 400 Other: # Voids 2 2 Narrative: Gen: Young adult female sitting up in bed appearing well, NAD ENT: MMM Resp: Normal rate and effort. Lungs CTAB, no crackles or wheezes. CV: NRRR, normal S1/S2, no MRG MSK: Normal movement of all extremities. Non-pitting edema of BLE up to mid bates. No tenderness to palpation of bones or joints. Skin: Clear with no rash. No erythema of joints. Neuro: Awake and alert. Cranial nerves grossly intact. Normal speech. Psych: Normal mood and affect. Results - Labs CBC & Chem 7: 05/21/18 11:46 05/20/18 03:08 Laboratory Results - last 24 hr 05/20/18 05/20/18 05/20/18 03:08 03:55 03:55 Haptoglobin Less than 10 L Lactate Dehydrogenase 258 H Urine Color Urine Clarity Urine pH Ur Specific [employer] Urine Protein Urine Glucose (UA) Urine Ketones Urine Occult Blood Urine Nitrate Urine Bilirubin Urine Urobilinogen Ur Leukocyte Esterase Urine RBC Urine WBC Ur Squamous Epith Cells Urine Bacteria Hyaline Casts Urine Yeast Micro UA Comment Ur Microscopic Review Urine Culture Comments Direct Antiglob Test Cancelled Crossmatch Prewarmed See Detail Bld Prod Order Comment 05/20/18 04:50 Haptoglobin Lactate Dehydrogenase Urine Color Yellow Urine Clarity Hazy H Urine pH 7.0 Ur Specific [employer] 1.013 Urine Protein 100 H Urine Glucose (UA) Negative Urine Ketones Negative Urine Occult Blood Moderate H Urine Nitrate Negative Urine Bilirubin Negative Urine Urobilinogen Less than 2 Ur Leukocyte Esterase Negative Urine RBC 4 H Urine WBC 3 Ur Squamous Epith Cells 6 Urine Bacteria Occasional H Hyaline Casts 1 Urine Yeast Few H Micro UA Comment Culture not ind Ur Microscopic Review Not Reportable Urine Culture Comments Culture not ind Direct Antiglob Test Crossmatch Prewarmed Bld Prod Order Comment Assessment and Plan - Assessment (1) Autoimmune hemolytic anemia Code(s): D59.1 - Other autoimmune hemolytic anemias Status: Chronic (2) Exacerbation of systemic lupus Code(s): M32.9 - Systemic lupus erythematosus, unspecified Status: Acute - Plan 27 yo female with SLE, AIHA presents with: 1. Exacerbation of SLE Improved, stable for discharge today * Manage AIHA as below * Steroid taper per hematology as noted below * Resume Plaquenil 400 mg daily on discharge 2. AIHA Hemoglobin 5.2, baseline uncertain, but asymptomatic so likely this is near her usual and she is well compensated. Antibody screen positive LDH, haptoglobin suggestive of hemolysis * Consulted hematology, appreciate recs * Advise transitioning her to prednisone at a dose of 60 mg once daily for at least 2 weeks followed by a 10 mg taper every 7 days down to when she reaches 5 mg a day which will be her baseline dosing. * No transfusion at this time due to numerous autoantibodies making crossmatching difficult * Anticipate her red blood cell count to improve with corticosteroids alone Dispo: Home today with steroid taper and Plaquenil Discharge Planning: Discharge patient to home Condition on discharge: Improved Regular Diet as tolerated Ad Carissa activity Rx written:Per med rec Follow-up with primary care physician - Attending Attestation The exam, history, and the medical decision-making described in the above note were completed with the assistance of the resident physician. I reviewed and agree with the findings presented. I attest that I had a [id number] encounter with the patient on the same day, and personally performed and documented my assessment and findings in the medical record. Patient reports she is feeling much better today. CARDIOVASCULAR: Normal rate and regular rhythm without murmurs, gallops, or rubs. RESPIRATORY: Good respiratory efforts. Breath sounds equal and clear to auscultation bilaterally. GASTROINTESTINAL: Abdomen soft, non-tender, non-distended. Normal active bowel sounds Patient with exacerbation of SLE and autoimmune hemolytic anemia. Appreciate input from hematology. She is fairly young with no significant symptoms of anemia. Agree to hold off on blood transfusion per hematology recommendations. Stress dose steroids. Continue Steroid taper outpatient. Repeat labs improved. She can be discharged home. I discussed with the patient and her mother at bedside the need to follow-up outpatient. Case management consulted to assist him with medications.
--- NOTE | 2018-05-21 12:20 | CT ---
EXAM DATE: 05/21/2018 12:14 PM EST AGE/SEX: 27 years / Female INDICATIONS: New onset of lower back pain. Swollen extremities and bilateral foot pain. CLINICAL DATA: This is the patient's initial encounter. Patient reports that signs and symptoms have been present for 2 weeks and indicates a pain score of 7/10. MEDICAL/SURGICAL HISTORY: Lupus. section. Cholecystectomy. RADIATION DOSE: 35.86 CTDI (mGy) COMPARISON: No prior exams available for comparison. TECHNIQUE: Contiguous axial images were acquired with a multirow detector CT scanner without contras t. Multiplanar reconstructions in the sagittal and coronal plane were also performed. Using automate d exposure control and adjustment of the mA and/or kV according to patient size, radiation dose was k ept as low as reasonably achievable to obtain optimal diagnostic quality images. DICOM format image data is available electronically for review and comparison. FINDINGS: No acute fracture is identified. There is a Schmorl's node superior endplate of T12. Premature degene rative changes present at the thoracolumbar junction with osteophyte formation. No canal stenosis. No discrete disc protrusions. CONCLUSION: 1. Small node superior endplate T12 with premature degenerative changes in the lower thoracic spine. No acute bony abnormalities in the lumbar spine. No canal or foraminal stenosis. Electronically signed by: Trenton Bauer MD Board Certified Radiologist 05/21/2018 12:19 PM EST
[2018-05-21] MEDS: Senna/Docusate Sodium 8.6/50 MG Tablet PO SCH (12:50)
[2018-05-21 13:02] LABS: Baso % (Auto) 0.1 % (0.0-2.0); Lymph # (Auto) 1.3 th/mm3 (1.0-4.8); Lymph % (Auto) 19.4 % (9.0-44.0); Mean Corpuscular HGB Conc 35.3 % (32.0-36.0); Mean Corpuscular Volume 113.2 fL (80.0-100.0); Mean Platelet Volume 10.9 fL (7.0-11.0); Mono # (Auto) 0.5 th/mm3 (0.0-0.9); Mono % (Auto) 7.1 % (0.0-8.0); Neut # (Auto) 4.8 th/mm3 (1.8-7.7); Neut % (Auto) 73.4 % (16.0-70.0); Platelet Count 114 th/mm3 (150-450); Red Blood Count 1.33 mil/mm3 (4.00-5.30); Red Cell Distribution Width 15.5 % (11.6-17.2); White Blood Count 6.6 th/mm3 (4.0-11.0)
[2018-05-21 13:06] LABS: Hematocrit 15.1 % (35.0-46.0); Hemoglobin 5.3 gm/dL (11.6-15.3)
[2018-05-21 13:27] VITALS: BP 143/94
[2018-05-21 14:13] VITALS: PULSE 84; RESP 16; TEMP 97.8; O2SAT 100
== END 2018-05-21 15:50 | disposition home or self-care (01) | DRG 546 ==
LOC: NEPK 20:30 → NEDA 05-20 03:56 → NEDH 05-20 07:15 → H6YA 05-20 10:17
PROVIDERS: ADMIT Family Medicine; ATTEND Family Medicine
CPT/HCPCS: 71020; 71046; 72131; 80053; 81001; 83010; 83520; 83615; 83690; 83735; 83880; 84703; 85025; 85610; 85730; 86850; 86880; 86900; 86901; 86902; 86922; 93005; 93970; 99285; J2270; J2920; J2930